=== PATIENT | female | born 1950 | race Caucasian/White ===

== ENCOUNTER 2021-12-13 07:55 | Outpatient (RCR) | payer MEDICARE, OTHER, SELFPAY ==
--- NOTE | 2021-12-13 09:14 | PTOPEVAL ---
PHYSICAL THERAPY EVALUATION AND PLAN OF CARE 12-13-21 Thank you for referring Adrienne Jose to [facility] for the diagnosis of lumbar spinal stenosis. Adrienne is scheduled to be seen for therapy? 2 x/week for 4 weeks. Her treatment plan includes aquatic therapy, for the buoyancy effects of the water, to ease movement and decrease pain with movement/exercises. Please review, sign, date and return this plan of care JENNIFER. I agree with and certify that the following plan of care is medically necessary. Referring Physician Date Attending Provider: Rosa Nicole MD Outpatient Past Medical History Past Medical History Source of Past Medical History Patient Neurological History Hx Cerebrovascular Accident (CVA) Yes: mini strokes - slight word finding issues Hx Other Neurological Disorders Yes: some tremors in hands-? 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 Hx Fractures Yes: R wrist-casted, Hx Orthopedic Surgery Yes: 8 surgeries R foot; trigger finger releases ~6 R and L fingers Hx Other Musculoskeletal Disorders Yes: pelvic fracture with surgical stabilization; B shoulder pain Endocrine History Hx Hypothyroidism Yes: meds HEENT History Hx Other HEENT Disorders Yes: wear glasses Reproductive History Hx Tubal Ligation Yes Other History Hx Other Medical Conditions Yes: have neurostimulator implanted for R foot pain; large breasts Evaluation Information Problem Diagnosis lumbar spinal stenosis Onset Jun 2021 Subjective Information chronic back pain; have been Query Text:As Reported By Patient/ to multiple dr for back pain/? Family surgery; also needs hernia repair, dr wants to do when do back surgery; to have injections in back and L knee next week; Diagnostic Tests MRI For This Problem Yes: pt reports L 4-5 worse at last MRI Previous Treatments Previous Treatments For This Problem had PT here ~ 3 yr ago-no
--- NOTE | 2021-12-20 09:11 | PCPTNOTE ---
Patient arrived for scheduled appointment explaining to therapist she went to urgent care Monday due to having a rash over chest onto stomach. Was given antibiotic and steroid cream for possible fungal infection. With examination has red, yellow circles on left beast down sternum and spots at underwear line. Due to patient being at 8/10 pain this date and getting injection into low back tomorrow would rather due a pool session then land session. Educated on monitoring skin appearance to return to pool session and possibility of doing land session until infection clears up. Had treating therapist exam patient as well to be aware of infection for treatment on Monday. Cancelled session this date due to above reasons.
--- NOTE | 2021-12-24 09:14 | PCPTNOTE ---
Addendum entered by Katharine Wise, SALON STYLIST 12/24/21 10:00: Patient had called, & left a message that she was canceling her scheduled appointment this date due to still having a rash. Original Note: Patient did not show up for scheduled appointment this date. Called & had to leave a message.
--- NOTE | 2022-02-08 10:06 | PCPTNOTE ---
PHYSICAL THERAPY DISCHARGE REPORT 02-08-22 Attending Provider: Rosa Nicole MD Patient:Adrienne Jose Date of :1950 Mrs. Jose has not returned for any further treatments since the initial evaluation for the diagnosis of lumbar stenosis, on 12/13/2021, therefore she will be discharged at this time. The goals were not assessed. Thank you for referring this patient to [facility]. Please review, sign, date and return this discharge summary JENNIFER. I have been updated about the patient's current status and I agree with discharge from the above service at this time. Referring Physician Date
== END 2022-02-08 14:46 | disposition home or self-care (01) ==
LOC: ANHPT 07:55
PROVIDERS: PCP Internal Medicine
DX: M48.062 Spinal stenosis, lumbar region with neurogenic claudication (principal)
CPT/HCPCS: 97162

== ENCOUNTER 2022-08-10 09:00 | Outpatient (RCR) | payer MEDICARE, OTHER, SELFPAY ==
--- NOTE | 2022-06-13 13:12 | PCPTNOTE ---
Patient did not show up for initial evaluation scheduled for 12:30 pm on MondayJune 13.
--- NOTE | 2022-06-20 15:52 | PTOPEVAL1 ---
Assessment and note entered by Nas Howard, PT Evaluation Information Assessment Status Evaluation Diagnosis low back pain, gait instability, high fall risk Subjective Information Patient reports she has a history of falls with the last one happening about 6 weeks ago, along with the falls she has pain in [place] LE, the R LE secondary to a bad foot with multiple surgeries, and the LLE with sciatica going from the low back down to her toes. Patient reports she has a neural stimulator and would like to do some aquatic therapy. Reported Pain Level Pain Score 4: Self Report Assessment PT Clinical Summary Adrienne is a 71 year old female coming into the clinic today secondary to back pain that radiates down the LLE, gait instability and a history of falls. The patient has poor core strength secondary to multiple abdominal surgeries and a reported inguinal hernia. Physical therapy will work with the patient on aquatic therapy to see if the warmth and reduced weight on her joints will allow for her to work on her core strength and balance. If back pain does calm down to not having active spasms will work on modalities or manual therapy if applicable. Plan of Care Interventions Aquatic Therapy,Gait Training,Hot Pack/Cold Pack, Manual Therapy,Mechanical Traction,Neuro Re- education,Patient/Caregiver Education,Therapeutic Activities,Therapeutic Exercise,Ultrasound PT Services Indicated Yes Treatment Frequency and 2x/wk for a trial and then reassess Duration These treatments will address the objective and functional deficits as defined above. The patient will be advanced safely and appropriately in order for the patient to progress towards his/her prior level of function. Additional exercises will be introduced and as well as a comprehensive home exercise program upon discharge, if needed, ?to ensure carryover of functional gains achieved in the clinic. This treatment plan has been reviewed and agreement upon by the patient.
--- NOTE | 2022-07-13 08:55 | PTOPREEVAL ---
Assessment and note entered by Nas Howard, PT Evaluation Information Assessment Status Re-evaluation Diagnosis low back pain, gait instability, high fall risk Subjective Information Patient reports no falls since starting therapy. She thinks that the aquatic therapy is helping her and she is sore after it, but not pain. Still feeling radiating pain, but all in all pain is a little bit better. She feels she is able to move around the house and do her chores easier. She is currently doing her Charisse decorating a little bit at a time to not over do it and hurt her back more. Reported Pain Level Pain Score 3: Self Report Assessment PT Clinical Summary Adrienne has come in for 4 visits with 2 being aquatic therapy. She is walking better from observation and from her own opinion. Less pain although still having her radiation. Patient reporting moving around more easy, but also admitting she is trying not to over do it on any given day. I think that it would be good to continue to do Aquatic therapy and after next re-evaluation try to transition her to at least 50% land therapy instead of all aquatic therapy. Plan of Care Interventions Aquatic Therapy,Gait Training,Hot Pack/Cold Pack, Manual Therapy,Neuro Re-education,Patient/ Caregiver Education,Therapeutic Activities, Therapeutic Exercise,Ultrasound PT Services Indicated Yes Treatment Frequency and 1-2x/wk for 4 weeks Duration These treatments will address the objective and functional deficits as defined above. The patient will be advanced safely and appropriately in order for the patient to progress towards his/her prior level of function. Additional exercises will be introduced and as well as a comprehensive home exercise program upon discharge, if needed, ?to ensure carryover of functional gains achieved in the clinic. This treatment plan has been reviewed and agreement upon by the patient.
--- NOTE | 2022-07-29 12:03 | PCPTNOTE ---
pt called and canceled today's appt due to having a migraine;
--- NOTE | 2022-08-10 10:00 | PTOPREEVAL ---
Assessment and note entered by Nas Howard, PT Evaluation Information Assessment Status Re-evaluation Diagnosis low back pain, gait instability, high fall risk Subjective Information Patient reports she is doing better and thinks the aquatic therapy is really helping her. Reports her main problem is endurance, because she is doing well in the morning and afternoon, but by the evening she is fatigued and notices changes and substitutions on the legs with walking. She has done better with planning out activities so she can do them a little at a time and not over do it. Reported Pain Level Pain Score 4: Self Report Assessment PT Clinical Summary Adrienne is a 71 year old female coming into the clinic since June 20 for low back pain. She has made 10 visits so far mainly aquatic therapy sessions. The patient reports increased endurance with decreased pain on average. She has met her endurance goals and new strength goals written. Will transition to 50/50 land aquatic therapy to improve functional mobility. Plan of Care Interventions Aquatic Therapy,Gait Training,Hot Pack/Cold Pack, Manual Therapy,Neuro Re-education,Patient/ Caregiver Education,Therapeutic Activities, Therapeutic Exercise,Ultrasound PT Services Indicated Yes Treatment Frequency and 2xwk/4 weeks Duration These treatments will address the objective and functional deficits as defined above. The patient will be advanced safely and appropriately in order for the patient to progress towards his/her prior level of function. Additional exercises will be introduced and as well as a comprehensive home exercise program upon discharge, if needed, ?to ensure carryover of functional gains achieved in the clinic. This treatment plan has been reviewed and agreement upon by the patient.
--- NOTE | 2022-09-05 08:30 | PCPTNOTE ---
Patient called & cancelled scheduled appointment this date due to still wearing O2, and not feeling comfortable driving with it.
--- NOTE | 2022-09-20 16:03 | PCPTNOTE ---
Admitting Provider: Attending Provider: Tarik Zeng Patient:Adrienne Jose Date of :1950 Patient has not returned for any further treatments since 08/10/2022, therefore (he/she) will be discharged at this time. Patient?s initial visit was on 06/20/2022 14:30 and (he/she) had a total of ___10 visits. The goals have been partially met). Thank you for referring this patient to [facility]. Please review, sign, date and return this discharge summary JENNIFER. I have been updated about the patient's current status and I agree with discharge from the above service at this time. Referring Physician Date
== END 2022-09-18 23:59 | disposition home or self-care (01) ==
LOC: ANHPT 09:00
PROVIDERS: PCP Internal Medicine
DX: M54.50 Low back pain, unspecified (principal); R26.81 Unsteadiness on feet; Z91.81 History of falling
CPT/HCPCS: 97110; 97113; 97161; 99199

== ENCOUNTER 2024-04-14 17:33 | Inpatient (IN) | payer MEDICARE, OTHER, SELFPAY ==
[2024-04-14] VITALS (9 sets, daily range): BP systolic 122–140; BP diastolic 55–74; PULSE 84–96; RESP 20–23; TEMP 36.4–36.8; O2SAT 95–97; BMI 29.7
--- NOTE | ~2024-04-14 | US_ITS ---
EXAMINATION: US venous doppler [facility] DATE: 04/15/2024 14:56 INDICATION: Lower extremity edema bilaterally . TECHNIQUE: Grayscale images without and with compression and Doppler images of the bilateral lower ex tremity veins were obtained. COMPARISON: None FINDINGS: The right common femoral vein, profunda (deep) femoral vein, femoral vein, popliteal vein, peroneal v ein, posterior tibial veins, gastrocnemius vein, and greater saphenous vein are patent. The left common femoral vein, profunda (deep) femoral vein, femoral vein, popliteal vein, peroneal v ein, posterior tibial veins, gastrocnemius vein, and greater saphenous vein are patent. IMPRESSION: Patent bilateral lower extremity veins. No evidence of deep venous thrombosis. Reviewed, dictated and finalized at location K.
--- NOTE | ~2024-04-14 | XR_ITS ---
XR chest 1V portable DATE: 04/14/2024 18:24 INDICATION: Dyspnea TECHNIQUE: Portable AP chest on 04/14/2024 at 1819 hours COMPARISON: None FINDINGS: Borderline or increased heart size. Aortic arch calcification and mild tortuosity. No hilar or mediastinal enlargement. There is [id number] elevation of left diaphragm. There is bibasilar atelectasis. The lungs othe rwise appear clear. The electrode overlies the lower thoracic spinal canal, with battery pack overlying the right upper a bdomen. Osteopenia. IMPRESSION: Borderline or increased heart size Aortic atherosclerosis Mild to moderate elevation of left diaphragm Bibasilar atelectasis Osteopenia Reviewed, dictated and finalized at location J.
--- NOTE | 2024-04-14 17:44 | ECG_ITS ---
Test Date: 2024-04-14 17:42:11 Measurements Intervals [place] Rate: 82 P: 0 OK: 291 QRS: 21 QRSD: 85 T: 61 QT: 351 QTc: 411 Interpretive Statements ELECTRONIC ATRIAL PACEMAKER ATYPICAL ECG No previous ECG available for comparison Electronically Signed On 04-15-2024 10:56:22 CDT by Tejinder Marcelo M.D.
[2024-04-14] MEDS: IPRATROPIUM 0.5 MG/ALBUTEROL SULFATE 2.5 MG AMPUL.NEB 3 ML INHALATION ×2 (18:02→19:10)
[2024-04-14] MEDS: methylPREDNISolone SOD SUCC 125 MG VIAL IV PUSH (18:05)
[2024-04-14] MEDS: BENZONATATE 100 MG CAPSULE 200 MG PO (18:05)
[2024-04-14 18:08] LABS: Basophils Absolute Auto 0.1 K/mm3 (0.0-0.1); Basophils Percent Auto 0.6 % (0.2-1.2); Eosinophils Absolute Auto 0.1 K/mm3 (0-0.3); Eosinophils Percent Auto 0.6 % (0-4.4); Hemoglobin 10.4 g/dL (12.0-15.0); Immature Granulocyte Absolute 0.26 K/mm3 (0.00-0.031); Immature Granulocyte Percent A 2.9 % (0-0.5); Lymphocytes Absolute Auto 1.59 K/mm3 (0.9-3.2); Lymphocytes Percent Auto 17.7 % (18.3-44.2); Mean Corpuscular HGB Conc 33.5 g/dl (32-36); Mean Corpuscular Hemoglobin 29.7 pg (26-34); Mean Corpuscular Volume 88.6 fl (80-100); Mean Platelet Volume 9.5 fl (7.4-10.4); Monocytes Absolute Auto 0.7 K/mm3 (0.1-0.6); Neutrophils Absolute Auto 6.3 K/mm3 (1.3-6.7); Neutrophils Percent Auto 70.2 % (45.5-73.1); Platelet Count Result 334 k/mm3 (150-375); Red Cell Distribution Width 13.8 % (11.5-14.5)
[2024-04-14 18:17] LABS: Lactic Acid Reflex 1.6 mmol/L (0.7-2.0)
[2024-04-14 18:19] LABS: Alanine Aminotransferase 20 U/L (6-35); Albumin Level 3.4 g/dL (3.5-5.1); Alkaline Phosphatase 106 U/L (38-126); Anion Gap 6 mmol/L (4-12); Aspartate Amino Transferase 30 U/L (14-36); Bilirubin,Total 0.4 mg/dL (0.2-1.3); Blood Urea Nitrogen 10 mg/dL (7-17); Calcium 8.1 mg/dL (8.4-10.2); Carbon Dioxide 31 mmol/L (22-30); Chloride 89 mmol/L (98-107); Estimated CRCL calculation 47 ml/min; Estimated Glomerular Filt Rate > 60; Glucose 116 mg/dL (65-110); INR 0.9; Magnesium 1.8 mg/dL (1.6-2.3); Potassium 4.1 mmol/L (3.4-5.0); Prothrombin Time 12.2 Seconds (11.1-14.7); Sodium 126 mmol/L (137-145)
[2024-04-14 18:20] LABS: Partial Thromboplastin Time 29.1 Seconds (22.3-36.8)
[2024-04-14 18:23] LABS: Alveolar/Arterial O2 Gradient 27.4 mmHg; Base Excess ABG 5.1 mEq/l (+/-2.0); Fractional Inspired Oxygen 21 %; HCO3 ABG 30.1 mEq/l (22.0-26.0); Oxygen Content ABG 14.3 %vol (16.0-22.0); Oxygen Saturation ABG 93.9 % (95.0-100.0); Oxyhemoglobin 92.3 % THb (90.0-100.0); PCO2 ABG 45.8 mmHg (35.0-45.0); PO2 ABG 67.5 mmHg (80.0-100.0); PO2 FiO2 Ratio Arterial Blood 3.21 %; pH ABG 7.435 (7.350-7.450)
[2024-04-14 18:24] LABS: Device ROOM AIR; Site Drawn LEFT BRACHIAL
[2024-04-14 18:29] LABS: NT Pro B Type Natriuretic Pept 166 pg/mL (19.9-100); Troponin I < 0.012 ng/mL (0.000-0.034)
[2024-04-14 18:45] LABS: Influenza A QL RT-PCR Negative (Negative); Influenza B QL RT-PCR Negative (Negative); RSV RNA, RT-PCR Negative (Negative); SARS-CoV-2 RNA PCR Negative (Negative)
--- NOTE | 2024-04-14 18:45 | ED.GENADULT ---
HPI - General Adult General Chief complaint: Shortness of Breath/Dyspnea Stated complaint: SOB Time Seen by Provider: 04/14/24 17:44 History of Present Illness HPI narrative: Patient is a 73-year-old female who presents emergency department with chief complaint of shortness of breath. Patient reports he has prior history of COPD and reports that she recently started having increasing cough shortness of breath patient reports he has been wheezing constantly reports that this feels similar whenever she has required admission in the past. Patient reports that she does not use home oxygen reports that she has had productive cough. Related Data Allergies Allergy/AdvReac Type Severity Reaction Status Date / Time Penicillins Allergy Mild Unknown Verified 04/14/24 18:04 propoxyphene Allergy Mild Agitated Verified 04/14/24 18:04 codeine AdvReac Mild Nausea Verified 04/14/24 18:04 morphine AdvReac Mild Nausea Verified 04/14/24 18:04 TETANUS ANTITOXIN Allergy Mild Swelling Uncoded 04/14/24 18:04 Review of Systems Review of Systems: A 10 system review of systems was completed on the patient and is negative except for what is stated in the HPI. Nursing and ancillary documentation was reviewed. Exam Narrative: GENERAL: Well-appearing, well-nourished, and in mild acute respiratory distress. HEAD: Normocephalic, atraumatic. EYES: PERRLA and EOMI. ENT: Nares clear, no rhinorrhea or epistaxis. Mucous membranes moist. NECK: Supple. CHEST: Wheezing to auscultation. Mild respiratory distress. HEART: Regular rate and rhythm. No murmur heard. Normal peripheral pulses. ABDOMEN: Soft, nontender, nondistended, normal active bowel sounds. EXTREMITIES: Normal range of motion. No edema. SKIN: Warm, dry, no rash. NEURO: No focal deficits. Alert and oriented x3. PSYCH: Normal mood and affect. Course Vital Signs Vital signs: Vital Signs Temperature 36.4 C L 04/14/24 17:41 Pulse Rate 89 04/14/24 17:41 Respiratory Rate 22 H 04/14/24 17:41 Blood Pressure 122/65 04/14/24 17:41 Pulse Oximetry 95 04/14/24 17:41 Oxygen Delivery Room Air 04/14/24 17:41 Temperature 36.4 C L 04/14/24 17:41 Pulse Rate 91 04/14/24 18:28 Respiratory Rate 20 08/18/24 18:28 Blood Pressure 122/65 04/14/24 17:46 Pulse Oximetry 96 04/14/24 17:49 Oxygen Delivery Room Air 04/14/24 17:49 Medical Decision Making MDM Narrative Medical decision making narrative: Differential diagnosis includes COPD exacerbation, pneumonia, ACS, COVID, flu, RSV Laboratory studies were obtained on the patient showed a normal CBC CMP was within normal limits ABG showed a pH is 7.43 pCO2 of 45.8 PO2 of 67.5 with a sat of 93.9 Chest x-ray showed no focal infiltrate COVID flu RSV were negative The patient received DuoNebs and steroids emergency department is still having symptoms. Patient will be admitted for observation Vital Signs Vital Signs: Vital Signs Temperature 36.4 C L 04/14/24 17:41 Pulse Rate 89 04/14/24 17:41 Respiratory Rate 22 H 04/14/24 17:41 Blood Pressure 122/65 04/14/24 17:41 Pulse Oximetry 95 04/14/24 17:41 Oxygen Delivery Room Air 04/14/24 17:41 Temperature 36.4 C L 04/14/24 17:41 Pulse Rate 91 04/14/24 18:28 Respiratory Rate 20 04/14/24 18:28 Blood Pressure 122/65 04/14/24 17:46 Pulse Oximetry 96 04/14/24 17:49 Oxygen Delivery Room Air 04/14/24 17:49 Lab Data 04/14/24 18:02 04/14/24 18:02 Labs: Lab Results 04/14/24 Range/Units 18:02 WBC 9.0 (4.5-10.0) K/mm3 RBC 3.50 L (4.2-5.4) M/mm3 Hgb 10.4 L (12.0-15.0) g/dL Hct 31.0 L (37.0-47.0) % MCV 88.6 (80-100) fl MCH 29.7 (26-34) pg MCHC 33.5 (32-36) g/dl RDW 13.8 (11.5-14.5) % Plt Count 334 (150-375) k/mm3 MPV 9.5 (7.4-10.4) fl Immature Gran % (Auto) 2.9 H (0-0.5) % Neut % (Auto) 70.2 (45.5-73.1) % Lymph % (Auto) 17.7 L (18.3-44.2) % [place] %
[2024-04-14 19:07] LABS: Procalcitonin 0.2 ng/mL
[2024-04-14] MEDS: ACETAMINOPHEN 325 MG TABLET 650 MG PO (20:04)
[2024-04-14 20:06] LABS: Add Urine Microscopic? YES; Appearance Urine Clear (Clear); Bacteria Urine None Seen /hpf; Bilirubin Urine Negative (Negative); Blood Urine Negative (Negative); Budding Yeast Urine Present /hpf; Color Urine Yellow (Yellow); Glucose Urine UA Negative (Negative); Ketones Urine Negative (Negative); Leukocyte Esterase Ur Trace LEU/UL (Negative); Nitrate Urine Negative (Negative); Non Pathogenic Casts 0-2; Protein Urine Negative (Negative); RBC Urine 0-2 /hpf (0-2); Specific Grav Ur 1.009 (1.001-1.035); Squamous Epithelial Cell Urine Occasional /hpf (Few)
--- NOTE | 2024-04-14 21:20 | PM.IMHP ---
H&P: HPI History of Present Illness Date/Time: 04/14/24 21:20 Chief Complaint: Shortness of breath. Narrative: This is a pleasant 73-year-old smoker with chronic obstructive pulmonary disease, hypertension, hyperlipidemia, and hypothyroidism who presented to the emergency department via private vehicle from home for evaluation of shortness of breath. She admits that she has a smoker's cough at baseline however over the past 10 to 14 days she has had an increasing cough which is productive of greenish-colored sputum. She is also feeling increasingly short of breath on lesser and lesser exertion and has been wheezing. She has taken DayQuil, Robitussin, and Zyrtec at home with out much benefit. She came in today as her symptoms are not improving. She has some swelling in her legs which is a bit unusual. She denies calf pain and recent travel. No known sick contacts. She also denies fever, sore throat, chest pain, pleuritic pain, nausea, vomiting, diarrhea, syncope, near syncope, and orthopnea. In the ED: She was afebrile on arrival with stable vital signs. SpO2 has been in the mid upper 90s on room air. Labs are significant for WBC count of 9.0, hemoglobin 10.4, sodium 126, chloride 89, BUN 10, creatinine 0.90, lactic acid 1.6, proBNP 166. She tested negative for influenza, RSV, and COVID. Chest x-ray showed borderline/increased heart size, aortic atherosclerosis, mild to moderate elevation of left hemidiaphragm, bibasilar atelectasis, and osteopenia. She was given a nebulizer treatment and Solu-Medrol and is being admitted in this setting for further treatment of COPD. Review of Systems Review of Systems: 12 systems were reviewed and are negative except for as per HPI. [facility] Past Medical History Medical History (Updated 04/14/24 @ 22:54 by Mary De Oliveira PA-C) Chronic obstructive pulmonary disease Hyperlipidemia Hypertension Hypothyroidism Tobacco dependence Transient ischemic attack Surgical History Surgical History (Updated 04/14/24 @ 22:43 by Mary De Oliveira PA-C) History of appendectomy History of cataract extraction History of cholecystectomy History of hysterectomy History of orthopedic surgery History of tubal ligation Family History Family History Daughter Migraine Mother Migraine Hypertension Father Cancer Hypertension Sibling Diabetes mellitus Acute myocardial infarction Cerebrovascular accident Hypertension Social History Social History (Updated 04/14/24 @ 22:45 by Mary De Oliveira PA-C) Social History: Surrogate medical decision maker: Torres Jose, spouse. Code status: Full code. Smoking packs per day: 0.25 Smoking cigarettes per day: 5.0 Years smoked: 55 Smoking pack-years: 13.75 Smoking status: Current every day smoker Tobacco type: cigarettes Alcohol intake: former Substance use type: marijuana Do You Feel Safe in your Home?: Yes Lack of Transportation: No Lack of Food: Never True Current Housing: I Have Housing Concerned About Future Housing: No Difficulty Paying Gas/Electric Bills: No Difficulty Paying for Meds: No Currently Unemployed: No Education: High School Diploma/GED Difficulty w/ Childcare or Family Care: No Spiritual care concerns: No Meds Home Medications and Allergies Home Medications Medication Instructions Recorded Confirmed Type amlodipine 5 mg tablet 5 mg PO HS 04/14/24 04/14/24 History atorvastatin 40 mg tablet 40 mg PO HS 04/14/24 04/14/24 History fluticasone fur. 100 mcg-umeclid 1 inh inhalation DAILY 04/14/24 04/14/24 History 62.5 mcg-vilant 25 mcg inhalat.powder (Trelegy Ellipta) fluticasone propionate 230 2 puff inhalation Q6H PRN Wheezing 04/14/24 04/14/24 History mcg-salmeterol 21 mcg/actuation HFA inhaler (Advair HFA) hydrochlorothiazide 12.5 mg tablet 12.5 mg PO HS 04/14/24 04/14/24 History levothyroxine 50 mcg tablet
[2024-04-14] MEDS: methylPREDNISolone SOD SUCC 125 MG VIAL 60 MG IV PUSH (21:58)
--- NOTE | 2024-04-14 23:07 | PCRCNOTE ---
Patient's 1999 updraft treatment was omitted due to patient just having 2 treatments in ED around 1830 and 191. Treatment to resume at 0200.
[2024-04-15] VITALS (13 sets, daily range): BP systolic 109–128; BP diastolic 66–70; PULSE 91–110; RESP 14–20; TEMP 36.2–37; O2SAT 91–97
--- NOTE | 2024-04-15 | ECHO_ITS ---
Patient Info Name: Adrienne Jose Age: 73 years : 1950 Gender: Female Ht: 63 in Wt: 167 lbs BSA: 1.86 m2 HR: 100 bpm BP: 128 / 70 mmHg Heart Rhythm: Sinus Rhythm Technical Quality: Fair Exam Date: 04/15/2024 12:37 PM Exam Location: Echo Lab Patient Status: Inpatient Admit Date: 04/15/2024 Staff Ordering Physician: Mary De Oliveira PA-C Early Learning Teacher: Jose Mijares RDCS Attending Provider: Karrie Adams MD Referring Physician: Yennifer MONTOYA; Exam Type: CA echo doppler color flow Study Info Indications R06.02 - Shortness of breath - Enlarged Heart on X-Ray Complete two-dimensional, color flow and Doppler transthoracic echocardiogram is performed. Summary 1. Left ventricular chamber dimension is normal. 2. Left ventricular systolic function is normal, estimated at >70%. 3. There is mildly increased left ventricular wall thickness. 4. The left ventricular diastolic function is grade I diastolic dysfunction. 5. Right ventricular systolic function is normal. 6. There is mild tricuspid valve regurgitation. Left Ventricle Left ventricular chamber dimension is normal. Left ventricular systolic function is normal, estimated at >70%. There is mildly increased left ventricular wall thickness. The left ventricular diastolic function is grade I diastolic dysfunction. Right Ventricle Right ventricular chamber dimension is normal. Right ventricular systolic function is normal. Left Atria Left atrial chamber dimension is normal. Right Atria Right atrial chamber dimension is normal. Atrial Septum Intact interatrial septum visualized by color flow imaging. Aortic Valve The aortic valve is probable trileaflet. There is no aortic valve stenosis. There is no aortic valve regurgitation. Pulmonic Valve The pulmonic valve is not well visualized. There is trace pulmonic regurgitation. Mitral Valve There is trace mitral valve regurgitation. Tricuspid Valve There is mild tricuspid valve regurgitation. Pericardium/Pleural There is trivial anterior pericardial effusion. Inferior Vena Cava Normal inferior vena cava with >50% collapse upon inspiration consistent with normal right atrial pressure, 3 mmHg. Aorta The aortic root size at the sinus of Valsalva is normal. Left Ventricular Outflow Tract Name Value Normal LVOT 2D LVOT Diameter 1.9 cm LVOT Doppler LVOT Peak Gradient 8 mmHg LVOT Mean Gradient 4 mmHg LVOT VTI 27 cm LVOT VTI/AV VTI Ratio 0.8 LVOT Stroke Volume 80 ml LVOT CO 7.3 l/min LVOT CI 3.9 l/min/m2 Pulmonic Valve Name Value Normal PV Doppler PV Peak Gradient 5 mmHg PV Regurgitation Doppler [place] Peak End
[2024-04-15] MEDS: amLODIPine BESYLATE 5 MG TABLET PO ×2 (00:04→21:15)
[2024-04-15] MEDS: PREGABALIN (*CRX) 50 MG CAPSULE 200 MG PO ×4 (00:04→21:14)
[2024-04-15] MEDS: LEVOTHYROXINE SODIUM 50 MCG TABLET PO ×2 (00:04→21:15)
[2024-04-15] MEDS: ALPRAZolam (*CRX) 0.125 MG TABLET PO (00:05)
[2024-04-15] MEDS: ATORVASTATIN 40 MG TABLET PO ×2 (00:05→21:15)
[2024-04-15] MEDS: MELATONIN 5 MG TABLET PO ×2 (00:05→21:15)
[2024-04-15] MEDS: PANTOPRAZOLE 40 MG TABLET PO ×2 (00:05→21:15)
[2024-04-15] MEDS: SPIRONOLACTONE 50 MG TABLET PO ×2 (00:05→21:15)
[2024-04-15] MEDS: AZITHROMYCIN 250 MG TABLET 500 MG PO (00:05)
[2024-04-15] MEDS: VALSARTAN 40 MG TABLET PO (00:08)
[2024-04-15 00:26] LABS: Thyroid Stimulating Hormone Reflex 0.732 uIU/mL (0.465-4.68)
[2024-04-15] MEDS: IPRATROPIUM 0.5 MG/ALBUTEROL SULFATE 2.5 MG AMPUL.NEB 3 ML INHALATION ×4 (02:45→20:23)
[2024-04-15] MEDS: traMADol HCL (*CRX) 50 MG TABLET PO (06:25)
[2024-04-15 06:32] LABS: Creatinine Urine 79.3 mg/dL; Urea Random Urine 328 MG/DL
[2024-04-15 06:35] LABS: Sodium Urine Random 26 meq/L
[2024-04-15] MEDS: guaiFENesin 12 HR 600 MG TABCR 1200 MG PO ×2 (08:25→21:15)
[2024-04-15] MEDS: predniSONE 20 MG TABLET 40 MG PO (08:26)
--- NOTE | 2024-04-15 09:38 | PM.IMPN ---
Progress Note: A&P Assessment and Plan (1) Acute hypoxic respiratory failure: Code(s): J96.01 - Acute respiratory failure with hypoxia Status: Acute Assessment and Plan: - Likely secondary to # 2. - Troponin negative. - CXR with no infiltrates. - Rapid acute virus PCR negative, including Covid, RSV, Flu A/B. - BNP fairly wnl. - Further mgt per # 2. (2) COPD exacerbation: Code(s): J44.1 - Chronic obstructive pulmonary disease with (acute) exacerbation Status: Acute Assessment and Plan: - Symptoms improving per patient. - Currently good O2 sats > 92 % on RA. - No acute cardiopulmonary symptoms noted. - Continue PO steroids, scheduled bronchodilators, PO Azithromycin. - Supplemental O2 PRN to maintain sats > 90 %. - Encouraged with smoking cessation. (3) Hyponatremia: Code(s): E87.1 - Hypo-osmolality and hyponatremia Status: Acute Assessment and Plan: - Asymptomatic. - Possibly meds related with Valsartan and spironolactone. - Hold valsartan for now. - Urine w/u labs pending. - Monitor trend. (4) Hypertension: Code(s): I10 - Essential (primary) hypertension Status: Acute Assessment and Plan: - Appears well controlled. - Continue amlodipine and spironolactone. (5) Hyperlipidemia: Code(s): E78.5 - Hyperlipidemia, unspecified Status: Acute Assessment and Plan: Continue statin. (6) Hypothyroidism: Code(s): E03.9 - Hypothyroidism, unspecified Status: Acute Assessment and Plan: - TSH wnl. - Continue home dose levothyroxine. (7) Tobacco dependence: Code(s): F17.200 - Nicotine dependence, unspecified, uncomplicated Status: Acute Assessment and Plan: - Encouraged with cessation. - Nicotine patch PRN. Plan Code Status: FULL-CODE. Diet: Heart Healthy. DVT PPx: SCD's. Time Spent With Patient Time with patient: 25 - 35 minutes Subjective Date/time seen: 04/15/24 09:15 Interval history: Patient presented to the ER with reports of worsening SOB within the last 2 weeks. Patient has a Hx of COPD and continues to smoke, currently about 4-5 cigarettes a day. Patient admitted for COPD stabilization and hyponatremia mgt. Review of Systems Review of Systems: All systems reviewed & are unremarkable except as noted in HPI and below Exam Narrative: General: Fair appearing, no acute distress. HEENT: Atraumatic, normocephalic, PERRL, EOMI Neck: Supple Respiratory: Moderate expiratory wheezes.Slight cough with some greenish sputum. Cardiovascular: RRR, no murmurs. Abdomen: Soft, non-tender, non-distended, +ve sounds X4 quadrants. Skin: Warm and dry, no lesions. Neuro: Well oriented, CN II-XII grossly intact. Extremities: Slight edema, +1 to Left foot. Psych: Pleasant and cooperative. Objective Data Vital Signs Vital Signs: Vital Signs - 24 hr 04/14/24 17:41 04/14/24 17:49 04/14/24 18:16 Temperature 97.5 F L Pulse Rate 89 84 Respiratory Rate 22 H 22 H Blood Pressure 122/65 Pulse Oximetry 95 96 Oxygen Delivery Room Air Room Air Fraction of Inspired Oxygen 04/14/24 18:28 04/14/24 17:41 04/14/24 17:46 Temperature Pulse Rate 91 88 85 Respiratory Rate 20 23 H 23 H Blood Pressure 140/74 122/65 Pulse Oximetry 96 97 Oxygen Delivery Fraction of Inspired Oxygen 04/14/24 19:13 04/14/24 19:25 04/14/24 19:26 Temperature 98.2 F Pulse Rate 87 89 96 Respiratory Rate 20 20 20 Blood Pressure 138/66 Pulse Oximetry 95 Oxygen Delivery Fraction of Inspired Oxygen 04/14/24 20:24 04/14/24 22:00 04/15/24 02:45 Temperature 97.9 F Pulse Rate 86 110 H Respiratory Rate 20 20 Blood Pressure 136/55 L Pulse Oximetry 97 Oxygen Delivery Room Air Fraction of Inspired Oxygen 04/15/24 02:50 04/15/24 05:17 04/15/24 08:34 Temperature 98.6 F Pulse Rate 110 H 100 97 Respiratory Rate 20 20 Blood Pressure 128/70 Pulse Oximetry 93
[2024-04-15] MEDS: polyethylene glycoL 3350 17 GM POWD.PACK PO (12:57)
[2024-04-15] MEDS: ACETAMINOPHEN 325 MG TABLET 650 MG PO (15:36)
[2024-04-15] MEDS: AZITHROMYCIN 250 MG TABLET PO (21:15)
[2024-04-15] MEDS: DOCUSATE SODIUM 100 MG CAPSULE PO (21:15)
[2024-04-16] VITALS (7 sets, daily range): BP systolic 142; BP diastolic 69; PULSE 92–106; RESP 20–24; TEMP 36.3; O2SAT 92–96
--- NOTE | 2024-04-16 03:05 | PCRCNOTE ---
Per patient's request, RT administered updraft treatment at 0300. Patient states she wakes up at this time at home.
[2024-04-16] MEDS: IPRATROPIUM 0.5 MG/ALBUTEROL SULFATE 2.5 MG AMPUL.NEB 3 ML INHALATION ×3 (03:07→13:26)
[2024-04-16] MEDS: PREGABALIN (*CRX) 50 MG CAPSULE 200 MG PO ×2 (05:13→13:05)
[2024-04-16] MEDS: FLUTICASONE/UMECLIDIN/VILANTER 100-62.5-25 MCG ELLIPTA 1 PUFF INHALATION (07:42)
[2024-04-16] MEDS: predniSONE 20 MG TABLET 40 MG PO (08:01)
[2024-04-16] MEDS: guaiFENesin 12 HR 600 MG TABCR 1200 MG PO (08:01)
[2024-04-16] MEDS: DOCUSATE SODIUM 100 MG CAPSULE PO (08:02)
[2024-04-16] MEDS: polyethylene glycoL 3350 17 GM POWD.PACK PO (08:02)
--- NOTE | 2024-04-16 14:22 | PM.DS ---
DS: Admitting Diagnosis Discharge Date 04/16/2024 Admitting Diagnosis Worsening SOB DS: Discharge Diagnosis Discharge Diagnosis (1) Acute hypoxic respiratory failure: Code(s): J96.01 - Acute respiratory failure with hypoxia Status: Acute Assessment and Plan: - Likely secondary to # 2. - Troponin negative. - CXR with no infiltrates. - Rapid acute virus PCR negative, including Covid, RSV, Flu A/B. - BNP fairly wnl. (2) COPD exacerbation: Code(s): J44.1 - Chronic obstructive pulmonary disease with (acute) exacerbation Status: Acute Assessment and Plan: - Symptoms well improved/ - Currently good O2 sats > 92 % on RA. - No acute cardiopulmonary symptoms noted. - Discharged on PO steroids, scheduled bronchodilators, and PO Azithromycin. - Encouraged with smoking cessation. (3) Hyponatremia: Code(s): E87.1 - Hypo-osmolality and hyponatremia Status: Acute Assessment and Plan: - Asymptomatic. - Possibly meds related with Valsartan and spironolactone. - Valsartan held inpatient. - Follow-up with PCP for repeat labs and possible meds adjustments. (4) Hypertension: Code(s): I10 - Essential (primary) hypertension Status: Acute Assessment and Plan: - Well controlled inpatient. - Continue amlodipine and spironolactone. (5) Hyperlipidemia: Code(s): E78.5 - Hyperlipidemia, unspecified Status: Acute Assessment and Plan: Continue statin. (6) Hypothyroidism: Code(s): E03.9 - Hypothyroidism, unspecified Status: Acute Assessment and Plan: - TSH wnl. - Continue home dose levothyroxine. (7) Tobacco dependence: Code(s): F17.200 - Nicotine dependence, unspecified, uncomplicated Status: Acute Assessment and Plan: - Encouraged with cessation. - Nicotine patch PRN. Plan Code Status: FULL-CODE. Diet: Heart Healthy. DVT PPx: SCD's. DS: Summary Hospital Course Hospital Course: Patient presented to the ER with reports of worsening SOB with minimal exertion for a couple of days prior to her presentation. Patient has a Hx of COPD and was observed to be in exacerbation. She had a negative CXR, with her acute respiratory virus panel also noted to be negative. She was initially on supplemental O2 that has been able to be weaned off prior to her discharge. Patient has been treated with antibiotics, IV and oral steroids, in addition to scheduled bronchodilators. Patient's sputum culture had some budding yeast that was likely secondary to colonization, as the patient did not have any oral thrush or other yeast infection signs. Patient was noted to be hyponatremic with Na 126 on admission but was asymptomatic. Her Valsartan was held inpatient and patient advised to discuss resumption with her PCP. She reports that she's back to her baseline and wants to go back home. Patient was strongly counseled on smoking cessation. No signs of acute distress was noted or reported prior to discharge and pt is medically stable to go home on self care. Time spent discussing smoking cessation with patient: 3 to 10 minutes Status at Discharge Functional status at discharge: independent ambulation Overall status at discharge: patient is progressing back to baseline Time Spent with Patient Time attestation: Total time spent providing and/or coordinating discharge services: Time spent: Greater than 30 minutes Exam Narrative: General: Fair appearing, no acute distress. HEENT: Atraumatic, normocephalic, PERRL, EOMI Neck: Supple Respiratory: Diminished bilaterally. Cardiovascular: RRR, no murmurs. Abdomen: Soft, non-tender, non-distended, +ve sounds X4 quadrants. Skin: Warm and dry, no lesions. Neuro: Well oriented, CN II-XII grossly intact. Extremities: Slight edema, +1 to Left foot. Psych: Pleasant and cooperative. DS: Data Data Completed and Pending Labs on day of discharge: Preliminary micro results at discharge 04/15/
[2024-04-16 16:39] LABS: Osmolality, Urine 305 mOsm/kg (50-1200)
== END 2024-04-16 16:25 | disposition home or self-care (01) | DRG 190 ==
LOC: ANHED 19:10 → ANH2MED 19:29
PROVIDERS: Physician Assistant; Admitting Provider General Practice; Emergency Provider Emergency Medicine; PCP Internal Medicine; Visit Provider Nurse Practitioner Adult Health
DX: J44.1 Chronic obstructive pulmonary disease with (acute) exacerbation (principal); J96.01 Acute respiratory failure with hypoxia; E87.1 Hypo-osmolality and hyponatremia; T46.5X5A Adverse effect of other antihypertensive drugs, initial encounter; T50.0X5A Adverse effect of mineralocorticoids and their antagonists, initial encounter; E78.5 Hyperlipidemia, unspecified; I10 Essential (primary) hypertension; I51.7 Cardiomegaly; F17.210 Nicotine dependence, cigarettes, uncomplicated; E03.9 Hypothyroidism, unspecified; Z20.822 Contact with and (suspected) exposure to COVID-19; Z86.73 Personal history of transient ischemic attack (TIA), and cerebral infarction without residual deficits; Z90.49 Acquired absence of other specified parts of digestive tract
CPT/HCPCS: 36415; 36600; 71045; 80053; 81001; 82570; 82805; 83605; 83735; 83880; 83930; 83935; 84145; 84300; 84443; 84484; 84540; 85025; 85610; 85730; 87070; 87086; 87088; 87205; 87637; 93005; 93306; 93970; 94640; 96374; 99285; A9270; G0378; J2919; J7512

== ENCOUNTER 2025-05-31 12:53 | Inpatient (IN) | payer MEDICARE, OTHER, SELFPAY ==
--- OUTSIDE RECORDS SUMMARY | 2025-05-27 12:35 | XMS_ITS | Encounter Summary ---
Author Organization [facility] Healthcare Address [address] [place] [address] Care Team Providers Care Lobby Porter Name Role Phone Darrynch, Hardy Sun MD Unavailable Kishan Melissa MD Primary Care Provider Tarik Zeng MD Unavailable [phone] Rosa Nicole MD Unavailable Tacos Pedraza MD Unavailable Jerry Solis MD Unavailable Seng AlexanderM Unavailable King Singh MD Unavailable [phone] Gladys Johnson NP Unavailable Iman Grande MD Unavailable Reason for Visit * Auth/Cert (Routine) Specialty Diagnoses / Procedures Referred By Contac t Referred To Contact Referral ID Status Reason Start Date Expiration Date Visits Re quested Visits Authorized [id number] 1 1 Encounter Details Date Type Department Care Team (Latest Contact Info) Description 05/27/2025 12:35 PM CDT Home Care Visit [facility] Home Health [address] [place] [address] Joan Hoffman RN SN OASIS START OF CARE Social History Tobacco Use Types Packs/Day Years Used Date Smoking Tobacco: Every Day Cigarettes 0.3 50.4 Started: 1975; Last attempted to quit: 01/31/2025 Passive Smoke Exposure: Past Smokeless Tobacco: Never Comments:Sometimes but very rarely 09/26/2024 smokes 3-5 cigs per day. TC Alcohol Use Standard Drinks/Week Comments Yes 0 (1 standard drink = 0.6 oz pur e alcohol) 2 drinks every 4-5 months OASIS D0700: Social Isolation Answer Da te Recorded Frequency of experiencing loneliness or isolatio n Often 05/27/2025 OASIS A1250: Transportation Answer Date Recorded Lack of Transportation (Medical) No 05/27/2025 Lack of Transportation (Non-Medical) No 05/27/2025 Patient Unable or Declines to Respond No 05/27/2025 OASIS B1300: Health Literacy Answer Nima e Recorded Frequency of needing help to read materials from doctor or pharmacy Never 05/27/2025 Humiliation, Afraid, Rape, and Kick questionnair e Answer Date Recorded Fear of Current or Ex-Partner No Emotionally Abused No 03/11/2019 Physically Abused No 03/11/2019 Sexually Abused No 03/11/2019 Overall Financial Resource Strain (CARDIA) Answe r Date Recorded How hard is it for you to pa y for the very basics like food, housing, medical care, and heating? Not hard at all 11/05/2024 PHQ-2 Answer Date Recorded PHQ-2 Total Score (If total score is 3 or more points, staff should administer the PHQ-9) 6 01/23/2025 Exercise Vital Sign Answer Date Recorde d Days of Exercise per Week 7 days 2018 Minutes of Exercise per Session 40 min 03/11/2019 PRAPARE - Transportation Answer Date Re corded In the past 12 months, has l ack of transportation kept you from medical appointments or from getting medications? No 10/26 In the past 12 months, has l ack of transportation kept you from meetings, work, or from getting things needed for daily living? No 11/05/2024 PHQ-9 Answer Date Recorded PHQ-9 Total Score 18 01/23/2025 Housing Stability Vital Sign Answer Nima e Recorded In the last 12 months, was t here a time when you were not able to pay the mortgage or rent on time? No 11/05/2024 In the past 12 months, how m any times have you moved where you were living? 0 11/05/2024 At any time in the past 12 m [facility], were you homeless or living in a alf (including now)? No 11/05/2024 Social Connection and Isolation Panel Answer Date Recorded In a typical week, how many times do you talk on the phone with family, friends, or neighbors? More than three times a week 05/07/2025 How often do you get togethe r with friends or relatives? Once a week 05/07/2025 How often do you attend chur ch or gnosticism services? Never 05/07/2025 Do you belong to any clubs o r organizations such as zoroastrian groups, unions, fraternal or athletic groups, or school groups? No 05/07/2025 How often do you attend meet ings of the clubs or organizations you belong to? Never 05/07/2025 Are you , , di vorced, , never , or living with a partner? 05/07/2025 AUDIT-C Answer Date Recorded Q1: How often do you have a drink containing alc ohol? Monthly or less 04/25/2025 Q2: How many drinks containi ng alcohol do you have on a typical day when you are drinking? 1 or 2 04/25/2025 Q3: How often do you have si x or more drinks on one occasion? Never 04/25/2025 Overall Financial Resource Strain (CARDIA) Answe r Date Recorded How hard is it for you to pa y for the very basics like food, housing, medical care, and heating? Not very hard 05/07/2025 Hunger Vital Sign Answer Date Recorded Within the past 12 months, y ou worried that your food would run out before you got the money to buy more. Never true 05/07/20 25 Within the past 12 months, t he food you bought just didn't last and you didn't have money to get more. Never true 05/07/2025 PRAPARE - Transportation Answer Date Re corded In the past 12 months, has l ack of transportation kept you from medical appointments or from getting medications? No 04/28 In the past 12 months, has l ack of transportation kept you from meetings, work, or from getting things needed for daily living? No 05/07/2025 Housing Stability Vital Sign Answer Nima e Recorded In the last 12 months, was t here a time when you were not able to pay the mortgage or rent on time? No 05/07/2025 In the past 12 months, how m any times have you moved where you were living? 0 05/07/2025 At any time in the past 12 m [facility], were you homeless or living in a alf (including now)? No 05/07/2025 [facility] Utilities Answer Date Recorded In the past 12 months has th e [email or web address], gas, oil, or water [employer] threatened to shut off services in your home? No 05/07/2025 Personal Safety Answer Date Recorded Have you ever been in or are you currently in a harmful physical or emotional relationship or is someone making you feel afraid or unsafe? Denies 05/06/2025 Comments No Sex and Gender Information Value Date Recorded Sex Assigned at Not on file Legal Sex Female 11:54 PM OPEN WINDER Gender Identity Not on file Sexual Orientation Not on file documented as of this encounter Last Filed Vital Signs Vital Sign Reading Time Taken Comments Blood Pressure 118/70 05/27/2025 1:32 PM CDT Pulse 80 05/27/2025 1:32 PM CDT Temperature 36.6 C (97.8 F) 05/27/2025 1:32 PM CDT Respiratory Rate 18 05/27/2025 1:32 PM CDT Oxygen Saturation 97% 05/27/2025 1:32 PM CDT Inhaled Oxygen Concentration - - Weight 68.9 kg (152 lb) 05/27/2025 1:32 PM CDT Height 160 cm (5' 3) 05/27/2025 1:32 PM CDT Body Mass Index 26.93 05/27/2025 1:32 PM CDT documented in this encounter Miscellaneous Notes * Home Health/Infusion SAMANTHA - Joan Hoffman RN - 05/27/2025 1:09 PM CDT SITUATION Focus of Care: unstable burst fracture L4 vertebra, s/p lumbar spinal fusion, Caregivers available: Spouse, Torres. BACKGROUND Pertinent Medical History/Hospitalizations: The patient is a 74 yrs female admitted from with a known history of Lumbar radiculopathy. She has pretty severe pain radiating from her back into her leftanterior thigh and knee. She has been ambulating with a walker, but the pain is excruciating and itis severely impacting her quality of life. Of note, she has a history of a prior L4-S1 posterior fusion. She had a fall following surgery with acute burst fracture of the L4 vertebra causing loosening and displacement of the L4 pedicle screws. She is no longer able to tolerate the severity of the pain.Pt with history of Hypothroidism, chronic pain, and depression. Prior Level of Functioning: Minimal-Moderate assist Current Living Conditions/Safety Hazards: Pt lives in a small cluttered home with spouse and three pets. ASSESSMENT Abnormal assessment findings: Inicsion to lower back, chronic pain Medication Issues: None Re-hospitalization risk: Low Barriers to care/social drivers: No barriers identified RECOMMENDATIONS POC confirmed with Dr. Melissa Plan for my discipline: SOC only Other disciplines ordered/recommended: PT and OT Supply/HME/equipment needs or issues: None Follow ups needed: None documented in this encounter Plan of Treatment Scheduled Procedures Name Priority Associated Diagnoses Date/Ti me ESOPHAGOGASTRODUODENOSCOPY Open Access Epigastric pain documented as of this encounter Goals Goal Patient Goal Type Associated Problems Recent Progress Patient-Stated? Author CCM Chronic Pain Care Plan Chronic Care Management On track(2024 1:50 PM CDT) No Ruma Kapoor, RN Note: Problem: Chronic Pain Goals: 1. Minimize further functional decline 2. Maximize quality of life 3. Control pain Strategies: - Activity/exercise program recommendation - Conservative stepwise pain medicine strategy with multi-disciplinary approach - Recommend healthy lifestyle strategies and compensatory methods as needed documented as of this encounter Visit Diagnoses Not on filedocumented in this encounter Home Health Visit - Care Plan Visit Details Visit Type -SN OASIS Start o f Care Discipline -Fpc Problems Problem Description Start Date Status Goals Interve ntions Wound Education and Management Disciplines: Core Disciplines Knowledge deficit related to wound management and risk of infection. 05/27/2025 Active 1 goal linked to scheduled/documen michelle intervention 1 goal intervention scheduled/documen michelle in this visit Wound Care Disciplines: Core Disciplines Wound care needed 05/27/2025 Active 1 goal linked to scheduled/documen michelle intervention 1 goal intervention scheduled/documen michelle in this visit Coordination of Care Disciplines: Skilled Disciplines Coordination of Care 05/27/2025 Active 1 goal linked to scheduled/documen michelle intervention Pressure Prevention Disciplines: Skilled Disciplines Pressure Prevention 05/27/2025 Active 1 goal linked to scheduled/documen michelle intervention 1 goal intervention scheduled/documen michelle in this visit Medications Disciplines: Fpc Management of home medications 05/27/2025 Active 1 goal linked to scheduled/documen michelle intervention 2 goal interventions scheduled/documen michelle in this visit Oxygen Safety Education Disciplines: Skilled Disciplines Oxygen Safety Education 05/27/2025 Active 1 goal linked to scheduled/documen michelle intervention 1 goal intervention scheduled/documen michelle in this visit Monitor patient's vital signs every home health visit Disciplines: Skilled Disciplines, SN, PT, OT, KAYAKING INSTRUCTOR, LEGAL TRANSCRIBER Monitor patient's vital signs every home health visit. 05/27/2025 Active 1 goal linked to scheduled/documen michelle intervention 1 goal intervention scheduled/documen michelle in this visit Infection Prevention Disciplines: Skilled Disciplines Infection Prevention 05/27/2025 Active 1 goal linked to scheduled/documen michelle intervention 2 goal interventions scheduled/documen michelle in this visit Fall Precautions/Safe ty Concerns Disciplines: Skilled Disciplines Fall precautions and general safety 05/27/2025 Active 1 goal linked to scheduled/documen michelle intervention 1 goal intervention scheduled/documen michelle in this visit Depression Disciplines: Skilled Disciplines Depression 05/27/2025 Active 1 goal linked to scheduled/documen michelle intervention 3 goal interventions scheduled/documen michelle in this visit Pain Disciplines: Core Disciplines Alteration in comfort 05/27/2025 Active 1 goal linked to scheduled/documen michelle intervention 1 goal intervention scheduled/documen michelle in this visit Goals Goal Associated Problem Outcome Goal Met? Visit Notes Knowledgeable of Wound Management Description: Patient/caregiver will be knowledgeable on management of wound and when to seek medical attention as evidenced by progressive wound healing and patient/caregiver ability to verbalize signs and symptoms to report to physician or Home Health Agency. Patien t will remain free of infection and able to recognize signs of infection as long as alteration in skin integrity exists or until patient is discharged from home health services. Wound Education and Management Progressing No Progression towards healing Description: #1 Incision back Wound show progression towards healing by 06/26/25 Wound Care Progressing No Coordination of Care Description: Care team will coordinate patient care with appropriate Plan of Care contributors. Coordination of Care Progressing No Prevent development of pressure injuries Description: half-way goal: The patient will maintain intact skin and avoid the development of pressure injuries within1 month Short term goal: The patient/caregiver will understand and adhere to pressure prevention interventions within 3 visits Pressure Prevention Progressing No Understand and follow medication therapy Description: Patient/Caregiver will verbalize understanding of purpose, side effects, and medication regimen in 4 weeks as evidenced by taking all medications as prescribed and no medication errors. Medications Progressing No Demonstrate safe oxygen usage Description: Demonstrate safe oxygen usage in 1 week. Oxygen Safety Education Progressing No Measure vital signs during every home health visit during episode of care Description: Home shotgun shell reprinting unit operator to measure vital signs during every home health visit during episode of care. Monitor patient's vital signs every home health visit Progressing No Verbalize signs of infection Description: Patient/caregiver will demonstrate knowledge of infection prevention strategies by verbalizing signs and symptoms of infection. Infection Prevention Progressing No Demonstrate fall and safety precautions Description: Patient/caregiver maintains safe home environment as evidenced by remaining free from falls, injury due to falls, demonstrating safety precautions, and identifying strategies to reduce falls by 06/27/25 Fall Precautions/Safety Concerns Progressing No Demonstrate knowledge of depression Description: Patient/caregiver to demonstrate knowledge of depression as evidence by verbalization of signs and symptoms of depression and when to report to physician. Depression Progressing No Report that pain has been reduced or controlled Description: Patient/caregiver/family will verbalize satisfaction with the patients level of pain and symptom control. Pain Progressing No Interventions Intervention Associated Problem/Goal Status Variance Visit Notes Educate on Wound Care Management Description: Instruct patient/caregiver on wound management including: ordered wound care, utilizing clean technique, appropriate hand hygiene, and disposal of dressings. Instruct patient/caregiver on nutrition and hydration needs for altered skin integrity, signs an d symptoms of infection and/or wound deterioration to report to home health agency and or physician. Problem:Wound Education and Management Goal:Knowledgeable of Wound Management Performed Instructed patient on wound management including current wound care orders, utilizing clean technique, appropriate hand hygiene, disposal of dressings, nutrition and hydration needs for altered skin integrity and signs and symptoms of infection and/or wo und deterioration to report to home health agency and/or physician Patient verbalized understanding current wound care orders, utilizing clean technique, appropriate hand hygiene, disposal of dressings, nutrition and hydration needs for altered skin i ntegrity and signs and symptoms of infection and/or wound deterioration to report to home health agency and/or physician Perform dressing change Description: Perform dressing change: Site #1 Incision back Skilled Nurse, Caregiver, Physical Therapy and Occupational Therapy to perform dressing change as of 05/27/25, Frequency daily and PRN for excess drainage or dislodgement of dressing. Wound care as f ollows: cleanse with soap and water, pat dry, and leave open to air. Per discharge instructions Problem:Wound Care Goal:Progression towards healing Performed Clinician performed wound care per Physician's order dated 05/27/25. Patient tolerated well Follow up needs: none, independent. Agrees to perform dressing change on the days of no clinician visit. Instruct on Pressure Prevention Description: Instruct patient/caregiver on inspecting the skin regularly for signs of impaired skin integrity, repositioning the patient on an individualized schedule according to the patient's tissue tolerance, skin condition, mobility, medical condition, and treatm ent goals. Avoid vigorous massage and emphasize the importance of increasing activity and mobility. Avoid using donut-shaped devices and foam cutouts for pressure redistribution. Determine if patient is using or needs a pressure reduction surface. Instruct patient/caregiver on using moisture barriers and absorbent pads/briefs as needed, avoiding prolonged skin contact with wet materials, and cleaning and drying skin thoroughly after incontinence episodes. If patient is malnourished instruct cyril ent/caregiver on physician ordered diet, increased fluid intake if not contraindicated, and a list of possible protein sources to promote skin integrity. Problem:Pressure Prevention Goal:Prevent development of pressure injuries Performed Instructed patient on pressure prevention including: inspecting the skin and avoiding vigorous massage, repositioning patient and importance of increasing activity and mobility, using positioning devices, avoiding donut shaped/foam cutouts, floating heel s , Managing moisture and Managing nutrition Patient verbalized understanding inspecting the skin and avoiding vigorous massage, repositioning patient and importance of increasing activity and mobility, using positioning devices, avoiding donut shaped /foam cutouts, floating heels , Managing moisture and Managing nutrition Instruct on Medication Management Description: Assess patient/caregiver ability to demonstrate management of medications, steps to obtain new/refills of medications and identification of new or changed medications. Assess patient/caregiver ability to verbalize accurate dose/route/frequency/reas on for medication, how to evaluate effectiveness of medication, ongoing lab work needed to ensure therapeutic dosing, drug/food interactions, side effects/adverse reactions, contraindications for medications and known drug allergies. Evaluate the effectiveness of current treatment regimen and notify the appropriate healthcare provider for the need for changes in the plan of care. Problem:Medications Goal:Understand and follow medication therapy Performed Instructed patient on signs and symptoms related to medication regimen to report to provider. Assessed patient/caregiver ability to demonstrate management of medications safely Assessed patient/caregiver about ability to verbalize accurate dose/route/ frequency/reason for medication for the following medication(s) reviewed all current medications Follow up needs: none, independent. Patient verbalizes understanding of medication management. Instruct on High Risk Medications Description: Instruct patient/caregiver on oral or injectable high-risk medications, including: anticonvulsant, antiretroviral, anticoagulant, antibiotics, chemotherapeutic, hypoglycemic including insulin, immunosuppressant, antipsychotic, and opioids. Problem:Medications Goal:Understand and follow medication therapy Performed Opioids: Instructed patient/caregiver on medication Oxycodone to report to Home Care Agency or MD such as drowsiness, dry mouth, nausea and/or vomiting, constipation, , or slowed breathing. Do not drive while taking opioids, and take opioids with food to help prevent nausea and vomiting. Instructed to report any of these potential harmful effects to Home Care Agency or PCP Combining this medication with alcohol can increase the risk of side effects. Follow up needs: none, independent. Patient verb alizes understanding of medication management. ------- Oxygen Safety Education Description: Instruct patient/caregiver on oxygen use and safety precautions such as no smoking, posting oxygen sign, staying at least 10 feet from open flames, avoid using oil-based products, and proper storage of portable tanks. Instruct patient to call [employer] with oxygen issues or malfunctions. Problem:Oxygen Safety Education Goal:Demonstrate safe oxygen usage Performed Instructed patient and family in oxygen safety such as never smoke while using oxygen, stay at least 10 feet away from open flames or someone smoking, post no smoking sign, do not use an oil-based product like petroleum jelly, petroleum-based creams, or lotions on your lips or hands. Store oxygen tanks in a well-ventilated area and keep all flammable materials away from oxygen equipment. Instructed patient on how to reach durable medical equipment company for oxygen issues or malfunctions. Patient and family are able to verbalize safety precautions correctly. Monitor Vital Signs Description: Monitor blood pressure, pulse, oxygen saturation, respirations Problem:Monitor patient's vital signs every home health visit Goal:Measure vital signs during every home health visit during episode of care Performed Educate Patient on Infection Prevention Description: Instruct patient on signs and symptoms of infection IE: fever, odor, change in color, increased amount of drainage, purulent drainage, warmth. Problem:Infection Prevention Goal:Verbalize signs of infection Performed Educate Family on Infection Prevention Description: Instructed family on signs and symptoms of infection IE: fever, odor, change in color, increased amount of drainage, purulent drainage, warmth. Problem:Infection Prevention Goal:Verbalize signs of infection Performed High Fall Risk Precautions Description: Instruct patient/caregiver to use proper lighting in all areas, stand/sit up slowly, use appropriate footwear when walking, use proper assistive devices, and to keep pathways clear of cords and clutter to prevent falls. Remove/secure throw rugs. Educate patient on medications and disease processes that increase fall risk, using corrective lenses as prescribed, placing hard to reach items within reach, what to do in the event of a fall and to report any falls to the home health agency. Problem:Fall Precautions/Safety Concerns Goal:Demonstrate fall and safety precautions Performed Instructed patient on fall risk prevention including: using proper lighting in all areas, standing/sitting up slowly, using appropriate footwear when walking, using proper assistive devices and keeping pathways clear of cords and clutter Patient yair mckeon understanding Assess depression Description: Assess depression. Problem:Depression Goal:Demonstrate knowledge of depression Performed Instruct on Depression Description: Instruct patient/caregiver on signs/symptoms of depression. Problem:Depression Goal:Demonstrate knowledge of depression Performed Assess signs/symptoms of Depression Description: Assess signs/symptoms of depression and emotional well-being. Problem:Depression Goal:Demonstrate knowledge of depression Performed Instruct on pain management techniques Description: Instruct in pharmacologic and nonpharmacologic pain management techniques. Problem:Pain Goal:Report that pain has been reduced or controlled Performed documented in this encounter Care Teams Lobby Porter Relationship Specialty Start Date End Date Kishan Melissa MD [address] [place] [address] PCP - General Family Medicine 05/14/24 Hardy Meehan MD Surgeon Ophthalmology 12/04/20 Tarik Zeng MD [address] [place] [address] Consulting Physician Bone Health 05/14/24 Rosa Nicole MD [address] [facility] [address] [facility] [id number] [place] [address] Anesthesiologist Pain Management 05/14/24 Tacos Pedraza MD [address] [facility] [address] [address] Consulting Physician Orthopedic Surgery 10/24/24 Jerry Solis MD [address] [facility] [address] [place] [address] Consulting Physician Pulmonary Disease 10/24/24 Seng Alexander DPM [address] [facility] [address] [place] [address] Surgeon Podiatry 10/24/24 [place] [address] [place] [address] [facility] [place] [address] Surgeon Orthopedic Surgery 10/24/24 Gladys Johnson NP [address] [facility] [address] [facility] [place] [address] Nurse Practitioner Family Medicine 10/24/24 Iman Grande MD [address] [place] [address] # [id number] [place] [address] Referring Physician Physical Medicine and Rehabilitation 05/23/25 documented as of this encounter
[2025-05-31] VITALS (50 sets, daily range): BP systolic 106–156; BP diastolic 47–127; PULSE 75–98; RESP 17–19; TEMP 36.7–36.8; O2SAT 90–100; BMI 27.6
--- NOTE | ~2025-05-31 | CT_ITS ---
Adrienne Jose EXAMINATION: CT abdomen pelvis w con COMPARISON: None HISTORY: LBP, recent surgery, constipation TECHNIQUE: Axial images were obtained through the abdomen, pelvis post administration of IV contrast. Oral contrast was also administered. Coronal reconstruction images were obtained from the axial views. CT scan performed using dose optimization techniques including the following automated exposure control; adjustment of mA and/or kV; use of iterative reconstruction technique. Automatic exposure control was used to reduce radiation dose. Permanent radiation dose record is archived to PACS. FINDINGS: CT abdomen: LUNG BASES: The lung bases are clear. The visualized portions of the heart and pericardium are unremarkable. LIVER: Mild hepatic steatosis. Mild cirrhotic disease of the liver suspected. The main portal vein is patent. No intrahepatic biliary duct dilatation. SPLEEN: Unremarkable. KIDNEYS: Right Kidney: Right kidney multiple simple and complex appearing renal cysts the largest mid pole 2.5 x 2.5 cm with mild hydronephrosis and hydroureter but no renal calculi. Left Kidney: Left kidney multiple simple appearing renal cysts the largest mid pole 1 x 1 cm, lower pole 2 mm calculus, no hydronephrosis or hydroureter. ADRENAL GLANDS: Subcentimeter bilateral adrenal nodules. Arising from the left adrenal nodule there is a solid lesion 1.5 x 1.6 cm incompletely evaluated., Adrenal MRI is recommended. PANCREAS: Moderate pancreatic atrophy. GALLBLADDER/BILIARY: Gallbladder not identified. STOMACH AND ESOPHAGUS: Visualized stomach and esophagus within normal limits. BOWEL/MESENTERY: Moderate fecal content, no colitis or diverticulitis. Appendix not identified. No stranding within the mesentery. No dilated small bowel loops. ADENOPATHY/RETROPERITONEUM: There are enlarged lymph nodes in the peripancreatic space the largest 1.5 x 1.5 cm. AORTA/VASCULATURE: Normal caliber aorta. FREE FLUID OR FREE AIR: No free fluid.. CT pelvis: SOLID ORGANS/REPRODUCTIVE: Post hysterectomy. No adnexal mass. BLADDER: The bladder is distended. OSSEOUS STRUCTURES: Postsurgical changes noted with fixation of the symphysis pubis. Postsurgical changes with fixation of the sacroiliac joints and lumbar spine. No sclerotic or lytic lesions. OVERLYING SOFT TISSUES: Unremarkable. IMPRESSION: 1. Mild hydronephrosis and hydroureter although there is no obstructing distal calcified ureteral calculus. Findings may relate to a recently passed calculus on obstructing noncalcified calculus. Differential includes stricture within the tract infection. Follow-up is suggested to assess resolution. 2. Incidental findings above Reviewed, dictated and finalized at location P. IMPRESSION: 1. Mild hydronephrosis and hydroureter although there is no obstructing distal calcified ureteral calculus. Findings may relate to a recently passed calculus on obstructing noncalcified calculus. Differential includes stricture within th e tract infection. Follow-up is suggested to assess resolution. 2. Incidental findings above
--- NOTE | ~2025-05-31 | US_ITS ---
EXAMINATION: US renal BI, 06/01/2025 10:45 CDT HISTORY: Hydronephrosis and cystic kidneys Comparison: None Technique: To-scale and color Doppler images were obtained. Findings: KIDNEYS: The renal cortices bilaterally are thin and echogenic, no solid masses or calculi, no hydronephrosis. Right Kidney: Right kidney 11.9 x 4.2 x 5.4 cm, multiple simple appearing cysts the largest inferior pole 2.5 x 2.9 cm. Left Kidney: Left kidney 9.8 x 4.8 x 5.8 cm, multiple simple appearing renal cysts the largest measuring midpole 1 x 1 cm. Bladder: Schaefer catheter in the bladder. . Impression: No acute abnormality. Reviewed, dictated and finalized at location P. Impression: No acute abnormality.
--- OUTSIDE RECORDS SUMMARY | 2025-05-31 12:56 | XMS_ITS | Encounter Summary ---
Author Organization [facility] Address [address] [place] [address] Phone Care Team Providers Care Veneer Lathe Operator Name Role Phone Solitario Rodrigues MD Primary Care Provider Hardy Meehan MD Unavailable [phone] Kishan Melissa MD Primary Care Provider Tarik Zeng MD Unavailable [phone] Rosa Nicole MD Unavailable Tacos Pedraza MD Unavailable Jerry Solis MD Unavailable Seng AlexanderM Unavailable King Singh MD Unavailable Gladys Johnson NP Unavailable Meera Tobar RN Unavailable Iman Grande MD Unavailable Encounter Details Date Type Department Care Team (Late st Contact Info) Description 05/04/2021 Telephone [facility] Medicine Rheumatology [address] [facility] 5th [place] [address] [place] [id number] Dylan Fuentes MD [address] [place] [address] [place] [address] Social History Tobacco Use Types Packs/Day Years Used Date Smoking Tobacco: Every Day Cigarettes 0.3 59.8 Started: 1966 Smokeless Tobacco: Never Comments:currently smoking p er patient Alcohol Use Standard Drinks/Week Comments Yes 0 (1 standard drink = 0.6 oz pur e alcohol) 2 drinks every 4-5 months Humiliation, Afraid, Rape, and Kick questionnair e Answer Date Recorded Fear of Current or Ex-Partner No Emotionally Abused No 03/11/2019 Physically Abused No 03/11/2019 Sexually Abused No 03/11/2019 Social Connection and Isolation Panel Answer Date Recorded Frequency of Communication with Friends and Fami ly Not on file 03/11/2019 Frequency of Social Gatherings with Friends and Family Not on file 03/11/2019 Attends Jehovah'S Witness Services Not on file 03/11 Active Member of Clubs or Organizations Not on f ile 03/11/2019 Attends Club or Organization Meetings Not on adelita e 03/11/2019 Marital Status 03/11/2019 AUDIT-C Answer Date Recorded Q1: How often do you have a drink containing alc ohol? Monthly or less 12/04/2020 Q2: How many drinks containi ng alcohol do you have on a typical day when you are drinking? 1 or 2 12/04/2020 Q3: How often do you have si x or more drinks on one occasion? 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 Gender Identity Not on file Sexual Orientation Not on file documented as of this encounter Plan of Treatment Scheduled Procedures Name Priority Associated Diagnoses Date/Ti md ESOPHAGOGASTRODUODENOSCOPY Open Access Epigastric pain documented as of this encounter Visit Diagnoses Not on filedocumented in this encounter Additional Health Concerns Infection Onset Date Last Indicated Resolved Time COVID: Suspected 08/19/2022 08/19/202208/1908/19/2022 11:33 AM SHUTTLE CAR OPERATOR Influenza, adult 08/19/2022 08/19/2022 08/26/2022 3:05 AM SHUTTLE CAR OPERATOR COVID: Suspected 12/12/2024 12/12/2024 12/12/2024 10:09 AM CDT documented as of this encounter Care Teams Veneer Lathe Operator Relationship Specialty Start Date End Date Solitario Rodrigues MD PCP - General 11/28/16 05/13/24 Kishan Melissa MD [address] [place] [address] PCP - General Family Medicine 05/14/24 Hardy Meehan MD Surgeon Ophthalmology 12/04/20 Tarik Zeng MD [address] [place] [address] Consulting Physician Bone Health 05/14/24 Rosa Nicole MD 49[address] [facility] 14C [facility] [id number] [place] [address] Anesthesiologist Pain Management 05/14/24 Tacos Pedraza MD 49[address] [facility] [address] 6A/6B/12A [place] [address] Consulting Physician Orthopedic Surgery 10/24/24 Jerry Solis MD [address] [place] [address] Consulting Physician Pulmonary Disease 10/24/24 Seng Alexander DPM [address] [place] [address] Surgeon Podiatry 10/24/24 King Singh MD 4921 [facility] DEPT ORTHOPAEDIC SURGERY, [facility] 6A/6B/12A [place] [address] Surgeon Orthopedic Surgery 10/24/24 Gladys Johnson NP 2 [facility] [address] [place] [address] Nurse Practitioner Family Medicine 10/24/24 Meera Tobar, RN [address] [facility] 5300 [place] [address] SHOP Outpatient Ampoule Examiner 11/04/24 11/27/24 Iman Grande MD [address] [id number] [place] [address] Referring Physician Physical Medicine and Rehabilitation 05/23/25 documented as of this encounter
--- OUTSIDE RECORDS SUMMARY | 2025-05-31 12:56 | XMS_ITS | Encounter Summary ---
Author Organization [facility] Healthcare Address [address] [place] [address] Care Team Providers Care Synoptic Meteorologist Name Role Phone Solitario Rodrigues MD Primary Care Provider Hardy Meehan MD Unavailable [phone] Kishan Melissa MD Primary Care Provider Tarik Zeng MD Unavailable [phone] Rosa Nicole MD Unavailable [phone] Tacos Pedraza MD Unavailable [phone] Jerry Solis MD Unavailable Seng AlexanderM Unavailable King Singh MD Unavailable [phone] Gladys Johnson NP Unavailable Meera Tobar RN Unavailable Iman Grande MD Unavailable [phone] Encounter Details Date Type Department Care Team (Late st Contact Info) Description 12/17/2021 Telephone [facility] at [facility] [place] for Advanced Medicine [address] [facility] Advanced Medicine [address] [place], [place] [id number] Rosa Nicole MD [address] [facility] [address] [facility] [id number] [place], [place] [id number] Social History Tobacco Use Types Packs/Day Years Used Date Smoking Tobacco: Every Day Cigarettes 0.3 59.8 Started: 1967 Smokeless Tobacco: Never Comments:currently smoking p er [...] and Family Not on file 03/11/2019 Attends Sikh Services Not on file 03/11 Active Member of Clubs or Organizations Not on f ile 03/11/2019 Attends Club or Organization Meetings Not on adelita e 03/11/2019 Marital Status 03/11/2019 AUDIT-C Answer Date Recorded Q1: How often do you have a drink containing alc ohol? Never 12/21/2021 Q2: How many drinks containi ng alcohol do you have on a typical day when you are drinking? 5 or 6 12/21/2021 Q3: How often do you have six or more drinks on one occasion? 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 Author CCM Chronic Pain Care Plan Chronic Care Management On track(2024 1:50 PM CDT) No Ruma Kapoor, GERMAIN Note: Problem: Chronic Pain Goals: 1. Minimize [...] Last Indicated Resolved Time COVID: Suspected 08/19/2022 08/19/2022 08/19/2022 11:33 AM BALANCE SCREWHEAD POLISHER Influenza, adult 08/19/2022 08/19/2022 08/26/2022 3:05 AM BALANCE SCREWHEAD POLISHER COVID: Suspected 12/12/2024 12/12/2024 12/12/2024 10:09 AM CDT documented as of this encounter Care Teams Synoptic Meteorologist Relationship Specialty Start Date End Date Solitario Rodrigues MD PCP - General 11/28/16 05/13/24 Kishan Melissa MD [address] [place] [address] PCP - General Family Medicine 05/14/24 Hardy Meehan MD Surgeon Ophthalmology 12/04/20 Tarik Zeng MD [address] [place] [address] Consulting Physician Bone Health 05/14/24 Rosa Nicole MD [address] [facility] [address] [id number] [place], [place] [id number] Anesthesiologist Pain Management 05/14/24 Tacos Pedraza MD [address] [facility] [address] 6A/6B/12A [place] [address] Consulting Physician Orthopedic Surgery 10/24/24 Jerry Solis MD [address] [facility] [address] [place] [address] Consulting Physician Pulmonary Disease 10/24/24 eSng Alexander DPM [address] [facility] [address] [place] [address] Surgeon Podiatry 10/24/24 King Singh MD [address] [facility] DEPT ORTHOPAEDIC SURGERY, [facility] //12A [place] [address] Surgeon Orthopedic Surgery 10/24/24 Gladys Johnson NP [address] [facility] [address] [place] [address] Nurse Practitioner Family Medicine 10/24/24 Meera Tobar, RN [address] [facility] 5300 [place] [address] SHOP Outpatient Ironmolder 11/04/24 11/27/24 Iman Grande MD [address] [id number] [place] [address] Referring Physician Physical Medicine and Rehabilitation 05/23/25 documented as of this encounter
--- OUTSIDE RECORDS SUMMARY | 2025-05-31 12:56 | XMS_ITS | Encounter Summary ---
Author Organization [facility] Healthcare Address [address] [place] [address] Care Team Providers Care Auditor Tax Name Role Phone Darrynch Hardy Sun MD Unavailable Kishan Melissa MD Primary Care Provider Tarik Zeng MD Unavailable [phone] Rosa Nicole MD Unavailable [phone] Tacos Pedraza MD Unavailable Jerry Solis MD Unavailable Seng AlexanderM Unavailable King Singh MD Unavailable Gladys Johnson ENGINEER GEOPHYSICAL LABORATORY Unavailable Iman Grande MD Unavailable [phone] Encounter Details Date Type Department Care Team (Late st Contact Info) Description 02/24/2025 Telephone [facility] [place] for [facility] Medicine [address] [facility] Advanced Medicine [address] [place], [place] [id number] Rosa Nicole MD [address] [facility] [address] [id number] [place] [address] Social History Tobacco Use Types Packs/Day Years Used Date Smoking Tobacco: Former Cigarettes 0.3 50.4 1 975 - 01/31/2025 Passive Smoke Exposure: Past Smokeless Tobacco: Never Comments:Sometimes but very rarely 09/26/2024 smokes 3-5 cigs per day. TC Alcohol Use Standard Drinks/Week Comments Yes 0 (1 standard drink = 0.6 oz pur e alcohol) 2 drinks every 4-[address] [facility] Utilities Answer Date Recorded In the past 12 months has th e electric, gas, oil, or water company threatened to shut off services in your home? No 11/05/2024 Humiliation, Afraid, Rape, and Kick questionnair e Answer Date Recorded Fear of Current or Ex-Partner No Emotionally Abused No 03/11/2019 Physically Abused No 03/11/2019 Sexually Abused No 03/11/2019 Social Connection and Isolation Panel Answer Date Recorded In a typical week, how many times do you talk on the phone with family, friends, or neighbors? More than three times a week 11/05/2024 How often do you get togethe r with friends or relatives? More than three times a week 11/05/2024 How often do you attend chur ch or protestant services? Never 11/05/2024 Do you belong to any clubs o r organizations such as pentecostalism groups, unions, fraternal or athletic groups, or school groups? No 11/05/2024 How often do you attend meet ings of the clubs or organizations you belong to? Never 11/05/2024 Are you , , di vorced, , never , or living with a partner? 11/05/2024 AUDIT-C Answer Date Recorded Q1: How often do you have a drink containing alc ohol? Monthly or less 02/06/2025 Q2: How many drinks containi ng alcohol do you have on a typical day when you are drinking? 1 or 2 02/06/2025 Q3: How often do you have si x or more drinks on one occasion? Never 02/06/2025 Overall Financial Resource Strain (CARDIA) Answe r [...] of Exercise per Session 40 min 03/11/2019 Hunger Vital Sign Answer Date Recorded Within the past 12 months, y ou worried that your food would run out before you got the money to buy more. Never true 11/06/19 25 Within the past 12 months, t he food you bought just didn't last and you didn't have money to get more. Never true 11/05/2024 PRAPARE - Transportation Answer Date Re corded [...] any time in the past 12 m [facility], were you homeless or living in a residential (including now)? No 11/05/2024 Personal Safety Answer Date Recorded Have you ever been in or are you currently in a harmful physical or emotional relationship or is someone making you feel afraid or unsafe? Denies 02/06/2025 Comments No Sex and Gender Information Value Date Recorded Sex Assigned at Not on file Legal Sex Female 11:54 PM GRAPHICS SPECIALIST Gender Identity Not on file Sexual Orientation [...] Diagnoses Not on filedocumented in this encounter Care Teams Auditor Tax Relationship Specialty Start Date End Date Kishan Melissa MD [address] [place] [address] PCP - General Family Medicine 05/14/24 Hardy Meehan MD Surgeon Ophthalmology 12/04/20 Tarik Zeng MD [address] [place] [address] Consulting Physician Bone Health 05/14/24 Rosa Nicole MD [address] [phone] [place] [address] Anesthesiologist Pain Management 05/14/24 Tacos Pedraza MD [address] [place] [place] [address] Consulting Physician Orthopedic Surgery 10/24/24 Jerry Solis MD [address] [place] [address] Consulting Physician Pulmonary Disease 10/24/24 Seng Alexander DPM [address] [address] Surgeon Podiatry 10/24/24 King Singh MD [address] [facility] DEPT [facility] [address] Surgeon Orthopedic Surgery 10/24/24 Gladys Johnson NP [address] [facility] [place] [address] Nurse Practitioner Family Medicine 10/24/24 Iman Grande MD [address] [place] [address] # [id number] [place] [address] Referring Physician Physical Medicine and Rehabilitation 05/23/25 documented as of this encounter
--- OUTSIDE RECORDS SUMMARY | 2025-05-31 12:56 | XMS_ITS | Encounter Summary ---
Author Organization [facility] Healthcare Address [address] [place] [address] Care Team Providers Care Intelligence Manager Name Role Phone Solitario Rodrigues MD Primary Care Provider Hardy Meehan MD Unavailable [phone] Kishan Melissa MD Primary Care Provider Tarik Zeng MD Unavailable [phone] Rosa Nicole MD Unavailable Tacos Pedraza MD Unavailable Jerry Solis MD Unavailable Seng AlexanderM Unavailable [phone] King Singh MD Unavailable [phone] Gladys Johnson NP Unavailable Meera Tobar RN Unavailable [phone] Iman Grande MD Unavailable [phone] Reason for Visit * Reason Onset Date Comments PMC Preprocedure 03/07/2024 Encounter Details Date Type Department Care Team (Late st Contact Info) Description 03/07/2024 Telephone [facility] [place] for [facility] [address] [facility] Advanced Medicine [address] [place] [address] Rosa Niocle MD 49[address] [facility] [address] [id number] [place] [address] [facility] Preprocedure Social History Tobacco Use Types Packs/Day Years Used Date Smoking Tobacco: Former Cigarettes 0.3 57 1 966 - 08/2022 Smokeless Tobacco: Never Comments:Sometimes but very rarely Alcohol Use Standard Drinks/Week Comments Yes 0 [...] and Family Not on file 03/11/2019 Attends Faith Services Not on file 03/11 Active Member of Clubs or Organizations Not on f ile 03/11/2019 Attends Club or Organization Meetings Not on adelita e 03/11/2019 Marital Status 03/11/2019 AUDIT-C Answer Date Recorded Q1: How often do you have a drink containing alcohol? Never 03/11/2024 Q2: How many drinks containi ng alcohol do you have on a typical day when you are drinking? Patient does not drink 4 Q3: How often do you have si x or more drinks on one occasion? Never 03/11/2024 PHQ-2 Answer Date Recorded PHQ-2 Total Score (If total score is 3 or more points, staff should administer the PHQ-9) 0 01/08/2024 Exercise Vital Sign Answer Date Recorde d Days of Exercise per Week 7 days 2018 Minutes of Exercise per Session 40 min 03/11/2019 Hunger Vital Sign Answer Date Recorded Within the past 12 months, y ou worried that your food would run out before you got the money to buy more. Never true 08/07/20 23 Within the past 12 months, t he food you bought just didn't last and you didn't have money to get more. Never true 08/07/2023 Personal Safety Answer Date Recorded Have you ever been in or are you currently in a harmful physical or emotional relationship or is someone making you feel afraid or unsafe? 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 HELPER Gender Identity Not on file Sexual Orientation [...] Date Last Indicated Resolved Time COVID: Suspected 12/12/2024 12/12/2024 12/12/2024 10:09 AM CDT documented as of this encounter Care Teams Intelligence Manager Relationship Specialty Start Date End Date Solitario Rodrigues MD PCP - General 11/28/16 05/13/24 Kishan Melissa MD [address] [place] [address] PCP - General Family Medicine 05/14/24 Hardy Meehan MD Surgeon Ophthalmology 12/04/20 Tarik Zeng MD [address] [place] [address] Consulting Physician Bone Health 05/14/24 Rosa Nicole MD [address] [place] [address] [address] [id number] [place] [address] Anesthesiologist Pain Management 05/14/24 Tacos Pedraza MD 49[address] [facility] 6A/6B/12A [place] [address] Consulting Physician Orthopedic Surgery 10/24/24 Jerry Solis MD [address] [facility] [address] [place] [address] Consulting Physician Pulmonary Disease 10/24/24 Seng Alexander DPM [address] [place] [address] Surgeon Podiatry 10/24/24 King Singh MD 4921 [facility] DEPT ORTHOPAEDIC SURGERY, [facility] //12A [place] [address] Surgeon Orthopedic Surgery 10/24/24 Gladys Johnson NP [address] [facility] [address] [place] [address] Nurse Practitioner Family Medicine 10/24/24 Meera Tobar, RN [address] [facility] 5300 [place] [address] SHOP Outpatient Director Metabolism 11/04/24 11/27/24 Iman Grande MD [address] [id number] [place] [address] Referring Physician Physical Medicine and Rehabilitation 05/23/25 documented as of this encounter
--- OUTSIDE RECORDS SUMMARY | 2025-05-31 12:56 | XMS_ITS | Encounter Summary ---
Author Organization [facility] Healthcare Address [address] [place] [address] Care Team Providers Care Operations Supervisor Name Role Phone Solitario Rodrigues MD Primary Care Provider Hardy Meehan MD Unavailable Kishan Melissa MD Primary Care Provider Tarik Zeng MD Unavailable [phone] Rosa Nicole MD Unavailable [phone] Tacos Pedraza MD Unavailable Jerry Solis MD Unavailable Seng AlexanderM Unavailable [phone] King Singh MD Unavailable [phone] Gladys Johnson NP Unavailable [phone] Meera Tobar RN Unavailable Iman Grande MD Unavailable [phone] Encounter Details Date Type Department Care Team (Late st Contact Info) Description 05/25/2021 Treatment [facility] [address] [facility] [address] [place] [phone] Tarik Zeng MD 49[address] [facility] [address] [place] [address] Social History Tobacco Use Types Packs/Day Years [...] and Family Not on file 03/11/2019 Attends Buddhism Services Not on file 03/11 Active Member [...] on file Legal Sex Female 11:54 PM INTERNET MARKETING ANALYST Gender Identity Not on file Sexual Orientation Not on file documented as of this encounter Plan of Treatment Scheduled Procedures Name Priority Associated Diagnoses Date/Ti me ESOPHAGOGASTRODUODENOSCOPY Open Access Epigastric pain documented as of this encounter Visit Diagnoses Not on filedocumented in this encounter Additional Health Concerns Infection Onset Date Last Indicated Resolved Time COVID: Suspected 08/19/2022 08/19/2022 08/19/2022 11:33 AM INTERNET MARKETING ANALYST Influenza, adult 08/19/2022 08/19/2022 08/26/2022 3:05 AM INTERNET MARKETING ANALYST COVID: Suspected 12/12/2024 12/12/2024 12/12/2024 10:09 AM CDT documented as of this encounter Care Teams Operations Supervisor Relationship Specialty Start Date End Date Solitario Rodrigues MD PCP - General 11/28/16 05/13/24 Kishan Melissa MD [address] [place] [address] PCP - General Family Medicine 05/14/24 Hardy Meehan MD Surgeon Ophthalmology 12/04/20 Tarik Zeng MD [address] [place] [address] Consulting Physician Bone Health 05/14/24 Rosa Nicole MD 4921 [facility] 14C [facility] [id number] [place] [address] Anesthesiologist Pain Management 05/14/24 Tacos Pedraza MD 49[address] [facility] 6A/6B/12A [place] [address] Consulting Physician Orthopedic Surgery 10/24/24 Jerry Solis MD [address] [place] [address] Consulting Physician Pulmonary Disease 10/24/24 Seng Alexander DPM [address] [facility] 225 [place] [address] Surgeon Podiatry 10/24/24 King Singh MD 4921 [facility] DEPT ORTHOPAEDIC SURGERY, [facility] //12A [place] [address] Surgeon Orthopedic Surgery 10/24/24 Gladys Johnson NP [address] [address] Nurse Practitioner Family Medicine 10/24/24 Meera Tobar, RN 45[address] [facility] 5300 [place] [address] SHOP Outpatient Novelty Printing Machine Operator 11/04/24 11/27/24 Iman Grande MD 6420 [facility] # [id number] [place] [address] Referring Physician Physical Medicine and Rehabilitation 05/23/25 documented as of this encounter
--- OUTSIDE RECORDS SUMMARY | 2025-05-31 12:56 | XMS_ITS | Encounter Summary ---
Author Organization [facility] Address [address] [place] [address] Phone Care Team Providers Care Line Manager Name Role Phone Couch, Hardy Sun MD Unavailable Kishan Melissa MD Primary Care Provider Tarik Zeng MD Unavailable [phone] Rosa Nicole MD Unavailable Tacos Pedraza MD Unavailable Jerry Solis MD Unavailable Seng AlexanderM Unavailable [phone] King Singh MD Unavailable Gladys Johnson NP Unavailable Iman Grande MD Unavailable [phone] Encounter Details Date Type Department Care Team (Late st Contact Info) Description 05/30/2025 Telephone [facility] Medicine Orthopaedic Surgery [address] [facility] Medical Office Building [address] [place] [address] Tacos Pedraza MD [address] [facility] /6B[address]A [place] [address] Social History Tobacco Use Types [...] any time in the past 12 m [facility], were you homeless or living in a mcfp (including now)? No 11/05/2024 Social Connection and Isolation Panel Answer Date Recorded In a typical week, how many times do you talk on the phone with family, friends, or neighbors? More than three times a week 05/07/2025 How often do you get togethe r with friends or relatives? Once a week 05/07/2025 How often do you attend chur ch or sikh services? Never 05/07/2025 Do you belong to any clubs o r organizations such as rastafari groups, unions, fraternal or athletic groups, or [...] any time in the past 12 m [facility], were you homeless or living in a mcfp (including now)? No 05/07/2025 [facility] Utilities Answer Date Recorded In the past 12 months has th e [email or web address], gas, oil, or water [employer] threatened to shut off services in your home? No 05/07/2025 Personal Safety Answer Date Recorded Have you ever been in or are you currently in a harmful physical or emotional relationship or is someone making you feel afraid or unsafe? 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 Per Torres,Adrienne has not improved. I discussed the prescribed cyclobenzaprine from 05/26 to confirm that has not helped. Torres states he went to the pharmacy and there was nothing there. Torres states he assumedthat meant the patient was already taking it. Neither Torres nor the pharmacy reached out regarding the prescription. Torres expresses frustration regarding the patients pain. He states we are not addressing the pain and states our team is making [Adrienne] wait. I again discussed filling the cyclobenzaprine prescription. I informed Torres Pedraza would need to review Adrienne's medication regimen to determine if additional changes should be made to Adrienne's pain medication. Torres verbalizes understanding. Torres would like the patient to be seen in the office sooner. I have rescheduled the patient's appointment to 06/06. Torres verbalizes understanding. documented in this encounter Plan of Treatment Scheduled Procedures Name Priority Associated Diagnoses Date/Ti me ESOPHAGOGASTRODUODENOSCOPY Open Access Epigastric pain documented as of this encounter Goals Goal Patient Goal Type Associated Problems Recent Progress Patient-Stated? Author CCM Chronic Pain Care Plan Chronic Care Management On track(2024 1:50 PM CDT) Ruma Brunner, RN Note: Problem: Chronic Pain Goals: 1. Minimize further functional decline 2. Maximize quality of life 3. Control pain Strategies: - Activity/exercise program recommendation - Conservative stepwise pain medicine strategy with multi-disciplinary approach - Recommend healthy lifestyle strategies and compensatory methods as needed documented as of this encounter Visit Diagnoses Not on filedocumented in this encounter Care Teams Line Manager Relationship Specialty Start Date End Date Kishan Melissa MD [address] [place] [address] PCP - General Family Medicine 05/14/24 Hardy Meehan MD Surgeon Ophthalmology 12/04/20 Tarik Zeng MD [address] [place] [address] Consulting Physician Bone Health 05/14/24 Rosa Nicole MD [address] [facility] [id number] [place] [address] Anesthesiologist Pain Management 05/14/24 Tacos Pedraza MD [address] [facility] 6A/6B/12A [place] [address] Consulting Physician Orthopedic Surgery 10/24/24 Jerry Solis MD [address] [place] [address] Consulting Physician Pulmonary Disease 10/24/24 Seng Alexander DPM [address] [facility] [address] [place] [address] Surgeon Podiatry 10/24/24 King Singh MD [address] [facility] DEPT ORTHOPAEDIC SURGERY, [facility] 6A//12A [place] [address] Surgeon Orthopedic Surgery 10/24/24 Gladys Johnson NP [address] [address] Nurse Practitioner Family Medicine 10/24/24 Iman Grande MD [address] [id number] [place] [address] Referring Physician Physical Medicine and Rehabilitation 05/23/25 documented as of this encounter
--- OUTSIDE RECORDS SUMMARY | 2025-05-31 12:56 | XMS_ITS | Encounter Summary ---
Author Organization [facility] Address [address] [place] [address] Phone Care Team Providers Care Business Attorney Name Role Phone Couch, Hardy Sun MD Unavailable Kishan Melissa MD Primary Care Provider Tarik Zeng MD Unavailable [phone] Rosa Nicole MD Unavailable [phone] Tacos Pedraza MD Unavailable Jerry Solis MD Unavailable Seng AlexanderM Unavailable [phone] King Singh MD Unavailable Gladys Johnson NP Unavailable [phone] Iman Grande MD Unavailable Encounter Details Date Type Department Care Team (Late st Contact Info) Description 05/25/2025 Results Follow-Up [facility] Bone Health [address] [facility] Advanced Medicine 13th [place] [address] [place] [address] Tarik Zeng MD [address] [address] Comprehensive metabolic panel, eGFR Social History Tobacco Use Types Packs/Day Years [...] any time in the past 12 m [facility], were you homeless or living in a snf (including now)? No 11/05/2024 Social Connection and Isolation Panel Answer Date Recorded In a typical week, how many times do you talk on the phone with family, friends, or neighbors? More than three times a week 05/07/2025 How often do you get togethe r with friends or relatives? Once a week 05/07/2025 How often do you attend chur ch or restoration services? Never 05/07/2025 Do you belong to any clubs o r organizations such as adventist groups, unions, fraternal or athletic groups, or [...] any time in the past 12 m [facility], were you homeless or living in a snf (including now)? No 05/07/2025 [facility] Utilities Answer Date Recorded In the past 12 months has th e electric, gas, oil, or water [employer] threatened to shut off services in your home? No 05/07/2025 Personal Safety Answer Date Recorded Have you ever been in or are you currently in a harmful physical or emotional relationship or is someone making you feel afraid or unsafe? 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 Maybe a tele visit with Dany. Dany her calcium was low so we held on reclast 02/2025 but still low. I think lets get an albumin and correct ( as her corrected calcium may be okay) and ensure she is getting d and calcium. Last D was 37 03/2025 she may need a booster. 50 K x 8 weeks. documented in this encounter Plan of Treatment Scheduled Orders Name Type Priority Associated Diagnoses Orde r Schedule Comprehensive metabolic panel Lab Routine Age-related osteoporosis without current pathological fracture Vitamin D deficiency Expected: 05/31/2025, Expires: 05/28/2026 Albumin Lab Routine Age-related osteoporosis without current pathological fracture Vitamin D deficiency Expected: 05/31/2025, Expires: 05/28/2026 Scheduled Procedures Name Priority Associated Diagnoses Date/Ti [...] documented as of this encounter Visit Diagnoses Diagnosis Age-related osteoporosis without current pathological fracture- Primary Vitamin D deficiency documented in this encounter Care Teams Business Attorney Relationship Specialty Start Date End Date Kishan Melissa MD [address] [place] [address] PCP - General Family Medicine 05/14/24 Hardy Meehan MD Surgeon Ophthalmology 12/04/20 Tarik Zeng MD [address] [place] [address] Consulting Physician Bone Health 05/14/24 Rosa Nicole MD [address] [facility] [id number] [place], [place] [id number] Anesthesiologist Pain Management 05/14/24 Tacos Pedraza MD [address] [facility] [address] 6A/6B/12A [place] [address] Consulting Physician Orthopedic Surgery 10/24/24 Jerry Solis MD [address] [facility] [address] [place] [address] Consulting Physician Pulmonary Disease 10/24/24 Seng Alexander DPM [address] [facility] [address] [place] [address] Surgeon Podiatry 10/24/24 King Singh MD [address] [facility] DEPT ORTHOPAEDIC SURGERY, [facility] 6A//12A [place] [address] Surgeon Orthopedic Surgery 10/24/24 Gladys Johnson NP [address] [facility] [address] [place], [place] [address], [place] [address] Nurse Practitioner Family Medicine 10/24/24 Iman Grande MD [address] [id number] [place] [address] Referring Physician Physical Medicine and Rehabilitation 05/23/25 documented as of this encounter
--- OUTSIDE RECORDS SUMMARY | 2025-05-31 12:56 | XMS_ITS | Encounter Summary ---
Author Organization [facility] Address [address] [place] [address] Care Team Providers Care Dolphin Researcher Name Role Phone Solitario Rodrigues MD Primary Care Provider Hardy Meehan MD Unavailable [phone] Kishan Melissa MD Primary Care Provider Tarik Zeng MD Unavailable [phone] Rosa Nicole MD Unavailable Tacos Pedraza MD Unavailable [phone] Jerry Solis MD Unavailable Seng AlexanderM Unavailable King Singh MD Unavailable Gladys Johnson NP Unavailable Meera Tobar RN Unavailable Iman Grande MD Unavailable Encounter Details Date Type Department Care Team (Late st Contact Info) Description 12/10/2020 Telephone [facility] Radiology [address] [place] [address] April Caruso MD [address] [facility] /[address] [place], [place] [id number] Social History Tobacco Use Types Packs/Day Years [...] and Family Not on file 03/11/2019 Attends Alevism Services Not on file 03/11 Active Member [...] points, staff should administer the PHQ-9) 0 08/25/2020 Exercise Vital Sign Answer Date Recorde d Days of Exercise per Week 7 days 2018 Minutes of Exercise per Session 40 min 03/11/2019 Comments No Sex and Gender Information Value Date Recorded Sex Assigned at Not on file Legal Sex Female 11:54 PM 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 Gender Identity Not on file Sexual Orientation Not on file documented as of this encounter Plan of Treatment Scheduled Procedures Name Priority Associated Diagnoses Date/Ti me ESOPHAGOGASTRODUODENOSCOPY Open Access Epigastric pain documented as of this encounter Visit Diagnoses Not on filedocumented in this encounter Additional Health Concerns Infection Onset Date Last Indicated Resolved Time COVID: Suspected 08/19/2022 08/19/2022 08/19/2022 11:33 AM CAR KNOCKER Influenza, adult 08/19/2022 08/19/2022 08/26/2022 3:05 AM CAR KNOCKER COVID: Suspected 12/12/2024 12/12/2024 12/12/2024 10:09 AM CDT documented as of this encounter Care Teams Dolphin Researcher Relationship Specialty Start Date End Date Solitario Rodrigues MD PCP - General 11/28/16 05/13/24 Kishan Melissa MD [address] [place] [address] PCP - General Family Medicine 05/14/24 Hardy Meehan MD Surgeon Ophthalmology 12/04/20 Tarik Zeng MD [address] [place] [address] Consulting Physician Bone Health 05/14/24 Rosa Nicole MD [address] [facility] [address] [facility] [id number] [place] [address] Anesthesiologist Pain Management 05/14/24 Tacos Pedraza MD [address] [facility] 6A/6B/12A [place] [address] Consulting Physician Orthopedic Surgery 10/24/24 Jerry Solis MD [address] [place] [address] Consulting Physician Pulmonary Disease 10/24/24 Seng Alexander DPM [address] [facility] [address] [place] [address] Surgeon Podiatry 10/24/24 King Singh MD [address] [facility] DEPT ORTHOPAEDIC SURGERY, [facility] //12A [place] [address] Surgeon Orthopedic Surgery 10/24/24 Gladys Johnson NP [address] [address] Nurse Practitioner Family Medicine 10/24/24 Meera Tobar, RN [address] [facility] [address] [place] [address] SHOP Outpatient Technical Coordinator 11/04/24 11/27/24 Iman Grande MD [address] [facility] # [id number] [place] [address] Referring Physician Physical Medicine and Rehabilitation 05/23/25 documented as of this encounter
--- OUTSIDE RECORDS SUMMARY | 2025-05-31 12:56 | XMS_ITS | Encounter Summary ---
Author Organization [facility] Address [address] [place] [address] Phone Care Team Providers Care Shoulder Sawyer Name Role Phone Couch, Hardy Sun MD Unavailable Kishan Melissa MD Primary Care Provider Tarik Zeng MD Unavailable [phone] Rosa Nicole MD Unavailable [phone] Tacos Pedraza MD Unavailable Jerry Solis MD Unavailable Seng AlexanderM Unavailable King Singh MD Unavailable Gladys Johnson NP Unavailable Iman Grande MD Unavailable Encounter Details Date Type Department Care Team (Late st Contact Info) Description 04/04/2025 Results Follow-Up [facility] Bone Health [address] [facility] Advanced Medicine 5th [place] [address] [place] [address] Tarik Zeng MD [address] [facility] [address] [place] [address] Vitamin D 25 hydroxy Social History Tobacco Use Types Packs/Day Years [...] Frequency of experiencing loneliness or isolatio n Sometimes 03/13/2025 OASIS A1250: Transportation Answer Date Recorded Lack of Transportation (Medical) No 03/13/2025 Lack of Transportation (Non-Medical) No 03/13/2025 Patient Unable or Declines to Respond No 03/13/2025 OASIS B1300: Health Literacy Answer Nima e Recorded Frequency of needing help to read materials from doctor or pharmacy Sometimes 03/13/2025 [facility] Utilities Answer Date Recorded In the past 12 months has [employer], gas, oil, or water company threatened to [...] often do you attend chur ch or hindu services? Never 11/05/2024 Do you belong to any clubs o r organizations such as christianity groups, unions, fraternal or athletic groups, or school groups? No 11/05/2024 How often do you attend meet ings of the clubs or organizations you belong to? Never 11/05/2024 Are you , , di vorced, , never , or living with a partner? 11/05/2024 AUDIT-C Answer Date Recorded Q1: How often do you have a drink containing alc ohol? Monthly or less 03/07/2025 Q2: How many drinks containi ng alcohol do you have on a typical day when you are drinking? 1 or 2 03/07/2025 Q3: How often do you have si x or more drinks on one occasion? Never 03/07/2025 Overall Financial Resource Strain (CARDIA) Answe r [...] time in the past 12 m [facility], were you homeless or living in a correction (including now)? No 11/05/2024 Personal Safety Answer Date Recorded Have you ever been in or are you currently in a harmful physical or emotional relationship or is someone making you feel afraid or unsafe? 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 Author CCM Chronic Pain Care Plan Chronic Care Management On track(2024 1:50 PM CDT) Ruma Brunner, GERMAIN Note: Problem: Chronic Pain Goals: 1. Minimize further functional decline 2. Maximize quality of life 3. Control pain Strategies: - Activity/exercise program recommendation - Conservative stepwise pain medicine strategy with multi-disciplinary approach - Recommend healthy lifestyle strategies and compensatory methods as needed documented as of this encounter Visit Diagnoses Not on filedocumented in this encounter Care Teams Shoulder Sawyer Relationship Specialty Start Date End Date Kishan Melissa MD [address] [place] [address] PCP - General Family Medicine 05/14/24 Hardy Meehan MD Surgeon Ophthalmology 12/04/20 Tarik Zeng MD [address] [place] [address] Consulting Physician Bone Health 05/14/24 Rosa Nicole MD [address] [facility] [id number] [place] [address] Anesthesiologist Pain Management 05/14/24 Tacos Pedraza MD [address] [facility] [address] 6A/6B/12A [place] [address] Consulting Physician Orthopedic Surgery 10/24/24 Jerry Solis MD [address] [place] [address] Consulting Physician Pulmonary Disease 10/24/24 Seng Alexander DPM [address] [facility] [address] [place] [address] Surgeon Podiatry 10/24/24 King Singh MD [address] [facility] DEPT ORTHOPAEDIC SURGERY, [facility] 6A/6B/12A [place] [address] Surgeon Orthopedic Surgery 10/24/24 Gladys Johnson NP 2 [facility] [address] [place] [address] Nurse Practitioner Family Medicine 10/24/24 Iman Grande MD [address] [id number] [place] [address] Referring Physician Physical Medicine and Rehabilitation 05/23/25 documented as of this encounter
--- OUTSIDE RECORDS SUMMARY | 2025-05-31 12:56 | XMS_ITS | Clinical Summary ---
Author Organization [facility] al Address [address] [place] [address] Care Team Providers Care Abattoir Manager Name Role Phone Zoran Hardy Sun MD Unavailable [phone] Kishan Melissa MD Primary Care Provider [phone] Tarik Zeng MD Unavailable [phone] Rosa Nicole MD Unavailable [phone] Tacos Pedraza MD Unavailable [phone] Jerry Solis MD Unavailable Seng Alexander DPM Unavailable [phone] King Singh MD Unavailable [phone] Gladys Johnson NP Unavailable [phone] Iman Grande MD Unavailable [phone] Allergies Active Allergy Reactions Criticality Noted Date Comments Adhesive Itching,Blisters High 01/27/2023 Codeine Nausea & Vomiting Low Hydromorphone Mental status changes,Agitation, Nausea only Low 11/15/2018 Morphine Mental status changes,Nausea & Vomiting Low Oxaprozin Nausea & Vomiting Low Penicillins Nausea only Low Per chart records, cefazolin has been administered before Propoxyphene Anxiety,Palpitatio ns,Mental status changes Medium Tetanus Immune Globulin Hives,Swelling,N [place] sea only Medium 05/19/2020 Bupropion Palpitations,Other (See comments) High 03/11/2019 Shaking in hands Medications montelukast (SINGULAIR) 10 mg tabletIndications :COPD Take 1 tablet (10 mg total) by mouth every morning 30 tablet 3 12/11/19 19 Active albuterol HFA (PROVENTIL HFA,VENTOLIN HFA,PROAIR HFA) 90 mcg/actuation inhalerIndication s:Chronic Obstructive Pulmonary Disease Inhale 2 puffs every 4 (four) hours as needed for wheezing or shortness of breath 1 each 2 02/22/20 22 Active dextromethorphan HBr (VICKS DAYQUIL COUGH ORAL)Indications: sinus drainage Take 1 tablet/capsule by mouth 2 (two) times a day as needed (Cough) Active cetirizine (ZyrTEC) 10 mg tabletIndications :Seasonal Allergic Rhinitis Take 1 tablet (10 mg total) by mouth 2 (two) times a day as needed for allergies Active multivit-min/ferr ous fumarate (MULTI VITAMIN ORAL)Indications: OTC Take 1 tablet by mouth every morning Active valsartan (DIOVAN) 160 mg tabletIndications :hypertension Take 1 tablet (160 mg total) by mouth nightly 90 tablet 1 10/21/19 25 026 Active levothyroxine (SYNTHROID) 50 mcg tabletIndications :hypothyroidism Take 1 tablet (50 mcg total) by mouth floorworker before breakfast 90 tablet 3 10/24/19 25 Active atorvastatin (LIPITOR) 40 mg tabletIndications :hyperlipidemia Take 1 tablet (40 mg total) by mouth nightly 90 tablet 3 10/24/19 25 026 Active senna (SENOKOT) 8.6 mg tabletIndications :constipation Take 2 tablets by mouth 2 (two) times a day 60 tablet 10/31/19 25 Active gabapentin (NEURONTIN) 300 mg capsuleIndication s:Pain Take 1 capsule (300 mg total) by mouth 3 (three) times a day 90 capsule 11/01/19 25 Active polyethylene glycol (MIRALAX) 17 gram/dose bulk powderIndications :constipation Take 17 g by mouth daily 0 11/01/19 25 Active ondansetron ODT (ZOFRAN-ODT) 4 mg disintegrating tabletIndications :Nausea Take 1 tablet (4 mg total) by mouth every 8 (eight) hours as needed for nausea or vomiting 20 tablet 1 12/13/19 25 Active docusate sodium (COLACE) 100 mg capsuleIndication s:constipation Take 1 capsule (100 mg total) by mouth as needed for constipation Active oxygenIndications :Dyspnea Administer 2 L/min into each nostril as needed (dyspnea). Indications: trouble breathing Active pregabalin (LYRICA) 150 mg capsuleIndication s:Neuropathic Pain Associated with Spinal Cord Injury TAKE 1 CAPSULE BY MOUTH TWICE A DAY 60 capsule 2 04/02/20 25 Active lidocaine (Salonpas, lidocaine,) 4 % adhesive patch,medicatedIn dications:Pain Place 1 patch on the skin daily as needed (pain) apply to left knee/thigh per package directions navin Saucedo/Dr Melissa 04/03/25 1224 pm Active lidocaine HCL 4 % creamIndications: Pain Apply 1 Application topically daily as needed (pain). apply to left knee/thigh per package directions as needed (aspercream) navin Melissa 04/03/25 1224 pm Indications: pain Active abaloparatide 80 mcg (3,120 mcg/1.56 mL) pen injector Inject 0.04 mL (80 mcg total) under the skin daily 1.56 mL 11 04/16/20 Active pen needle, diabetic 32 gauge x 5/32 needle To be used with Tymlos 100 each 3 04/16/20 25 Active acetaminophen (TYLENOL) 500 mg tabletIndications :Pain Take 2 tablets (1,000 mg total) by mouth daily as needed for pain Active amLODIPine (NORVASC) 5 mg tabletIndications :hypertension Take 1 tablet (5 mg total) by mouth every morning Active hydroCHLOROthiazi de 12.5 mg tablet Take 1 tablet/capsule (12.5 mg total) by mouth every morning Active torsemide (DEMADEX) 20 mg tabletIndications :Edema Take 0.5 tablets (10 mg total) by mouth every morning Active RABEprazole DR (ACIPHEX) 20 mg EC tabletIndications :Treatment of Non-Bleeding Gastric Disorder Take 1 tablet (20 mg total) by mouth 2 (two) times a day Active potassium chloride ER 10 mEq CR tabletIndications :hypokalemia prevention Take 1 tablet/capsule (10 mEq total) by mouth 2 (two) times a day Active budesonide-glycop yr-formoterol (BREZTRI) 160-9-4.8 mcg/actuation inhaler Inhale 2 puffs as needed Active ergocalciferol (VITAMIN D) 50,000 unit capsuleIndication s:Vitamin D Deficiency Take 1 capsule (50,000 Units total) by mouth every 14 (fourteen) days Active nystatin 100,000 unit/mL suspensionIndicat ions:Prophylaxis, Medical Take 5 mL (500,000 Units total) by mouth as needed Active spironolactone (ALDACTONE) 50 mg tabletIndications :hypertension Take 0.5 tablets (25 mg total) by mouth every morning Active DULoxetine DR (CYMBALTA) 60 mg capsuleIndication s:Neuropathic Pain Take 1 capsule (60 mg total) by mouth 2 (two) times a day 180 capsule 3 04/30/20 25 Active bethanechol (URECHOLINE) 25 mg tabletIndications :Urinary Retention Take 25 mg by mouth 3 (three) times a day. Indications: an inability to completely empty the bladder Active albuterol (PROAIR RESPICLICK) 90 mcg/actuation inhalerIndication s:Chronic Obstructive Pulmonary Disease Inhale 2 puffs every 4 (four) hours as needed for shortness of breath. Indications: chronic obstructive pulmonary disease Active pantoprazole DR (PROTONIX) 40 mg EC tabletIndications :Stress Ulcer Prophylaxis Take 40 mg by mouth daily. Indications: Stress Ulcer Prophylaxis Active gabapentin (NEURONTIN) 300 mg capsuleIndication s:Postherpetic Neuralgia Take 300 mg by mouth 3 (three) times a day. Indications: nerve pain after herpes Active cyclobenzaprine (FLEXERIL) 10 mg tabletIndications :Muscle Spasm Take 1 tablet (10 mg total) by mouth every 8 (eight) hours as needed for muscle spasms 90 tablet 05/30/20 25 025 Active cyclobenzaprine (FLEXERIL) 10 mg tabletIndications :Muscle Spasm Take 1 tablet (10 mg total) by mouth every 8 (eight) hours as needed for muscle spasms 45 tablet 10/31/19 25 025 Discontinu ed(Reorder ) oxyCODONE (ROXICODONE) 5 mg immediate release tabletIndications :Pain Take 1 tablet (5 mg total) by mouth every 4 (four) hours as needed for pain for up to 7 days 42 tablet 04/25/20 25 025 cefdinir (OMNICEF) 300 mg capsuleIndication s:Urinary Tract/Genitourina ry Infection Take 1 capsule (300 mg total) by mouth 2 (two) times a day for 10 days 20 capsule 04/30/20 25 025 Discontinu ed(Stop Taking at Discharge) oxyCODONE (ROXICODONE) 5 mg immediate release tabletIndications :Pain Take 2 tablets (10 mg total) by mouth every 4 (four) hours as needed for pain for up to 7 days 84 tablet 05/21/20 25 025 cyclobenzaprine (FLEXERIL) 10 mg tabletIndications :Muscle Spasm Take 1 tablet (10 mg total) by mouth every 8 (eight) hours as needed for muscle spasms 90 tablet 05/26/20 25 025 Discontinu ed(Reorder ) Active Problems Problem Noted Date Diagnosed Date Hypothyroidism 05/08/2025 Assessment & Plan (05/09/2025 1:42 PM CDT): Cont synthroid Assessment & Plan (05/08/2025 1:16 PM CDT): Cont synthroid Osteoporosis 05/08/2025 Assessment & Plan (05/09/2025 1:42 PM CDT): Cont abaloparatide Assessment & Plan (05/08/2025 1:16 PM CDT): Cont abaloparatide Stage 3a chronic kidney disease 05/08/2025 Assessment & Plan (05/09/2025 1:42 PM CDT): Hx noted Scr stable Assessment & Plan (05/08/2025 1:16 PM CDT): Hx noted Scr stable Acute postoperative anemia due to expected blood loss 05/07/2025 Assessment & Plan (05/09/2025 1:42 PM CDT): 850 cc loss in OR Prbc x1 05/08 Hgb 05/09 up to 9.5 Labs rev Lab Results Component Value Date VITB12 410 05/07/2025 Lab Results Component Value Date FOLATE 5.8 05/07/2025 Lab Results Component Value Date FERRITIN 89 05/07/2025 TSAT 36 Assessment & Plan (05/08/2025 1:16 PM CDT): 850 cc loss in OR Hgb 6.7 prbc ordered by surgery Monitor for reaction Rpt cbc in am Labs rev Lab Results Component Value Date VITB12 410 05/07/2025 Lab Results Component Value Date FOLATE 5.8 05/07/2025 Lab Results Component Value Date FERRITIN 89 05/07/2025 TSAT 36 Postoperative hypotension 05/07/2025 Assessment & Plan (05/09/2025 1:42 PM CDT): Pressure soft post op Hold amlo, hctz, losartan: I would stage restarting these meds based on BP trend. NO acute needs. Ok to resume torsemide, spironolactone Assessment & Plan (05/08/2025 1:16 PM CDT): Pressure soft post op Hold amlo, hctz, losartan, torsemide, spironolactone Debility 05/07/2025 Assessment & Plan (05/09/2025 1:42 PM CDT): Pt/ot Assessment & Plan (05/08/2025 1:16 PM CDT): Pt/ot Cigarette smoker 05/07/2025 Assessment & Plan (05/09/2025 1:42 PM CDT): Encourage cessative Assessment & Plan (05/08/2025 1:16 PM CDT): Encourage cessative Closed unstable burst fracture of fourth lumbar vertebra 05/06/2025 Assessment & Plan (05/09/2025 1:42 PM CDT): 05/06: Procedure(s) 1) removal of prior segmental pedicle screw instrumentation spanning from L4-S1 2) L2-S1 segmental pedicle screw instrumentation 3) bilateral pelvic fixation 4) L2-L4 posterolateral fusion 5) partial L3 laminectomy 6) revision L4 laminectomy 7) removal of spinal cord stimulator 8) intraoperative use of neuro monitoring 9) local autograft harvest 10) use of allograft bone chips 11) use of BMP 2 on Mastergraft Schaefer removed 05/08 Pastora drain removed Post op care per primary From my perspective she is ok to dc. [facility] surgery team they are adjusting her bowel regimen. Assessment & Plan (05/08/2025 1:16 PM CDT): 05/06: Procedure(s) 1) removal of prior segmental pedicle screw instrumentation spanning from L4-S1 2) L2-S1 segmental pedicle screw instrumentation 3) bilateral pelvic fixation 4) L2-L4 posterolateral fusion 5) partial L3 laminectomy 6) revision L4 laminectomy 7) removal of spinal cord stimulator 8) intraoperative use of neuro monitoring 9) local autograft harvest 10) use of allograft bone chips 11) use of BMP 2 on Mastergraft Schaefer removed 05/08 Has PASTORA drain Post op care per primary *cefdinir ordered indication for UTI but she has no symptoms and no utd UA (reviewed UA from 04/25 which is contaminated)= dc cefdinir Painful orthopaedic hardware 04/18/2025 Assessment & Plan (05/09/2025 1:42 PM CDT): 05/06: Procedure(s) 1) removal of prior segmental pedicle screw instrumentation spanning from L4-S1 2) L2-S1 segmental pedicle screw instrumentation 3) bilateral pelvic fixation 4) L2-L4 posterolateral fusion 5) partial L3 laminectomy 6) revision L4 laminectomy 7) removal of spinal cord stimulator 8) intraoperative use of neuro monitoring 9) local autograft harvest 10) use of allograft bone chips 11) use of BMP 2 on Mastergraft Schaefer removed 05/08 Pastora drain removed Post op care per primary From my perspective she is ok to dc. surgery team they are adjusting her bowel regimen. Assessment & Plan (05/08/2025 1:16 PM CDT): 05/06: Procedure(s) 1) removal of prior segmental pedicle screw instrumentation spanning from L4-S1 2) L2-S1 segmental pedicle screw instrumentation 3) bilateral pelvic fixation 4) L2-L4 posterolateral fusion 5) partial L3 laminectomy 6) revision L4 laminectomy 7) removal of spinal cord stimulator 8) intraoperative use of neuro monitoring 9) local autograft harvest 10) use of allograft bone chips 11) use of BMP 2 on Mastergraft Schaefer removed 05/08 Has PASTORA drain Post op care per primary *cefdinir ordered indication for UTI but she has no symptoms and no utd UA (reviewed UA from 04/25 which is contaminated)= dc cefdinir Hyponatremia 02/12/2025 Assessment & Plan (02/12/2025 3:36 PM CDT): --Routine BMP's monitored throughout hospitalization --Na level 129 on 02/12 --1g Salt tab x3 doses, 1500mL fluid restriction Constipation 02/12/2025 Assessment & Plan (02/12/2025 3:39 PM CDT): --Aggressive Bowel Regimen of pericolace, miralax and bisacodyl suppositories --Mag citrate given on 02/11 with subsequent BM Post-operative pain 02/07/2025 Assessment & Plan (02/07/2025 10:12 AM CDT): --Likely 2/2 Surgical intervention on 02/06 --Pt weaned off IV pain medication --Pain managed with scheduled Tylenol, Flexeril, Gabapentin, Lyrica; PRN Oxycodone Status post lumbar spinal fusion 02/06/2025 Assessment & Plan (05/09/2025 1:42 PM CDT): 05/06: Procedure(s) 1) removal of prior segmental pedicle screw instrumentation spanning from L4-S1 2) L2-S1 segmental pedicle screw instrumentation 3) bilateral pelvic fixation 4) L2-L4 posterolateral fusion 5) partial L3 laminectomy 6) revision L4 laminectomy 7) removal of spinal cord stimulator 8) intraoperative use of neuro monitoring 9) local autograft harvest 10) use of allograft bone chips 11) use of BMP 2 on Mastergraft Schaefer removed 05/08 Pastora drain removed Post op care per primary From my perspective she is ok to dc. [facility] surgery team they are adjusting her bowel regimen. Assessment & Plan (05/08/2025 1:16 PM CDT): 05/06: Procedure(s) 1) removal of prior segmental pedicle screw instrumentation spanning from L4-S1 2) L2-S1 segmental pedicle screw instrumentation 3) bilateral pelvic fixation 4) L2-L4 posterolateral fusion 5) partial L3 laminectomy 6) revision L4 laminectomy 7) removal of spinal cord stimulator 8) intraoperative use of neuro monitoring 9) local autograft harvest 10) use of allograft bone chips 11) use of BMP 2 on Mastergraft Schaefer removed 05/08 Has PASTORA drain Post op care per primary *cefdinir ordered indication for UTI but she has no symptoms and no utd UA (reviewed UA from 04/25 which is contaminated)= dc cefdinir Assessment & Plan (02/13/2025 11:40 AM CDT): --s/p surgical intervention on 02/06, closed with Nylon, drains x 1 --Reports improvement in preoperative pain --Post-op x-rays on 02/12 --therapy recommends rehab --Patient will follow up with Dr. Pedraza outpatient S/P lumbar spinal fusion 02/06/2025 Assessment & Plan (05/09/2025 1:42 PM CDT): 05/06: Procedure(s) 1) removal of prior segmental pedicle screw instrumentation spanning from L4-S1 2) L2-S1 segmental pedicle screw instrumentation 3) bilateral pelvic fixation 4) L2-L4 posterolateral fusion 5) partial L3 laminectomy 6) revision L4 laminectomy 7) removal of spinal cord stimulator 8) intraoperative use of neuro monitoring 9) local autograft harvest 10) use of allograft bone chips 11) use of BMP 2 on Mastergraft Schaefer removed 05/08 Pastora drain removed Post op care per primary From my perspective she is ok to dc. Dw surgery team they are adjusting her bowel regimen. Assessment & Plan (05/08/2025 1:16 PM CDT): 05/06: Procedure(s) 1) removal of prior segmental pedicle screw instrumentation spanning from L4-S1 2) L2-S1 segmental pedicle screw instrumentation 3) bilateral pelvic fixation 4) L2-L4 posterolateral fusion 5) partial L3 laminectomy 6) revision L4 laminectomy 7) removal of spinal cord stimulator 8) intraoperative use of neuro monitoring 9) local autograft harvest 10) use of allograft bone chips 11) use of BMP 2 on Mastergraft Schaefer removed 05/08 Has PASTORA drain Post op care per primary *cefdinir ordered indication for UTI but she has no symptoms and no utd UA (reviewed UA from 04/25 which is contaminated)= dc cefdinir Facet arthropathy 01/24/2025 Anterolisthesis of lumbar spine 01/24/2025 Acute pain 10/31/2024 Assessment & Plan (10/31/2024 9:12 AM IP ATTORNEY): --Pt weaned off IV pain medication --Pain managed with scheduled Tylenol, Gabapentin, Lyrica; PRN Flexeril, Oxycodone Hypoxemia 10/31/2024 Assessment & Plan (11/01/2024 11:30 AM IP ATTORNEY): --Asymptomatic --Possibly 2/2 post surgical anesthesia --Oxygen saturation 97% on room air, drops to 88% with activity --2L oxygen PRN with activity --Encourage incentive spirometry use --Home O2 eval ordered, rec'd 2L nasal canula with exertional activity --Home oxygen ordered, patient declined to wait for oxygen tank to be delivered to room. Patient will call oxygen company's number for home delivery. Explained importance of need for oxygen. --Pt to follow up with [facility] upon discharge Spondylolisthesis 10/30/2024 Depression, recurrent 10/24/2024 Spondylolisthesis of lumbar region 09/30/2024 Assessment & Plan (11/01/2024 11:28 AM IP ATTORNEY): --s/p surgical intervention on 10/30, closed with Nylon --Reports improvement in preoperative pain --therapy recommended home --Patient will follow up with Dr. Pedraza outpatient Spinal stenosis of lumbar region 09/30/2024 Lumbar radiculopathy 09/30/2024 Assessment & Plan (05/09/2025 1:42 PM CDT): 05/06: Procedure(s) 1) removal of prior segmental pedicle screw instrumentation spanning from L4-S1 2) L2-S1 segmental pedicle screw instrumentation 3) bilateral pelvic fixation 4) L2-L4 posterolateral fusion 5) partial L3 laminectomy 6) revision L4 laminectomy 7) removal of spinal cord stimulator 8) intraoperative use of neuro monitoring 9) local autograft harvest 10) use of allograft bone chips 11) use of BMP 2 on Mastergraft Schaefer removed 05/08 Pastora drain removed Post op care per primary From my perspective she is ok to dc. Dw surgery team they are adjusting her bowel regimen. Assessment & Plan (05/08/2025 1:16 PM CDT): 05/06: Procedure(s) 1) removal of prior segmental pedicle screw instrumentation spanning from L4-S1 2) L2-S1 segmental pedicle screw instrumentation 3) bilateral pelvic fixation 4) L2-L4 posterolateral fusion 5) partial L3 laminectomy 6) revision L4 laminectomy 7) removal of spinal cord stimulator 8) intraoperative use of neuro monitoring 9) local autograft harvest 10) use of allograft bone chips 11) use of BMP 2 on Mastergraft Schaefer removed 05/08 Has PASTORA drain Post op care per primary *cefdinir ordered indication for UTI but she has no symptoms and no utd UA (reviewed UA from 04/25 which is contaminated)= dc cefdinir Diastolic dysfunction 09/20/2024 Bilateral lower extremity edema 08/04/2024 Assessment & Plan (08/04/2024 9:34 PM IP ATTORNEY): - Chronic, poorly controlled - Amlodipine discontinued - Elevate BLE much as possible, recommend compression stockings- 20-30 mmHg - Notify office if no improvement Sacroiliitis 06/03/2024 Encounter for medical examination to establish c are 05/16/2024 Assessment & Plan (05/16/2024 1:10 PM CDT): A(n) initial visit to establish care has been performed today. Adrienne Cummings is not up to date on screening tests. She is in need of Breast cancer screening, Lung cancer screening, hep b screen, and Cholesterol screening. She is not up to date on needed preventative vaccinations; She is in need of Influenza and Zoster. We discussed healthy lifestyle habits, educational material has been given. Medications reviewed, changes documented as per the medical record and discussed with patient along with risks vs benefits. Awaiting labs Continue current regimen, save for 1 week of torsemide (stop after week) to see if edema is improved Resume daily baby aspirin Continue compression stockings, elevation Cut back on salt intake (to under 3000 g per day) Return in 1 month H/O TIA (transient ischemic attack) and stroke 0 05/14/2024 Stage 3a chronic kidney disease 05/14/2024 Assessment & Plan (08/04/2024 9:38 PM IP ATTORNEY): - Most recent eGFR 54, gradual decline over the last year - Likely associated with increased Motrin use - Instructed to avoid taking further NSAIDs - Repeat labs now and again in 4 weeks, if further decline - Referral to Nephrology Chronic prescription opiate use 01/08/2024 Epigastric pain 10/09/2023 Compression fracture of thor acic vertebra with routine healing 10/02/2023 Exposure keratopathy, left 06/02/2022 Assessment & Plan (06/02/2022 4:42 PM CDT): Hx of two eyelid surgeries left eye (OS) Using frequent ATs left eye (OS) TODAY Partial blink with mild lagophthalmos and floppy eyelids Dense inferior punctate epithelial erosions (PEE) with very faint ant stromal changes PLAN Start lubricating ointment left eye TID (OS) Continue PFATs Hold off on BCL placement Osteoarthritis of spine with radiculopathy, lumb ar region 03/07/2022 Sacroiliac joint dysfunction 11/29/2021 Chronic low back pain 11/29/2021 Spinal cord stimulator status 11/29/2021 Osteoporosis, post-menopausal 05/25/2021 Dermatochalasis of both upper eyelids 11/19/2020 Overview (11/19/2020): Added automatically from request for surgery [id number] Peripheral visual field defect of both eyes 10/27 Overview (11/19/2020): Added automatically from request for surgery [id number] Trigger finger 05/15/2020 Overview (05/15/2020): Added automatically from request for surgery [id number] Incisional hernia, without obstruction or gangre ne 11/12/2018 Overview (11/12/2018): Added automatically from request for surgery [id number] Breast lump on left side at 1 o'clock position 0 02/09/2018 Vulvar cyst 01/15/2018 CVA (cerebral vascular accident) 08/28/2015 Overview (05/01/2025): questionable, patient reports occurred udring pelvic surgery, mild memory deficit Hearing loss 10/10/2014 Overview (02/09/2018): Hearing loss Fibromyalgia 10/07/2014 Overview (02/09/2018): Chronic pain Assessment & Plan (10/31/2024 9:19 AM IP ATTORNEY): Continue home regimen of Cymbalta Chronic obstructive pulmonary disease 10/07/2014 Overview (12/01/2016): Chronic airway obstruction Assessment & Plan (10/31/2024 9:14 AM IP ATTORNEY): Continue home Albuterol, Singulair Arthralgia of hip 08/13/2014 Skin neoplasm 07/22/2014 Overview (02/09/2018): Skin neoplasm Hypercholesterolemia 05/01/2014 Assessment & Plan (10/31/2024 9:17 AM IP ATTORNEY): Continue home regimen of Lipitor Asthma 01/15/2014 Degeneration of intervertebral disc of lumbar re gion 01/15/2014 Gastroesophageal reflux disease 01/15/2014 Hypertension 01/15/2014 Assessment & Plan (10/31/2024 9:15 AM IP ATTORNEY): Continue home regimen of Amlodipine, Hydrochlorothiazide, Losartan, Aldactone, Torsemide Assessment & Plan (08/04/2024 9:34 PM IP ATTORNEY): - Chronic; stable at goal - Stop amlodipine d/t LE edema- may provide mild improvement; increase valsartan to 160 mg daily; continue torsemide 10 mg daily and spironolactone 50 mg daily - Continue to monitor BP b.i.d. and report readings > 140/90 or < 100/60 - Continue medications as above Tobacco dependence syndrome 01/11/2014 Overview (11/30/2016): TOBACCO USE DISORDER Vitamin D deficiency 01/11/2014 Overview (02/09/2018): VITAMIN D DEFICIENCY NOS Hypothyroidism 01/11/2014 Overview (02/09/2018): HYPOTHYROIDISM NOS Assessment & Plan (10/31/2024 9:13 AM IP ATTORNEY): Continue home regimen of Synthroid Obstructive sleep apnea syndrome 01/11/2014 Overview (05/14/2024): FEDERICO (obstructive sleep apnea) No CPAP Influenza A Vertigo Right wrist fracture PONV (postoperative nausea and vomiting) Overview (05/01/2025): distant past but none recently--only with Dilaudid Polyp of colon Pelvis fracture Osteoporosis FEDERICO (obstructive sleep apnea) Overview (05/01/2025): doesn't use cpap Leyva's neuroma of right foot IBS (irritable bowel syndrome) Hypothyroid Hyperlipidemia Benign essential HTN Assessment & Plan (05/09/2025 1:42 PM CDT): Pressure soft post op Hold amlo, hctz, losartan: I would stage restarting these meds based on BP trend. NO acute needs. Ok to resume torsemide, spironolactone Assessment & Plan (05/08/2025 1:16 PM CDT): Pressure soft post op Hold amlo, hctz, losartan, torsemide, spironolactone Goiter Edema COPD (chronic obstructive pulmonary disease) Colitis Clotting disorder Chronic pain Chronic bronchitis Arthritis Lumbar radiculopathy Osteopenia Anxiety SOB (shortness of breath) Overview (05/01/2025): chronic Resolved Problems Problem Noted Date Diagnosed Date Resolved Date Battery end of life of spinal cord stimulator 01/18/20 23 01/27/2023 COPD exacerbation 08/19/2022 05/14/2024 Spinal stenosis of lumbar re gion with neurogenic claudication 11/29/2021 01/27/2023 Entropion of left upper eyelid 06/28/2021 12/06/2021 Overview (06/28/2021): Added automatically from request for surgery [id number] Acute non-recurrent frontal sinusitis 01/08/2021 12/06/2021 Assessment & Plan (01/08/2021 1:41 PM CDT): Gen measures given and when to seek emergent care AntiBx indicated and cont the other gen measures. Anemia 05/24/2017 12/10/2018 Tobacco use 11/04/2016 12/06/2021 Otalgia 10/10/2014 12/06/2021 Overview (12/01/2016): Ear pain Frequent headaches 05/01/2014 9 Bulging lumbar disc 02/13/2014 12/07/19 22 Arthritis 01/15/2014 12/06/2021 Osteoporosis 01/11/2014 12/06/2021 Overview (11/30/2016): OSTEOPOROSIS NOS Encounters Date Type Department Care Team Description 05/30/2025 Telephone [facility] Medicine Orthopaedic Surgery [address] [facility] Medical Office Building [address] [place] [address] Tacos Pedraza MD 05/29/2025 11:00 AM CDT Home Care Visit [address] [address] [address] [place] [address] Dayana Suero, OT OT INITIAL EVALUATION 05/29/2025 Telephone [facility] Medical Group Primary Care at [address] [address] Kishan Melissa MD OT order 05/28/2025 9:00 AM CDT Home Care Visit [address] [place] [address] Binta Crespo, PT PT INITIAL EVALUATION 05/27/2025 12:35 PM CDT Home Care Visit [address] [place] [address] Joan Hoffman, GERMAIN SN OASIS START OF CARE 05/27/2025 Plan of Care Documentation [address] [place] [address] 05/26/2025 Telephone [facility] Medicine Orthopaedic Surgery [address] [facility] Medical Office Building [address] [place] [phone] Tacos Pedraza MD 05/26/2025 Home Care Visit [address] [place] [address] Aicha Soni, GERMAIN TELEPHONE ENCOUNTER 05/25/2025 Home Care Visit [address] [place] [address] Unique Smith, GERMAIN TELEPHONE ENCOUNTER 05/25/2025 Results Follow-Up [facility] Bone Health [address] [facility] Advanced Medicine 13th [place] [address] [place] [phone] Tarik Zeng MD Comprehensive metabolic panel, eGFR 05/24/2025 Home Care Visit [address] [place] [address] Unique Smith, GERMAIN TELEPHONE ENCOUNTER 05/20/2025 1:15 PM CDT - 05/20/2025 11:59 PM CDT Hospital Encounter [facility] [address] [place] [address] S/P lumbar spinal fusion Discharge Disposition: Discharge to home or self care 05/20/2025 12:00 PM CDT Clinical Support [facility] Orthopaedic Surgery [address] [facility] 6th [place] [address] [place] [address] 05/19/2025 Orders Only [facility] Orthopaedic Surgery [address] [facility] Medical Office Building [address] [place] [phone] Tacos Pedraza MD S/P lumbar spinal fusion (Primary Dx) 05/19/2025 Telephone [facility] Home Care Services [address] [facility] [address] [place] [phone] Kayla Poole, RN 05/19/2025 Telephone [facility] Home Care Services [address] [facility] [address] [place] [phone] Kayla Poole, RN 05/19/2025 Telephone [facility] Medical Group Primary Care at [address] [address] Kishan Melissa MD Additional Services Or Orders 05/19/2025 Telephone [facility] Home Care Services [address] [place] [address] [place] [phone] Kayla Poole, RN 05/19/2025 Telephone [facility] Home Care Services [address] [place] [address] [place] [phone] Kayla Poole, RN 05/19/2025 Telephone [facility] [address] [place] [address] [place] [phone] Kayla Poole, RN 05/19/2025 Telephone [facility] Home Care Services [address] [facility] [address] [place] [phone] Kayla Poole, RN 05/19/2025 Telephone [facility] Orthopaedic Surgery [address] [facility] Office Building [address] [place] [phone] Tacos Pedraza MD 05/19/2025 Telephone [facility] [address] [facility] [address] [place] [phone] Kayla Poole, RN 05/19/2025 Telephone [facility] Home Care Services [address] [facility] [address] [place] [address] Kayla Poole, RN 05/15/2025 Telephone [facility] Home Care Services [address] [facility] [address] [place] [phone] Kayla Poole, RN 05/15/2025 Telephone [facility] Home Care Services [address] [facility] [address] [place] [phone] Kayla Poole, RN 05/14/2025 Telephone [facility] Home Care Services [address] [facility] [address] [place] [phone] Kayla Poole, RN 05/14/2025 Telephone [facility] Home Care Services [address] [place] [address] [place] [phone] Kayla Poole, RN 05/14/2025 Telephone [facility] Home Care Services [address] [place] [address] [place] [phone] Kayla Poole, RN 05/14/2025 Telephone [facility] Home Care Services [address] [place] [address] [place] [phone] Kayla Poole, RN 05/14/2025 Telephone [facility] Medical Group Primary Care at [address] [address] Kishan Melissa MD Medical Question/Miscellaneou s 05/09/2025 Telephone [facility] [place] [facility] [address] [place] [address] [facility] [address] [place] [address] Rosa Nicole MD spgabriella w/nurse 05/06/2025 10:45 AM CDT Anesthesia Event [facility] Operating Room [address] [place] [phone] Stevie Chong MD Elbert, Laura M., IRA 05/06/2025 10:30 AM CDT - 05/06/2025 5:00 PM CDT Surgery [facility] Operating Room [address] [place] [phone] Tacos Pedraza MD [employer]! Removal of Instrumentation, Extension of Instrumentation and Fusion to L2, Bilateral Pelvic Fixation, L4 Laminectomy, Allograft Autograft 05/06/2025 8:31 AM CDT - 05/09/2025 1:43 PM CDT Hospital Encounter [facility] [address] [place] [phone] Tacos Pedraza MD Painful orthopaedic hardware (Primary Dx); Lumbar radiculopathy; S/P lumbar spinal fusion; Closed unstable burst fracture of fourth lumbar vertebra with delayed healing, subsequent encounter Discharge Disposition: Discharge to an Rehab facility 05/05/2025 Telephone [facility] Orthopaedic Surgery [address] [place] [address] 2nd Floor [address] [place] [phone] Tacos Pedraza MD 05/02/2025 2:26 PM CDT - 05/02/2025 11:59 PM CDT Hospital Encounter [facility] [address] [place] [address] S/P lumbar spinal fusion; Lumbar radiculopathy Discharge Disposition: Discharge to home or self care 04/30/2025 9:30 AM CDT Home Care Visit [address] [place] [address] Joel Santana, PT PT OASIS DISCHARGE 04/30/2025 Orders Only [facility] Medical Group Primary Care at [address] [phone] Kishan Melissa MD 04/29/2025 1:30 PM CDT Home Care Visit [address] [place] [address] Dayana Suero OT OT REASSESSMENT 04/29/2025 Home Care Visit [address] [place] [address] Dayana Suero OT OT DISCIPLINE DISCHARGE 04/29/2025 Telephone [facility] Medical Group Pulmonary at [place] [address] [facility] [address] [place] [address] Daksha Burton LPN Surgical clearance requested 04/25/2025 12:45 PM CDT Pre-Admission Testing [facility] Pre Anesthesia Testing [address] [place] [address] Preop testing (Primary Dx); Lumbar radiculopathy; Painful orthopaedic hardware; Loosening of hardware in spine; Status post lumbar spinal fusion; Pain in other joint; Vitamin D deficiency 04/24/2025 8:30 AM CDT Home Care Visit [address] [place] [address] Priti Malik COTA OT HOME VISIT 04/23/2025 2:30 PM CDT Home Care Visit [address] [place] [address] Joel Santana, PT PT HOME VISIT 04/22/2025 10:15 AM CDT Home Care Visit [address] [place] [address] Priti Malik COTA OT HOME VISIT 04/22/2025 Orders Only [facility] Medicine Orthopaedic Surgery [address] [facility] Medical Office Building [address] [place] [phone] Tacos Pedraza MD S/P lumbar spinal fusion (Primary Dx) 04/18/2025 1:00 PM CDT Home Care Visit [address] [place] [address] Joel Santana, PT PT HOME VISIT 04/18/2025 7:40 AM CDT Office Visit [facility] Orthopaedic Surgery [address] [place] [address] Advanced Medicine 12th [place] [address] [place] [phone] Tacos Pedraza MD S/P lumbar spinal fusion (Primary Dx); Lumbar radiculopathy 04/18/2025 7:15 AM CDT - 04/18/2025 11:59 PM CDT Hospital Encounter [facility] [address] [place] [address] S/P lumbar spinal fusion Discharge Disposition: Discharge to home or self care 04/18/2025 Orders Only [facility] Orthopaedic Surgery [address] [facility] 12th [place] [address] [place] [address] Tacos Pedraza MD Lumbar radiculopathy (Primary Dx); S/P lumbar spinal fusion 04/17/2025 8:30 AM CDT Home Care Visit [address] [place] [address] Priti Malik COTA OT HOME VISIT 04/16/2025 11:30 AM CDT Home Care Visit [address] [place] [address] Joel Santana, PT PT HOME VISIT 04/16/2025 Telephone [facility] Orthopaedic Surgery [address] [facility] Medical Office Building [address] [place] [phone] Tacos Pedraza MD 04/15/2025 8:30 AM CDT Home Care Visit [address] [place] [address] Priti Malik COTA OT HOME VISIT 04/14/2025 3:55 PM CDT Lab [facility] ([facility]) [address] [place] [phone] Age-related osteoporosis without current pathological fracture 04/14/2025 1:20 PM CDT Office Visit [facility] [address] [place] [address] 13th [place] [address] [place] [phone] Tarik Zeng MD Age-related osteoporosis without current pathological fracture (Primary Dx) 04/14/2025 Telephone [facility] Orthopaedic Surgery [address] [facility] 2nd Floor [address] [place] [phone] Tacos Pedraza MD 04/14/2025 Telephone [facility] [address] [facility] Medical Office Building 2 [address] [place] [address] Tarik Zeng MD 04/09/2025 9:30 AM CDT Home Care Visit [address] [place] [address] Joel Santana, PT PT REASSESSMENT 04/09/2025 8:30 AM CDT Home Care Visit [address] [place] [address] Priti Malik COTA OT HOME VISIT 04/09/2025 Home Care Visit [address] [place] [address] Joel Santana, PT CASE COMMUNICATION 04/07/2025 1:30 PM CDT Home Care Visit [address] [place] [address] Dayana Suero, OT OT REASSESSMENT 04/07/2025 Telephone [facility] Medical [facility] Primary Care at [address] [phone] Sheryl Nowak MA 04/04/2025 Results Follow-Up [facility] [address] [facility] 5th [place] [address] [place] [address] Tarik Zeng MD Vitamin D 25 hydroxy 04/03/2025 Home Care Visit [address] [place] [address] Aicha Soni, RN NURSE MED RECON FOR THERAPY 04/03/2025 Telephone [facility] Medical [facility] Primary Care at [address] [phone] Kishan Melissa MD Medical Question/Miscellaneou s 04/03/2025 Home Care Visit [address] [place] [address] Aicha Soni, RN TELEPHONE ENCOUNTER 04/01/2025 11:00 AM CDT Home Care Visit [address] [place] [address] Joel Santana, PT PT HOME VISIT 04/01/2025 8:30 AM CDT Home Care Visit [address] [place] [address] Priti Malik COTA OT HOME VISIT 03/28/2025 2:30 PM CDT Home Care Visit [address] [place] [address] Theresa Olivares PTA PT HOME VISIT 03/28/2025 8:30 AM CDT Home Care Visit [address] [place] [address] Priti Malik COTA OT HOME VISIT 03/26/2025 11:30 AM CDT Home Care Visit [address] [place] [address] Joel Santana, PT PT HOME VISIT 03/26/2025 8:30 AM CDT Home Care Visit [address] [place] [address] Priti Malik COTA OT HOME VISIT 03/25/2025 3:05 PM CDT Lab [facility] ([facility]) [address] [place] [phone] Age-related osteoporosis without current pathological fracture 03/25/2025 2:45 PM CDT - 03/25/2025 11:59 PM CDT Hospital Encounter [facility]) [address] [place] [address] Chronic pain of left knee Discharge Disposition: Discharge to home or self care 03/25/2025 1:00 PM CDT Office Visit [facility] Medicine Orthopaedic Surgery [address] [place] [address] Advanced Medicine 12th [place] [address] [place] [address] Tacos Pedraza MD S/P lumbar spinal fusion (Primary Dx); Chronic pain of left knee 03/25/2025 12:45 PM CDT - 03/25/2025 11:59 PM CDT Hospital Encounter [facility] [address] [place] [address] S/P lumbar spinal fusion Discharge Disposition: Discharge to home or self care 03/21/2025 11:00 AM CDT Home Care Visit [address] [place] [address] Margie Bolaños PTA PT HOME VISIT 03/21/2025 8:30 AM CDT Home Care Visit [address] [place] [address] Priti Malik COTA OT HOME VISIT 03/19/2025 12:30 PM CDT Home Care Visit [address] [place] [address] Priti Malik COTA OT HOME VISIT 03/19/2025 Orders Only [facility] Orthopaedic Surgery [address] [place] [address] [address] [place] [phone] Tacos Pedraza MD Fusion of spine of lumbar region (Primary Dx); Muscle weakness of lower extremity; Left knee pain, unspecified chronicity 03/19/2025 Telephone [facility] Orthopaedic Surgery [address] [place] [address] [address] [place] [phone] Tacos Pedraza MD 03/19/2025 Home Care Visit [address] [place] [address] Deepa Car LCSW CASE COMMUNICATION 03/18/2025 12:00 PM CDT Home Care Visit [address] [place] [address] Deepa Car LCSW LABEL PRINTER INITIAL EVAL 03/18/2025 Home Care Visit [address] [place] [address] Deepa Car LCSW LABEL PRINTER DISCIPLINE DISCHARGE 03/18/2025 Home Care Visit [address] [place] [address] Joan Hoffman, GERMAIN CASE COMMUNICATION 03/18/2025 Home Care Visit [address] [place] [address] Joel Santana, PT CASE COMMUNICATION 03/17/2025 Home Care Visit [address] [place] [address] Deepa Car PHARMACOLOGY ASSOCIATE CASE COMMUNICATION 03/14/2025 2:00 PM CDT Home Care Visit [address] [place] [address] Joel Santana, PT PT INITIAL EVALUATION 03/14/2025 1:00 PM CDT Home Care Visit [address] [place] [address] Denise García, OT OT INITIAL EVALUATION 03/14/2025 Home Care Visit [address] [place] [address] Joel Santana, PT CASE COMMUNICATION 03/14/2025 Home Care Visit [address] [place] [address] Denise García, OT CASE COMMUNICATION 03/13/2025 9:30 AM CDT Home Care Visit [address] [place] [address] Mj Yates, GERMAIN SN OASIS START OF CARE 03/13/2025 Plan of Care Documentation [address] [place] [address] 03/12/[address] [place] [address] Marcy Pugh RN 03/10/2025 Travel 03/07/2025 11:40 AM CDT Office Visit [facility] Medicine Orthopaedic Surgery [address] [facility] 12th [place] [address] [place] [phone] Tacos Pedraza MD S/P lumbar spinal fusion (Primary Dx); Closed stable burst fracture of fourth lumbar vertebra, initial encounter ([facility]) 03/07/2025 Orders Only [facility] Orthopaedic Surgery [address] [facility] 12th [place] [address] [place] [address] Tacos Pedraza MD Fusion of spine of lumbar region (Primary Dx) from Last 3 Months Immunizations Immunization Administration Dates Next Due Influenza, Quad, Adjuvantate d, Intramuscular 06/03/2020 Influenza, Quadrivalent, Hig h Dose, Preservative Free, Intrr 06/13/2022,06/07/2021 Influenza, Split 06/19/2013,05/17/2011, 0 Influenza, Trivalent, Adjuva nted, Intramuscular 06/06/2018 Influenza, Trivalent, High D ose, Split, Preservative Free, Intramuscular 05/17/2024,06/10/2019,05/24/2017,07/25,06/10/2015 Influenza, Trivalent, Recomb inant, Egg Free, Preservative Free, Antibiotic Free, IM (FLUBLOK) 07/11/2014,07/11/2014 Moderna SARS-CoV-2 Monovalen t Vaccination (12+ YRS) 12/01/2020,10/15/2020 Pfizer SARS-CoV-2 Monovalent Vaccination (12+ Yrs) PURPLE 02/04/2022 Pneumococcal Conjugate 7-Valent 05/24/2017 Pneumococcal Conjugate PCV 13 06/10/2015 Pneumococcal Conjugate Pcv20 05/14/2024 Pneumococcal Conjugate, Unspecified 05/24/2017 Pneumococcal Polysaccharide PPV23 11/29/2017 RSV Vaccine, Pref, Recombina nt, Subunit, Adjuvanted, PF, IM (Arexvy) 05/17/2024 ZOSTER LIVE 09/24/2015 ZOSTER Recombinant 06/03/2020 Surgical History Surgery Date Site/Laterality Comments CHOLECYSTECTOMY 08/28/1972 - 08/27/1973 APPENDECTOMY 08/28/1972 - 08/27/1973 PELVIC FRACTURE SURGERY 11/09/2012 FL UPPER GI AIR CONTRAST W KUB 03/15/2018 Left FL UPPER GI AIR CONTRAST W KUB 04/26/2018 Left FL UPPER GI AIR CONTRAST W KUB 07/25/2018 Left FL UPPER GI AIR CONTRAST W KUB 12/19/2018 Left CARPAL TUNNEL RELEASE 08/28/1995 - 08/27/1996 Right BREAST SURGERY 08/28/1976 - 08/27/1977 Right Removal of fibrous cyst SPINAL CORD STIMULATOR IMPLANT 08/28/1999 - 08/27/2000 FOOT NEUROMA SURGERY 04/27/2010 Right And 03/2012 TOTAL ABDOMINAL HYSTERECTOMY 08/28/1979 - 08/27/1980 COLONOSCOPY 08/28/2018 - 08/27/2019 GANGLION CYST EXCISION 1989' Right CATARACT EXTRACTION OD: 08/2020, OS: 06/[address] Carrillo FOOT SURGERY [id number] Right multiple, buion, neuroma BLEPHAROPTOSIS REPAIR 12/04/2020 Bilateral Functional BUL Blepharoplasty EYE MUSCLE SURGERY 07/14/2021 Left Entropion Repair VIKAS LUMBAR EPIDURAL INJECTION 07/31/2023 TUBAL LIGATION ABDOMINAL SURGERY 1973 Medical History Medical History Date Comments Polyp of colon Gastroesophageal reflux disease Leyva's neuroma of right foot Arthritis Edema IBS (irritable bowel syndrome) Goiter Colitis Vertigo Chronic pain Right wrist fracture Pelvis fracture (HCC) COPD (chronic obstructive pu lmonary disease) CVA (cerebral vascular accident) ([facility]) 2016 questionable, patient reports occurred udring pelvic surgery, mild memory deficit FEDERICO (obstructive sleep apnea) do esn't use cpap Hyperlipidemia HTN (hypertension) Hypothyroid PONV (postoperative nausea and vomiting) distant past but none recently--only with Dilaudid Asthma Osteoporosis Clotting disorder Chronic bronchitis (HCC) H/O TIA (transient ischemic attack) and stroke 05/14/2024 Lumbar radiculopathy Osteopenia Anxiety SOB (shortness of breath) chroni c Family History Medical History Relation Name Comments Diabetes Brother edward probert Hypertension Brother edward probert Stroke Brother edward probert Cancer Father katie probert Hypertension Father katie probert Lung cancer Father katie chin Hypertension Mother kelsey chin Breast cancer Mother's Sister 1 Breast cancer Mother's Sister 2 Diabetes Other Anesthesia problems Neg Hx Glaucoma Neg Hx Hip fracture Neg Hx Macular degeneration Neg Hx Osteoporosis Neg Hx Retinal detachment Neg Hx Relation Name Status Comments Brother criselda chin Father katie chin Mother kelsey chin Mother's Sister 1 Mother's Sister 2 Alive Other Social History Tobacco Use Types Packs/Day Years Used Date Smoking Tobacco: Every Day Cigarettes 0.3 50.4 Started: 1974; Last attempted to quit: 01/31/2025 Passive Smoke Exposure: Past Smokeless Tobacco: Never Tobacco Cessation:Ready to Q uit: Not Asked; Counseling Given: Not Answered Comments:Sometimes but very rarely 09/26/2024 smokes 3-5 [...] any time in the past 12 m [facility], were you homeless or living in a senior care (including now)? No 11/05/2024 Social Connection and Isolation Panel Answer Date Recorded In a typical week, how many times do you talk on the phone with family, friends, or neighbors? More than three times a week 05/07/2025 How often do you get togethe r with friends or relatives? Once a week 05/07/2025 How often do you attend chur ch or confucianist services? Never 05/07/2025 Do you belong to any clubs o r organizations such as holiness groups, unions, fraternal or athletic groups, or [...] any time in the past 12 m [facility], were you homeless or living in a senior care (including now)? 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 Gender Identity Not on file Sexual Orientation Not on file Obstetrics History Para Term AB IAB SAB Ectopic Multiple Livin g Live Births 4 2 2 2 1 2 2 Date Outcome GA Total Labor Labor/2nd/3rd Weight Sex Type Anes PTL Jia A1 A5 Name Clin 1967 Term 3.033 kg (6 lb 11 oz) F Vag-S pont N Living Complications:None 1967 SAB SAB Demise 1969 Term 3.487 kg (7 lb 11 oz) M Vag-S pont N Living Complications:None 1977 AB med Demise Last Filed Vital Signs Vital Sign Reading Time Taken Comments Blood Pressure 132/71 05/29/2025 11:12 AM CDT Pulse 76 05/29/2025 11:12 AM CDT Temperature 36.5 C (97.7 F) 05/29/2025 11:12 AM CDT Respiratory Rate 18 05/29/2025 11:12 AM CDT Oxygen Saturation 94% 05/29/2025 11:12 AM CDT Inhaled Oxygen Concentration - - Weight 68.9 kg (152 lb) 05/27/2025 1:32 PM CDT Height 160 cm (5' 3) 05/27/2025 1:32 PM CDT Body Mass Index 26.93 05/27/2025 1:32 PM CDT Plan of Treatment Scheduled Procedures Name Priority Associated Diagnoses Date/Ti me ESOPHAGOGASTRODUODENOSCOPY Open Access Epigastric pain Health Maintenance Due Date Last Done Comments Colon Cancer Screening-Colonoscopy 08/28/2024 08/28/2014, 07/13/2012 Covid-19 Vaccine ( season) 2025 02/04/2022, 02/04/2022, 07/23/2021, Additional history exists Influenza Vaccine (#1) 2025 , 06/13/2022, 06/07/2021, Additional history exists Zoster Vaccine (3 of 3) 10/24/2025 06/03/2020, 09/24 Postponed from 07/29/2020 (Insurance / Financial) Depression Screening 01/23/2026 01/23/2025, 01/23/2025, 12/12/2024, Additional history exists Well Visit 65+ 01/23/2026 01/23/2025, 06/12/2022, 12/06/2021, Additional history exists Fall Risk Assessment 05/09/2026 05/09/2025, 03/07/2025, 01/23/2025, Additional history exists Osteoporosis Screening-Bone Density Scan 07/29/2026 07/29/2024, 05/16/2022, 05/04/2021, Additional history exists Colon Cancer Screening-CT Colonography Discontinued 08/28/2014, 07/13/2012 Colon Cancer Screening-DNA Stool Discontinued 08/28/2014, 07/13/2012 Colon Cancer Screening-FIT Discontinued 08/28/2014, Colon Cancer Screening-Sigmoidoscopy Discontinued 08/28/2014, 07/13/2012 Hepatitis C Screening Completed 09/18/2020 Breast Cancer Screening-Mammogram Discontinued 12/05/2022, 02/25/2019, 11/28/2016, Additional history exists Pneumococcal vaccine 65+ Completed 024, 11/29/2017, 05/24/2017, Additional history exists Hepatitis B Screening Completed 01/24/2025 DTaP/Tdap/Td Vaccine Discontinued Goals Goal Patient Goal Type Associated Problems [...] lifestyle strategies and compensatory methods as needed Medical Devices Implanted Type Area Fur Storage Clerk Device Identifier Shelf Expiration Date Model / Serial / Lot Plate Pelvis Medtronic Inc Kit Graft Bone Sponge Med 20ga Infuse 5.6cc Granules [id number] - [id number] Implanted:Qty: 1 on 02/06/2025 by Tacos Pedraza MD at [facility] N/A: Spine Lumbar Medtronic Inc [id number] / / Allosource Crushed Chip Frozen Graft 30ml Bone Cancellous [id number] - [id number] Implanted:Qty: 1 on 02/06/2025 by Tacos Perdaza MD at [facility] N/A: Spine Lumbar Allosource 05/13/2029 [id number] / / [id number] Globus Medical Cage Spinal Lumbar 15 Degree Tlif Altera [id number] Titanium 1124.1132 - [id number] Implanted:Qty: 1 on 02/06/2025 by Tacos Pedraza MD at [facility] N/A: Spine Lumbar [employer] 1124.1132 / / Glob[employer] Medical Creo Od6.5 Mm L45 Mm Thread Polyaxial Spine Screw Bone Titanium 5146.1647 - [id number] Implanted:Qty: 2 on 05/06/2025 by Tacos Pedraza MD at [facility] N/A: Spine Lumbar [employer] 5146.1647 / / Gl[employer] Creo Od7.5 Mm L45 Mm Thread Polyaxial Spine Screw Bone Titanium 5146.1747 - [id number] Implanted:Qty: 2 on 05/06/2025 by Tacos Pedraza MD at [facility] N/A: Spine Lumbar [employer] 5146.1747 / / Gl[employer] Creo Od7.5 Mm L50 Mm Thread Polyaxial Spine Screw Bone Titanium 5146.1752 - [id number] Implanted:Qty: 2 on 05/06/2025 by Tacos Pedraza MD at [facility] N/A: Spine Lumbar [employer] 5146.1752 / / [employer] Screw Spinal Pedicle Polyaxial Threaded Solid Creo 5.5x45mm Titanium 5146.1547 - [id number] Implanted:Qty: 2 on 05/06/2025 by Tacos Pedraza MD at [facility] N/A: Spine Lumbar [employer] 5146.1547 / / Si-Bone Implant Arthrodesis 90x9.5mm Ifuse Bedrock Grnt Sacroiliac [id number] - [id number] - [id number] Implanted:Qty: 1 on 05/06/2025 by Tacos Pedraza MD at [facility] N/A: Spine Lumbar Si-Bone [id number] 12/23/2034 [id number] / [id number] / Si-Bone Implant Arthrodesis 9.5x80mm Ifuse Bedrock Grnt Sacroiliac 226976ez - [id number] - [id number] Implanted:Qty: 1 on 05/06/2025 by Tacos Pedraza MD at [facility] N/A: Spine Lumbar Si-Bone [id number] 10/23/2034 [id number] / [id number] / Allosource Graft Bone Filler Cancellous Frzn Neutromedics [id number] Crushed [id number] - [id number] Implanted:Qty: 1 on 05/06/2025 by Tacos Pedraza MD at [facility] N/A: Spine Lumbar Allosource 02/08/2030 [id number] / / [id number] Allosource Graft Bone Filler Cancellous Frzn Neutromedics [id number] Crushed [id number] - [id number] Implanted:Qty: 1 on 05/06/2025 by Tacos Pedraza MD at [facility] N/A: Spine Lumbar Allosource 02/08/2030 [id number] / / [id number] Globus Medical Creo Thread Spinal Cap Locking Nonsterile 1119.0010 - [id number] Implanted:Qty: 8 on 05/06/2025 by Tacos Pedraza MD at [facility] N/A: Spine Lumbar [employer] 1119.0010 / / Medtronic Inc Infuse 18mm 26mm Absorbable Sponge Sterile Water Syringe Needle 9253545 - [id number] Implanted:Qty: 1 on 05/06/2025 by Tacos Pedraza MD at [facility] N/A: Spine Lumbar Medtronic Inc [id number] 10/25/2025 [id number] / / [id number] Globus Medical Ted Spinal Lumbar Prebent Creo 5.3t120pd Titanium 1119.7125 - [id number] Implanted:Qty: 2 on 05/06/2025 by Tacos Pedraza MD at [facility] N/A: Spine Lumbar [employer] 1119.7125 / / Explanted Type Area Fur Storage Clerk Device Identifier Shelf Expiration Date Model / Serial / Lot Spinal Cord Stimulator-09/05/19 15 Implanted: 015 by Keila Schmidt MD (Quantity not on file) Explanted: 023 by Rosa Nicole MD (Quantity not on file) Spinal Cord Stimulator Spine Lumbar Medtronic Neuro 94930 / [id number] / Description:Pt knows to destin stafford external controller with her to MRI exams JL 12/10/20 Gl[employer]us Medical Creo Thread Spinal Cap Locking Nonsterile 1119.0010 - [id number] Implanted:Qty: 6 on 02/06/2025 by Tacos Pedraza MD at [facility] Explanted:Qty: 6 on 05/06/2025 by Tacos Pedraza MD at [facility] N/A: Spine Lumbar Gl[employer] Medical 1119.00 10 / / Globus Medical Creo Od6.5 Mm L40 Mm Thread Polyaxial Spine Screw Bone Titanium 5146.1642 - [id number] Implanted:Qty: 2 on 02/06/2025 by Tacos Pedraza MD at [facility] Explanted:Qty: 2 on 05/06/2025 by Tacos Pedraza MD at [facility] N/A: Spine Lumbar Gl[employer] Medical 5146.16 42 / / Medtronic Inc Neurostimulator Implantable Chronic Pain Rs2 61134 - [id number] - [id number] Implanted:Qty: 1 on 01/17/2023 by Rosa Nicole MD at [facility] Explanted:Qty: 1 on 05/06/2025 by Tacos Pedraza MD at [facility] Medtronic Inc [id number] 11/23/2023 977 15 / [id number] / Description:With MRI SureSca n Leads - Full Body Eligible REF 13284 INTELLIS ADAPTIVE STIM [employer] Creo Od6.5 Mm L45 Mm Preassemble Thread Spine Screw Bone 5119.1647 - [id number] Implanted:Qty: 2 on 02/06/2025 by Tacos Pedraza MD at [facility] Explanted:Qty: 2 on 05/06/2025 by Tacos Pedraza MD at [facility] N/A: Spine Lumbar Gl[employer] Medical 5119.16 47 / / Globus Medical Creo Od6.5 Mm L50 Mm Preassemble Thread Spine Screw Bone 5119.1652 - [id number] Implanted:Qty: 2 on 02/06/2025 by Tacos Pedraza MD at [facility] Explanted:Qty: 2 on 05/06/2025 by Tacos Pedraza MD at [facility] N/A: Spine Lumbar Gl[employer] Medical 5119.16 52 / / Globus Medical Ted Spinal Lumbar Prebent Creo 5.5x60mm Titanium 1119.7060 - [id number] Implanted:Qty: 2 on 02/06/2025 by Tacos Pedraza MD at [facility] Explanted:Qty: 2 on 05/06/2025 by Tacos Pedraza MD at [facility] N/A: Spine Lumbar [employer] 1119.70 60 / / Procedures Procedure Name Priority Date/Time Associated Diagnosis Comments XR SPINE LUMBAR 2 OR 3 VIEWS Schedule Routine, Read Routine (OP Routine) 05/20/2025 1:31 PM CDT S/P lumbar spinal fusion DIFFERENTIAL AUTO STAT 05/09/2025 11:58 AM CDT CBC WITH AUTO DIFFERENTIAL STAT 05/09/2025 11:58 AM CDT EGFR Routine 05/09/2025 6:30 AM CDT DIFFERENTIAL AUTO Routine 05/09/2025 6:3 0 AM CDT BASIC METABOLIC PANEL Routine 05/09/2025 6:30 AM CDT CBC WITH AUTO DIFFERENTIAL Routine 05/09/2025 6:30 AM CDT TRANSFUSE RED BLOOD CELLS Timed 05/08/2025 9:35 AM CDT PREPARE RBC STAT 05/08/2025 9:23 AM CDT TYPE AND SCREEN Routine 05/08/2025 9:10 AM CDT PREPARE RBC STAT 05/08/2025 7:43 AM CDT EGFR Routine 05/08/2025 6:41 AM CDT DIFFERENTIAL AUTO Routine 05/08/2025 6:4 1 AM CDT BASIC METABOLIC PANEL Routine 05/08/2025 6:41 AM CDT CBC WITH AUTO DIFFERENTIAL Routine 05/08/2025 6:41 AM CDT XR SCOLIOSIS AP LAT IP Routine 05/07/2025 5 :03 PM CDT XR SPINE LUMBAR 2 OR 3 VIEWS IP Routine 05/07/2025 5:03 PM CDT EGFR STAT 05/07/2025 3:08 PM CDT DIFFERENTIAL AUTO STAT 05/07/2025 3:0 8 PM CDT VITAMIN B12 STAT 05/07/2025 3:08 PM CDT IRON PROFILE W/ IBC STAT 05/07/2025 3 :08 PM CDT CBC WITH AUTO DIFFERENTIAL STAT 05/07/2025 3:08 PM CDT FOLATE STAT 05/07/2025 3:08 PM CDT FERRITIN STAT 05/07/2025 3:08 PM CDT COMPREHENSIVE METABOLIC PANEL STAT 05/07/2025 3:08 PM CDT HEMOGLOBIN AND HEMATOCRIT Routine 05/06/2025 10:20 PM CDT TRANSFUSE RED BLOOD CELLS Timed 05/06/2025 5:59 PM CDT TRANSFUSE RED BLOOD CELLS Timed 05/06/2025 5:00 PM CDT PREPARE RBC STAT 05/06/2025 4:51 PM CDT HEMOGLOBIN AND HEMATOCRIT Routine 05/06/2025 4:20 PM CDT FL FLUOROSCOPY < 1 HOUR IP Routine 05/06/2025 2:40 PM CDT XR SPINE LUMBAR 2 OR 3 VIEWS IP Routine 05/06/2025 2:40 PM CDT POCT HEMOGLOBIN - DEVICE Routine 05/06/2025 1:15 PM CDT POCT HEMOGLOBIN - DEVICE Routine 05/06/2025 1:12 PM CDT DE AN PROCEDURE PLACEHOLDER Routine 05/06/2025 11:15 AM CDT DE AN ELECTIVE ENDOTRACHEAL AIRWAY Routine 05/06/2025 11:15 AM CDT FUSION LUMBAR - POSTERIOR 2 LEVELS 05/06/2025 10:44 AM CDT Lumbar radiculopathy Painful orthopaedic hardware Status post lumbar spinal fusion B CHECK SAMPLE STAT 05/06/2025 8:58 AM CDT PREPARE RBC STAT 05/06/2025 8:37 AM CDT MRI LUMBAR SPINE WO CONTRAST Schedule Routine, Read Routine (OP Routine) 05/02/2025 3:29 PM CDT S/P lumbar spinal fusion Lumbar radiculopathy URINALYSIS AND REFLEX TO MICROSCOPIC AND CULTURE Routine 04/25/2025 2:44 PM CDT Lumbar radiculopathy Painful orthopaedic hardware Loosening of hardware in spine Status post lumbar spinal fusion URINALYSIS, MICROSCOPIC ONLY Routine 04/25/2025 2:43 PM CDT Lumbar radiculopathy Painful orthopaedic hardware Loosening of hardware in spine Status post lumbar spinal fusion URINE CULTURE Routine 04/25/2025 2:43 PM CDT DIFFERENTIAL AUTO Routine 04/25/2025 2:1 9 PM CDT Lumbar radiculopathy Painful orthopaedic hardware Loosening of hardware in spine Status post lumbar spinal fusion CBC WITH AUTO DIFFERENTIAL Routine 04/25/2025 2:19 PM CDT Lumbar radiculopathy Painful orthopaedic hardware Loosening of hardware in spine Status post lumbar spinal fusion PROTIME-INR Routine 04/25/2025 2:19 PM CDT Lumbar radiculopathy Painful orthopaedic hardware Loosening of hardware in spine Status post lumbar spinal fusion Pain in other joint APTT Routine 04/25/2025 2:19 PM CDT Lumbar radiculopathy Painful orthopaedic hardware Loosening of hardware in spine Status post lumbar spinal fusion Pain in other joint TYPE AND SCREEN Routine 04/25/2025 2:19 PM CDT Preop testing HEMOGLOBIN A1C Routine 04/25/2025 2:19 PM CDT Preop testing ALBUMIN Routine 04/25/2025 2:18 PM CDT Lumbar radiculopathy Painful orthopaedic hardware Loosening of hardware in spine Status post lumbar spinal fusion VITAMIN D 25 HYDROXY Routine 04/25/2025 2:18 PM CDT Lumbar radiculopathy Painful orthopaedic hardware Loosening of hardware in spine Status post lumbar spinal fusion Vitamin D deficiency ECG 12-LEAD Routine 04/25/2025 1:52 PM CDT Preop testing NICOTINE METABOLITE SCREEN, URINE Routine 04/25/2025 1:42 PM CDT Lumbar radiculopathy Painful orthopaedic hardware Loosening of hardware in spine Status post lumbar spinal fusion XR SPINE LUMBAR 2 OR 3 VIEWS Schedule Routine, Read Routine (OP Routine) 04/18/2025 7:43 AM CDT S/P lumbar spinal fusion EGFR Routine 04/14/2025 2:44 PM CDT Age-related osteoporosis without current pathological fracture COMPREHENSIVE METABOLIC PANEL Routine 04/14/2025 2:44 PM CDT Age-related osteoporosis without current pathological fracture THYROID FUNCTION CASCADE Routine 04/14/2025 2:44 PM CDT Age-related osteoporosis without current pathological fracture XR KNEE LEFT 1 OR 2 VIEWS Schedule Routine, Read Routine (OP Routine) 03/25/2025 2:53 PM CDT Chronic pain of left knee XR SPINE LUMBAR 2 OR 3 VIEWS Schedule Routine, Read Routine (OP Routine) 03/25/2025 1:52 PM CDT S/P lumbar spinal fusion EGFR Routine 03/25/2025 1:04 PM CDT Age-related osteoporosis without current pathological fracture VITAMIN D 25 HYDROXY Routine 03/25/2025 1:04 PM CDT Age-related osteoporosis without current pathological fracture COMPREHENSIVE METABOLIC PANEL Routine 03/25/2025 1:04 PM CDT Age-related osteoporosis without current pathological fracture DEXA TBS AXIAL SKELETON BONE DENSITY 1 OR MORE SITES Schedule Routine, Read Routine (OP Routine) 07/29/2024 11:56 AM IP ATTORNEY Age-related osteoporosis without current pathological fracture SCREENING MAMMOGRAM BILATERAL W EDU Schedule Routine, Read Routine (OP Routine) 12/05/2022 8:36 AM CDT Screening mammogram, encounter for HEPATITIS C ANTIBODY Routine 09/18/2020 8:10 AM IP ATTORNEY Elevated liver enzymes HM COLONOSCOPY Routine 08/28/2014 from Last 3 Months or Most Recently Relevant to Health Maintenance Results * XR Spine Lumbar 2 Or 3 View (05/20/2025 1:31 PM CDT) Anatomical Region Laterality Modality Spine N/A Computed Radiogr aphy 05/20/2025 2:14 PM CDT Impressions 05/20/2025 2:14 PM CDT 1. Posterior instrumented fusion of L2 of the pelvis with combined anterior instrumented fusion of L4-L5 for management of L4 burst fracture with new cephalad migration of the L2 pedicle screws with extension into the L1-L2 disc space and mild superior endplate height loss of the L2 vertebral body. Electronically signed by: Dino Alberts MD Narrative 05/20/2025 2:14 PM CDT EXAMINATION: XR SPINE LUMBAR 2 OR 3 VIEWS HISTORY: Spinal fusion follow-up FINDINGS: Comparison is made with radiographs dated 05/07/2025. Revised posterior instrumented fusion of L2 through the pelvis with bilateral iliac screws and combined anterior instrumented fusion of L4-L5 for management of L4 burst fracture. There is new cephalad migration of the L2 pedicle screws, with extension into the L1-L2 disc space and new mild superior endplate height loss of the L2 vertebral body. Mild degenerative disc disease of the nonfused levels of the lumbar spine. Aortic atherosclerosis. Partially imaged left iliac bone fixation. Procedure Note Dino Alberts MD - 05/20/2025 EXAMINATION: XR SPINE LUMBAR 2 OR 3 VIEWS HISTORY: Spinal fusion follow-up FINDINGS: Comparison is made with radiographs dated 05/07/2025. Revised posterior instrumented fusion of L2 through the pelvis with bilateral iliac screws and combined anterior instrumented fusion of L4-L5 for management of L4 burst fracture. There is new cephalad migration of the L2 pedicle screws, with extension into the L1-L2 disc space and new mild superior endplate height loss of the L2 vertebral body. Mild degenerative disc disease of the nonfused levels of the lumbar spine. Aortic atherosclerosis. Partially imaged left iliac bone fixation. IMPRESSION: 1. Posterior instrumented fusion of L2 of the pelvis with combined anterior instrumented fusion of L4-L5 for management of L4 burst fracture with new cephalad migration of the L2 pedicle screws with extension into the L1-L2 disc space and mild superior endplate height loss of the L2 vertebral body. Electronically signed by: Dino Alberts MD Tacos Pedraza MD IMG XR PROCEDURES Final Result * (ABNORMAL) Differential, auto (05/09/2025 11:58 AM CDT) Neutrophil abs 8.25(H) 1.50 - 6.50 K/cumm Imm gran abs 0.10 0.00 - 0.10 K/cumm [facility] Lymphocyte abs 1.51 0.80 - 3.30 K/cumm [facility] Monocyte abs 0.88(H) 0.20 - 0.80 K/cumm [facility] Eosinophil abs 0.06 0.00 - 0.50 K/cumm [facility] Basophil abs 0.04 0.00 - 0.10 K/cumm [facility] Neutrophil pct 76.1 % [facility] Comment: Interpretive Data Percent cell count reference ranges are not reported, since discordance with absolute values may lead to misinterpretation of CBC data. Current Interpretive Data was last revised on 2017. Imm gran pct 0.9 % [facility] Comment: Interpretive Data Percent cell count reference ranges are not reported, since discordance with absolute values may lead to misinterpretation of CBC data. Current Interpretive Data was last revised on 2017. Lymphocyte pct 13.9 % [facility] Comment: Interpretive Data Percent cell count reference ranges are not reported, since discordance with absolute values may lead to misinterpretation of CBC data. Current Interpretive Data was last revised on 2017. Monocyte pct 8.1 % [facility] Comment: Interpretive Data Percent cell count reference ranges are not reported, since discordance with absolute values may lead to misinterpretation of CBC data. Current Interpretive Data was last revised on 2017. Eosinophil pct 0.6 % [facility] Comment: Interpretive Data Percent cell count reference ranges are not reported, since discordance with absolute values may lead to misinterpretation of CBC data. Current Interpretive Data was last revised on 2017. Basophil pct 0.4 % [facility] Comment: Interpretive Data Percent cell count reference ranges are not reported, since discordance with absolute values may lead to misinterpretation of CBC data. Current Interpretive Data was last revised on 2017. Blood 05/09/2025 11:5 8 AM CDT 05/09/2025 12:21 PM CDT us Deedee Dewitt [employer] LAB BLOOD ORDERABLES Fi nal Result [facility] [address] Department [place] [address] * (ABNORMAL) CBC with auto differential (05/09/2025 11:58 AM CDT) [facility] WBC 10.84(H) 3.80 - 9.90 K/cumm Hgb 9.8(L) 11.9 - 15.5 g/dL [facility] Hct 30.5(L) 35.6 - 45.5 % [facility] Plt 227 150 - 400 K/cumm [facility] MPV 10.3 9.1 - 12.3 fL [facility] RBC 3.76(L) 3.90 - 5.20 M/cumm [facility] MCV 81.1(L) 81.3 - 96.4 fL [facility] MCH 26.1(L) 27.1 - 33.3 pg [facility] MCHC 32.1(L) 32.3 - 35.7 g/dL [facility] RDW CV 16.7(H) 11.1 - 14.9 % [facility] RDW SD 48.5(H) 35.7 - 48.1 fL [facility] NRBC abs 0.00 0.00 - 0.01 K/cumm [facility] Blood 05/09/2025 11:5 8 AM CDT 05/09/2025 12:21 PM CDT Deedee Dewitt NP LAB BLOOD ORDERABLES nal Result [facility] [address] Department [place] [address] * eGFR (05/09/2025 6:30 AM CDT) [facility] eGFR 80 >=60 mL/min/1. 73 m2 Comment: Interpretive Data Reference Interval Normal >/= 90 mL/min/1.73m2 Mildly decreased* 60 - 89 mL/min/1.73m2 Mildly to moderately decreased 45 - 59 mL/min/1.73m2 Moderately to severely decreased 30 - 44 mL/min/1.73m2 Severely decreased 15 - 29 mL/min/1.73m2 Kidney Failure < 15 mL/min/1.73m2 *Relative to young adult level Estimated glomerular filtration rate is determined by the 2020 CKD-EPI equation recommended by the National Kidney Foundation (A Unifying Approach to GFR Estimation: Recommendations of the NKF-ASK Task Force on Reassessing the Inclusion of Race in Diagnosing Kidney Disease, JASN 202). The CKD-EPI equation should not be used for patients with unstable renal function and has not been validated in children and those over 70. Current interpretive data was last reviewed 2021. Blood 05/09/2025 6:30 AM CDT 05/09/2025 6:59 AM CDT Rosendo Johnson MD LAB BLOOD ORDERABLES Final Resul t [facility] [address] Department [place] [address] * (ABNORMAL) Differential, auto (05/09/2025 6:30 AM CDT) Neutrophil abs 6.75(H) 1.50 - 6.50 K/cumm Imm gran abs 0.09 0.00 - 0.10 K/cumm [facility] Lymphocyte abs 1.35 0.80 - 3.30 K/cumm [facility] Monocyte abs 0.74 0.20 - 0.80 K/cumm [facility] Eosinophil abs 0.07 0.00 - 0.50 K/cumm [facility] Basophil abs 0.02 0.00 - 0.10 K/cumm [facility] Neutrophil pct 74.8 % [facility] Comment: Interpretive Data Percent cell count reference ranges are not reported, since discordance with absolute values may lead to misinterpretation of CBC data. Current Interpretive Data was last revised on 2017. Imm gran pct 1.0 % [facility] Comment: Interpretive Data Percent cell count reference ranges are not reported, since discordance with absolute values may lead to misinterpretation of CBC data. Current Interpretive Data was last revised on 2017. Lymphocyte pct 15.0 % [facility] Comment: Interpretive Data Percent cell count reference ranges are not reported, since discordance with absolute values may lead to misinterpretation of CBC data. Current Interpretive Data was last revised on 2017. Monocyte pct 8.2 % [facility] Comment: Interpretive Data Percent cell count reference ranges are not reported, since discordance with absolute values may lead to misinterpretation of CBC data. Current Interpretive Data was last revised on 2017. Eosinophil pct 0.8 % [facility] Comment: Interpretive Data Percent cell count reference ranges are not reported, since discordance with absolute values may lead to misinterpretation of CBC data. Current Interpretive Data was last revised on 2017. Basophil pct 0.2 % [facility] Comment: Interpretive Data Percent cell count reference ranges are not reported, since discordance with absolute values may lead to misinterpretation of CBC data. Current Interpretive Data was last revised on 2017. Blood 05/09/2025 6:30 AM CDT 05/09/2025 6:59 AM CDT us Deedee Dewitt NP LAB BLOOD ORDERABLES Fi nal Result [facility] [address] Department [place] [address] * (ABNORMAL) CBC with auto differential (05/09/2025 6:30 AM CDT) WBC 9.02 3.80 - 9.90 K/cumm Hgb 9.5(L) 11.9 - 15.5 g/dL [facility] Hct 29.6(L) 35.6 - 45.5 % [facility] Plt 206 150 - 400 K/cumm [facility] MPV 10.7 9.1 - 12.3 fL [facility] RBC 3.65(L) 3.90 - 5.20 M/cumm [facility] MCV 81.1(L) 81.3 - 96.4 fL [facility] MCH 26.0(L) 27.1 - 33.3 pg [facility] MCHC 32.1(L) 32.3 - 35.7 g/dL [facility] RDW CV 16.6(H) 11.1 - 14.9 % [facility] RDW SD 47.9 35.7 - 48.1 fL [facility] NRBC abs 0.00 0.00 - 0.01 K/cumm [facility] Blood 05/09/2025 6:30 AM CDT 05/09/2025 6:59 AM CDT us Deedee Dewitt NP LAB BLOOD ORDERABLES Fi nal Result [facility] [address] Department [place] [address] * (ABNORMAL) Basic metabolic panel (05/09/2025 6:30 AM CDT) Sodium 135 135 - 145 mmol/L Potassium, pl 3.8 3.3 - 4.9 mmol/L [facility] Chloride 102 97 - 110 mmol/L [facility] CO2 23 22 - 32 mmol/L [facility] Anion gap 10 2 - 15 mmol/L [facility] BUN 9 6 - 25 mg/dL [facility] Creatinine 0.77 0.60 - 1.10 mg/dL [facility] Glucose 94 70 - 199 mg/dL [facility] Comment: Interpretive Data Fasting glucose >/= 126 mg/dl is diagnostic for diabetes. Fasting is defined as no caloric intake for at least 8 hours. Fasting glucose between 100 mg/dl to 125 mg/dl is diagnostic of prediabetes. In a patient with classic symptoms of hyperglycemia or hyperglycemic crisis, a random glucose >/= 200 mg/dl is diagnostic for diabetes. In the absence of unequivocal hyperglycemia, results should be confirmed by repeat testing. The classification and Diagnosis of Diabetes Diabetes Care 2021; 46: S19-S40. Current interpretive data was last revised 2022. Calcium 8.4(L) 8.5 - 10.3 mg/dL [facility] Blood 05/09/2025 6:30 AM CDT 05/09/2025 6:59 AM CDT us Rosendo Johnson MD LAB BLOOD ORDERABLES Final Resul t Performing Organization Address [facility] Co de Phone Number [facility] [address] Department [employer] [place], [place] [id number] * Transfuse RBC (05/08/2025 12:51 PM CDT) Blood us Deedee Dewitt [employer] BLOOD TRANSFUSION ORDER JOVANY Final Result Performing Organization Address [facility] Co de Phone Number [facility] [address] Department [employer] [place] [address] * Prepare RBC (05/08/2025 9:23 AM CDT) Product code [id number] Unit Number [id number] [facility] Product Blood Type BPOS [facility] Dispense Status PRESUMED TRANSFUSED [facility] Blood 05/08/2025 9:23 AM CDT 05/08/2025 9:23 AM CDT us Tacos Pedraza MD BLOOD BANK PRODUCT ORDE RABLES Final Result Performing Organization Address [facility] de Phone Number [facility] [address] Department [place], [place] [id number] * Type and screen (05/08/2025 9:10 AM CDT) ABO Rh AB Positive Marcello, indirect Negative [facility] Blood 05/08/2025 9:10 AM CDT 05/08/2025 9:39 AM CDT Narrative [facility] - 05/08/2025 10:23 AM CDT Has the patient had Daratumumab or Isatuximab in the past 6 months?->Unknown us Deedee Dewitt NP LAB BLOOD BANK TEST ORD ERABLES Final Result Performing Organization Address [facility]/State/ZIP Co de Phone Number [facility] [address] Department [place] [employer] [place] [address] * Prepare RBC: 1 Units (05/08/2025 7:43 AM CDT) Pathologist [facility] Product code [id number] Unit Number [id number] [facility] Product Blood Type BPOS [facility] Dispense Status RETURNED [facility] Blood 05/08/2025 7:43 AM CDT Narrative [facility] - 05/08/2025 9:24 AM CDT Are special requirements needed? (All products are leukoreduced and CMV- safe)- >No Date required:-[id number] LRRBC # of Pgicq-5-Gzunt Reasons:-Hgb <7 g/dL} Deedee Dewitt NP BLOOD BANK PRODUCT ORDE BAKARI Final Result [facility] [address] Department of [employer] [place] [address] * eGFR (05/08/2025 6:41 AM CDT) [facility] eGFR 71 >=60 mL/min/1. 73 m2 Comment: Interpretive Data Reference Interval Normal >/= 90 mL/min/1.73m2 Mildly decreased* 60 - 89 mL/min/1.73m2 Mildly to moderately decreased 45 - 59 mL/min/1.73m2 Moderately to severely decreased 30 - 44 mL/min/1.73m2 Severely decreased 15 - 29 mL/min/1.73m2 Kidney Failure < 15 mL/min/1.73m2 *Relative to young adult level Estimated glomerular filtration rate is determined by the 2020 CKD-EPI equation recommended by the National Kidney Foundation (A Unifying Approach to GFR Estimation: Recommendations of the NKF-ASK Task Force on Reassessing the Inclusion of Race in Diagnosing Kidney Disease, JASN 2020). The CKD-EPI equation should not be used for patients with unstable renal function and has not been validated in children and those over 70. Current interpretive data was last reviewed 2021. Blood 05/08/2025 6:41 AM CDT 05/08/2025 7:15 AM CDT Rosendo Johnson MD LAB BLOOD ORDERABLES Final Resul t [facility] [address] [place] Department [place] [address] * (ABNORMAL) Differential, auto (05/08/2025 6:41 AM CDT) Neutrophil abs 6.73(H) 1.50 - 6.50 K/cumm Imm gran abs 0.06 0.00 - 0.10 K/cumm [facility] Lymphocyte abs 1.14 0.80 - 3.30 K/cumm [facility] Monocyte abs 0.86(H) 0.20 - 0.80 K/cumm [facility] Eosinophil abs 0.02 0.00 - 0.50 K/cumm [facility] Basophil abs 0.02 0.00 - 0.10 K/cumm [facility] Neutrophil pct 76.3 % [facility] Comment: Interpretive Data Percent cell count reference ranges are not reported, since discordance with absolute values may lead to misinterpretation of CBC data. Current Interpretive Data was last revised on 2017. Imm gran pct 0.7 % [facility] Comment: Interpretive Data Percent cell count reference ranges are not reported, since discordance with absolute values may lead to misinterpretation of CBC data. Current Interpretive Data was last revised on 2017. Lymphocyte pct 12.9 % [facility] Comment: Interpretive Data Percent cell count reference ranges are not reported, since discordance with absolute values may lead to misinterpretation of CBC data. Current Interpretive Data was last revised on 2017. Monocyte pct 9.7 % [facility] Comment: Interpretive Data Percent cell count reference ranges are not reported, since discordance with absolute values may lead to misinterpretation of CBC data. Current Interpretive Data was last revised on 2017. Eosinophil pct 0.2 % [facility] Comment: Interpretive Data Percent cell count reference ranges are not reported, since discordance with absolute values may lead to misinterpretation of CBC data. Current Interpretive Data was last revised on 2017. Basophil pct 0.2 % [facility] Comment: Interpretive Data Percent cell count reference ranges are not reported, since discordance with absolute values may lead to misinterpretation of CBC data. Current Interpretive Data was last revised on 2017. Blood 05/08/2025 6:41 AM CDT 05/08/2025 7:17 AM CDT us Deedee Dewitt [employer] LAB BLOOD ORDERABLES Fi nal Result [facility] [address] Department [place] [address] * (ABNORMAL) CBC with auto differential (05/08/2025 6:41 AM CDT) WBC 8.83 3.80 - 9.90 K/cumm Hgb 6.7(L) 11.9 - 15.5 g/dL [facility] Hct 21.2(L) 35.6 - 45.5 % [facility] Plt 177 150 - 400 K/cumm [facility] MPV 11.2 9.1 - 12.3 fL [facility] RBC 2.67(L) 3.90 - 5.20 M/cumm [facility] MCV 79.4(L) 81.3 - 96.4 fL [facility] MCH 25.1(L) 27.1 - 33.3 pg [facility] MCHC 31.6(L) 32.3 - 35.7 g/dL [facility] RDW CV 17.0(H) 11.1 - 14.9 % [facility] RDW SD 48.5(H) 35.7 - 48.1 fL [facility] NRBC abs 0.00 0.00 - 0.01 K/cumm [facility] Blood 05/08/2025 6:41 AM CDT 05/08/2025 7:17 AM CDT Deedee Dewitt NP LAB BLOOD ORDERABLES Fi nal Result Performing Organization Address [facility]/ZIP Co de Phone Number [facility] [address] Department of [employer] [place] [address] * (ABNORMAL) Basic metabolic panel (05/08/2025 6:41 AM CDT) Sodium 133(L) 135 - 145 mmol/L Potassium, pl 3.9 3.3 - 4.9 mmol/L [facility] Chloride 102 97 - 110 mmol/L [facility] CO2 23 22 - 32 mmol/L [facility] Anion gap 8 2 - 15 mmol/L [facility] BUN 11 6 - 25 mg/dL [facility] Creatinine 0.85 0.60 - 1.10 mg/dL [facility] Glucose 109 70 - 199 mg/dL [facility] Comment: Interpretive Data Fasting glucose >/= 126 mg/dl is diagnostic for diabetes. Fasting is defined as no caloric intake for at least 8 hours. Fasting glucose between 100 mg/dl to 125 mg/dl is diagnostic of prediabetes. In a patient with classic symptoms of hyperglycemia or hyperglycemic crisis, a random glucose >/= 200 mg/dl is diagnostic for diabetes. In the absence of unequivocal hyperglycemia, results should be confirmed by repeat testing. The classification and Diagnosis of Diabetes Diabetes Care 202; 46: S19-S40. Current interpretive data was last revised 2022. Calcium 8.1(L) 8.5 - 10.3 mg/dL [facility] Blood 05/08/2025 6:41 AM CDT 05/08/2025 7:15 AM CDT Rosendo Johnson MD LAB BLOOD ORDERABLES Final Resul t Performing Organization Address [facility]/ZIP Co de Phone Number [facility] [address] Department [place] [employer] [place] [address] * XR Scoliosis Ap Lat (05/07/2025 5:03 PM CDT) Anatomical Region Laterality Modality Spine N/A Radio Fluoroscop y 05/07/2025 10:3 6 PM CDT Impressions 05/07/2025 10:36 PM CDT Frontal and lateral views of the entire spine and three views of the lumbar spine are obtained. Lumbar spine: There are changes of L2-S1 posterior instrumented fusion with bilateral sacroiliac screws. There is an L4-L5 interbody fusion device. The instrumentation appears intact. Unchanged L4 compression fracture. A drain projects over the back. Partially imaged changes of pubic symphysis fixation and left iliac fixation. Diffuse osteopenia. Vascular calcifications. Scoliosis: Hyperkyphosis of the thoracic spine secondary to a severe T8 compression deformity. Unchanged compression fracture of the T4 vertebral body. Multilevel degenerative disc and joint disease throughout the imaged spine. No significant scoliotic curvature. No significant coronal imbalance. There is marked positive sagittal imbalance. No significant pelvic obliquity. Electronically signed by: Jay Gallego MD PHD Narrative 05/07/2025 10:36 PM CDT EXAMINATION: XR SPINE LUMBAR 2 OR 3 VIEWS, XR SCOLIOSIS AP AND LATERAL HISTORY: L4 burst fracture status post revision instrumented fusion of the lumbar spine 05/06/2025. COMPARISON: 05/06/2025 Procedure Note Jay Gallego MD PhD - 05/07/2025 EXAMINATION: XR SPINE LUMBAR 2 OR 3 VIEWS, XR SCOLIOSIS AP AND LATERAL HISTORY: L4 burst fracture status post revision instrumented fusion of the lumbar spine 05/06/2025. COMPARISON: 05/06/2025 IMPRESSION: Frontal and lateral views of the entire spine and three views of the lumbar spine are obtained. Lumbar spine: There are changes of L2-S1 posterior instrumented fusion with bilateral sacroiliac screws. There is an L4-L5 interbody fusion device. The instrumentation appears intact. Unchanged L4 compression fracture. A drain projects over the back. Partially imaged changes of pubic symphysis fixation and left iliac fixation. Diffuse osteopenia. Vascular calcifications. Scoliosis: Hyperkyphosis of the thoracic spine secondary to a severe T8 compression deformity. Unchanged compression fracture of the T4 vertebral body. Multilevel degenerative disc and joint disease throughout the imaged spine. No significant scoliotic curvature. No significant coronal imbalance. There is marked positive sagittal imbalance. No significant pelvic obliquity. Electronically signed by: Jay Gallego MD PHD us Tacos Pedraza MD IMG XR PROCEDURES Final Result * XR lumbar spine 2 or 3 views (05/07/2025 5:03 PM CDT) Anatomical Region Laterality Modality Spine N/A Radio Fluoroscop y 05/07/2025 10:3 6 PM CDT Impressions 05/07/2025 10:36 PM CDT Frontal and lateral views of the entire spine and three views of the lumbar spine are obtained. Lumbar spine: There are changes of L2-S1 posterior instrumented fusion with bilateral sacroiliac screws. There is an L4-L5 interbody fusion device. The instrumentation appears intact. Unchanged L4 compression fracture. A drain projects over the back. Partially imaged changes of pubic symphysis fixation and left iliac fixation. Diffuse osteopenia. Vascular calcifications. Scoliosis: Hyperkyphosis of the thoracic spine secondary to a severe T8 compression deformity. Unchanged compression fracture of the T4 vertebral body. Multilevel degenerative disc and joint disease throughout the imaged spine. No significant scoliotic curvature. No significant coronal imbalance. There is marked positive sagittal imbalance. No significant pelvic obliquity. Electronically signed by: Jay Gallego MD PHD Narrative 05/07/2025 10:36 PM CDT EXAMINATION: XR SPINE LUMBAR 2 OR 3 VIEWS, XR SCOLIOSIS AP AND LATERAL HISTORY: L4 burst fracture status post revision instrumented fusion of the lumbar spine 05/06/2025. COMPARISON: 05/06/2025 Procedure Note Jay Gallego MD PhD - 05/07/2025 EXAMINATION: XR SPINE LUMBAR 2 OR 3 VIEWS, XR SCOLIOSIS AP AND LATERAL HISTORY: L4 burst fracture status post revision instrumented fusion of the lumbar spine 05/06/2025. COMPARISON: 05/06/2025 IMPRESSION: Frontal and lateral views of the entire spine and three views of the lumbar spine are obtained. Lumbar spine: There are changes of L2-S1 posterior instrumented fusion with bilateral sacroiliac screws. There is an L4-L5 interbody fusion device. The instrumentation appears intact. Unchanged L4 compression fracture. A drain projects over the back. Partially imaged changes of pubic symphysis fixation and left iliac fixation. Diffuse osteopenia. Vascular calcifications. Scoliosis: Hyperkyphosis of the thoracic spine secondary to a severe T8 compression deformity. Unchanged compression fracture of the T4 vertebral body. Multilevel degenerative disc and joint disease throughout the imaged spine. No significant scoliotic curvature. No significant coronal imbalance. There is marked positive sagittal imbalance. No significant pelvic obliquity. Electronically signed by: Jay Gallego MD PHD Tacos Pedraza MD IMG XR PROCEDURES Final Result * eGFR (05/07/2025 3:08 PM CDT) eGFR 62 >=60 mL/min/1. 73 m2 Comment: Interpretive Data Reference Interval Normal >/= 90 mL/min/1.73m2 Mildly decreased* 60 - 89 mL/min/1.73m2 Mildly to moderately decreased 45 - 59 mL/min/1.73m2 Moderately to severely decreased 30 - 44 mL/min/1.73m2 Severely decreased 15 - 29 mL/min/1.73m2 Kidney Failure < 15 mL/min/1.73m2 *Relative to young adult level Estimated glomerular filtration rate is determined by the 2020 CKD-EPI equation recommended by the National Kidney Foundation (A Unifying Approach to GFR Estimation: Recommendations of the NKF-ASK Task Force on Reassessing the Inclusion of Race in Diagnosing Kidney Disease, JASN 202). The CKD-EPI equation should not be used for patients with unstable renal function and has not been validated in children and those over 70. Current interpretive data was last reviewed 2021. Blood 05/07/2025 3:08 PM CDT 05/07/2025 3:16 PM CDT Tacos Pedraza MD LAB BLOOD ORDERABLES Fi nal Result [facility] [address] Department [place] [address] * (ABNORMAL) Differential, auto (05/07/2025 3:08 PM CDT) Neutrophil abs 8.55(H) 1.50 - 6.50 K/cumm Imm gran abs 0.09 0.00 - 0.10 K/cumm [facility] Lymphocyte abs 1.36 0.80 - 3.30 K/cumm [facility] Monocyte abs 1.23(H) 0.20 - 0.80 K/cumm [facility] Eosinophil abs 0.01 0.00 - 0.50 K/cumm [facility] Basophil abs 0.02 0.00 - 0.10 K/cumm [facility] Neutrophil pct 75.9 % [facility] Comment: Interpretive Data Percent cell count reference ranges are not reported, since discordance with absolute values may lead to misinterpretation of CBC data. Current Interpretive Data was last revised on 2017. Imm gran pct 0.8 % [facility] Comment: Interpretive Data Percent cell count reference ranges are not reported, since discordance with absolute values may lead to misinterpretation of CBC data. Current Interpretive Data was last revised on 2017. Lymphocyte pct 12.1 % [facility] Comment: Interpretive Data Percent cell count reference ranges are not reported, since discordance with absolute values may lead to misinterpretation of CBC data. Current Interpretive Data was last revised on 2017. Monocyte pct 10.9 % [facility] Comment: Interpretive Data Percent cell count reference ranges are not reported, since discordance with absolute values may lead to misinterpretation of CBC data. Current Interpretive Data was last revised on 2017. Eosinophil pct 0.1 % [facility] Comment: Interpretive Data Percent cell count reference ranges are not reported, since discordance with absolute values may lead to misinterpretation of CBC data. Current Interpretive Data was last revised on 2017. Basophil pct 0.2 % [facility] Comment: Interpretive Data Percent cell count reference ranges are not reported, since discordance with absolute values may lead to misinterpretation of CBC data. Current Interpretive Data was last revised on 2017. Blood 05/07/2025 3:08 PM CDT 05/07/2025 3:16 PM CDT us Tacos Pedraza MD LAB BLOOD ORDERABLES Fi nal Result [facility] [address] Department [place] [address] * Iron profile w/ IBC (05/07/2025 3:08 PM CDT) [facility] Iron 96 35 - 145 mcg/dL TIBC 264 250 - 400 mcg/dL [facility] Transferrin saturation 36 20 - 50 % [facility] Blood 05/07/2025 3:08 PM CDT 05/07/2025 3:16 PM CDT us Tacos Pedraza MD LAB BLOOD ORDERABLES Fi nal Result [facility] [address] Department [place] [address] * (ABNORMAL) CBC with auto differential (05/07/2025 3:08 PM CDT) [facility] WBC 11.26(H) 3.80 - 9.90 K/cumm Hgb 7.1(L) 11.9 - 15.5 g/dL [facility] Hct 22.3(L) 35.6 - 45.5 % [facility] Plt 182 150 - 400 K/cumm [facility] MPV 10.7 9.1 - 12.3 fL [facility] RBC 2.90(L) 3.90 - 5.20 M/cumm [facility] MCV 76.9(L) 81.3 - 96.4 fL [facility] MCH 24.5(L) 27.1 - 33.3 pg [facility] MCHC 31.8(L) 32.3 - 35.7 g/dL [facility] RDW CV 16.7(H) 11.1 - 14.9 % [facility] RDW SD 47.1 35.7 - 48.1 fL [facility] NRBC abs 0.00 0.00 - 0.01 K/cumm [facility] Blood 05/07/2025 3:08 PM CDT 05/07/2025 3:16 PM CDT Tacos Pedraza MD LAB BLOOD ORDERABLES Fi nal Result [facility] [address] [facility] [employer] [place], [place] [id number] * Folate (05/07/2025 3:08 PM CDT) Pathologist [facility] Folic acid 5.8 >=5.0 ng/mL Blood 05/07/2025 3:08 PM CDT 05/07/2025 3:16 PM CDT Tacos Pedraza MD LAB BLOOD ORDERABLES Fi nal Result Performing Organization Address City/[facility] Co de Phone Number [facility] [address] [facility] [employer] [place] [address] * Ferritin (05/07/2025 3:08 PM CDT) [facility] Ferritin 89 13 - 150 ng/mL Blood 05/07/2025 3:08 PM CDT 05/07/2025 3:16 PM CDT Tacos Pedraza MD LAB BLOOD ORDERABLES Fi nal Result Performing Organization Address City/[facility]/ZIP Co de Phone Number [facility] [address] [facility] [employer] [place] [address] * Vitamin B12 (05/07/2025 3:08 PM CDT) Pathologist [facility] Vitamin B12 410 230 - 1,250 pg/mL Blood 05/07/2025 3:08 PM CDT 05/07/2025 3:16 PM CDT Tacos Pedraza MD LAB BLOOD ORDERABLES Fi nal Result [facility] [address] Department [employer] [place] [address] * (ABNORMAL) Comprehensive metabolic panel (05/07/2025 3:08 PM CDT) Sodium 137 135 - 145 mmol/L Potassium, pl 4.3 3.3 - 4.9 mmol/L [facility] Chloride 105 97 - 110 mmol/L [facility] CO2 23 22 - 32 mmol/L [facility] Anion gap 9 2 - 15 mmol/L [facility] BUN 13 6 - 25 mg/dL [facility] Creatinine 0.96 0.60 - 1.10 mg/dL [facility] Glucose 131 70 - 199 mg/dL [facility] Comment: Interpretive Data Fasting glucose >/= 126 mg/dl is diagnostic for diabetes. Fasting is defined as no caloric intake for at least 8 hours. Fasting glucose between 100 mg/dl to 125 mg/dl is diagnostic of prediabetes. In a patient with classic symptoms of hyperglycemia or hyperglycemic crisis, a random glucose >/= 200 mg/dl is diagnostic for diabetes. In the absence of unequivocal hyperglycemia, results should be confirmed by repeat testing. The classification and Diagnosis of Diabetes Diabetes Care 2021; 46: S19-S40. Current interpretive data was last revised 2022. Calcium 7.7(L) 8.5 - 10.3 mg/dL [facility] Bilirubin, total 0.6 0.1 - 1.2 mg/dL [facility] Protein, pl 4.9(L) 6.5 - 8.5 g/dL [facility] Albumin 3.3(L) 3.5 - 5.0 g/dL [facility] Alk phos 120 40 - 130 Units/L [facility] ALT 19 7 - 45 Units/L [facility] AST 48(H) 10 - 45 Units/L [facility] Blood 05/07/2025 3:08 PM CDT 05/07/2025 3:16 PM CDT us Tacos Pedraza MD LAB BLOOD ORDERABLES Fi nal Result [facility] [address] Department [place] [address] * (ABNORMAL) Hemoglobin and hematocrit (05/06/2025 10:20 PM CDT) Hgb 9.0(L) 11.9 - 15.5 g/dL Comment:This result has been called to Marce Lopez RN by [id number] on 05/06/2025 22:55:32. Patient Transfused. Hct 28.6(L) 35.6 - 45.5 % [facility] Blood 05/06/2025 10:2 0 PM CDT 05/06/2025 10:29 PM CDT Narrative [facility] - 05/06/2025 11:00 PM CDT 1 hour post transfusion Stevie Chong MD LAB BLOOD ORDERABL ES Final Result Performing Organization Address [facility]/ZIP Co de Phone Number [facility] [address] Department [employer] [place] [address] * Transfuse RBC (05/06/2025 7:23 PM CDT) Blood Stevie Chong MD BLOOD TRANSFUSION ORDERABLES Final Result [facility] [address] Department [employer] [place] [address] * Transfuse RBC (05/06/2025 5:53 PM CDT) Blood Stevie Chong MD BLOOD TRANSFUSION ORDERABLES Final Result Performing Organization Address City/[facility]/ZIP Co de Phone Number [facility] [address] Department [employer] [place], [place] [id number] * Prepare RBC: 2 Units (05/06/2025 4:51 PM CDT) Pathologist [facility] Product code [id number] [facility] Unit Number [id number] [facility] Product Blood Type ANEG [facility] Dispense Status PRESUMED TRANSFUSED [facility] Product code [id number] Unit Number [id number] [facility] Product Blood Type ANEG [facility] Dispense Status RETURNED [facility] Blood 05/06/2025 4:51 PM CDT Narrative [facility] - 05/08/2025 10:26 AM CDT Are special requirements needed? (All products are leukoreduced and CMV- safe)- >No Date required:-[id number] LRRBC # of Ziwyd-3-Rutod Reasons:-Hgb <7 g/dL} Stevie Chong MD BLOOD BANK PRODUCT ORDERABLES Final Result [facility] [address] [employer] [place] [address] * (ABNORMAL) Hemoglobin and hematocrit (05/06/2025 4:20 PM CDT) [facility] Hgb 5.5(C) 11.9 - 15.5 g/dL Comment:This result has been called to SANTOS KAM RN by [email or web address] on 05/06/2025 16:48:03, and has been read back. Hct 18.2(L) 35.6 - 45.5 % [facility] Blood 05/06/2025 4:20 PM CDT 05/06/2025 4:28 PM CDT Stevie Chong MD LAB BLOOD ORDERABL ES Final Result Performing Organization Address City/[facility]/ZIP Co de Phone Number [facility] [address] [employer] [place] [address] * [place] Fluoroscopy < 1 Hour (05/06/2025 2:40 PM CDT) Narrative [facility] - 05/06/2025 4:06 PM CDT The images from this study are not interpreted by Radiology. Please refer to the physician's procedure / OR operative note. us Tacos Pedraza MD IMG FLUOROSCOPY PROCEDU RES Final Result RAD_PACS_[facility] * XR Spine Lumbar 2 or 3 Views (05/06/2025 2:40 PM CDT) Anatomical Region Laterality Modality Spine N/A Computed Radiogr aphy 05/07/2025 9:22 AM CDT Impressions 05/07/2025 9:22 AM CDT FINDINGS/IMPRESSION: 7 intraoperative fluoroscopic images are submitted for review. Removal of the previously seen L4-S1 posterior fusion instrumentation when compared to radiograph 04/18/2025. Postoperative changes of L2-S1 posterior fusion with bilateral sacroiliac screws. There are paired L2, L3, L5, and S1 transpedicular screws. Multilevel laminectomy changes. The final image demonstrates removal of the previously seen spinal stimulator device and lead. Incidental note is made of left iliac bone plate and screw fixation hardware. Please refer to the dedicated operative report for complete evaluation of real-time findings. Electronically signed by: Mian Andino M.D. Narrative 05/07/2025 9:22 AM CDT EXAM: XR SPINE LUMBAR 2 OR 3 VIEWS INDICATION: [employer]! L4-5 Hardware Removal, L3-4 Posterior Spinal Decompression, L2-4 Posterior Spinal Fusion COMPARISON: Radiograph 04/18/2025, MRI 05/02/2025 Procedure Note Mian Andino MD - 05/07/2025 EXAM: XR SPINE LUMBAR 2 OR 3 VIEWS INDICATION: Cell[employer]! L4-5 Hardware Removal, L3-4 Posterior Spinal Decompression, L2-4 Posterior Spinal Fusion COMPARISON: Radiograph 04/18/2025, MRI 05/02/2025 IMPRESSION: FINDINGS/IMPRESSION: 7 intraoperative fluoroscopic images are submitted for review. Removal of the previously seen L4-S1 posterior fusion instrumentation when compared to radiograph 04/18/2025. Postoperative changes of L2-S1 posterior fusion with bilateral sacroiliac screws. There are paired L2, L3, L5, and S1 transpedicular screws. Multilevel laminectomy changes. The final image demonstrates removal of the previously seen spinal stimulator device and lead. Incidental note is made of left iliac bone plate and screw fixation hardware. Please refer to the dedicated operative report for complete evaluation of real-time findings. Electronically signed by: Mian Andino M.D. us Tacos Pedraza MD IMG XR PROCEDURES Final Result * (ABNORMAL) POCT hemoglobin (05/06/2025 1:15 PM CDT) Hgb, POC 9.2(L) 11.5 - 16.0 g/dL Blood 05/06/2025 1:15 PM CDT 05/06/2025 1:15 PM CDT us Tacos Pedraza MD LAB POCT ORDERABLES - D EVICE Final Result Performing Organization Address [facility] Co de Phone Number [facility] [address] [facility] [employer] [place], [place] [phone] * (ABNORMAL) POCT hemoglobin (05/06/2025 1:12 PM CDT) Hgb, POC 8.2(L) 11.5 - 16.0 g/dL Blood 05/06/2025 1:12 PM CDT 05/06/2025 1:12 PM CDT Tacos Pedraza MD LAB POCT ORDERABLES - D EVICE Final Result Performing Organization Address [facility] Co de Phone Number [facility] [address] [facility] [employer] [place], [place] [phone] * DE AN ELECTIVE ENDOTRACHEAL AIRWAY, DE AN PROCEDURE PLACEHOLDER (05/06/2025 11:15 AM CDT) Narrative Meera Bean CRNA - 05/06/2025 11:15 AM CDT Meera Bean CRNA 05/06/2025 11:16 AM Airway Patient location: OR Urgency: elective Indications for airway management: anesthesia Difficult airway: no Staff: Placed by: GEOMETRICIAN: Meera Bean CRNA Emergent airway documentation: Risks and benefits discussed: yes Consent obtained: yes Consent given by: patient Airway prep: Preoxygenated: yes Patient position: sniffing MILS maintained throughout: yes Mask difficulty assessment: 1 - vent by mask Sedation level during airway: GA Final airway details: Final airway type: endotracheal airway Tube type: ETT ETT size: 7.0 mm Cuffed: yes Technique used for successful ETT placement: direct laryngoscopy Insertion site: oral Blade type: Josemanuel Blade size: 3 Cormack-Lehane (direct): grade I - full view of glottis Cuff volume: 4 mL Cuff inflated with: air ETT to teeth: 21 cm Placement verified by: auscultation, bronchoscopy, CO2 detection and palpation of cuff Airway secured with: silk tape Number of attempts: 1 us Stevie Chong MD ANESTHESIA ORDERAB LES Final Result * Check Sample (05/06/2025 8:58 AM CDT) ABO Rh AB Positive [facility] OTHER 05/06/2025 8:58 AM CDT 05/06/2025 9:15 AM CDT us Tacos Pedraza MD LAB BLOOD ORDERABLES Fi nal Result [facility] [address] Department [place] [address] [facility] * Prepare RBC: 1 Units (05/06/2025 8:37 AM CDT) Product code [id number] Unit Number [id number] [facility] Product Blood Type BPOS [facility] Dispense Status PRESUMED TRANSFUSED [facility] Blood 05/06/2025 8:37 AM CDT Narrative [facility] - 05/07/2025 10:20 AM CDT Specify Procedure:->L4-5 Hardware Removal, L3-4 Posterior Spinal Decompression, L2-4 Posterior Spinal Fusion (Spine Lumbar) Are special requirements needed? (All products are leukoreduced and CMV- safe)- >No [facility] required[facility][id number] [id number] Reasons:-Hold for procedure (specify procedure)} us Manju Schultzrosettegabriella RON BLOOD BANK PRODUCT ORDERABLE S Final Result [facility] [address] Department [place] [address] * MRI Lumbar Spine WO Contrast (05/02/2025 3:29 PM CDT) Anatomical Region Laterality Modality Spine N/A Magnetic Resonan ce 05/05/2025 8:21 AM CDT Narrative 05/05/2025 9:06 AM CDT EXAM DESCRIPTION: MRI LUMBAR SPINE WO CONTRAST REASON FOR STUDY: Lumbar radiculopathy, prior surgery, new symptoms 74-year-old female with a history of L4-S1 posterolateral fusion and L5 laminectomy and facetectomy on 02/06/25 presenting with weakness. TECHNIQUE: Sagittal and Axial imaging includes T1, T2, STIR sequences. COMPARISON: Lumbar plain films 04/18/2025. FINDINGS: SEGMENTATION: Transitional lumbosacral anatomy with partially formed disc at S1-S2. The lowest well-developed disc space is labeled L5-S1. ALIGNMENT: There is developing anterolisthesis of L3 with respect to L4, likely in part due to retropulsion from the L4 insufficiency fracture. The L4-5 degenerative anterolisthesis also again evident.. VERTEBRAE: Postoperative changes of laminectomy and posterior lumbar instrumented fusion at L 4 through sacrum. Insufficiency type fracture of L4 again evident again with roughly 50% vertebral height loss, better demonstrated on plain films due to artifact from hardware. Developing inferior L5 endplate Schmorl's node or inferior endplate fracture with mild marrow edema. Mild marrow edema along the posterior inferior L3 endplate evident new from previous. DISC HEIGHT: Increasing disc space narrowing and disc degeneration at L3-4. Interbody fusion partly visualized at L4-5. Disc space narrowing and posterior lumbar instrumented fusion at L5-S1. See additional detail below. HARDWARE: Hardware better demonstrated on CT and plain films. As demonstrated on plain films, L4 pedicle screws are positioned within the L3-4 disc space due to the insufficiency fracture of L4. CORD/CAUDA: Normal in size and signal intensity. Conus medullaris slightly low in position with distal tip at L2. LOWER THORACIC: Incompletely imaged. No stenosis seen. INDIVIDUAL DISC LEVELS: L1-2: No diffuse disc bulge or focal herniation. No significant spinal canal or neuroforaminal stenosis. L2-3: Mild disc degeneration with relatively stable left subarticular superiorly migrated extrusion. No significant progression of disc degeneration at this level. No significant foraminal narrowing. Mild left lateral recess stenosis. L3-4: Posterior laminectomy and posterior lumbar fusion. The L4 pedicle screws protrude into the L3-4 disc space with developing severe disc degeneration, better demonstrated on the lumbar CT. There is now severe spinal stenosis resulting in thecal sac CSF effacement and bilateral subarticular narrowing related to L4 superior endplate retropulsion with uncovering of the L3-4 disc margin and possibly central disc protrusion, increasing bilateral facet arthritis and ligamentous thickening. L4-5: Posterior laminectomy. Insufficiency fracture of L4 with there is posterior displacement of the interbody device-subsidence into the right posterolateral spinal canal with contact of the descending and exiting L4 nerve root. Somewhat limited evaluation due to hardware artifact. Posterior laminectomy and right facetectomy. Left foraminal narrowing also evident anterolisthesis, slightly increased from previous. L5-S1: Posterior lumbar instrumented fusion with laminectomy. No significant spinal stenosis or neural foraminal stenosis.. SACRUM: Visualized upper sacrum intact. VISUALIZED UPPER ABDOMEN: No significant abnormality. OTHER: Artifact along the left iliac wing due to plate and screw stabilization. No acute marrow edema. Partially formed disc at S1-S2. Some artifact related to the instrumentation hardware. IMPRESSION: 1. Interval development of severe disc degeneration at L3-4 with severe spinal stenosis related to a combination of retropulsion of the L4 superior endplate into the spinal canal related to the insufficiency fracture, uncovering of the posterior disc margin with probable superimposed broad-based and focal central disc protrusion as well as thickening and hypertrophy of posterior ligamentous structures. Thecal sac CSF is effaced with bilateral subarticular stenosis and foraminal narrowing on the right greater than left, new from prior. There is mildly increased marrow edema along the left inferior posterior L3 endplate compared to previous. 2. Posterior lumbar instrumented fusion and interbody fusion at L4-5. No high-grade spinal stenosis at this level due to the posterior laminectomy. There is right lateral recess stenosis likely with impingement upon descending and exiting L4 nerve root due to subsidence of the interbody device at L4. Stable disc degeneration at the L2-3 level with shallow left subarticular protrusion. THIS IS AN ELECTRONICALLY VERIFIED FINAL REPORT 05/05/2025 9:06 AM - Electronically signed by Debbie Gomez M.D. LC: SINDY Report ID: [id number] Reading Location: [id number] Procedure Note Gill Gomez MD - 05/05/2025 EXAM DESCRIPTION: MRI LUMBAR SPINE WO CONTRAST REASON FOR STUDY: Lumbar radiculopathy, prior surgery, new symptoms 74-year-old female with a history of L4-S1 posterolateral fusion and L5 laminectomy and facetectomy on 02/06/25 presenting with weakness. TECHNIQUE: Sagittal and Axial imaging includes T1, T2, STIR sequences. COMPARISON: Lumbar plain films 04/18/2025. FINDINGS: SEGMENTATION: Transitional lumbosacral anatomy with partially formeddisc at S1-S2. The lowest well-developed disc space is labeled L5-S1. ALIGNMENT: There is developing anterolisthesis of L3 with respect to L4, likely in part due to retropulsion from the L4 insufficiency fracture.The L4-5 degenerative anterolisthesis also again evident.. VERTEBRAE: Postoperative changes of laminectomy and posterior lumbar instrumented fusion at L 4 through sacrum. Insufficiency type fracture ofL4 again evident again with roughly 50% vertebral height loss, better demonstrated on plain films due to artifact from hardware. Developing inferior L5 endplate Schmorl's node or inferior endplate fracture withmild marrow edema. Mild marrow edema along the posterior inferior L3 endplate evident new from previous. DISC HEIGHT: Increasing disc space narrowing and disc degeneration atL3-4. Interbody fusion partly visualized at L4-5. Disc space narrowing and posterior lumbar instrumented fusion at L5-S1. See additional detailbelow. HARDWARE: Hardware better demonstrated on CT and plain films. As demonstrated on plain films, L4 pedicle screws are positioned within theL3-4 disc space due to the insufficiency fracture of L4. CORD/CAUDA: Normal in size and signal intensity. Conus medullarisslightly low in position with distal tip at L2. LOWER THORACIC: Incompletely imaged. No stenosis seen. INDIVIDUAL DISC LEVELS: L1-2: No diffuse disc bulge or focal herniation. No significant spinalcanal or neuroforaminal stenosis. L2-3: Mild disc degeneration with relatively stable left subarticular superiorly migrated extrusion. No significant progression of disc degeneration at this level. No significant foraminal narrowing. Mildleft lateral recess stenosis. L3-4: Posterior laminectomy and posterior lumbar fusion. The L4 pedicle screws protrude into the L3-4 disc space with developing severe disc degeneration, better demonstrated on the lumbar CT. There is now severe spinal stenosis resulting in thecal sac CSF effacement and bilateral subarticular narrowing related to L4 superior endplate retropulsion with uncovering of the L3-4 disc margin and possibly central disc protrusion, increasing bilateral facet arthritis and ligamentous thickening. L4-5: Posterior laminectomy. Insufficiency fracture of L4 with there is posterior displacement of the interbody device-subsidence into the right posterolateral spinal canal with contact of the descending and exiting L4 nerve root. Somewhat limited evaluation due to hardware artifact.Posterior laminectomy and right facetectomy. Left foraminal narrowing also evident anterolisthesis, slightly increased from previous. L5-S1: Posterior lumbar instrumented fusion with laminectomy. No significant spinal stenosis or neural foraminal stenosis.. SACRUM: Visualized upper sacrum intact. VISUALIZED UPPER ABDOMEN: No significant abnormality. OTHER: Artifact along the left iliac wing due to plate and screw stabilization. No acute marrow edema. Partially formed disc at S1-S2.Some artifact related to the instrumentation hardware. IMPRESSION: 1. Interval development of severe disc degeneration at L3-4 with severe spinal stenosis related to a combination of retropulsion of the B2igvajaky endplate into the spinal canal related to the insufficiency fracture, uncovering of the posterior disc margin with probable superimposedbroad-based and focal central disc protrusion as well as thickening and hypertrophy of posterior ligamentous structures. Thecal sac CSF is effaced withbilateral subarticular stenosis and foraminal narrowing on the right greater thanleft, new from prior. There is mildly increased marrow edema along the left inferior posterior L3 endplate compared to previous. 2. Posterior lumbar instrumented fusion and interbody fusion at L4-5.No high-grade spinal stenosis at this level due to the posterior laminectomy. There is right lateral recess stenosis likely with impingement upondescending and exiting L4 nerve root due to subsidence of the interbody device at L4. Stable disc degeneration at the L2-3 level with shallow left subarticular protrusion. THIS IS AN ELECTRONICALLY VERIFIED FINAL REPORT 05/05/2025 9:06 AM - Electronically signed by Debbie Gomez M.D. LC: SINDY Report ID: [id number] Reading Location: [place] [address] us Tacos Pedraza MD IMG MRI PROCEDURES Kalani l Result * (ABNORMAL) Urinalysis reflex to microscopic and culture Urine, clean voided (04/25/2025 2:44 PM CDT) Color, ur Yellow Yellow Clarity, ur Turbid(A) Clear [facility] Specific gravity, ur 1.013 1.003 - 1.030 [facility] pH, urine 6.0 [facility] Comment: Interpretive Data U rine pH is affected by diet, medications, systemic acid-base disturbances, and renal tubular function. pH may affect urinary stone formation. For example, urine pH below 6.0 may help reduce the tendency for calcium phosphate stones and pH greater than 6.0 may reduce the tendency for uric acid stone formation. Source: [facility] [employer] Current Interpretive Data was last revised on 2017 Protein, ur ql Negative Negative [facility] Glucose, ur ql Negative Negative [facility] Ketones, ur Negative Negative [facility] Bilirubin, ur Negative Negative [facility] Blood, ur Negative Negative [facility] Urobilinogen, ur <2.0 <2.0 mg/dL [facility] Nitrite, ur Negative Negative [facility] Leukocyte esterase, ur 4+(A) Negative [facility] UA reflex comment Reflex to microscopic UA will be performed. [facility] Urine, clean voided 04/25/2025 2:44 PM CDT 04/25/2025 2:44 PM CDT us Tacos Pedraza MD LAB MICROBIOLOGY - GENE RAL ORDERABLES Final Result [facility] [address] Department [place] [address] * (ABNORMAL) Urinalysis, microscopic only (04/25/2025 2:43 PM CDT) WBC, ur >50(A) 0 - 5 /HPF RBC, ur 3-5(A) 0 - 2 /HPF [facility] Epithelial cells, squamous, ur 6-10(A) 0 - 5 /HPF [facility] Comment:Suggestive of contam ination. Consider recollection by clean catch. Bacteria, ur 1+(A) [facility] Mucous, ur Present(A) [facility] Hyaline casts, ur 1-5 0 - 10 /LPF [facility] Culture Reflex Comment Reflex to urine culture will be performed. [facility] Urine, clean voided 04/25/2025 2:43 PM CDT 04/25/2025 2:43 PM CDT Tacos Pedraza MD LAB URINE ORDERABLES nal Result [facility] [address] Department [place] [address] * (ABNORMAL) Urine culture Urine, clean voided (04/25/2025 2:43 PM CDT) Report Final Report: Greater than or equal to 100,000 colonies/ml of Klebsiella pneumoniae (.) Organism KLEBSIELLA PNEUMONIAE [facility] Urine, clean voided 04/25/2025 2:43 PM CDT 04/25/2025 3:46 PM CDT Narrative [facility] - 04/27/2025 9:21 AM CDT Urine culture reflexed based upon urinalysis results. Organism Antibiotic Method Susceptibility Klebsiella pneumoniae Ampicillin with Sulbactam (DEEPTI) INTERPRETATION Susceptible Klebsiella pneumoniae Cefazolin (DEEPTI) INTERPRETATIO N Susceptible Klebsiella pneumoniae Ciprofloxacin (DEEPTI) INTERPRETATI ON Susceptible Klebsiella pneumoniae Gentamicin (DEEPTI) INTERPRETATIO N Susceptible Klebsiella pneumoniae Levofloxacin (DEEPTI) INTERPRETATIO N Susceptible Klebsiella pneumoniae Meropenem (DEEPTI) INTERPRETATIO N Susceptible Klebsiella pneumoniae Nitrofurantoin (DEEPTI) INTERPRETAT ION Intermediate Klebsiella pneumoniae Piperacillin/Tazobactam (DEEPTI) IN TERPRETATION Susceptible Klebsiella pneumoniae Trimethoprim with Sulfamethoxazole (DEEPTI) INTERPRETATION Susceptible Tacos Pedraza MD LAB MICROBIOLOGY - GENE RAL ORDERABLES Final Result [facility] [address] Department [place] [address] * Differential, auto (04/25/2025 2:19 PM CDT) Neutrophil abs 5.82 1.50 - 6.50 K/cumm Imm gran abs 0.02 0.00 - 0.10 K/cumm [facility] Lymphocyte abs 1.40 0.80 - 3.30 K/cumm [facility] Monocyte abs 0.63 0.20 - 0.80 K/cumm [facility] Eosinophil abs 0.11 0.00 - 0.50 K/cumm [facility] Basophil abs 0.04 0.00 - 0.10 K/cumm [facility] Neutrophil pct 72.5 % [facility] Comment: Interpretive Data Percent cell count reference ranges are not reported, since discordance with absolute values may lead to misinterpretation of CBC data. Current Interpretive Data was last revised on 2017. Imm gran pct 0.2 % [facility] Comment: Interpretive Data Percent cell count reference ranges are not reported, since discordance with absolute values may lead to misinterpretation of CBC data. Current Interpretive Data was last revised on 2017. Lymphocyte pct 17.5 % [facility] Comment: Interpretive Data Percent cell count reference ranges are not reported, since discordance with absolute values may lead to misinterpretation of CBC data. Current Interpretive Data was last revised on 2017. Monocyte pct 7.9 % [facility] Comment: Interpretive Data Percent cell count reference ranges are not reported, since discordance with absolute values may lead to misinterpretation of CBC data. Current Interpretive Data was last revised on 2017. Eosinophil pct 1.4 % [facility] Comment: Interpretive Data Percent cell count reference ranges are not reported, since discordance with absolute values may lead to misinterpretation of CBC data. Current Interpretive Data was last revised on 2017. Basophil pct 0.5 % [facility] Comment: Interpretive Data Percent cell count reference ranges are not reported, since discordance with absolute values may lead to misinterpretation of CBC data. Current Interpretive Data was last revised on 2017. Blood 04/25/2025 2:19 PM CDT 04/25/2025 2:19 PM CDT us Tacos Pedraza MD LAB BLOOD ORDERABLES Fi nal Result [facility] [address] Department of Laboratories [place], [place] [phone] * (ABNORMAL) CBC with auto differential (04/25/2025 2:19 PM CDT) WBC 8.02 3.80 - 9.90 K/cumm Hgb 9.8(L) 11.9 - 15.5 g/dL [facility] Hct 32.2(L) 35.6 - 45.5 % [facility] Plt 332 150 - 400 K/cumm [facility] MPV 11.6 9.1 - 12.3 fL [facility] RBC 4.07 3.90 - 5.20 M/cumm [facility] MCV 79.1(L) 81.3 - 96.4 fL [facility] MCH 24.1(L) 27.1 - 33.3 pg [facility] MCHC 30.4(L) 32.3 - 35.7 g/dL [facility] RDW CV 16.3(H) 11.1 - 14.9 % [facility] RDW SD 46.5 35.7 - 48.1 fL [facility] NRBC abs 0.00 0.00 - 0.01 K/cumm [facility] Blood 04/25/2025 2:19 PM CDT 04/25/2025 2:19 PM CDT Tacos Pedraza MD LAB BLOOD ORDERABLES Fi nal Result Performing Organization Address [facility] Co de Phone Number [facility] [address] [facility] [employer] [place], [place] [phone] * aPTT (04/25/2025 2:19 PM CDT) aPTT 30 26 - 38 sec Comment: Interpretive Data Heparin therapeutic range: 66.0 - 100.0 seconds. Range based on correlation with therapeutic heparin activity range of 0.3 - 0.7 Units/mL. Current interpretive data was last revised on 2023. Blood 04/25/2025 2:19 PM CDT 04/25/2025 2:19 PM CDT Tacos Pedraza MD LAB BLOOD ORDERABLES Fi nal Result Performing Organization Address [facility] Co de Phone Number [facility] [address] [facility] [employer] [place], [place] [phone] * Protime-INR (04/25/2025 2:19 PM CDT) PT 11.2 10.2 - 13.5 sec INR 0.99 0.90 - 1.20 [facility] Comment: Interpretive data Oral anticoagulant therapeutic ranges: Venous thromboembolism prophylaxis or treatment: 2.0-3.0 CARDIOLOGY Standard range: 2.0-3.0 High-intensity range: 2.5-3.5 Refer to indication-specific guidelines for appropriate target ranges for prosthetic heart valve replacement. Current interpretive data was last revised on 2019. Blood 04/25/2025 2:19 PM CDT 04/25/2025 2:19 PM CDT Tacos Pedraza MD LAB BLOOD ORDERABLES Fi nal Result Performing Organization Address [facility] Co de Phone Number [facility] [address] [facility] [employer] [place], [place] [id number] * Type and screen (04/25/2025 2:19 PM CDT) [facility] Marcello, indirect Negative ABO Rh AB Positive [facility] Blood 04/25/2025 2:19 PM CDT 04/25/2025 2:33 PM CDT Narrative [facility] - 04/25/2025 3:15 PM CDT Is this test being ordered in advance for a procedure?->Yes Expected date of procedure:->05/06/25 Has the patient been transfused in the past 3 months?->No Has the patient been in the past 3 months?->No Manju Gilliam NP LAB BLOOD BANK TEST ORDERABL ES Final Result Performing Organization Address [facility] Co de Phone Number [facility] [address] [employer] [place] [address] * Hemoglobin A1c (04/25/2025 2:19 PM CDT) [facility] Hgb A1C 5.5 4.0 - 5.6 % Estimated Average Glucose 111 mg/dL [facility] Comment: The ADA recommends reporting an estimated Average Glucose (eAG) with all Hemoglobin A1c results using the equation derived from a study of 507 normal and diabetic adults. Minority populations were underrepresented and children were not included. (Diabetes Care 31:1011-0624, 2008). The eAG is not equivalent to a fasting glucose. Blood 04/25/2025 2:19 PM CDT 04/25/2025 2:19 PM CDT Manju Gilliam NP LAB BLOOD ORDERABLES Final R esult Performing Organization Address City/[facility]/ZIP Co de Phone Number [facility] [address] [employer] [place] [address] * Vitamin D 25 hydroxy (04/25/2025 2:18 PM CDT) [facility] Vitamin D 25-OH 37 30 - 80 ng/mL Blood 04/25/2025 2:18 PM CDT 04/25/2025 2:18 PM CDT Tacos Pedraza MD LAB BLOOD ORDERABLES Fi nal Result Performing Organization Address [facility] Co de Phone Number [facility] [address] [facility] [employer] [place] [address] * Albumin (04/25/2025 2:18 PM CDT) [facility] Albumin 3.7 3.5 - 5.0 g/dL Blood 04/25/2025 2:18 PM CDT 04/25/2025 2:18 PM CDT Tacos Pedraza MD LAB BLOOD ORDERABLES Fi nal Result Performing Organization Address [facility] de Phone Number [facility] [address] [facility] [employer] [place] [address] * ECG 12 lead (04/25/2025 1:52 PM CDT) 04/25/2025 1:52 PM CDT Narrative [facility] - 04/26/2025 8:17 AM CDT Vent Rate: 95 bpm RR Interval: 631 msec DE Interval: 156 msec QRS Duration: 86 msec QT Interval: 363 msec QTC Interval: 415 msec P-R-T [place]ak[place]: 63 - -6 - 32 degrees IMPRESSION: SINUS RHYTHM WITH FREQUENT SUPRAVENTRICULAR PREMATURE COMPLEXES LOW QRS VOLTAGE IN PRECORDIAL LEADS DELAYED R WAVE PROGRESSION ABNORMAL RHYTHM ECG Electronically Signed By: Simeon Mclean [facility] Card Manju Gilliam [employer] ECG ORDERABLES Final Result Performing Organization Address [facility] de Phone Number [facility] [employer] [facility] * (ABNORMAL) Nicotine metabolite screen, urine (04/25/2025 1:42 PM CDT) Pathologist [facility] Nicotine, ur >1200(H) <5.0 ng/mL [place] Cotinine, ur 794(H) <5.0 ng/mL [facility] Anabasine ur 11(H) <2.0 ng/mL [facility] Comment: ADDITIONAL INFORMATION This test was developed and its performance characteristics determined by [facility] in a manner consistent with CLIA requirements. This test has not been cleared or approved by the U.S. Food and Drug Administration. Test Performed by: [facility] Laboratories - [facility] [address] [id number] Equipment Planner: Brooklyn Sanford Ph.D.; CLIA# [id number] Nornicotine, ur 75(H) <2.0 ng/mL [facility] Urine 04/25/2025 1:42 PM CDT 04/25/2025 2:43 PM CDT us Tacos Pedraza MD LAB URINE ORDERABLES Fi nal Result Performing Organization Address City/State/[facility] Co de Phone Number [facility] [address] Department [place] [address] [facility] * XR Spine Lumbar 2 or 3 Views (04/18/2025 7:43 AM CDT) Anatomical Region Laterality Modality Spine N/A Computed Radiogr aphy 04/18/2025 10:0 8 AM CDT Impressions 04/18/2025 10:39 AM CDT 1. Unchanged posterior instrumented fusion from L4-S1 with cephalad migration of the L4 pedicle screws with extension into the L3-L4 disc space. 2. Unchanged vertebral body height loss at known L4 compression fracture. Dictated by: Olena Bonilla M.D. The radiology attending physician has personally reviewed this study, and had reviewed and/or edited this written report and agrees with it. Electronically signed by: Maykel Narayanan MD Narrative 04/18/2025 10:39 AM CDT EXAMINATION: XR SPINE LUMBAR 2 OR 3 VIEWS HISTORY: Spinal fusion complicated by fall with L4 fracture COMPARISON: 03/25/2025 FINDINGS: 2 radiographs of the lumbar spine were submitted for interpretation. There is a L4-S1 posterior instrumented fusion with combined L4-L5 interbody fusion. Unchanged cephalad migration of the L4 pedicle screws with extension into the L3-L4 disc space. Unchanged vertebral body height loss at known L4 compression fracture. There is a spinal cord stimulator with generator in the right posterior flank soft tissue with one lead ascending and terminating over the T11. There are scattered atherosclerotic vascular calcifications. Partially imaged pubic symphysis fixation and left iliac bone fixation. Procedure Note Maykel Narayanan MD - 04/18/2025 EXAMINATION: XR SPINE LUMBAR 2 OR 3 VIEWS HISTORY: Spinal fusion complicated by fall with L4 fracture COMPARISON: 03/25/2025 FINDINGS: 2 radiographs of the lumbar spine were submitted for interpretation. There is a L4-S1 posterior instrumented fusion with combined L4-L5 interbody fusion. Unchanged cephalad migration of the L4 pedicle screws with extension into the L3-L4 disc space. Unchanged vertebral body height loss at known L4 compression fracture. There is a spinal cord stimulator with generator in the right posterior flank soft tissue with one lead ascending and terminating over the T11. There are scattered atherosclerotic vascular calcifications. Partially imaged pubic symphysis fixation and left iliac bone fixation. IMPRESSION: 1. Unchanged posterior instrumented fusion from L4-S1 with cephalad migration of the L4 pedicle screws with extension into the L3-L4 disc space. 2. Unchanged vertebral body height loss at known L4 compression fracture. Dictated by: Olena Bonilla M.D. The radiology attending physician has personally reviewed this study, and had reviewed and/or edited this written report and agrees with it. Electronically signed by: Maykel Narayanan MD Tacos Pedraza MD IMG XR PROCEDURES Final Result * eGFR (04/14/2025 2:44 PM CDT) eGFR 61 >=60 mL/min/1. 73 m2 Comment: Interpretive Data Reference Interval Normal >/= 90 mL/min/1.73m2 Mildly decreased* 60 - 89 mL/min/1.73m2 Mildly to moderately decreased 45 - 59 mL/min/1.73m2 Moderately to severely decreased 30 - 44 mL/min/1.73m2 Severely decreased 15 - 29 mL/min/1.73m2 Kidney Failure < 15 mL/min/1.73m2 *Relative to young adult level Estimated glomerular filtration rate is determined by the 2020 CKD-EPI equation recommended by the National Kidney Foundation (A Unifying Approach to GFR Estimation: Recommendations of the NKF-ASK Task Force on Reassessing the Inclusion of Race in Diagnosing Kidney Disease, JASN 2020). The CKD-EPI equation should not be used for patients with unstable renal function and has not been validated in children and those over 70. Current interpretive data was last reviewed 2021. Blood 04/14/2025 2:44 PM CDT 04/14/2025 3:12 PM CDT us Tarik Zeng MD LAB BLOOD ORDERABLES Final Resu lt Performing Organization Address City/[facility]/ZIP Co de Phone Number [facility] Department [place] [address] * Thyroid Function [place] (04/14/2025 2:44 PM CDT) TSH 0.80 0.30 - 4.20 mcIUnit/mL Blood 04/14/2025 2:44 PM CDT 04/14/2025 2:56 PM CDT us Tarik Zeng MD LAB BLOOD ORDERABLES Final Resu lt Performing Organization Address City/[facility]/ZIP Co de Phone Number [facility] Department [place] [address] * (ABNORMAL) Comprehensive metabolic panel (04/14/2025 2:44 PM CDT) Sodium 140 135 - 145 mmol/L Potassium, pl 3.4 3.3 - 4.9 mmol/L [facility] Chloride 93(L) 97 - 110 mmol/L [facility] Comment:Repeated and Verifie d CO2 36(H) 22 - 32 mmol/L [facility] Anion gap 11 2 - 15 mmol/L [facility] Comment:Reviewed BUN 16 6 - 25 mg/dL [facility] Creatinine 0.97 0.60 - 1.10 mg/dL [facility] Glucose 127 70 - 199 mg/dL [facility] Comment: Interpretive Data Fasting glucose >/= 126 mg/dl is diagnostic for diabetes. Fasting is defined as no caloric intake for at least 8 hours. Fasting glucose between 100 mg/dl to 125 mg/dl is diagnostic of prediabetes. In a patient with classic symptoms of hyperglycemia or hyperglycemic crisis, a random glucose >/= 200 mg/dl is diagnostic for diabetes. In the absence of unequivocal hyperglycemia, results should be confirmed by repeat testing. The classification and Diagnosis of Diabetes Diabetes Care 202; 46: S19-S40. Current interpretive data was last revised 2022. Calcium 9.4 8.5 - 10.3 mg/dL [facility] Bilirubin, total 0.5 0.1 - 1.2 mg/dL [facility] Protein, pl 7.0 6.5 - 8.5 g/dL [facility] Albumin 3.6 3.5 - 5.0 g/dL [facility] Alk phos 324(H) 40 - 130 Units/L [facility] ALT 78(H) 7 - 45 Units/L [facility] AST 118(H) 10 - 45 Units/L [facility] Blood 04/14/2025 2:44 PM CDT 04/14/2025 2:56 PM CDT us Tarik Zeng MD LAB BLOOD ORDERABLES Final Resu lt [facility] [place] [address] * XR Knee Left 1 or 2 Views (03/25/2025 2:53 PM CDT) Anatomical Region Laterality Modality Lower Extremities, Knee Left Computed Radiography 03/25/2025 4:35 PM CDT Impressions 03/25/2025 5:02 PM CDT 1. Posterior instrumented fusion from L4 to S1 with combined interbody fusion with cephalad migration of L4 pedicle screws extending into L3-L4 disc space, with possible increased backing out of the left L4 screw. 2. No acute osseous abnormality of the left knee. Dictated by: Tamra Fregoso M.D. The radiology attending physician has personally reviewed this study, and had reviewed and/or edited this written report and agrees with it. Electronically signed by: Chrissy Moon MD Narrative 03/25/2025 5:02 PM CDT EXAMINATION: XR SPINE LUMBAR 2 OR 3 VIEWS, XR KNEE LEFT 1 OR 2 VIEWS HISTORY: L4 fracture. COMPARISON: CT lumbar spine 02/27/2025. CT lumbar spine 12/02/2024. FINDINGS: 2 views of the lumbar spine and 2 views of the left knee are submitted with comparison to CT lumbar spine 02/27/2025. Lumbar spine: There is an L4-S1 posterior lumbar spine fusion with combined L4-L5 interbody fusion. Redemonstrated cephalad migration of the L4 pedicle screws, which extend into the L3-L4 disc space, better seen on CT lumbar spine 02/27/2025. There may be slightly increased backing out of the left L4 screw. There is overall unchanged vertebral body height loss at known L4 compression fracture. There is moderate multilevel degenerative disc disease at the unfused segments of the thoracolumbar spine. There is no spondylolisthesis. There is a right posterior flank spinal cord stimulator with leads terminating over T11 and T12. Vascular calcifications. Partially imaged pubic symphysis fixation and left iliac bone fixation. Left knee: No acute fracture or dislocation. Alignment is maintained. There is no significant knee effusion. Procedure Note Chrissy Moon MD - 03/25/2025 EXAMINATION: XR SPINE LUMBAR 2 OR 3 VIEWS, XR KNEE LEFT 1 OR 2 VIEWS HISTORY: L4 fracture. COMPARISON: CT lumbar spine 02/27/2025. CT lumbar spine 12/02/2024. FINDINGS: 2 views of the lumbar spine and 2 views of the left knee are submitted with comparison to CT lumbar spine 02/27/2025. Lumbar spine: There is an L4-S1 posterior lumbar spine fusion with combined L4-L5 interbody fusion. Redemonstrated cephalad migration of the L4 pedicle screws, which extend into the L3-L4 disc space, better seen on CT lumbar spine 02/27/2025. There may be slightly increased backing out of the left L4 screw. There is overall unchanged vertebral body height loss at known L4 compression fracture. There is moderate multilevel degenerative disc disease at the unfused segments of the thoracolumbar spine. There is no spondylolisthesis. There is a right posterior flank spinal cord stimulator with leads terminating over T11 and T12. Vascular calcifications. Partially imaged pubic symphysis fixation and left iliac bone fixation. Left knee: No acute fracture or dislocation. Alignment is maintained. There is no significant knee effusion. IMPRESSION: 1. Posterior instrumented fusion from L4 to S1 with combined interbody fusion with cephalad migration of L4 pedicle screws extending into L3-L4 disc space, with possible increased backing out of the left L4 screw. 2. No acute osseous abnormality of the left knee. Dictated by: Tamra Fregoso M.D. The radiology attending physician has personally reviewed this study, and had reviewed and/or edited this written report and agrees with it. Electronically signed by: Chrissy Moon MD Tacos Pedraza MD IMG XR PROCEDURES Final Result * XR Spine Lumbar 2 or 3 Views (03/25/2025 1:52 PM CDT) Anatomical Region Laterality Modality Spine N/A Computed Radiogr aphy 03/25/2025 4:35 PM CDT Impressions 03/25/2025 5:02 PM CDT 1. Posterior instrumented fusion from L4 to S1 with combined interbody fusion with cephalad migration of L4 pedicle screws extending into L3-L4 disc space, with possible increased backing out of the left L4 screw. 2. No acute osseous abnormality of the left knee. Dictated by: Tamra Fregoso M.D. The radiology attending physician has personally reviewed this study, and had reviewed and/or edited this written report and agrees with it. Electronically signed by: Chrissy Moon MD Narrative 03/25/2025 5:02 PM CDT EXAMINATION: XR SPINE LUMBAR 2 OR 3 VIEWS, XR KNEE LEFT 1 OR 2 VIEWS HISTORY: L4 fracture. COMPARISON: CT lumbar spine 02/27/2025. CT lumbar spine 12/02/2024. FINDINGS: 2 views of the lumbar spine and 2 views of the left knee are submitted with comparison to CT lumbar spine 02/27/2025. Lumbar spine: There is an L4-S1 posterior lumbar spine fusion with combined L4-L5 interbody fusion. Redemonstrated cephalad migration of the L4 pedicle screws, which extend into the L3-L4 disc space, better seen on CT lumbar spine 02/27/2025. There may be slightly increased backing out of the left L4 screw. There is overall unchanged vertebral body height loss at known L4 compression fracture. There is moderate multilevel degenerative disc disease at the unfused segments of the thoracolumbar spine. There is no spondylolisthesis. There is a right posterior flank spinal cord stimulator with leads terminating over T11 and T12. Vascular calcifications. Partially imaged pubic symphysis fixation and left iliac bone fixation. Left knee: No acute fracture or dislocation. Alignment is maintained. There is no significant knee effusion. Procedure Note Chrissy Moon MD - 03/25/2025 EXAMINATION: XR SPINE LUMBAR 2 OR 3 VIEWS, XR KNEE LEFT 1 OR 2 VIEWS HISTORY: L4 fracture. COMPARISON: CT lumbar spine 02/27/2025. CT lumbar spine 12/02/2024. FINDINGS: 2 views of the lumbar spine and 2 views of the left knee are submitted with comparison to CT lumbar spine 02/27/2025. Lumbar spine: There is an L4-S1 posterior lumbar spine fusion with combined L4-L5 interbody fusion. Redemonstrated cephalad migration of the L4 pedicle screws, which extend into the L3-L4 disc space, better seen on CT lumbar spine 02/27/2025. There may be slightly increased backing out of the left L4 screw. There is overall unchanged vertebral body height loss at known L4 compression fracture. There is moderate multilevel degenerative disc disease at the unfused segments of the thoracolumbar spine. There is no spondylolisthesis. There is a right posterior flank spinal cord stimulator with leads terminating over T11 and T12. Vascular calcifications. Partially imaged pubic symphysis fixation and left iliac bone fixation. Left knee: No acute fracture or dislocation. Alignment is maintained. There is no significant knee effusion. IMPRESSION: 1. Posterior instrumented fusion from L4 to S1 with combined interbody fusion with cephalad migration of L4 pedicle screws extending into L3-L4 disc space, with possible increased backing out of the left L4 screw. 2. No acute osseous abnormality of the left knee. Dictated by: Tamra Fregoso M.D. The radiology attending physician has personally reviewed this study, and had reviewed and/or edited this written report and agrees with it. Electronically signed by: Chrissy Moon MD us Tacos Pedraza MD IMG XR PROCEDURES Final Result * (ABNORMAL) eGFR (03/25/2025 1:04 PM CDT) eGFR 55(L) >=60 mL/min/1. 73 m2 Comment: Interpretive Data Reference Interval Normal >/= 90 mL/min/1.73m2 Mildly decreased* 60 - 89 mL/min/1.73m2 Mildly to moderately decreased 45 - 59 mL/min/1.73m2 Moderately to severely decreased 30 - 44 mL/min/1.73m2 Severely decreased 15 - 29 mL/min/1.73m2 Kidney Failure < 15 mL/min/1.73m2 *Relative to young adult level Estimated glomerular filtration rate is determined by the 2020 CKD-EPI equation recommended by the National Kidney Foundation (A Unifying Approach to GFR Estimation: Recommendations of the NKF-ASK Task Force on Reassessing the Inclusion of Race in Diagnosing Kidney Disease, JASN 202). The CKD-EPI equation should not be used for patients with unstable renal function and has not been validated in children and those over 70. Current interpretive data was last reviewed 2021. Blood 03/25/2025 1:04 PM CDT 03/25/2025 1:35 PM CDT us Dany Lloyd NP LAB BLOOD ORDERABLES Final Re sult [facility] [place] [address] * Vitamin D 25 hydroxy (03/25/2025 1:04 PM CDT) Vitamin D 25-OH 38 30 - 80 ng/mL Blood 03/25/2025 1:04 PM CDT 03/25/2025 1:35 PM CDT us Tarik Zeng MD LAB BLOOD ORDERABLES Final Resu lt [facility] Department [place] [address] * (ABNORMAL) Comprehensive metabolic panel (03/25/2025 1:04 PM CDT) Sodium 139 135 - 145 mmol/L Potassium, pl 3.1(L) 3.3 - 4.9 mmol/L [facility] Chloride 105 97 - 110 mmol/L [facility] CO2 26 22 - 32 mmol/L [facility] Anion gap 8 2 - 15 mmol/L [facility] BUN 12 6 - 25 mg/dL [facility] Creatinine 1.06 0.60 - 1.10 mg/dL [facility] Glucose 123 70 - 199 mg/dL [facility] Comment: Interpretive Data Fasting glucose >/= 126 mg/dl is diagnostic for diabetes. Fasting is defined as no caloric intake for at least 8 hours. Fasting glucose between 100 mg/dl to 125 mg/dl is diagnostic of prediabetes. In a patient with classic symptoms of hyperglycemia or hyperglycemic crisis, a random glucose >/= 200 mg/dl is diagnostic for diabetes. In the absence of unequivocal hyperglycemia, results should be confirmed by repeat testing. The classification and Diagnosis of Diabetes Diabetes Care 2021; 46: S19-S40. Current interpretive data was last revised 2022. Calcium 8.2(L) 8.5 - 10.3 mg/dL [facility] Bilirubin, total 0.3 0.1 - 1.2 mg/dL [facility] Protein, pl 5.8(L) 6.5 - 8.5 g/dL [facility] Albumin 2.9(L) 3.5 - 5.0 g/dL [facility] Alk phos 401(H) 40 - 130 Units/L [facility] ALT 55(H) 7 - 45 Units/L [facility] AST 82(H) 10 - 45 Units/L [facility] Blood 03/25/2025 1:04 PM CDT 03/25/2025 1:35 PM CDT us Dany Lloyd NP LAB BLOOD ORDERABLES Final Re sult [facility] Department [place] [address] * Dexa TBS Axial Skeleton Bone Density 1 or more sites (07/29/2024 11:56 AM IP ATTORNEY) Anatomical Region Laterality Modality Wrist, Body N/A Radiographic Paola ging Narrative 07/29/2024 4:47 PM IP ATTORNEY Patient Name: Adrienne Cummings Date of : 1950 Date of scan: 07/29/2024 Bone mineral density was performed on a [employer] Densitometer. Based on machine cross-calibration and precision studies the least significant changes of this densitometer is 0.024 g/cm2 at the spine, 0.020 g/cm2 at the total proximal femur, and 0.014g/cm2 at the forearm. HISTORY: This is a 73 y.o. postmenopausal female with a history of osteoporosis and thyroid disease. She reports that she has been smoking cigarettes. She started smoking about 58 years ago. She has a 28.7 pack-year smoking history. She has never used smokeless tobacco. Currently on treatment with thyroid hormone, previously treated with alendronate (Fosamax) and zoledronic acid (Reclast), and current complaint of back pain, neck pain, and leg pain. INDICATIONS: Menopause status, history of prior wrist fracture, and history of osteoporosis. FINDINGS: BONE MINERAL DENSITY OF THE LUMBAR SPINE Bone Mineral Density (BMD) of the lumbar spine was measured from L1-L3 and the average density was calculated to be 0.729 gm/cm2. This corresponds to a T-score (standard deviations from the mean of young adults) of -2.6. When compared to the previous study of 06/26/2023 there has been a 0.042 gm/cm (6.2%) increase in bone density that is considered significant. BONE MINERAL DENSITY OF THE PROXIMAL FEMUR Bone Mineral Density (BMD) of the right hip total was found to be 0.615 gm/cm2. This corresponds to a T-score standard deviations from the mean of young adults of -2.7. Femoral neck is 0.611 gm/cm2 with a T-score (standard deviations from the mean of young adults) of -2.1. When compared to the previous study of 06/26/2023 there has been a 0.034 gm/cm (5.8%) increase in bone density that is considered significant. BONE MINERAL DENSITY OF THE FOREARM Bone Mineral density (BMD) of the left proximal 1/3 of the radius measures 0.585 gm/cm2. This corresponds to a T-score (standard deviations from the mean of young adults) of -1.8. When compared to the previous study of 06/26/2023 there has been no significant changes in bone density. A forearm bone density study was performed in addition to the routine study due to the need to provide a comparison to the previous exam. SUMMARY: Bone mineral density shows evidence of osteoporosis and marked increase risk of fracture. There has been a significant increase in bone density since previous measurement. L4 excluded from bone mineral density analysis of the lumbar spine due to bone density being more than 1 standard deviation discrepant relative to one adjacent vertebra. Clinical correlation is recommended. The lumbar spine Trabecular Bone Score is 0.968 which suggests degraded bone microarchitecture compared to the general population. Final decisions regarding diagnostic or therapeutic recommendations should include BMD, TBS, additional clinical risk factors as well the clinical context of the patient. Please see attached TBS results for further details. ADDITIONAL COMMENTS: Postmenopausal Women and Men Over 50: Diagnostic criteria: Osteoporosis: BMD at or below -2.5 T-score; Osteopenia (low bone mass): BMD between -1.0 and -2.5 T-score. If the patient has a history of a fragility fracture, a fracture that occurred with trauma equivalent to a fall from a standing position or less, then the diagnosis is osteoporosis regardless of bone density. The history and data sections of the bone mineral density scan were prepared by Marilin Hall)(CBDT)who is accredited by the International Society of Clinical Densitometry. The overall patient assessment and scan interpretation were performed by Tarik Zeng M.D. who is certified by the International Society of Clinical Densitometry. [id number] us Neisha Potts MD IMG DXA PROCEDURES Final Result * Screening Mammogram Bilateral W Edu (12/05/2022 8:36 AM CDT) Anatomical Region Laterality Modality Breast Bilateral Mammography 12/05/2022 8:42 AM CDT Impressions 12/05/2022 8:42 AM CDT There is no mammographic evidence of malignancy. A 1 year screening mammogram is recommended. BI-RADS: 2 - Benign. The patient has been or will be contacted. The patient will be entered into a reminder system with a target due date of 1 year for her next mammogram. Electronically signed by: Tejinder Vela M.D. Narrative 12/05/2022 8:42 AM CDT EXAMINATION: SCREENING MAMMOGRAM BILATERAL W EDU ORDERING HEALTHCARE PROVIDER: SELF SCREENING MAMMOGRAM HISTORY: Routine screening mammography. COMPARISON: 02/25/2019, 11/28/2016, 02/26/2015, 02/07/2014 TECHNIQUE: CC and MLO views of the bilateral breasts were obtained with digital technique using breast tomosynthesis with C view. Computer aided detection was utilized. FINDINGS: DENSITY: There are scattered fibroglandular elements in the bilateral breasts. BREASTS: There are benign-appearing bilateral breast calcifications. There are no suspicious masses, suspicious calcifications, or other suspicious findings in either breast. There has been no suspicious interval change. Self Screening Mammogram IMG MAMMO PROCEDURES Fi nal Result * Hepatitis C antibody (09/18/2020 8:10 AM IP ATTORNEY) Hep C Ab Nonreactive Nonreactive FÁTIMA SHETH Comment:Antibodies to HCV no t detected. Does NOT exclude the possibility of recent exposure to HCV. Blood specimen (specimen) 09/18/2020 8:10 AM IP ATTORNEY 09/18/2020 8:17 AM IP ATTORNEY Solitario Rodrigues MD LAB MICROBIOLOGY - GEN ERAL ORDERABLES Edited Result - Final FÁTIMA SHETH [facility] Department [place] [address] * COLONOSCOPY (08/28/2014) Colonoscopy Normal us Historical Provider HEALTH MAINTENANCE Final Result from Last 3 Months or Most Recently Relevant to Health Maintenance Insurance MEDICARE [facility] [place] MEDICARE [facility] MEDICARE [facility] [place] MEDICARE [facility] Advance Directives For more information, please contact: [phone] Documents on File Type Date Recorded Patient Desk Top Publisher Expl anation ADVANCE DIRECTIVE 05/08/2024 11:08 AM hosp ital discharge paper work ADVANCE DIRECTIVE 10/04/2023 4:12 PM POWER OF LABOR RELATIONS ANALYST-MEDICAL * Full Code (Latest Code Status on File) Date Activated Date Inactivated Comments 05/06/2025 8:43 PM 05/09/2025 5:43 PM * Full Code Date Activated Date Inactivated Comments 02/07/2025 1:42 AM 02/13/2025 7:25 PM * Full Code Date Activated Date Inactivated Comments 10/30/2024 10:13 PM 11/01/2024 4:57 PM * Full Code Date Activated Date Inactivated Comments 08/19/2022 3:29 PM 08/21/2022 9:00 PM Care Teams Abattoir Manager Relationship Specialty Start Date End Date Kishan Melissa MD [address] [place] [address] PCP - General Family Medicine 05/14/24 Hardy Meehan MD Surgeon Ophthalmology 12/04/20 Tarik Zeng MD [address] [place] [address] Consulting Physician Bone Health 05/14/24 Rosa Nicole MD [id number] [place] [address] Anesthesiologist Pain Management 05/14/24 Tacos Pedraza MD [address] [facility] [address] [place] [address] Consulting Physician Orthopedic Surgery 10/24/24 Jerry Solis MD [address] [place] [id number] Consulting Physician Pulmonary Disease 10/24/24 Seng Alexander DPM [address] [facility] [address] [place] [address] Surgeon Podiatry 10/24/24 King Singh MD [address] [facility] DEPT ORTHOPAEDIC SURGERY, [facility] [address] [place] [address] Surgeon Orthopedic Surgery 10/24/24 Gladys Johnson, [employer] [address] [facility] [address] [place] [address] [place] [id number] Nurse Practitioner Family Medicine 10/24/24 Iman Grande MD [address] [id number] [place] [address] Referring Physician Physical Medicine and Rehabilitation 05/23/25
[2025-05-31] MEDS: KETOROLAC 30 MG/ML VIAL (*BKC) IV PUSH ×2 (14:46→22:43)
[2025-05-31] MEDS: ONDANSETRON INJ 4 MG/2 ML VIAL IV PUSH (14:46)
[2025-05-31] MEDS: fentaNYL CITRATE INJ (*CRX) 100 MCG/2 ML VIAL 50 MCG IV PUSH ×3 (14:46→22:43)
[2025-05-31 15:04] LABS: Hematocrit 31.1 % (37.0-47.0); Hemoglobin 9.7 g/dL (12.0-15.0); Immature Granulocyte Percent A 0.4 % (0-0.5); Lymphocytes Absolute Auto 1.47 K/mm3 (0.9-3.2); Mean Corpuscular HGB Conc 31.2 g/dl (32-36); Mean Corpuscular Hemoglobin 24.9 pg (26-34); Mean Corpuscular Volume 79.7 fl (80-100); Nucleated Red Blood Cells Absolute Auto 0.000 K/mm3 (0.0-0.012); Nucleated Red Blood Cells Perc 0.0 % (0.0-0.2); Platelet Count Result 332 k/mm3 (150-375); Red Blood Count 3.90 M/mm3 (4.2-5.4); White Blood Count 7.9 K/mm3 (4.5-10.0)
[2025-05-31 15:19] LABS: Alanine Aminotransferase 23 U/L (6-35); Albumin Level 3.1 g/dL (3.5-5.1); Alkaline Phosphatase 252 U/L (38-126); Anion Gap 0 mmol/L (4-12); Aspartate Amino Transferase 43 U/L (14-36); Bilirubin,Total 0.8 mg/dL (0.2-1.3); Blood Urea Nitrogen 13 mg/dL (7-17); CRP 3.1 mg/dL (<1.0); Calcium 8.6 mg/dL (8.4-10.2); Carbon Dioxide 32 mmol/L (22-30); Chloride 97 mmol/L (98-107); Estimated CRCL calculation 43 ml/min; Estimated Glomerular Filt Rate 60; Glucose 102 mg/dL (65-110); Potassium 3.5 mmol/L (3.4-5.0); Sodium 129 mmol/L (137-145); Total Protein 6.2 g/dL (6.3-8.2)
[2025-05-31] MEDS: SODIUM CHLORIDE 0.9% IV 1,000 ML 999 ML IV CONT (15:44)
--- NOTE | 2025-05-31 15:57 | ED.BACK ---
HPI - Back Pain/Injury General Chief Complaint: Back Pain/Injury <Angelina Drake PA-C - Last Filed: 05/31/25 23:39> Stated Complaint: back pain S/P surgery 2 wks ago <BRADLEY Scott Last Filed: 05/31/25 23:39> Time Seen by Provider: 05/31/25 14:01 <BRADLEY Scott Last Filed: 05/31/25 23:39> Source: patient and old records reviewed <BRADLEY Scott Last Filed: 05/31/25 23:39> Mode of arrival: ambulatory <BRADLEY Scott Filed: 05/31/25 23:39> Limitations: no limitations <BRADLEY Scott Last Filed: 05/31/25 23:39> History of Present Illness HPI Narrative: Patient is a 74-year-old female who presents the ED with report of low back pain. Patient has had previous surgeries on her low back, most recently in mid April by Dr. Pedraza at [facility]. Complains of worsening pain throughout her lower back over the past few days. Has been taking her home oxycodone without improvement. Pain worse with sitting upright. Reports pain radiates down her right leg particularly. Reports numbness in her feet which is not new. Denies numbness in legs, saddle anesthesia, bowel or bladder incontinence, fall or injury. Does report some abdominal pain and states she has been constipated for the past 1 week. <BRADLEY Scott Last Filed: 05/31/25 23:39> Related Data Home Medications: Home Medications ?Medication ?Instructions ?Recorded ?Confirmed ?Last Taken ?Type nystatin 100,000 unit/mL oral 500,000 unit PO PRN PRN blistered 04/14/24 06/01/25 Unknown History suspension tongue rabeprazole 20 mg tablet,delayed 20 mg PO Q12H 04/14/24 06/01/25 04/13/24 History release abaloparatide 80 mcg subcut DAILY 05/09/25 06/01/25 05/09/25 09:20 History acetaminophen 500 mg tablet 1,000 mg PO DAILY PRN pain 05/09/25 06/01/25 05/09/25 09:15 History budesonide 160 mcg-glycopyr 9 2 inh inhalation PRN PRN not 05/09/25 06/01/25 Unknown History mcg-formot 4.8 mcg/actuation HFA specified inhaler (Breztri Aerosphere) cetirizine 10 mg tablet 10 mg PO Q12H PRN allergy symptoms 05/09/25 06/01/25 Unknown History docusate sodium 100 mg capsule 100 mg PO PRN PRN constipation 05/09/25 06/01/25 Unknown History ergocalciferol (vitamin D2) 1,250 1,250 mcg PO .every other week 05/09/25 06/01/25 05/06/25 23:55 History mcg (50,000 unit) capsule lidocaine 4 % topical cream 1 applic topical DAILY PRN pain 05/09/25 06/01/25 Unknown History (AsperFlex (lidocaine)) gfooxeovutcy-Nj-zgax-minerals 1 tablet PO DAILY 05/09/25 06/01/25 Unknown History ondansetron 4 mg disintegrating 4 mg PO Q8H PRN nausea and vomiting 05/09/25 06/01/25 Unknown History tablet polyethylene glycol 3350 17 gram 17 g PO DAILY 05/09/25 06/01/25 Unknown History oral powder packet sennosides 8.6 mg tablet 17.2 mg PO BID 05/09/25 06/01/25 Unknown History <Angelina Drake PA-C - Last Filed: 05/31/25 23:39> Allergies/Adverse Reactions: Allergies Allergy/AdvReac Type Severity Reaction Status Date / Time Penicillins Allergy Mild Unknown Verified 05/31/25 13:07 codeine AdvReac Mild Nausea Verified 05/31/25 13:07 morphine AdvReac Mild Nausea Verified 05/31/25 13:07 propoxyphene AdvReac Mild Agitated Verified 05/31/25 13:07 adhesive AdvReac Unknown Itching Verified 05/31/25 13:07 bupropion (From Wellbutrin) AdvReac Unknown Unknown Verified 05/31/25 13:07 oxaprozin AdvReac Unknown Unknown Verified 05/31/25 13:07 hydromorphone (From Dilaudid) AdvReac Unknown Verified 05/31/25 13:07 TETANUS ANTITOXIN Allergy Mild Swelling Uncoded 04/14/24 19:49 <BRADLEY Scott Last Filed: 05/31/25 23:39> Review of Systems Review of Systems: All systems reviewed & are unremarkable except as noted in HPI. <BRADLEY Scott Last Filed: 05/31/25 23:39> All systems reviewed & are unremarkable except as noted in HPI and below <BRADLEY Scott Last Filed: 05/31/25 23:39> [facility] Past Medical History Medical History: Medical History (Updated 06/01/25 @ 01:13 by Maribel Pereyra APRN) Renal cyst Osteoporosis CKD (chronic kidney disease) Postoperative pain Chronic low back pain Low back pain Hypothyroidism Hyperlipidemia Hypertension Transient ischemic attack Chronic obstructive pulmonary disease Tobacco dependence <BRADLEY Scott Last Filed: 05/31/25 23:39> Surgical History Surgical History: Surgical History History of back surgery times 3 History of tubal ligation History of hysterectomy History of cataract extraction History of orthopedic surgery History of cholecystectomy History of appendectomy <BRADLEY Scott Last Filed: 05/31/25 23:39> Family History Family History: Family History Daughter Migraine Mother Migraine Hypertension Father Cancer Hypertension Sibling Diabetes mellitus Acute myocardial infarction Cerebrovascular accident Hypertension <BRADLEY Scott Last Filed: 05/31/25 23:39> Social History Social History: Social History (Updated 06/01/25 @ 00:48 by Maribel Pereyra APRN) Social History: And is a she has 2 children retired from [employer]. Surrogate medical decision maker: Torres Jose, spouse. Code status: Full code. Smoking packs per day: 0.25 Smoking cigarettes per day: 5.0 Years smoked: 50 Smoking pack-years: 12.50 Smoking status: Former smoker Tobacco type: cigarettes Smoking end date: 04/27/25 Alcohol intake: current Drinks per week: 1 Substance use: current Substance use type: does not use Last use: 05/31/25 FOR SLEEP Do You Feel Safe in your Home?: Yes Lack of Transportation: No Lack of Food: Never True Current Housing: I Have Housing Concerned About Future Housing: No Difficulty Paying Gas/Electric Bills: No Difficulty Paying for Meds: No Currently Unemployed: No Education: High School Diploma/GED Difficulty w/ Childcare or Family Care: No Spiritual care concerns: No <Angelina Drake PA-C - Last Filed: 05/31/25 23:39> Exam Narrative: GENERAL: Uncomfortable appearing, non-toxic, in no acute distress. HEAD: Normocephalic, atraumatic. RESPIRATORY: Airway patent, respirations nonlabored. Clear to auscultation bilaterally, no rales, rhonchi, wheezing. CARDIOVASCULAR: Regular rate and rhythm without murmurs, rubs, or gallops. ABDOMINAL: Soft, nontender, nondistended. Normoactive BS. MUSCULOSKELETAL: Moves all extremities. No gross deformities. Diffuse tenderness lumbar region midline spine and paraspinal musculature. No palpable bony deformities. Surgical incision along midline lumbar spine without drainage or significant surrounding redness. Sensation intact throughout lower extremities aside from slight decreased sensation in feet bilaterally, which patient reports is chronic SKIN: Warm, dry, normal color. NEURO: A&O X3. Speech clear. Cranial nerves II-XII grossly intact. Steady gait. No ataxic movements. PSYCHIATRIC: Tearful. Normal interaction. <Angelina Drake PA-C - Last Filed: 05/31/25 23:39> Course PAY STATION ATTENDANT/PA Physician Supervision PA did inform me of this patient's presentation, attempts to discuss with spine surgeon, and issues/concerns. Ultimately, patient to be admitted for pain control and it seems placement consideration. I was available for consultation while patient was in [facility] department but did not personally evaluate this patient <Yvette Rich MD - Last Filed: 06/02/25 21:02> Vital Signs Vital signs: Vital Signs Temperature 98.0 F 05/31/25 13:02 Pulse Rate 98 05/31/25 13:02 Respiratory Rate 18 05/31/25 13:02 Blood Pressure 142/71 H 05/31/25 13:02 Pulse Oximetry 97 05/31/25 13:02 Oxygen Delivery Room Air 05/31/25 13:02 Temperature 97.1 F L 06/02/25 13:17 Pulse Rate 94 06/02/25 16:00 Respiratory Rate 18 06/02/25 13:17 Blood Pressure 123/64 06/02/25 13:17 Pulse Oximetry 100 06/02/25 13:17 Oxygen Delivery Room Air 06/02/25 11:07 Oxygen Flow Rate 2 06/02/25 08:22 <Angelina Drake PA-C - Last Filed: 05/31/25 23:39> Vital Signs Temperature 98.0 F 05/31/25 13:02 Pulse Rate 98 05/31/25 13:02 Respiratory Rate 18 05/31/25 13:02 Blood Pressure 142/71 H 05/31/25 13:02 Pulse Oximetry 97 05/31/25 13:02 Oxygen Delivery Room Air 05/31/25 13:02 Temperature 97.1 F L 06/02/25 13:17 Pulse Rate 94 06/02/25 16:00 Respiratory Rate 18 06/02/25 13:17 Blood Pressure 123/64 06/02/25 13:17 Pulse Oximetry 100 06/02/25 13:17 Oxygen Delivery Room Air 06/02/25 11:07 Oxygen Flow Rate 2 06/02/25 08:22 <Yvette Rich MD - Last Filed: 06/02/25 21:02> MDM - Back Pain/Injury MDM Narrative Medical decision making narrative: Patient presented to ED with worsening lower back pain, recent lumbar spinal surgery at [facility]. Vital signs are stable upon arrival, however patient is very uncomfortable appearing, tearful. No evidence of cord compression or cauda equina. Denying red flag symptoms. Does have some decreased sensation throughout her feet bilaterally, but states this is not new. Surgical incision without obvious signs of infection. Cbc without leukocytosis. Chronic mild anemia, consistent with previous records. CMP with sodium of 129. This does also appear consistent with previous records. Fluids initiated. Kidney function is stable. Lactic acid within normal range. UA w/o signs of infection or hematuria. CT scan of abdomen/pelvis with lumbar spine was obtained: OSSEOUS STRUCTURES: Postsurgical changes noted with fixation of the symphysis pubis. Postsurgical changes with fixation of the sacroiliac joints and lumbar spine. No sclerotic or lytic lesions. OVERLYING SOFT TISSUES: Unremarkable. IMPRESSION: 1. Mild hydronephrosis and hydroureter although there is no obstructing distal calcified ureteral calculus. Findings may relate to a recently passed calculus on obstructing noncalcified calculus. Differential includes stricture within the tract infection. Follow-up is suggested to assess resolution. 2. Incidental findings above Patient was bladder scanned and noted to have just under 400mL of urine in her bladder. Attempted to urinate however patient did not feel the need to go and was unable to void any urine. Will place [place] catheter for acute retention. Concerned this could be r/t surgery. Could also possibly be related to constipation as there is moderate fecal content noted on CT imaging and patient reports approx 1 week since her last BM. Patient initially had some relief of pain with supportive therapy in the ED. She was given Toradol, fentanyl, Robaxin, Solu-Medrol. However reports pain is now worsening again. Given oxycodone which she takes at home. Patient severely deconditioned, reporting severe pain with movement, requiring multiple person assist for simple ADLs. Does not feel she is able to care for herself at home. Has been given numerous additional doses of medication w/ minimal relief. Discussed case with Dr. Pedraza, orthopedic spinal surgery @ [facility], recommended admission under hospitalist team if needs transfer for pain control and rehab placement. He will consult. Reviewed imaging himself, advised no central canal narrowing or concern for need for surgical intervention. Does not feel retention is related to surgery. Discussed case with Dr. Lopez, hospitalist @ [facility], declined transfer due to patient not needing higher level of care. Discussed case with Maribel Pereyra, [facility] hospitalist, accepted patient for admission. Patient and family in agreement with plan. Will place consult for care coordination for likely rehab placement, PT/OT. <Angelina Drake PA-C - Last Filed: 05/31/25 23:39> Medical Records Attestation: I reviewed the patient's medical records. <Angelina Drake PA-C - Last Filed: 05/31/25 23:39> Lab Data Attestation: I reviewed the patient's lab results. <Angelina Drake PA-C - Last Filed: 05/31/25 23:39> Result diagrams: 06/01/25 04:55 06/01/25 04:55 <Angelina Drake PA-C - Last Filed: 05/31/25 23:39> Labs: Lab Results 05/31/25 05/31/25 06/01/25 Range/Units 14:44 15:40 01:12 WBC 7.9 (4.5-10.0) K/mm3 RBC 3.90 L (4.2-5.4) M/mm3 Hgb 9.7 L (12.0-15.0) g/dL Hct 31.1 L (37.0-47.0) % MCV 79.7 L (80-100) fl MCH 24.9 L (26-34) pg MCHC 31.2 L (32-36) g/dl RDW 17.7 H (11.5-14.5) % Plt Count 332 D (150-375) k/mm3 MPV 10.1 (7.4-10.4) fl Immature Gran % (Auto) 0.4 (0-0.5) % Neut % (Auto) 68.4 (45.5-73.1) % Lymph % (Auto) 18.7 (18.3-44.2) % [place] % (Auto) 10.4 H (2.6-8.5) % Eos % (Auto) 1.7 (0-4.4) % Baso % (Auto) 0.4 (0.2-1.2) % Lymph # (Auto) 1.47 (0.9-3.2) K/mm3 [place] # (Auto) 0.8 H (0.1-0.6) K/mm3 Eos # (Auto) 0.1 (0-0.3) K/mm3 Baso # (Auto) 0.0 (0.0-0.1) K/mm3 Abs Immat Gran (auto) 0.03 (0.00-0.031) K/mm3 Absolute Neuts (auto) 5.4 (1.3-6.7) K/mm3 Absolute Nucleated RBC 0.000 (0.0-0.012) K/mm3 Nucleated RBC % 0.0 (0.0-0.2) % Sodium 129 L 129 L (137-145) mmol/L Potassium 3.5 (3.4-5.0) mmol/L Chloride 97 L (98-107) mmol/L Carbon Dioxide 32 H (22-30) mmol/L Anion Gap 0 L (4-12) mmol/L BUN 13 (7-17) mg/dL Creatinine 0.92 (0.7-1.0) mg/dL Estim Creat Clear Calc 43 ml/min Estimated GFR 60 (59 - ) Glucose 102 (65-110) mg/dL Serum Osmolality Lactic Acid 1.6 (0.7-2.0) mmol/L Calcium 8.6 (8.4-10.2) mg/dL Magnesium (1.6-2.3) mg/dL Total Bilirubin 0.8 (0.2-1.3) mg/dL AST 43 H (14-36) U/L ALT 23 (6-35) U/L Alkaline Phosphatase 252 H (38-126) U/L C-Reactive Protein 3.1 H (<1.0) mg/dL Total Protein 6.2 L (6.3-8.2) g/dL Albumin 3.1 L (3.5-5.1) g/dL Vitamin D 25-Hydroxy ng/mL TSH (Reflex) (0.465-4.68) uIU/mL Free T4 (0.78-2.19) ng/dL Total T3 (0.82-1.58) NG/ML Urine Color Yellow (Yellow) Urine Appearance Clear (Clear) Urine pH 7.0 (5.0-9.0) Ur Specific [place] 1.011 (1.001-1.035) Urine Protein Negative (Negative) mg/dL Urine Glucose (UA) Negative (Negative) mg/dL Urine Ketones Negative (Negative) mg/dL Ur Blood (Man) Negative (Negative) Urine Nitrate Negative (Negative) Urine Bilirubin Negative (Negative) Urine Urobilinogen 1.0 (<2.0) mg/dL Leukocyte Esterase Rfl Negative (Negative) HERNAN/UL 06/01/25 Range/Units 04:55 WBC 3.8 L (4.5-10.0) K/mm3 RBC 3.86 L (4.2-5.4) M/mm3 Hgb 9.6 L (12.0-15.0) g/dL Hct 30.7 L (37.0-47.0) % MCV 79.5 L (80-100) fl MCH 24.9 L (26-34) pg MCHC 31.3 L (32-36) g/dl RDW 17.8 H (11.5-14.5) % Plt Count 310 (150-375) k/mm3 MPV 10.5 H (7.4-10.4) fl Immature Gran % (Auto) (0-0.5) % Neut % (Auto) (45.5-73.1) % Lymph % (Auto) (18.3-44.2) % [place] % (Auto) (2.6-8.5) % Eos % (Auto) (0-4.4) % Baso % (Auto) (0.2-1.2) % Lymph # (Auto) (0.9-3.2) K/mm3 [place] # (Auto) (0.1-0.6) K/mm3 Eos # (Auto) (0-0.3) K/mm3 Baso # (Auto) (0.0-0.1) K/mm3 Abs Immat Gran (auto) (0.00-0.031) K/mm3 Absolute Neuts (auto) (1.3-6.7) K/mm3 Absolute Nucleated RBC (0.0-0.012) K/mm3 Nucleated RBC % (0.0-0.2) % Sodium 131 L (137-145) mmol/L Potassium 4.2 (3.4-5.0) mmol/L Chloride 98 (98-107) mmol/L Carbon Dioxide 25 (22-30) mmol/L Anion Gap 8 (4-12) mmol/L BUN 14 (7-17) mg/dL Creatinine 0.98 (0.7-1.0) mg/dL Estim Creat Clear Calc 41 ml/min Estimated GFR 55 L (59 - ) Glucose 126 H (65-110) mg/dL Serum Osmolality Pending Lactic Acid 1.2 (0.7-2.0) mmol/L Calcium 8.8 (8.4-10.2) mg/dL Magnesium 2.0 (1.6-2.3) mg/dL Total Bilirubin (0.2-1.3) mg/dL AST (14-36) U/L ALT (6-35) U/L Alkaline Phosphatase (38-126) U/L C-Reactive Protein (<1.0) mg/dL Total Protein (6.3-8.2) g/dL Albumin (3.5-5.1) g/dL Vitamin D 25-Hydroxy 25.1 ng/mL TSH (Reflex) 0.302 L (0.465-4.68) uIU/mL Free T4 1.59 (0.78-2.19) ng/dL Total T3 0.72 L (0.82-1.58) NG/ML Urine Color (Yellow) Urine Appearance (Clear) Urine pH (5.0-9.0) Ur Specific [place] (1.001-1.035) Urine Protein (Negative) mg/dL Urine Glucose (UA) (Negative) mg/dL Urine Ketones (Negative) mg/dL Ur Blood (Man) (Negative) Urine Nitrate (Negative) Urine Bilirubin (Negative) Urine Urobilinogen (<2.0) mg/dL Leukocyte Esterase Rfl (Negative) HERNAN/UL <Angelina Drake PA-C - Last Filed: 05/31/25 23:39> Lab Results 05/31/25 05/31/25 06/01/25 Range/Units 14:44 15:40 01:12 WBC 7.9 (4.5-10.0) K/mm3 RBC 3.90 L (4.2-5.4) M/mm3 Hgb 9.7 L (12.0-15.0) g/dL Hct 31.1 L (37.0-47.0) % MCV 79.7 L (80-100) fl MCH 24.9 L (26-34) pg MCHC 31.2 L (32-36) g/dl RDW 17.7 H (11.5-14.5) % Plt Count 332 D (150-375) k/mm3 MPV 10.1 (7.4-10.4) fl Immature Gran % (Auto) 0.4 (0-0.5) % Neut % (Auto) 68.4 (45.5-73.1) % Lymph % (Auto) 18.7 (18.3-44.2) % [place] % (Auto) 10.4 H (2.6-8.5) % Eos % (Auto) 1.7 (0-4.4) % Baso % (Auto) 0.4 (0.2-1.2) % Lymph # (Auto) 1.47 (0.9-3.2) K/mm3 [place] # (Auto) 0.8 H (0.1-0.6) K/mm3 Eos # (Auto) 0.1 (0-0.3) K/mm3 Baso # (Auto) 0.0 (0.0-0.1) K/mm3 Abs Immat Gran (auto) 0.03 (0.00-0.031) K/mm3 Absolute Neuts (auto) 5.4 (1.3-6.7) K/mm3 Absolute Nucleated RBC 0.000 (0.0-0.012) K/mm3 Nucleated RBC % 0.0 (0.0-0.2) % Sodium 129 L 129 L (137-145) mmol/L Potassium 3.5 (3.4-5.0) mmol/L Chloride 97 L (98-107) mmol/L Carbon Dioxide 32 H (22-30) mmol/L Anion Gap 0 L (4-12) mmol/L BUN 13 (7-17) mg/dL Creatinine 0.92 (0.7-1.0) mg/dL Estim Creat Clear Calc 43 ml/min Estimated GFR 60 (59 - ) Glucose 102 (65-110) mg/dL Serum Osmolality Lactic Acid 1.6 (0.7-2.0) mmol/L Calcium 8.6 (8.4-10.2) mg/dL Magnesium (1.6-2.3) mg/dL Total Bilirubin 0.8 (0.2-1.3) mg/dL AST 43 H (14-36) U/L ALT 23 (6-35) U/L Alkaline Phosphatase 252 H (38-126) U/L C-Reactive Protein 3.1 H (<1.0) mg/dL Total Protein 6.2 L (6.3-8.2) g/dL Albumin 3.1 L (3.5-5.1) g/dL Vitamin D 25-Hydroxy ng/mL TSH (Reflex) (0.465-4.68) uIU/mL Free T4 (0.78-2.19) ng/dL Total T3 (0.82-1.58) NG/ML Urine Color Yellow (Yellow) Urine Appearance Clear (Clear) Urine pH 7.0 (5.0-9.0) Ur Specific [place] 1.011 (1.001-1.035) Urine Protein Negative (Negative) mg/dL Urine Glucose (UA) Negative (Negative) mg/dL Urine Ketones Negative (Negative) mg/dL Ur Blood (Man) Negative (Negative) Urine Nitrate Negative (Negative) Urine Bilirubin Negative (Negative) Urine Urobilinogen 1.0 (<2.0) mg/dL Leukocyte Esterase Rfl Negative (Negative) HERNAN/UL 06/01/25 Range/Units 04:55 WBC 3.8 L (4.5-10.0) K/mm3 RBC 3.86 L (4.2-5.4) M/mm3 Hgb 9.6 L (12.0-15.0) g/dL Hct 30.7 L (37.0-47.0) % MCV 79.5 L (80-100) fl MCH 24.9 L (26-34) pg MCHC 31.3 L (32-36) g/dl RDW 17.8 H (11.5-14.5) % Plt Count 310 (150-375) k/mm3 MPV 10.5 H (7.4-10.4) fl Immature Gran % (Auto) (0-0.5) % Neut % (Auto) (45.5-73.1) % Lymph % (Auto) (18.3-44.2) % [place] % (Auto) (2.6-8.5) % Eos % (Auto) (0-4.4) % Baso % (Auto) (0.2-1.2) % Lymph # (Auto) (0.9-3.2) K/mm3 [place] # (Auto) (0.1-0.6) K/mm3 Eos # (Auto) (0-0.3) K/mm3 Baso # (Auto) (0.0-0.1) K/mm3 Abs Immat Gran (auto) (0.00-0.031) K/mm3 Absolute Neuts (auto) (1.3-6.7) K/mm3 Absolute Nucleated RBC (0.0-0.012) K/mm3 Nucleated RBC % (0.0-0.2) % Sodium 131 L (137-145) mmol/L Potassium 4.2 (3.4-5.0) mmol/L Chloride 98 (98-107) mmol/L Carbon Dioxide 25 (22-30) mmol/L Anion Gap 8 (4-12) mmol/L BUN 14 (7-17) mg/dL Creatinine 0.98 (0.7-1.0) mg/dL Estim Creat Clear Calc 41 ml/min Estimated GFR 55 L (59 - ) Glucose 126 H (65-110) mg/dL Serum Osmolality Pending Lactic Acid 1.2 (0.7-2.0) mmol/L Calcium 8.8 (8.4-10.2) mg/dL Magnesium 2.0 (1.6-2.3) mg/dL Total Bilirubin (0.2-1.3) mg/dL AST (14-36) U/L ALT (6-35) U/L Alkaline Phosphatase (38-126) U/L C-Reactive Protein (<1.0) mg/dL Total Protein (6.3-8.2) g/dL Albumin (3.5-5.1) g/dL Vitamin D 25-Hydroxy 25.1 ng/mL TSH (Reflex) 0.302 L (0.465-4.68) uIU/mL Free T4 1.59 (0.78-2.19) ng/dL Total T3 0.72 L (0.82-1.58) NG/ML Urine Color (Yellow) Urine Appearance (Clear) Urine pH (5.0-9.0) Ur Specific [place] (1.001-1.035) Urine Protein (Negative) mg/dL Urine Glucose (UA) (Negative) mg/dL Urine Ketones (Negative) mg/dL Ur Blood (Man) (Negative) Urine Nitrate (Negative) Urine Bilirubin (Negative) Urine Urobilinogen (<2.0) mg/dL Leukocyte Esterase Rfl (Negative) HERNAN/UL <Yvette Rich MD - Last Filed: 06/02/25 21:02> Imaging Data Attestation: I personally reviewed and interpreted this imaging study as follows: <BRADLEY Scott Last Filed: 05/31/25 23:39> Radiologist's impression: ITS Impressions Abdomen/Pelvis CT 05/31/25 16:55 IMPRESSION: 1. Mild hydronephrosis and hydroureter although there is no obstructing distal calcified ureteral calculus. Findings may relate to a recently passed calculus on obstructing noncalcified calculus. Differential includes stricture within the tract infection. Follow-up is suggested to assess resolution. 2. Incidental findings above <BRADLEY Scott Last Filed: 05/31/25 23:39> Discharge Plan Discharge Clinical Impression: History of lumbar surgery, Acute urinary retention, Hydroureteronephrosis, Hyponatremia Lower back pain Qualifiers: Chronicity: acute Back pain laterality: midline Sciatica presence: with sciatica Sciatica laterality: sciatica of right side Qualified Code(s): M54.41 - Lumbago with sciatica, right side <BRADLEY Scott Last Filed: 05/31/25 23:39> Patient Disposition: Still a Patient <BRADLEY Scott Last Filed: 05/31/25 23:39> Condition: Stable <BRADLEY Scott Last Filed: 05/31/25 23:39>
[2025-05-31 16:06] LABS: Add Urine Microscopic? NO; Appearance Urine Clear (Clear); Glucose Urine UA Negative (Negative); Leukocyte Esterase Ur Negative LEU/UL (Negative); Nitrate Urine Negative (Negative); Specific Grav Ur 1.011 (1.001-1.035)
[2025-05-31] MEDS: oxyCODONE HCL (*CRX) 5 MG TAB IR PO (17:35)
--- NOTE | 2025-05-31 18:15 | PC.NURSE ---
PA notified of patient being unable to urinate. order for catheter placed.
--- NOTE | 2025-05-31 19:24 | PC.NURSE ---
Report received from GERMAIN Adair. Assumed care of patient at this time.
--- NOTE | 2025-05-31 21:39 | PC.NURSE ---
Patient and her calls this RN into room. This RN informed patient and her that we are still waiting for response from her surgeon and that as soon as they call back they will be updated. Patients requesting to speak with PA. PA notified and states she just spoke with the surgeon and will go update the patient.
--- NOTE | 2025-05-31 22:53 | PM.IMHP ---
H&P: HPI History of Present Illness Date/Time: 05/31/25 22:53 Chief Complaint: Lower back pain Narrative: This is a 74-year-old female patient who has a chronic lower back pain. She has had a total of 3 back surgeries. Her last surgery was last month(April) by Dr. Pedraza at [facility]. She had a prior surgery to her lower back just 3 months prior to that surgery. The patient stated that she has been having worsening discomfort. She has been taking oxycodone without any improvement. She has tried a heating pad. She has tried ice. She has tried Salonpas patches. She has tried muscle relaxers. She has been notifying her surgeon's office about the discomfort. She stated that it starts in her lower back and radiates down her right leg. She states that she does not do well with steroids either. She has tried muscle relaxers and pain medications without relief. She stated that her quality of care is decreased since her back surgeries. She spends most of her days in bed. She denies any numbness or tingling or saddle anesthesia to the lower extremities. She denies any bowel or bladder incontinence. Abdominal pelvis CT was read as a following. 1. Mild hydronephrosis and hydroureter although there is no obstructing distal calcified ureteral calculus. Findings may relate to a recently passed calculus on obstructing noncalcified calculus. Differential includes stricture within the tract infection. Follow-up is suggested to assess resolution. 2. Incidental findings above. Her H&H is 9.7 and 31.1 which is above her baseline. Her sodium is 129 with a previous sodium of 132. Her C reactive protein is 3.1. She also complains of having a burn to the left upper chest from heating pad usage. A bladder scan was performed and she had 400 cc. Therefore a Schaefer catheter was placed. The patient was given Zofran, for doses of that now, Robaxin, Solu-Medrol, Toradol, oxycodone, and IV fluids in the emergency room. The ED provider did reach out to the surgeon concerning the patient's condition and it was recommended that the patient be admitted to our facility for pain management as there is no current need for the surgical team to evaluate her. The patient is being admitted to observation status on the date of service of 05/31/2025. Review of Systems Constitutional: Constitutional: Reports as per HPI and Reports no additional constitutional complaints Eyes: Eyes: Reports as per HPI and Reports no additional eye complaints ENT: Reports no additional ear, nose, mouth, and throat complaints and Reports Normal hearing present Cardiovascular: Cardiovascular: Reports no additional cardiovascular complaints Respiratory: Respiratory: Reports as per HPI and Reports no additional respiratory complaints Gastrointestinal: Gastrointestinal: Reports as per HPI and Reports no additional gastrointestinal complaints Genitourinary: Genitourinary: Reports no additional female genitourinary complaints Musculoskeletal: Musculoskeletal: Reports no additional musculoskeletal complaints Integumentary/Breasts: Skin/Breast: Reports system reviewed and no additional complaints, except as docu Neurologic: Reports no additional neurologic complaints and Reports Normal hearing present Psychiatric: Psychiatric: Reports no additional psychiatric complaints and Reports as per HPI Hematologic/Lymphatic: Hematologic/Lymphatic: Reports no additional hematologic/lymphatic complaints Allergic/Immunologic: Allergic/Immunologic: Reports no additional allergic/immunologic complaints [facility] Past Medical History Medical History (Updated 06/01/25 @ 01:13 by Maribel Pereyra APRN) Renal cyst Osteoporosis CKD (chronic kidney disease) Postoperative pain Chronic low back pain Low back pain Hypothyroidism Hyperlipidemia Hypertension Transient ischemic attack Chronic obstructive pulmonary disease Tobacco dependence Surgical History Surgical History History of back surgery times 3 History of tubal ligation History of hysterectomy History of cataract extraction History of orthopedic surgery History of cholecystectomy History of appendectomy Family History Family History Daughter Migraine Mother Migraine Hypertension Father Cancer Hypertension Sibling Diabetes mellitus Acute myocardial infarction Cerebrovascular accident Hypertension Social History Social History (Updated 06/01/25 @ 00:48 by Maribel Pereyra APRN) Social History: And is a she has 2 children retired from [employer]. Surrogate medical decision maker: Torres Jose, spouse. Code status: Full code. Smoking packs per day: 0.25 Smoking cigarettes per day: 5.0 Years smoked: 50 Smoking pack-years: 12.50 Smoking status: Former smoker Tobacco type: cigarettes Smoking end date: 04/27/25 Alcohol intake: current Drinks per week: 1 Substance use: current Substance use type: does not use Last use: 05/31/25 FOR SLEEP Do You Feel Safe in your Home?: Yes Lack of Transportation: No Lack of Food: Never True Current Housing: I Have Housing Concerned About Future Housing: No Difficulty Paying Gas/Electric Bills: No Difficulty Paying for Meds: No Currently Unemployed: No Education: High School Diploma/GED Difficulty w/ Childcare or Family Care: No Spiritual care concerns: No Meds Home Medications and Allergies Home Medications ?Medication ?Instructions ?Recorded ?Confirmed ?Type nystatin 100,000 unit/mL oral 500,000 unit PO PRN PRN blistered 04/14/24 06/01/25 History suspension tongue rabeprazole 20 mg tablet,delayed 20 mg PO Q12H 04/14/24 06/01/25 History release abaloparatide 80 mcg subcut DAILY 05/09/25 06/01/25 History acetaminophen 500 mg tablet 1,000 mg PO DAILY PRN pain 05/09/25 06/01/25 History budesonide 160 mcg-glycopyr 9 2 inh inhalation PRN PRN not 05/09/25 06/01/25 History mcg-formot 4.8 mcg/actuation HFA specified inhaler (Breztri Aerosphere) cetirizine 10 mg tablet 10 mg PO Q12H PRN allergy symptoms 05/09/25 06/01/25 History docusate sodium 100 mg capsule 100 mg PO PRN PRN constipation 05/09/25 06/01/25 History ergocalciferol (vitamin D2) 1,250 1,250 mcg PO .every other week 05/09/25 06/01/25 History mcg (50,000 unit) capsule lidocaine 4 % topical cream 1 applic topical DAILY PRN pain 05/09/25 06/01/25 History (AsperFlex (lidocaine)) agylghhndaev-Ge-lbpk-minerals 1 tablet PO DAILY 05/09/25 06/01/25 History ondansetron 4 mg disintegrating 4 mg PO Q8H PRN nausea and vomiting 05/09/25 06/01/25 History tablet polyethylene glycol 3350 17 gram 17 g PO DAILY 05/09/25 06/01/25 History oral powder packet sennosides 8.6 mg tablet 17.2 mg PO BID 05/09/25 06/01/25 History Home Medication 1 ea subcut DAILY ##0 05/15/25 06/01/25 Rx albuterol sulfate 90 mcg/actuation 2 inh inhalation Q4H PRN shortness 05/15/25 06/01/25 Rx aerosol inhaler (Ventolin HFA) of breath or wheezing #6.7 grams atorvastatin 40 mg tablet 40 mg PO HS #30 tabs 05/15/25 06/01/25 Rx cyclobenzaprine 10 mg tablet 5 mg (1/2 x 10 mg) PO Q8H #90 tabs 05/15/25 06/01/25 Rx duloxetine 60 mg capsule,delayed 60 mg PO BID #60 caps 05/15/25 06/01/25 Rx release gabapentin 300 mg capsule 300 mg PO TID #90 caps 05/15/25 06/01/25 Rx hydrocortisone 1 % topical cream 1 applic topical Q12HR #0 grams 05/15/25 06/01/25 Rx levothyroxine 50 mcg tablet 50 mcg PO DAILY@0630 #30 tabs 05/15/25 06/01/25 Rx montelukast 10 mg tablet 10 mg PO DAILY #30 tabs 05/15/25 06/01/25 Rx oxycodone 5 mg tablet 5 - 10 mg (1 - 2 x 5 mg) PO Q4H 05/15/25 06/01/25 Rx PRN pain #30 tabs pantoprazole 40 mg tablet,delayed 40 mg PO QAM #30 tabs 05/15/25 06/01/25 Rx release pregabalin 150 mg capsule 150 mg PO BID #20 caps 05/15/25 06/01/25 Rx spironolactone 50 mg tablet 25 mg (1/2 x 50 mg) PO DAILY #30 05/15/25 06/01/25 Rx (Aldactone) tabs torsemide 10 mg tablet 10 mg PO QAM #30 tabs 05/15/25 06/01/25 Rx Allergies Allergy/AdvReac Type Severity Reaction Status Date / Time Penicillins Allergy Mild Unknown Verified 05/31/25 13:07 codeine AdvReac Mild Nausea Verified 05/31/25 13:07 morphine AdvReac Mild Nausea Verified 05/31/25 13:07 propoxyphene AdvReac Mild Agitated Verified 05/31/25 13:07 adhesive AdvReac Unknown Itching Verified 05/31/25 13:07 bupropion (From Wellbutrin) AdvReac Unknown Unknown Verified 05/31/25 13:07 oxaprozin AdvReac Unknown Unknown Verified 05/31/25 13:07 hydromorphone (From Dilaudid) AdvReac Unknown Verified 05/31/25 13:07 TETANUS ANTITOXIN Allergy Mild Swelling Uncoded 04/14/24 19:49 Vital Signs Vital Signs - 24 hr 05/31/25 13:02 05/31/25 13:09 05/31/25 13:15 Temperature 98.0 F Pulse Rate 98 Respiratory Rate 18 Blood Pressure 142/71 H Pulse Oximetry 97 97 99 Oxygen Delivery Room Air 05/31/25 13:16 05/31/25 13:30 05/31/25 13:31 Temperature Pulse Rate Respiratory Rate Blood Pressure 145/67 H 129/71 Pulse Oximetry 98 98 96 Oxygen Delivery 05/31/25 13:45 05/31/25 13:46 05/31/25 14:00 Temperature Pulse Rate Respiratory Rate Blood Pressure 144/72 H Pulse Oximetry 98 98 97 Oxygen Delivery 05/31/25 14:01 05/31/25 14:16 05/31/25 14:21 Temperature Pulse Rate Respiratory Rate Blood Pressure 132/69 149/98 H Pulse Oximetry 97 95 Oxygen Delivery 05/31/25 14:30 05/31/25 14:31 05/31/25 14:45 Temperature Pulse Rate Respiratory Rate Blood Pressure 155/127 H Pulse Oximetry 100 100 99 Oxygen Delivery 05/31/25 14:46 05/31/25 15:00 05/31/25 15:01 Temperature Pulse Rate Respiratory Rate Blood Pressure 111/64 113/61 Pulse Oximetry 93 97 96 Oxygen Delivery 05/31/25 15:15 05/31/25 15:16 05/31/25 15:30 Temperature Pulse Rate Respiratory Rate Blood Pressure 117/56 L Pulse Oximetry 94 91 Oxygen Delivery 05/31/25 15:31 05/31/25 15:45 05/31/25 15:46 Temperature Pulse Rate Respiratory Rate Blood Pressure 117/64 136/66 Pulse Oximetry 96 95 97 Oxygen Delivery 05/31/25 16:01 05/31/25 16:16 05/31/25 17:37 Temperature Pulse Rate 75 93 Respiratory Rate 19 18 Blood Pressure 156/90 H 152/76 H 125/69 Pulse Oximetry 96 100 93 Oxygen Delivery 05/31/25 17:37 05/31/25 17:45 05/31/25 17:46 Temperature Pulse Rate Respiratory Rate Blood Pressure 125/69 119/80 Pulse Oximetry 90 97 91 Oxygen Delivery 05/31/25 18:01 05/31/25 18:16 05/31/25 18:31 Temperature Pulse Rate 95 Respiratory Rate 18 Blood Pressure 134/64 120/63 124/65 Pulse Oximetry 97 90 93 Oxygen Delivery 05/31/25 18:31 05/31/25 18:46 05/31/25 19:00 Temperature Pulse Rate Respiratory Rate Blood Pressure 124/65 122/56 L Pulse Oximetry 90 93 92 Oxygen Delivery 05/31/25 19:01 05/31/25 19:15 05/31/25 19:16 Temperature Pulse Rate Respiratory Rate Blood Pressure 120/56 L 116/64 Pulse Oximetry 97 95 96 Oxygen Delivery 05/31/25 19:31 05/31/25 19:46 05/31/25 20:01 Temperature Pulse Rate Respiratory Rate Blood Pressure 106/47 L 111/59 L 113/76 Pulse Oximetry Oxygen Delivery 05/31/25 20:15 05/31/25 20:29 05/31/25 20:30 Temperature Pulse Rate 92 Respiratory Rate 17 Blood Pressure 113/76 Pulse Oximetry 95 94 94 Oxygen Delivery 05/31/25 20:31 05/31/25 20:45 05/31/25 21:01 Temperature Pulse Rate Respiratory Rate Blood Pressure 114/69 129/61 Pulse Oximetry 94 96 Oxygen Delivery 05/31/25 21:31 Temperature Pulse Rate 84 Respiratory Rate 18 Blood Pressure 122/68 Pulse Oximetry 96 Oxygen Delivery Exam Const: General: cooperative, no acute distress, well developed, awake, Physically active and uncomfortable Nutritional Appearance: average body habitus and well nourished Orientation/consciousness: oriented to person, oriented to place, oriented to time and patient oriented x3 Limitations: no limitations HENMT: Head: normal to inspection, No palpable skull fracture present, normocephalic, atraumatic and abrasion Ears: hearing grossly normal bilaterally Eyes: General: appearance normal, both eyes and all related structures Alignment and Position: alignment normal Periorbital: periorbital findings normal Eyelids: eyelids normal Neck: Neck: normal visual inspection, full ROM, no lymphadenopathy, trachea midline and supple Chest: Chest palpation & inspection: normal inspection of the chest Other: Left upper chest bruce approximately 2 x 2 with serosanguineous drainage. Resp: Effort & Inspection: normal respiratory effort Auscultation: clear to auscultation bilaterally Cardio: Palpation: normal PMI Rate: regular rate Rhythm: regular rhythm Heart sounds: S1 normal heart sound present and S2 normal heart sound present Peripheral pulses: Peripheral pulses 2+ throughout GI: Inspection: normal to inspection Percussion: Yes normal to percussion Auscultation: normal bowel sounds Rectal Exam: deferred Urinary Catheter: Urinary Catheter: patent and draining and urine clear Back/Spine/Pelvis: Back: no CVA tenderness Cervical Spine: cervical ROM normal Pelvis: no pain with anterior-posterior compression Other: Incision to lower well approximated without any drainage. No erythema or tenderness noted. A small 2 x 2 area to the left upper chest above the left breast. Serosanguineous drainage noted. Skin: General skin exam: normal color Hair: normal Nails: normal Neuro: General: oriented to person, oriented to place, oriented to time and patient oriented x3 Cranial nerves: Yes Equal, round and reactive pupils present and Yes Normal hearing present Motor exam (neuro): 5/5 motor strength present throughout Sensory Exam: normal sensation Extrem: General: normal to inspection Right upper extremity: normal to inspection and shoulder/upper arm Left upper extremity: normal to inspection and shoulder/upper arm Right lower extremity: normal to inspection Left lower extremity: normal to inspection Psych: Appearance: grossly normal Mental Status: mental status grossly normal Speech and movement: Normal speech and movement present Affect: normal affect Attitude: cooperative Thought process: Normal thought process present Thought content: Yes Normal thought content present H&P: Results Labs Labs: Short CBC 05/31/25 Range/Units 14:44 WBC 7.9 (4.5-10.0) K/mm3 Hgb 9.7 L (12.0-15.0) g/dL Hct 31.1 L (37.0-47.0) % Plt Count 332 D (150-375) k/mm3 BMP 05/31/25 14:44 Sodium 129 L Potassium 3.5 Chloride 97 L Carbon Dioxide 32 H BUN 13 Creatinine 0.92 Glucose 102 Calcium 8.6 Liver Function 05/31/25 Range/Units 14:44 Total Bilirubin 0.8 (0.2-1.3) mg/dL AST 43 H (14-36) U/L ALT 23 (6-35) U/L Alkaline Phosphatase 252 H (38-126) U/L Albumin 3.1 L (3.5-5.1) g/dL Urine 05/31/25 Range/Units 15:40 Urine Color Yellow (Yellow) Urine Appearance Clear (Clear) Urine pH 7.0 (5.0-9.0) Ur Specific [place] 1.011 (1.001-1.035) Urine Protein Negative (Negative) mg/dL Urine Glucose (UA) Negative (Negative) mg/dL Imaging CT scan - abdomen: Radiologist's impression: Impressions Abdomen/Pelvis CT 05/31/25 16:55 IMPRESSION: 1. Mild hydronephrosis and hydroureter although there is no obstructing distal calcified ureteral calculus. Findings may relate to a recently passed calculus on obstructing noncalcified calculus. Differential includes stricture within the tract infection. Follow-up is suggested to assess resolution. 2. Incidental findings above Assessment and Plan Assessment and plan (1) Lumbar radiculopathy: Code(s): M54.16 - Radiculopathy, lumbar region Status: Acute Assessment and Plan: -the patient had a cage placed her lower back approximately mid April by Dr. Pedraza at [facility]. The ER provider did reach out to that surgeon who recommended that the patient just be admitted here for pain management did not need higher level of care. No complications were noted with the surgeries. -the patient had been on oxycodone at home, heating pad, and muscle relaxers. She continues to have intractable pain. Has such severe pain that she is unable to get out of bed. It is greatly affected her daily activities. She is unable to control her pain levels. -she is unable to take fentanyl patches she is allergic to adhesives. -although she has many medications listed as allergies it appears that they are just a side effect. -the patient had been on oxycodone IR at home. She has been placed on OxyContin with the oxycodone IR and fentanyl for severe pain. She stated muscle relaxers are not helping her at all. -she was given Solu-Medrol in the emergency room but the patient declined any further steroids she stated that she does not tolerate them very well. -PT OT evaluation greatly be appreciated. -continue with heating pad. -the patient may benefit from pain management and pain pump. -the patient has declined NSAIDs as well because she is concerned for her kidneys. Her BUN is 13 creatinine 0.92 and her GFR 60. However she stated she tries to avoid any NSAIDs. -CT abdomen/pelvis LUNG BASES: The lung bases are clear. The visualized portions of the heart and pericardium are unremarkable. LIVER: Mild hepatic steatosis. Mild cirrhotic disease of the liver suspected. The main portal vein is patent. No intrahepatic biliary duct dilatation. SPLEEN: Unremarkable. KIDNEYS: Right Kidney: Right kidney multiple simple and complex appearing renal cysts the largest mid pole 2.5 x 2.5 cm with mild hydronephrosis and hydroureter but no renal calculi. Left Kidney: Left kidney multiple simple appearing renal cysts the largest mid pole 1 x 1 cm, lower pole 2 mm calculus, no hydronephrosis or hydroureter. ADRENAL GLANDS: Subcentimeter bilateral adrenal nodules. Arising from the left adrenal nodule there is a solid lesion 1.5 x 1.6 cm incompletely evaluated., Adrenal MRI is recommended. PANCREAS: Moderate pancreatic atrophy. GALLBLADDER/BILIARY: Gallbladder not identified. STOMACH AND ESOPHAGUS: Visualized stomach and esophagus within normal limits. BOWEL/MESENTERY: Moderate fecal content, no colitis or diverticulitis. Appendix not identified. No stranding within the mesentery. No dilated small bowel loops. ADENOPATHY/RETROPERITONEUM: There are enlarged lymph nodes in the peripancreatic space the largest 1.5 x 1.5 cm. AORTA/VASCULATURE: Normal caliber aorta. FREE FLUID OR FREE AIR: No free fluid.. CT pelvis: SOLID ORGANS/REPRODUCTIVE: Post hysterectomy. No adnexal mass. BLADDER: The bladder is distended. OSSEOUS STRUCTURES: Postsurgical changes noted with fixation of the symphysis pubis. Postsurgical changes with fixation of the sacroiliac joints and lumbar spine. No sclerotic or lytic lesions. OVERLYING SOFT TISSUES: Unremarkable. IMPRESSION: 1. Mild hydronephrosis and hydroureter although there is no obstructing distal calcified ureteral calculus. Findings may relate to a recently passed calculus on obstructing noncalcified calculus. Differential includes stricture within the tract infection. Follow-up is suggested to assess resolution. 2. Incidental findings above -pet care assistant consult was placed for possible rehab -renal ultrasound ordered (2) Chronic obstructive pulmonary disease: Code(s): J44.9 - Chronic obstructive pulmonary disease, unspecified Status: Acute Assessment and Plan: -continue with albuterol inhaler. -please verify home dose for her budesonide. -continue with Singulair (3) Hypothyroidism: Code(s): E03.9 - Hypothyroidism, unspecified Status: Acute Assessment and Plan: -continue with levothyroxine -monitor her thyroid levels outpatient. (4) Hypertension: Code(s): I10 - Essential (primary) hypertension Status: Acute Assessment and Plan: -patient's blood pressure is on the soft side due to the pain medication. -her Lasix and spironolactone are on hold at this time. (5) Hyperlipidemia: Code(s): E78.5 - Hyperlipidemia, unspecified Status: Acute Assessment and Plan: -continue with atorvastatin and monitor liver functions. (6) Hyponatremia: Code(s): E87.1 - Hypo-osmolality and hyponatremia Status: Acute Assessment and Plan: -appear to be chronically low. -hold Lasix and spironolactone -check thyroid level (7) Hydroureteronephrosis: Code(s): N13.30 - Unspecified hydronephrosis Status: Acute Assessment and Plan: -renal ultrasound has been ordered. Is suspected that the patient may have had a kidney stone and passed it. (8) Adrenal nodule: Code(s): E27.9 - Disorder of adrenal gland, unspecified Status: Acute Assessment and Plan: - Subcentimeter bilateral adrenal nodules. Arising from the left adrenal nodule there is a solid lesion 1.5 x 1.6 cm incompletely evaluated., Adrenal MRI is recommended. -however the patient has hardware in her lower back and will not be able to get MRI and also she would not be able to tolerate an MRI (9) Renal cyst: Code(s): N28.1 - Cyst of kidney, acquired Status: Acute Assessment and Plan: - Right kidney multiple simple and complex appearing renal cysts the largest mid pole 2.5 x 2.5 cm with mild hydronephrosis and hydroureter but no renal calculi. -renal ultrasound is ordered.
[2025-06-01] VITALS (11 sets, daily range): BP systolic 119–128; BP diastolic 54–61; PULSE 74–98; RESP 16–18; TEMP 36.3–36.7; O2SAT 93–100
--- NOTE | 2025-06-01 | ADMGEN ---
This patient, Adrienne Jose, was admitted to Medical Room 247-. Patient/family oriented to hospital policies and general routines including ID bracelet, bed and alarms, visiting hours, pain management, procedures, bathroom and other care routines, personal items, smoking policy, room service/diet, and visiting hours. Information on how to activate the Rapid Response Team has been discussed. Patient/Family are encouraged to report perceived risks to care and to ask questions if they do not understand what they are told or what they should do.
[2025-06-01] MEDS: fentaNYL CITRATE INJ (*CRX) 100 MCG/2 ML VIAL 50 MCG IV PUSH ×5 (00:03→12:19)
--- NOTE | 2025-06-01 00:40 | WNDPHOTO ---
PHOTO ONLY - See Nursing Notes and/ or assessments for documentation.
[2025-06-01] MEDS: ceFAZolin 1 GM in SODIUM CHLORIDE 0.9% IV 50 ML 100 ML IVPB ×2 (00:57→12:41)
[2025-06-01] MEDS: oxyCODONE HCL (*CRX) 2.5 MG TAB IR PO ×3 (01:09→15:45)
[2025-06-01 01:48] LABS: Sodium 129 mmol/L (137-145)
[2025-06-01 05:26] LABS: Hematocrit 30.7 % (37.0-47.0); Hemoglobin 9.6 g/dL (12.0-15.0); Mean Corpuscular HGB Conc 31.3 g/dl (32-36); Mean Corpuscular Hemoglobin 24.9 pg (26-34); Mean Corpuscular Volume 79.5 fl (80-100); Platelet Count Result 310 k/mm3 (150-375); Red Blood Count 3.86 M/mm3 (4.2-5.4); White Blood Count 3.8 K/mm3 (4.5-10.0)
[2025-06-01 06:04] LABS: Anion Gap 8 mmol/L (4-12); Blood Urea Nitrogen 14 mg/dL (7-17); Calcium 8.8 mg/dL (8.4-10.2); Carbon Dioxide 25 mmol/L (22-30); Chloride 98 mmol/L (98-107); Estimated CRCL calculation 41 ml/min; Estimated Glomerular Filt Rate 55; Glucose 126 mg/dL (65-110); Potassium 4.2 mmol/L (3.4-5.0); Sodium 131 mmol/L (137-145)
[2025-06-01] MEDS: LEVOTHYROXINE SODIUM 50 MCG TABLET PO (06:06)
[2025-06-01 06:11] LABS: Magnesium 2.0 mg/dL (1.6-2.3)
--- NOTE | 2025-06-01 07:34 | PM.IMPN ---
Progress Note: A&P Assessment and Plan (1) Lumbar radiculopathy: Code(s): M54.16 - Radiculopathy, lumbar region Status: Acute Assessment and Plan: -the patient had a cage placed her lower back approximately mid April by Dr. Pedraza at [facility]. The ER provider did reach out to that surgeon who recommended that the patient just be admitted here for pain management did not need higher level of care. No complications were noted with the surgeries. -the patient had been on oxycodone at home, heating pad, and muscle relaxers. She continues to have intractable pain. Has such severe pain that she is unable to get out of bed. It is greatly affected her daily activities. She is unable to control her pain levels. -she is unable to take fentanyl patches she is allergic to adhesives. -although she has many medications listed as allergies it appears that they are just a side effect. -the patient had been on oxycodone IR at home. She has been placed on OxyContin with the oxycodone IR and fentanyl for severe pain. She stated muscle relaxers are not helping her at all. -she was given Solu-Medrol in the emergency room but the patient declined any further steroids she stated that she does not tolerate them very well. -PT OT evaluation greatly be appreciated. -continue with heating pad. -the patient may benefit from pain management and pain pump. -the patient has declined NSAIDs as well because she is concerned for her kidneys. Her BUN is 13 creatinine 0.92 and her GFR 60. However she stated she tries to avoid any NSAIDs. -CT abdomen/pelvis LUNG BASES: The lung bases are clear. The visualized portions of the heart and pericardium are unremarkable. LIVER: Mild hepatic steatosis. Mild cirrhotic disease of the liver suspected. The main portal vein is patent. No intrahepatic biliary duct dilatation. SPLEEN: Unremarkable. KIDNEYS: Right Kidney: Right kidney multiple simple and complex appearing renal cysts the largest mid pole 2.5 x 2.5 cm with mild hydronephrosis and hydroureter but no renal calculi. Left Kidney: Left kidney multiple simple appearing renal cysts the largest mid pole 1 x 1 cm, lower pole 2 mm calculus, no hydronephrosis or hydroureter. ADRENAL GLANDS: Subcentimeter bilateral adrenal nodules. Arising from the left adrenal nodule there is a solid lesion 1.5 x 1.6 cm incompletely evaluated., Adrenal MRI is recommended. PANCREAS: Moderate pancreatic atrophy. GALLBLADDER/BILIARY: Gallbladder not identified. STOMACH AND ESOPHAGUS: Visualized stomach and esophagus within normal limits. BOWEL/MESENTERY: Moderate fecal content, no colitis or diverticulitis. Appendix not identified. No stranding within the mesentery. No dilated small bowel loops. ADENOPATHY/RETROPERITONEUM: There are enlarged lymph nodes in the peripancreatic space the largest 1.5 x 1.5 cm. AORTA/VASCULATURE: Normal caliber aorta. FREE FLUID OR FREE AIR: No free fluid.. CT pelvis: SOLID ORGANS/REPRODUCTIVE: Post hysterectomy. No adnexal mass. BLADDER: The bladder is distended. OSSEOUS STRUCTURES: Postsurgical changes noted with fixation of the symphysis pubis. Postsurgical changes with fixation of the sacroiliac joints and lumbar spine. No sclerotic or lytic lesions. OVERLYING SOFT TISSUES: Unremarkable. IMPRESSION: 1. Mild hydronephrosis and hydroureter although there is no obstructing distal calcified ureteral calculus. Findings may relate to a recently passed calculus on obstructing noncalcified calculus. Differential includes stricture within the tract infection. Follow-up is suggested to assess resolution. 2. Incidental findings above -career guidance technician consult was placed for possible rehab 06/01: Pt reports pain is better today, rating 7/10. Will continue on current regimen and try to continue to get a better handle on it. (2) Chronic obstructive pulmonary disease: Code(s): J44.9 - Chronic obstructive pulmonary disease, unspecified Status: Acute Assessment and Plan: -continue with albuterol inhaler. -please verify home dose for her budesonide. -continue with Singulair (3) Hypothyroidism: Code(s): E03.9 - Hypothyroidism, unspecified Status: Acute Assessment and Plan: -continue with levothyroxine -monitor her thyroid levels outpatient. 05/31: TSH pending (4) Hypertension: Code(s): I10 - Essential (primary) hypertension Status: Acute Assessment and Plan: -patient's blood pressure is on the soft side due to the pain medication. -her Lasix and spironolactone are on hold at this time. 06/01: Stable VS (5) Hyperlipidemia: Code(s): E78.5 - Hyperlipidemia, unspecified Status: Acute Assessment and Plan: -continue with atorvastatin and monitor liver functions. (6) Hyponatremia: Code(s): E87.1 - Hypo-osmolality and hyponatremia Status: Acute Assessment and Plan: -appear to be chronically low. -hold Lasix and spironolactone for now -TSH WDL (7) Hydroureteronephrosis: Code(s): N13.30 - Unspecified hydronephrosis Status: Acute Assessment and Plan: -renal ultrasound has been ordered & pending. Is suspected that the patient may have had a kidney stone and passed it. (8) Adrenal nodule: Code(s): E27.9 - Disorder of adrenal gland, unspecified Status: Acute Assessment and Plan: - Subcentimeter bilateral adrenal nodules. Arising from the left adrenal nodule there is a solid lesion 1.5 x 1.6 cm incompletely evaluated., Adrenal MRI is recommended. -however the patient has hardware in her lower back and will not be able to get MRI and also she would not be able to tolerate an MRI (9) Renal cyst: Code(s): N28.1 - Cyst of kidney, acquired Status: Acute Assessment and Plan: - Right kidney multiple simple and complex appearing renal cysts the largest mid pole 2.5 x 2.5 cm with mild hydronephrosis and hydroureter but no renal calculi. 06/01: -renal ultrasound has been performed, pending results Plan Awaiting US results, pain management Time Spent With Patient Time: 30 Subjective Date/time seen: 06/01/25 1124 Interval history: Admitting hospitalist: This is a 74-year-old female patient who has a chronic lower back pain. She has had a total of 3 back surgeries. Her last surgery was last month(April) by Dr. Pedraza at [facility]. She had a prior surgery to her lower back just 3 months prior to that surgery. The patient stated that she has been having worsening discomfort. She has been taking oxycodone without any improvement. She has tried a heating pad. She has tried ice. She has tried Salonpas patches. She has tried muscle relaxers. She has been notifying her surgeon's office about the discomfort. She stated that it starts in her lower back and radiates down her right leg. She states that she does not do well with steroids either. She has tried muscle relaxers and pain medications without relief. She stated that her quality of care is decreased since her back surgeries. She spends most of her days in bed. She denies any numbness or tingling or saddle anesthesia to the lower extremities. She denies any bowel or bladder incontinence. Abdominal pelvis CT was read as a following. 1. Mild hydronephrosis and hydroureter although there is no obstructing distal calcified ureteral calculus. Findings may relate to a recently passed calculus on obstructing noncalcified calculus. Differential includes stricture within the tract infection. Follow-up is suggested to assess resolution. 2. Incidental findings above. Her H&H is 9.7 and 31.1 which is above her baseline. Her sodium is 129 with a previous sodium of 132. Her C reactive protein is 3.1. She also complains of having a burn to the left upper chest from heating pad usage. A bladder scan was performed and she had 400 cc. Therefore a Schaefer catheter was placed. The patient was given Zofran, for doses of that now, Robaxin, Solu-Medrol, Toradol, oxycodone, and IV fluids in the emergency room. The ED provider did reach out to the surgeon concerning the patient's condition and it was recommended that the patient be admitted to our facility for pain management as there is no current need for the surgical team to evaluate her. The patient is being admitted to observation status on the date of service of 05/31/2025. 06/01: Pt reports that her pain is better today but still not baseline, she rates it at a 7/10. Denies any other sx besides constipation but she is passing gas. Pending kidney US. Review of Systems Review of Systems: All systems reviewed & are unremarkable except as noted in HPI and below Constitutional: Constitutional: Reports as per HPI and Reports no additional constitutional complaints Eyes: Eyes: Reports as per HPI and Reports no additional eye complaints ENT: Reports system reviewed and no additional complaints, except as documented and Reports Normal hearing present Cardiovascular: Cardiovascular: Reports no additional cardiovascular complaints Respiratory: Respiratory: Reports as per HPI and Reports no additional respiratory complaints Gastrointestinal: Gastrointestinal: Reports as per HPI and Reports no additional gastrointestinal complaints Genitourinary: Genitourinary: Reports no additional female genitourinary complaints Musculoskeletal: Musculoskeletal: Reports no additional musculoskeletal complaints Integumentary/Breasts: Skin/Breast: Reports system reviewed and no additional complaints, except as docu Neurologic: Reports system reviewed and no additional complaints, except as documented and Reports Normal hearing present Psychiatric: Psychiatric: Reports no additional psychiatric complaints and Reports as per HPI Hematologic/Lymphatic: Hematologic/Lymphatic: Reports no additional hematologic/lymphatic complaints Allergic/Immunologic: Allergic/Immunologic: Reports no additional allergic/immunologic complaints Exam Const: General: cooperative, comfortable, no acute distress, well developed, awake, Physically active, uncomfortable, average body habitus and well nourished Nutritional Appearance: average body habitus and well nourished Orientation/consciousness: oriented to person, oriented to place, oriented to time and patient oriented x3 Limitations: no limitations HENMT: Head: normal to inspection, No palpable skull fracture present, normocephalic, atraumatic and abrasion Ears: hearing grossly normal bilaterally Eyes: General: appearance normal, both eyes and all related structures Alignment and Position: alignment normal Periorbital: periorbital findings normal Eyelids: eyelids normal Pupils: Equal, round and reactive pupils present Neck: Neck: normal visual inspection, full ROM, no lymphadenopathy, trachea midline and supple Chest: Chest palpation & inspection: normal inspection of the chest Other: Left lateral breast with healing burn with surrounding erythema, blanchable. 3x2in Resp: Effort & Inspection: normal respiratory effort Auscultation: clear to auscultation bilaterally Cardio: Palpation: normal PMI Rate: regular rate Rhythm: regular rhythm Heart sounds: S1 normal heart sound present and S2 normal heart sound present Peripheral pulses: Peripheral pulses 2+ throughout GI: Inspection: normal to inspection Auscultation: normal bowel sounds Rectal Exam: deferred Urinary Catheter: Urinary Catheter: patent and draining and urine clear Back/Spine/Pelvis: Back: no CVA tenderness Cervical Spine: cervical ROM normal Pelvis: no pain with anterior-posterior compression Other: Incision to lower well approximated without any drainage. No erythema or tenderness noted. Skin: General skin exam: normal color Hair: normal Nails: normal Neuro: General: oriented to person, oriented to place, oriented to time and patient oriented x3 Cranial nerves: Yes Equal, round and reactive pupils present and Yes Normal hearing present Motor exam (neuro): 5/5 motor strength present throughout Sensory Exam: normal sensation Extrem: General: normal to inspection Right upper extremity: normal to inspection and shoulder/upper arm Left upper extremity: normal to inspection and shoulder/upper arm Right lower extremity: normal to inspection Left lower extremity: normal to inspection Psych: Appearance: grossly normal Mental Status: mental status grossly normal Speech and movement: Normal speech and movement present Affect: normal affect Attitude: cooperative Thought process: Normal thought process present Objective Data Vital Signs Vital Signs: Vital Signs - 24 hr 05/31/25 13:02 05/31/25 13:09 05/31/25 13:15 Temperature 98.0 F Pulse Rate 98 Respiratory Rate 18 Blood Pressure 142/71 H Pulse Oximetry 97 97 99 Oxygen Delivery Room Air Oxygen Flow Rate 05/31/25 13:16 05/31/25 13:30 05/31/25 13:31 Temperature Pulse Rate Respiratory Rate Blood Pressure 145/67 H 129/71 Pulse Oximetry 98 98 96 Oxygen Delivery Oxygen Flow Rate 05/31/25 13:45 05/31/25 13:46 05/31/25 14:00 Temperature Pulse Rate Respiratory Rate Blood Pressure 144/72 H Pulse Oximetry 98 98 97 Oxygen Delivery Oxygen Flow Rate 05/31/25 14:01 05/31/25 14:16 05/31/25 14:21 Temperature Pulse Rate Respiratory Rate Blood Pressure 132/69 149/98 H Pulse Oximetry 97 95 Oxygen Delivery Oxygen Flow Rate 05/31/25 14:30 05/31/25 14:31 05/31/25 14:45 Temperature Pulse Rate Respiratory Rate Blood Pressure 155/127 H Pulse Oximetry 100 100 99 Oxygen Delivery Oxygen Flow Rate 05/31/25 14:46 05/31/25 15:00 05/31/25 15:01 Temperature Pulse Rate Respiratory Rate Blood Pressure 111/64 113/61 Pulse Oximetry 93 97 96 Oxygen Delivery Oxygen Flow Rate 05/31/25 15:15 05/31/25 15:16 05/31/25 15:30 Temperature Pulse Rate Respiratory Rate Blood Pressure 117/56 L Pulse Oximetry 94 91 Oxygen Delivery Oxygen Flow Rate 05/31/25 15:31 05/31/25 15:45 05/31/25 15:46 Temperature Pulse Rate Respiratory Rate Blood Pressure 117/64 136/66 Pulse Oximetry 96 95 97 Oxygen Delivery Oxygen Flow Rate 05/31/25 16:01 05/31/25 16:16 05/31/25 17:37 Temperature Pulse Rate 75 93 Respiratory Rate 19 18 Blood Pressure 156/90 H 152/76 H 125/69 Pulse Oximetry 96 100 93 Oxygen Delivery Oxygen Flow Rate 05/31/25 17:37 05/31/25 17:45 05/31/25 17:46 Temperature Pulse Rate Respiratory Rate Blood Pressure 125/69 119/80 Pulse Oximetry 90 97 91 Oxygen Delivery Oxygen Flow Rate 05/31/25 18:01 05/31/25 18:16 05/31/25 18:31 Temperature Pulse Rate 95 Respiratory Rate 18 Blood Pressure 134/64 120/63 124/65 Pulse Oximetry 97 90 93 Oxygen Delivery Oxygen Flow Rate 05/31/25 18:31 05/31/25 18:46 05/31/25 19:00 Temperature Pulse Rate Respiratory Rate Blood Pressure 124/65 122/56 L Pulse Oximetry 90 93 92 Oxygen Delivery Oxygen Flow Rate 05/31/25 19:01 05/31/25 19:15 05/31/25 19:16 Temperature Pulse Rate Respiratory Rate Blood Pressure 120/56 L 116/64 Pulse Oximetry 97 95 96 Oxygen Delivery Oxygen Flow Rate 05/31/25 19:31 05/31/25 19:46 05/31/25 20:01 Temperature Pulse Rate Respiratory Rate Blood Pressure 106/47 L 111/59 L 113/76 Pulse Oximetry Oxygen Delivery Oxygen Flow Rate 05/31/25 20:15 05/31/25 20:29 05/31/25 20:30 Temperature Pulse Rate 92 Respiratory Rate 17 Blood Pressure 113/76 Pulse Oximetry 95 94 94 Oxygen Delivery Oxygen Flow Rate 05/31/25 20:31 05/31/25 20:45 05/31/25 21:01 Temperature Pulse Rate Respiratory Rate Blood Pressure 114/69 129/61 Pulse Oximetry 94 96 Oxygen Delivery Oxygen Flow Rate 05/31/25 21:31 05/31/25 23:16 05/31/25 23:55 Temperature Pulse Rate 84 90 89 Respiratory Rate 18 17 Blood Pressure 122/68 131/75 Pulse Oximetry 96 98 98 Oxygen Delivery Nasal Cannula Oxygen Flow Rate 2 05/31/25 23:57 06/01/25 00:00 06/01/25 04:00 Temperature 98.2 F Pulse Rate 82 89 97 Respiratory Rate 18 Blood Pressure 146/68 H Pulse Oximetry 98 Oxygen Delivery Oxygen Flow Rate 06/01/25 06:00 Temperature 98.0 F Pulse Rate 81 Respiratory Rate 18 Blood Pressure 122/61 Pulse Oximetry 100 Oxygen Delivery Oxygen Flow Rate Intake/Output Intake/Output: Intake & Output 10/02/25 10/03/25 10/04/25 10/05/25 23:59 23:59 23:59 23:59 Intake Total 1000 50 Output Total 225 1210 Balance 775 -1160 Meds/Results Medications: Active Medications Generic Name Dose Route Start Last Admin Trade Name Freq PRN Reason Stop Dose Admin Albuterol 2 puff 06/01/25 01:04 Albuterol Sulfate (*Sp) Aerosol 1 Puff INHALATION Q4H PRN Shortness Of Breath Or Wheezing Atorvastatin Calcium 40 mg 06/01/25 21:00 Atorvastatin 40 Mg Tablet PO HS ELLIS Diphenhydramine HCl 25 mg 05/31/25 23:28 06/01/25 01:49 Diphenhydramine Hcl Inj 50 Mg/Ml Vial IV PUSH 25 mg Q4H PRN Administration Itching Docusate Sodium 100 mg 06/01/25 01:04 Docusate Sodium 100 Mg Capsule PO Q12H PRN Constipation Duloxetine HCl 60 mg 06/01/25 09:00 Duloxetine Hcl 60 Mg Capsule.Dr PO BID ELLIS Ergocalciferol 1,250 mcg 06/02/25 09:00 Ergocalciferol (Vitamin D2) 1,250 Mcg (50,000 Units) Capsule PO Mo@0900 [facility] Fentanyl Citrate 50 mcg 05/31/25 22:36 06/01/25 06:03 Fentanyl Citrate Inj (*Crx) 100 Mcg/2 Ml Vial IV PUSH 50 mcg Q2H PRN Administration Pain Rated 7-10 Gabapentin 300 mg 06/01/25 09:00 Gabapentin 300 Mg Capsule PO TID [facility] Cefazolin Sodium 1 gm/ Sodium 50 mls @ 100 mls/hr 06/01/25 00:00 06/01/25 01:27 Chloride IVPB Infused Q12H [facility] Infusion Levothyroxine Sodium 50 mcg 06/01/25 06:30 06/01/25 06:06 Levothyroxine Sodium 50 Mcg Tablet PO 50 mcg DAILY@0630 ELLIS Administration Loratadine 10 mg 06/01/25 01:26 Loratadine 10 Mg Tablet PO QAM PRN allergy symptoms Montelukast Sodium 10 mg 06/01/25 09:00 Montelukast Sodium 10 Mg Tablet PO DAILY ELLIS Ondansetron HCl 4 mg 05/31/25 22:36 Ondansetron Inj 4 Mg/2 Ml Vial IV PUSH Q4H PRN Nausea Oxycodone HCl 10 mg 06/01/25 09:00 Oxycodone Hcl (*Crx) 10 Mg Tab Sr 12hr PO Q12HR ELLIS Oxycodone HCl 2.5 mg 06/01/25 00:52 06/01/25 04:59 Oxycodone Hcl (*Crx) 2.5 Mg Tab Ir PO 2.5 mg Q4H PRN Administration Pain Rated 4-6 Pantoprazole Sodium 40 mg 06/01/25 09:00 Pantoprazole 40 Mg Tablet PO QAM [facility] Polyethylene Glycol 17 gm 06/01/25 09:00 Polyethylene Glycol 3350 17 Gm Powd.Pack PO DAILY [facility] Pregabalin 150 mg 06/01/25 09:00 Pregabalin (*Crx) 75 Mg Capsule PO Q12HR [facility] Saccharomyces Boulardii 250 mg 06/01/25 09:00 Saccharomyces Boulardii 250 Mg Capsule PO TID [facility] Senna 17.2 mg 06/01/25 09:00 Sennosides 8.6 Mg Tablet PO BID [facility] Silver Sulfadiazine 1 applic 06/01/25 09:00 Silver Sulfadiazine 1% Cr 50 Gm Jar (*Bkc) TOPICAL Q12HR [facility] Radiology Results: ITS Impressions Abdomen/Pelvis CT 05/31/25 16:55 IMPRESSION: 1. Mild hydronephrosis and hydroureter although there is no obstructing distal calcified ureteral calculus. Findings may relate to a recently passed calculus on obstructing noncalcified calculus. Differential includes stricture within the tract infection. Follow-up is suggested to assess resolution. 2. Incidental findings above Labs Labs: Laboratory Results - last 24 hr 05/31/25 05/31/25 06/01/25 14:44 15:40 01:12 WBC 7.9 RBC 3.90 L Hgb 9.7 L Hct 31.1 L MCV 79.7 L MCH 24.9 L MCHC 31.2 L RDW 17.7 H Plt Count 332 D MPV 10.1 Immature Gran % (Auto) 0.4 Neut % (Auto) 68.4 Lymph % (Auto) 18.7 Wake % (Auto) 10.4 H Eos % (Auto) 1.7 Baso % (Auto) 0.4 Lymph # (Auto) 1.47 Wake # (Auto) 0.8 H Eos # (Auto) 0.1 Baso # (Auto) 0.0 Abs Immat Gran (auto) 0.03 Absolute Neuts (auto) 5.4 Absolute Nucleated RBC 0.000 Nucleated RBC % 0.0 Sodium 129 L 129 L Potassium 3.5 Chloride 97 L Carbon Dioxide 32 H Anion Gap 0 L BUN 13 Creatinine 0.92 Estim Creat Clear Calc 43 Estimated GFR 60 Glucose 102 Lactic Acid 1.6 Calcium 8.6 Magnesium Total Bilirubin 0.8 AST 43 H ALT 23 Alkaline Phosphatase 252 H C-Reactive Protein 3.1 H Total Protein 6.2 L Albumin 3.1 L Vitamin D 25-Hydroxy Urine Color Yellow Urine Appearance Clear Urine pH 7.0 Ur Specific [place] 1.011 Urine Protein Negative Urine Glucose (UA) Negative Urine Ketones Negative Ur Blood (Man) Negative Urine Nitrate Negative Urine Bilirubin Negative Urine Urobilinogen 1.0 Leukocyte Esterase Rfl Negative 06/01/25 04:55 WBC 3.8 L RBC 3.86 L Hgb 9.6 L Hct 30.7 L MCV 79.5 L MCH 24.9 L MCHC 31.3 L RDW 17.8 H Plt Count 310 MPV 10.5 H Immature Gran % (Auto) Neut % (Auto) Lymph % (Auto) Wake % (Auto) Eos % (Auto) Baso % (Auto) Lymph # (Auto) Wake # (Auto) Eos # (Auto) Baso # (Auto) Abs Immat Gran (auto) Absolute Neuts (auto) Absolute Nucleated RBC Nucleated RBC % Sodium 131 L Potassium 4.2 Chloride 98 Carbon Dioxide 25 Anion Gap 8 BUN 14 Creatinine 0.98 Estim Creat Clear Calc 41 Estimated GFR 55 L Glucose 126 H Lactic Acid 1.2 Calcium 8.8 Magnesium 2.0 Total Bilirubin AST ALT Alkaline Phosphatase C-Reactive Protein Total Protein Albumin Vitamin D 25-Hydroxy 25.1 Urine Color Urine Appearance Urine pH Ur Specific [place] Urine Protein Urine Glucose (UA) Urine Ketones Ur Blood (Man) Urine Nitrate Urine Bilirubin Urine Urobilinogen Leukocyte Esterase Rfl Quality VTE Prophylaxis VTE prophylaxis: mechanical ordered
[2025-06-01 08:04] LABS: Thyroid Stimulating Hormone Reflex 0.302 uIU/mL (0.465-4.68)
[2025-06-01] MEDS: oxyCODONE HCL (*CRX) 10 MG TAB SR 12HR PO ×2 (08:07→21:08)
[2025-06-01] MEDS: MONTELUKAST SODIUM 10 MG TABLET PO (08:07)
[2025-06-01] MEDS: DULoxetine HCL 60 MG CAPSULE.DR PO ×2 (08:07→17:48)
[2025-06-01] MEDS: GABAPENTIN 300 MG CAPSULE PO ×3 (08:07→17:48)
[2025-06-01] MEDS: SACCHAROMYCES BOULARDII 250 MG CAPSULE PO ×3 (08:07→17:48)
[2025-06-01] MEDS: PREGABALIN (*CRX) 75 MG CAPSULE 150 MG PO ×2 (08:07→21:08)
[2025-06-01] MEDS: SENNOSIDES 8.6 MG TABLET 17.2 MG PO ×2 (08:07→17:48)
[2025-06-01] MEDS: PANTOPRAZOLE 40 MG TABLET PO (08:07)
[2025-06-01 08:29] LABS: Free T4 Free Thyroxine Reflex 1.59 ng/dL (0.78-2.19)
[2025-06-01 09:33] LABS: Total Triiodothyronine (T3) 0.72 NG/ML (0.82-1.58)
[2025-06-01] MEDS: SILVER SULFADIAZINE 1% CR 50 GM JAR (*BKC) 1 APPLIC TOPICAL ×2 (12:24→21:12)
[2025-06-01] MEDS: ATORVASTATIN 40 MG TABLET PO (21:08)
[2025-06-02] VITALS (10 sets, daily range): BP systolic 118–134; BP diastolic 57–64; PULSE 72–96; RESP 12–18; TEMP 36.2–36.9; O2SAT 90–100
[2025-06-02] MEDS: ceFAZolin 1 GM in SODIUM CHLORIDE 0.9% IV 50 ML 100 ML IVPB ×2 (00:51→12:14)
[2025-06-02] MEDS: LEVOTHYROXINE SODIUM 50 MCG TABLET PO (06:15)
[2025-06-02] MEDS: DULoxetine HCL 60 MG CAPSULE.DR PO ×2 (08:07→17:16)
[2025-06-02] MEDS: GABAPENTIN 300 MG CAPSULE PO ×3 (08:07→17:16)
[2025-06-02] MEDS: oxyCODONE HCL (*CRX) 10 MG TAB SR 12HR PO ×2 (08:07→20:25)
[2025-06-02] MEDS: MONTELUKAST SODIUM 10 MG TABLET PO (08:07)
[2025-06-02] MEDS: PREGABALIN (*CRX) 75 MG CAPSULE 150 MG PO ×2 (08:08→20:23)
[2025-06-02] MEDS: PANTOPRAZOLE 40 MG TABLET PO (08:08)
[2025-06-02] MEDS: SENNOSIDES 8.6 MG TABLET 17.2 MG PO ×2 (08:08→17:16)
[2025-06-02] MEDS: LIDOCAINE 5% PATCH 1 PATCH TRANSDERM (08:08)
[2025-06-02] MEDS: SACCHAROMYCES BOULARDII 250 MG CAPSULE PO ×3 (08:08→17:16)
[2025-06-02] MEDS: SILVER SULFADIAZINE 1% CR 50 GM JAR (*BKC) 1 APPLIC TOPICAL (08:09)
[2025-06-02] MEDS: fentaNYL CITRATE INJ (*CRX) 100 MCG/2 ML VIAL 50 MCG IV PUSH ×2 (10:51→21:27)
[2025-06-02] MEDS: oxyCODONE HCL (*CRX) 2.5 MG TAB IR PO (12:20)
[2025-06-02] MEDS: BISACODYL 10 MG SUPPOSITORY RECTAL (12:53)
--- NOTE | 2025-06-02 13:30 | PC.NURSE ---
On 06/02/25, the student, Ruchi Nicolas, provided care and completed [facility] documentation on this patient. I have reviewed the student's documentation and agree with the findings.
--- NOTE | 2025-06-02 15:06 | PC.NURSE ---
Received orders to pull catheter, pulled at 0820. Pt was unable to void by 1420, proceeded to bladder scan pt and pt had 339 in bladder. Provider gave orders to place catheter in pt.
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
[2025-06-02] MEDS: HYDROcodone/acetaminophen (*CRX) 5-325 MG TABLET 1 TAB PO (17:16)
[2025-06-02] MEDS: MENTHOL 10% / METHYL SALICYLATE 15% 57 GM TUBE 1 APPLIC TOPICAL ×2 (17:17→20:32)
[2025-06-02] MEDS: ATORVASTATIN 40 MG TABLET PO (20:23)
[2025-06-03] VITALS (10 sets, daily range): BP systolic 119–142; BP diastolic 61–79; PULSE 76–96; RESP 14–20; TEMP 36.4–36.9; O2SAT 93–100
[2025-06-03] MEDS: ceFAZolin 1 GM in SODIUM CHLORIDE 0.9% IV 50 ML 100 ML IVPB (00:24)
[2025-06-03] MEDS: HYDROcodone/acetaminophen (*CRX) 5-325 MG TABLET 1 TAB PO ×2 (02:59→09:59)
[2025-06-03] MEDS: fentaNYL CITRATE INJ (*CRX) 100 MCG/2 ML VIAL 50 MCG IV PUSH (04:22)
[2025-06-03] MEDS: LEVOTHYROXINE SODIUM 50 MCG TABLET PO (05:47)
--- NOTE | 2025-06-03 07:48 | PM.IMPN ---
Progress Note: A&P Assessment and Plan (1) Lumbar radiculopathy: Code(s): M54.16 - Radiculopathy, lumbar region Status: Acute Assessment and Plan: -the patient had a cage placed her lower back approximately mid April by Dr. Pedraza at [facility]. The ER provider did reach out to that surgeon who recommended that the patient just be admitted here for pain management did not need higher level of care. No complications were noted with the surgeries. -the patient had been on oxycodone at home, heating pad, and muscle relaxers. She continues to have intractable pain. Has such severe pain that she is unable to get out of bed. It is greatly affected her daily activities. She is unable to control her pain levels. -she is unable to take fentanyl patches she is allergic to adhesives. -although she has many medications listed as allergies it appears that they are just a side effect. -the patient had been on oxycodone IR at home. She has been placed on OxyContin with the oxycodone IR and fentanyl for severe pain. She stated muscle relaxers are not helping her at all. -she was given Solu-Medrol in the emergency room but the patient declined any further steroids she stated that she does not tolerate them very well. -PT OT evaluation greatly be appreciated. -continue with heating pad. -the patient may benefit from pain management and pain pump. -the patient has declined NSAIDs as well because she is concerned for her kidneys. Her BUN is 13 creatinine 0.92 and her GFR 60. However she stated she tries to avoid any NSAIDs. -CT abdomen/pelvis LUNG BASES: The lung bases are clear. The visualized portions of the heart and pericardium are unremarkable. LIVER: Mild hepatic steatosis. Mild cirrhotic disease of the liver suspected. The main portal vein is patent. No intrahepatic biliary duct dilatation. SPLEEN: Unremarkable. KIDNEYS: Right Kidney: Right kidney multiple simple and complex appearing renal cysts the largest mid pole 2.5 x 2.5 cm with mild hydronephrosis and hydroureter but no renal calculi. Left Kidney: Left kidney multiple simple appearing renal cysts the largest mid pole 1 x 1 cm, lower pole 2 mm calculus, no hydronephrosis or hydroureter. ADRENAL GLANDS: Subcentimeter bilateral adrenal nodules. Arising from the left adrenal nodule there is a solid lesion 1.5 x 1.6 cm incompletely evaluated., Adrenal MRI is recommended. PANCREAS: Moderate pancreatic atrophy. GALLBLADDER/BILIARY: Gallbladder not identified. STOMACH AND ESOPHAGUS: Visualized stomach and esophagus within normal limits. BOWEL/MESENTERY: Moderate fecal content, no colitis or diverticulitis. Appendix not identified. No stranding within the mesentery. No dilated small bowel loops. ADENOPATHY/RETROPERITONEUM: There are enlarged lymph nodes in the peripancreatic space the largest 1.5 x 1.5 cm. AORTA/VASCULATURE: Normal caliber aorta. FREE FLUID OR FREE AIR: No free fluid.. CT pelvis: SOLID ORGANS/REPRODUCTIVE: Post hysterectomy. No adnexal mass. BLADDER: The bladder is distended. OSSEOUS STRUCTURES: Postsurgical changes noted with fixation of the symphysis pubis. Postsurgical changes with fixation of the sacroiliac joints and lumbar spine. No sclerotic or lytic lesions. OVERLYING SOFT TISSUES: Unremarkable. IMPRESSION: 1. Mild hydronephrosis and hydroureter although there is no obstructing distal calcified ureteral calculus. Findings may relate to a recently passed calculus on obstructing noncalcified calculus. Differential includes stricture within the tract infection. Follow-up is suggested to assess resolution. 2. Incidental findings above -point of care specialist consult was placed for possible rehab 06/01: Pt reports pain is better today, rating 7/10. Will continue on current regimen and try to continue to get a better handle on it. 06/02: Pt continues to rate her pain as severe, 8/10. Changing oxycodone to norco to see if this offers some relief. Plans for inpatient rehab. 06/03: Pt reports pain better managed today with Errol instead of oxy. Nursing reports to me still requesting pain meds often. Will increase norco dose from 5mg to 7.5mg. Continue to monitor pain. (2) Chronic obstructive pulmonary disease: Code(s): J44.9 - Chronic obstructive pulmonary disease, unspecified Status: Acute Assessment and Plan: -continue with albuterol inhaler. -continue with Singulair 06/02: Continues to deny SOB or breathing issues. (3) Hypothyroidism: Code(s): E03.9 - Hypothyroidism, unspecified Status: Acute Assessment and Plan: -continue with levothyroxine -monitor her thyroid levels outpatient. 05/31: TSH pending 06/02: TSH slightly low (0.302), T4 WDL, T3 slightly low (0.72). -Pt with known adrenal nodules, discussed this with her. Plan to obtain MRI outpatient for better look. Pt with NO current pain stimulator. -Pt cooperative with daily levothyroxine (4) Hypertension: Code(s): I10 - Essential (primary) hypertension Status: Acute Assessment and Plan: -patient's blood pressure is on the soft side due to the pain medication. -her Lasix and spironolactone are on hold at this time. 06/01: Stable VS 06/02: Stable VS 06/03: Stable VS (5) Hyperlipidemia: Code(s): E78.5 - Hyperlipidemia, unspecified Status: Acute Assessment and Plan: -continue with atorvastatin and monitor liver functions. (6) Hyponatremia: Code(s): E87.1 - Hypo-osmolality and hyponatremia Status: Acute Assessment and Plan: -appear to be chronically low, baseline of 126-132 -hold Lasix and spironolactone for now (continues to deny SOB, CP, BLE edema) -TSH results above (7) Hydroureteronephrosis: Code(s): N13.30 - Unspecified hydronephrosis Status: Acute Assessment and Plan: -renal ultrasound has been ordered & pending. Is suspected that the patient may have had a kidney stone and passed it. 06/02: Renal US: The renal cortices bilaterally are thin and echogenic, no solid masses or calculi, no hydronephrosis. Right Kidney: Right kidney 11.9 x 4.2 x 5.4 cm, multiple simple appearing cysts the largest inferior pole 2.5 x 2.9 cm. Left Kidney: Left kidney 9.8 x 4.8 x 5.8 cm, multiple simple appearing renal cysts the largest measuring midpole 1 x 1 cm. Bladder: Davenport catheter in the bladder. (8) Adrenal nodule: Code(s): E27.9 - Disorder of adrenal gland, unspecified Status: Acute Assessment and Plan: - Subcentimeter bilateral adrenal nodules. Arising from the left adrenal nodule there is a solid lesion 1.5 x 1.6 cm incompletely evaluated., Adrenal MRI is recommended. -Plan for MRI outpatient, pt with NO current pain stimulator in place. Pt agreeable with this plan. (9) Renal cyst: Code(s): N28.1 - Cyst of kidney, acquired Status: Acute Assessment and Plan: - Right kidney multiple simple and complex appearing renal cysts the largest mid pole 2.5 x 2.5 cm with mild hydronephrosis and hydroureter but no renal calculi. 06/01: -renal ultrasound has been performed, pending results 06/02: Renal US: The renal cortices bilaterally are thin and echogenic, no solid masses or calculi, no hydronephrosis. Right Kidney: Right kidney 11.9 x 4.2 x 5.4 cm, multiple simple appearing cysts the largest inferior pole 2.5 x 2.9 cm. Left Kidney: Left kidney 9.8 x 4.8 x 5.8 cm, multiple simple appearing renal cysts the largest measuring midpole 1 x 1 cm. Bladder: Davenport catheter in the bladder. Pt unknown of cysts, will f/u with PCP Plan Pain management, outpt rehab placement Time Spent With Patient Time: 40 Subjective Date/time seen: 06/03/25 1219 Interval history: Admitting hospitalist: This is a 74-year-old female patient who has a chronic lower back pain. She has had a total of 3 back surgeries. Her last surgery was last month(April) by Dr. Pedraza at [facility]. She had a prior surgery to her lower back just 3 months prior to that surgery. The patient stated that she has been having worsening discomfort. She has been taking oxycodone without any improvement. She has tried a heating pad. She has tried ice. She has tried Salonpas patches. She has tried muscle relaxers. She has been notifying her surgeon's office about the discomfort. She stated that it starts in her lower back and radiates down her right leg. She states that she does not do well with steroids either. She has tried muscle relaxers and pain medications without relief. She stated that her quality of care is decreased since her back surgeries. She spends most of her days in bed. She denies any numbness or tingling or saddle anesthesia to the lower extremities. She denies any bowel or bladder incontinence. Abdominal pelvis CT was read as a following. 1. Mild hydronephrosis and hydroureter although there is no obstructing distal calcified ureteral calculus. Findings may relate to a recently passed calculus on obstructing noncalcified calculus. Differential includes stricture within the tract infection. Follow-up is suggested to assess resolution. 2. Incidental findings above. Her H&H is 9.7 and 31.1 which is above her baseline. Her sodium is 129 with a previous sodium of 132. Her C reactive protein is 3.1. She also complains of having a burn to the left upper chest from heating pad usage. A bladder scan was performed and she had 400 cc. Therefore a Davenport catheter was placed. The patient was given Zofran, for doses of that now, Robaxin, Solu-Medrol, Toradol, oxycodone, and IV fluids in the emergency room. The ED provider did reach out to the surgeon concerning the patient's condition and it was recommended that the patient be admitted to our facility for pain management as there is no current need for the surgical team to evaluate her. The patient is being admitted to observation status on the date of service of 05/31/2025. 10: Pt reports that her pain is better today but still not baseline, she rates it at a 7/10. Denies any other sx besides constipation but she is passing gas. Pending kidney US. 06/02: Pt still reporting pain 8/10 despite being medicated. Pt also had her davenport removed this AM and is still suffering from urinary retention. Pt agreeable for inpatient rehab once pain is controlled, therapy agrees. Changing oxy to norco to see if that combination will offer any more relief. Will continue to monitor. 06/03: Pt still reporting pain, but, does report better pain from switching from oxy 5mg to Errol 1 tab. Per nursing, pt still consistently asking for pain medication, will go up slightly on dose. Catheter to stay in until plan for discharge due to retention. Review of Systems Review of Systems: All systems reviewed & are unremarkable except as noted in HPI and below Constitutional: Constitutional: Reports as per HPI and Reports no additional constitutional complaints Eyes: Eyes: Reports as per HPI and Reports no additional eye complaints ENT: Reports system reviewed and no additional complaints, except as documented and Reports Normal hearing present Cardiovascular: Cardiovascular: Reports no additional cardiovascular complaints Respiratory: Respiratory: Reports as per HPI and Reports no additional respiratory complaints Gastrointestinal: Gastrointestinal: Reports as per HPI and Reports no additional gastrointestinal complaints Genitourinary: Genitourinary: Reports no additional female genitourinary complaints Musculoskeletal: Musculoskeletal: Reports no additional musculoskeletal complaints Integumentary/Breasts: Skin/Breast: Reports system reviewed and no additional complaints, except as docu Neurologic: Reports system reviewed and no additional complaints, except as documented and Reports Normal hearing present Psychiatric: Psychiatric: Reports no additional psychiatric complaints and Reports as per HPI Hematologic/Lymphatic: Hematologic/Lymphatic: Reports no additional hematologic/lymphatic complaints Allergic/Immunologic: Allergic/Immunologic: Reports no additional allergic/immunologic complaints Exam Const: General: cooperative, comfortable, no acute distress, well developed, awake, Physically active, uncomfortable, average body habitus and well nourished Nutritional Appearance: average body habitus and well nourished Orientation/consciousness: oriented to person, oriented to place, oriented to time and patient oriented x3 Limitations: no limitations HENMT: Head: normal to inspection, No palpable skull fracture present, normocephalic, atraumatic and abrasion Ears: hearing grossly normal bilaterally Eyes: General: appearance normal, both eyes and all related structures Alignment and Position: alignment normal Periorbital: periorbital findings normal Eyelids: eyelids normal Pupils: Equal, round and reactive pupils present Neck: Neck: normal visual inspection, full ROM, no lymphadenopathy, trachea midline and supple Chest: Chest palpation & inspection: normal inspection of the chest Other: Left lateral breast with healing burn with surrounding erythema, blanchable. 3x2in. Resp: Effort & Inspection: normal respiratory effort Auscultation: clear to auscultation bilaterally Cardio: Rate: regular rate Rhythm: regular rhythm Heart sounds: S1 normal heart sound present and S2 normal heart sound present GI: Inspection: normal to inspection Auscultation: normal bowel sounds Rectal Exam: deferred Urinary Catheter: Urinary Catheter: patent and draining and urine clear Back/Spine/Pelvis: Back: no CVA tenderness Cervical Spine: cervical ROM normal Pelvis: no pain with anterior-posterior compression Other: Incision to lower well approximated without any drainage. No erythema or tenderness noted. Skin: General skin exam: normal color Hair: normal Nails: normal Neuro: General: oriented to person, oriented to place, oriented to time and patient oriented x3 Cranial nerves: Yes Equal, round and reactive pupils present and Yes Normal hearing present Motor exam (neuro): 5/5 motor strength present throughout Sensory Exam: normal sensation Extrem: General: normal to inspection Right upper extremity: normal to inspection and shoulder/upper arm Left upper extremity: normal to inspection and shoulder/upper arm Right lower extremity: normal to inspection Left lower extremity: normal to inspection Psych: Appearance: grossly normal Mental Status: mental status grossly normal Speech and movement: Normal speech and movement present Affect: normal affect Attitude: cooperative Thought process: Normal thought process present Objective Data Vital Signs Vital Signs: Vital Signs - 24 hr 06/02/25 08:00 06/02/25 08:00 06/02/25 08:22 Temperature Pulse Rate 74 Respiratory Rate Blood Pressure Pulse Oximetry 99 Oxygen Delivery Nasal Cannula Nasal Cannula Oxygen Flow Rate 2 2 06/02/25 10:28 06/02/25 11:07 06/02/25 12:00 Temperature Pulse Rate 76 Respiratory Rate Blood Pressure Pulse Oximetry 100 Oxygen Delivery Room Air Room Air Oxygen Flow Rate 06/02/25 13:17 06/02/25 16:00 06/02/25 20:00 Temperature 97.1 F L Pulse Rate 88 94 Respiratory Rate 18 Blood Pressure 123/64 Pulse Oximetry 100 Oxygen Delivery Room Air Oxygen Flow Rate 06/02/25 20:00 06/02/25 21:28 06/02/25 22:00 Temperature 98.4 F Pulse Rate 96 92 Respiratory Rate 18 Blood Pressure 118/62 Pulse Oximetry 93 90 Oxygen Delivery Room Air Oxygen Flow Rate 06/03/25 00:00 06/03/25 04:00 06/03/25 06:00 Temperature 98.5 F Pulse Rate 85 93 96 Respiratory Rate 18 Blood Pressure 119/61 Pulse Oximetry 95 Oxygen Delivery Oxygen Flow Rate Intake/Output Intake/Output: Intake & Output 05/31/25 06/01/25 06/02/25 06/03/25 23:59 23:59 23:59 23:59 Intake Total 8606 905 7447 Output Total 225 1660 1500 500 Balance 975 -920 -380 -500 Meds/Results Medications: Active Medications Generic Name Dose Route Start Last Admin Trade Name Freq PRN Reason Stop Dose Admin Hydrocodone Bitart/Acetaminophen 1 tab 06/02/25 15:21 06/03/25 02:59 Hydrocodone/Acetaminophen (*Crx) 5-325 Mg Tablet PO 1 tab Q4H PRN Administration Pain Rated 4-6 Albuterol 2 puff 06/01/25 01:04 Albuterol Sulfate (*Sp) Aerosol 1 Puff INHALATION Q4H PRN Shortness Of Breath Or Wheezing Atorvastatin Calcium 40 mg 06/01/25 21:00 06/02/25 20:23 Atorvastatin 40 Mg Tablet PO 40 mg HS ELLIS Administration Diphenhydramine HCl 25 mg 05/31/25 23:28 06/01/25 21:26 Diphenhydramine Hcl Inj 50 Mg/Ml Vial IV PUSH 25 mg Q4H PRN Administration Itching Docusate Sodium 100 mg 06/01/25 01:04 Docusate Sodium 100 Mg Capsule PO Q12H PRN Constipation Duloxetine HCl 60 mg 06/01/25 09:00 06/02/25 17:16 Duloxetine Hcl 60 Mg Capsule.Dr PO 60 mg BID ELLIS Administration Ergocalciferol 1,250 mcg 06/02/25 09:00 06/02/25 08:07 Ergocalciferol (Vitamin D2) 1,250 Mcg (50,000 Units) Capsule PO Not Given Mo@0900 [facility] Fentanyl Citrate 50 mcg 05/31/25 22:36 06/03/25 04:22 Fentanyl Citrate Inj (*Crx) 100 Mcg/2 Ml Vial IV PUSH 50 mcg Q2H PRN Administration Pain Rated 7-10 Gabapentin 300 mg 06/01/25 09:00 06/02/25 17:16 Gabapentin 300 Mg Capsule PO 300 mg TID ELLIS Administration Cefazolin Sodium 1 gm/ Sodium 50 mls @ 100 mls/hr 06/01/25 00:00 06/03/25 00:24 Chloride IVPB 100 mls/hr Q12H ELLIS Administration Levothyroxine Sodium 50 mcg 06/01/25 06:30 06/03/25 05:47 Levothyroxine Sodium 50 Mcg Tablet PO 50 mcg DAILY@0630 [facility] Administration Lidocaine 1 patch 06/02/25 09:00 06/02/25 08:08 Lidocaine 5% Patch TRANSDERM 1 patch DAILY ELLIS Administration Loratadine 10 mg 06/01/25 01:26 Loratadine 10 Mg Tablet PO QAM PRN allergy symptoms Menthol/Methyl Salicylate 1 applic 06/02/25 15:36 06/02/25 20:32 Menthol 10% / Methyl Salicylate 15% 57 Gm Tube TOPICAL 1 applic QID PRN Administration ARTHRITIS Montelukast Sodium 10 mg 06/01/25 09:00 06/02/25 08:07 Montelukast Sodium 10 Mg Tablet PO 10 mg DAILY ELLIS Administration Ondansetron HCl 4 mg 05/31/25 22:36 Ondansetron Inj 4 Mg/2 Ml Vial IV PUSH Q4H PRN Nausea Oxycodone HCl 10 mg 06/01/25 09:00 06/02/25 20:25 Oxycodone Hcl (*Crx) 10 Mg Tab Sr 12hr PO 10 mg Q12HR ELLIS Administration Pantoprazole Sodium 40 mg 06/01/25 09:00 06/02/25 08:08 Pantoprazole 40 Mg Tablet PO 40 mg QAM ELLIS Administration Polyethylene Glycol 17 gm 06/01/25 09:00 06/02/25 08:07 Polyethylene Glycol 3350 17 Gm Powd.Pack PO Not Given DAILY ELLIS Pregabalin 150 mg 06/01/25 09:00 06/02/25 20:23 Pregabalin (*Crx) 75 Mg Capsule PO 150 mg Q12HR ELLIS Administration Saccharomyces Boulardii 250 mg 06/01/25 09:00 06/02/25 17:16 Saccharomyces Boulardii 250 Mg Capsule PO 250 mg TID ELLIS Administration Senna 17.2 mg 06/01/25 09:00 06/02/25 17:16 Sennosides 8.6 Mg Tablet PO 17.2 mg BID ELLIS Administration Silver Sulfadiazine 1 applic 06/02/25 09:00 06/02/25 09:37 Silver Sulfadiazine 1% Cr 50 Gm Jar (*Bkc) TOPICAL Not Given DAILY [facility] Radiology Results: ITS Impressions Abdomen/Pelvis CT 05/31/25 16:55 IMPRESSION: 1. Mild hydronephrosis and hydroureter although there is no obstructing distal calcified ureteral calculus. Findings may relate to a recently passed calculus on obstructing noncalcified calculus. Differential includes stricture within the tract infection. Follow-up is suggested to assess resolution. 2. Incidental findings above Renal Ultrasound 06/01/25 15:33 Impression: No acute abnormality. Labs Labs: Laboratory Results - last 24 hr 06/02/25 07:16 Ur Random Sodium 18 Quality VTE Prophylaxis VTE prophylaxis: mechanical ordered
[2025-06-03] MEDS: PREGABALIN (*CRX) 75 MG CAPSULE 150 MG PO ×2 (08:03→20:30)
[2025-06-03] MEDS: DULoxetine HCL 60 MG CAPSULE.DR PO ×2 (08:03→16:58)
[2025-06-03] MEDS: LIDOCAINE 5% PATCH 1 PATCH TRANSDERM (08:03)
[2025-06-03] MEDS: PANTOPRAZOLE 40 MG TABLET PO (08:03)
[2025-06-03] MEDS: oxyCODONE HCL (*CRX) 10 MG TAB SR 12HR PO ×2 (08:03→20:30)
[2025-06-03] MEDS: SACCHAROMYCES BOULARDII 250 MG CAPSULE PO ×3 (08:03→16:58)
[2025-06-03] MEDS: MONTELUKAST SODIUM 10 MG TABLET PO (08:03)
[2025-06-03] MEDS: GABAPENTIN 300 MG CAPSULE PO ×3 (08:03→16:58)
[2025-06-03] MEDS: SILVER SULFADIAZINE 1% CR 50 GM JAR (*BKC) 1 APPLIC TOPICAL (08:04)
[2025-06-03] MEDS: SENNOSIDES 8.6 MG TABLET 17.2 MG PO ×2 (08:04→16:58)
[2025-06-03] MEDS: MENTHOL 10% / METHYL SALICYLATE 15% 57 GM TUBE 1 APPLIC TOPICAL ×2 (12:18→20:31)
[2025-06-03] MEDS: HYDROcodone/acetaminophen (*CRX) 7.5-325 MG TABLET 1 TAB PO ×2 (14:34→19:07)
[2025-06-03] MEDS: ATORVASTATIN 40 MG TABLET PO (20:30)
[2025-06-04] VITALS (9 sets, daily range): BP systolic 131–149; BP diastolic 67–72; PULSE 83–96; RESP 18; TEMP 36.3–36.9; O2SAT 91–99
[2025-06-04] MEDS: LEVOTHYROXINE SODIUM 50 MCG TABLET PO (06:42)
[2025-06-04] MEDS: HYDROcodone/acetaminophen (*CRX) 7.5-325 MG TABLET 1 TAB PO ×4 (07:50→23:43)
--- NOTE | 2025-06-04 08:25 | P.PNIM_ITS ---
Progress Note: A&P Assessment and Plan (1) Lumbar radiculopathy: Code(s): M54.16 - Radiculopathy, lumbar region Status: Acute Assessment and Plan: Patient was admitted to [facility] on 05/06/2025, Dr. Pedraza. She underwent extension of instrumentation fusion to L2 with removal of rods and bilateral L4 pedicle screws, left pelvic fixation, L3-L4 laminectomy, allograft, autograft, bone morphogenic protein, spinal cord monitoring. Discharged to acute rehab Since discharge from rehab she reports pain to right hip and anterior leg, intermittent spasm. She reports symptoms were similar on the left prior to surgery but not exactly the same. She had been using oxycodone, heating pads. Previously had been taking flexeril per rehab notes but it had been discontinued. She is on lyrica and gabapentin chronically The ER provider did reach out to her surgeon who recommended that the patient just be admitted here for pain control, no acute indication for surgery. She was admitted for intractable pain, unable to get out of bed. She was started on oxycontin ER with oxy ir & fentanyl prn PLAN Flexeril previously stopped 2/2 questionable benefit. Trial of methocarbamol given Solu-Medrol in the emergency room but the patient declined any further steroids she stated that she does not tolerate them very well. Continue PT OT evaluation greatly be appreciated. continue heat/ice prn . Follow up with pain managment Declined NSAIDs due to hx CKD. creatinine 0.92 and her GFR 60 tries to avoid any NSAIDs. Consider increase in gabepentin after titrating methocarbamol Constipation for over a week. Doesn't' tolerate miralax. No results from bisacodyl suppository. Mag citrate today. mineral oil enema. Scheduled senna (2) Chronic obstructive pulmonary disease: Code(s): J44.9 - Chronic obstructive pulmonary disease, unspecified Status: Acute Assessment and Plan: -continue with albuterol inhaler. -continue with Singulair 06/02: Continues to deny SOB or breathing issues. (3) Hypothyroidism: Code(s): E03.9 - Hypothyroidism, unspecified Status: Acute Assessment and Plan: 06/02: TSH slightly low (0.302), T4 WDL, T3 slightly low (0.72). -continued levothyroxine, decreased from 50>25 daily (4) Hypertension: Code(s): I10 - Essential (primary) hypertension Status: Acute Assessment and Plan: -patient's blood pressure is on the soft side due to the pain medication. -her Lasix and spironolactone are on hold at this time. (5) Hyperlipidemia: Code(s): E78.5 - Hyperlipidemia, unspecified Status: Acute Assessment and Plan: -continue with atorvastatin and monitor liver functions. (6) Hyponatremia: Code(s): E87.1 - Hypo-osmolality and hyponatremia Status: Acute Assessment and Plan: -appear to be chronically low, baseline of 126-132 -hold Lasix and spironolactone for now (continues to deny SOB, CP, BLE edema) -TSH results above (7) Hydroureteronephrosis: Code(s): N13.30 - Unspecified hydronephrosis Status: Acute Assessment and Plan: 06/02 Renal US: The renal cortices bilaterally are thin and echogenic, no solid masses or calculi, no hydronephrosis. Right Kidney: Right kidney 11.9 x 4.2 x 5.4 cm, multiple simple appearing cysts the largest inferior pole 2.5 x 2.9 cm. Left Kidney: Left kidney 9.8 x 4.8 x 5.8 cm, multiple simple appearing renal cysts the largest measuring midpole 1 x 1 cm. Bladder: Schaefer catheter removed today, passed void trial (8) Adrenal nodule: Code(s): E27.9 - Disorder of adrenal gland, unspecified Status: Acute Assessment and Plan: Subcentimeter bilateral adrenal nodules. Arising from the left adrenal nodule there is a solid lesion 1.5 x 1.6 cm incompletely evaluated., Adrenal MRI is recommended. Plan for MRI outpatient, pt with NO current pain stimulator in place. Pt agreeable with this plan. (9) Renal cyst: Code(s): N28.1 - Cyst of kidney, acquired Status: Acute Assessment and Plan: 06/02: Renal US: The renal cortices bilaterally are thin and echogenic, no solid masses or rashad culi, no hydronephrosis. Right Kidney: Right kidney 11.9 x 4.2 x 5.4 cm, multiple simple appearing cysts the largest inferior pole 2.5 x 2.9 cm. Left Kidney: Left kidney 9.8 x 4.8 x 5.8 cm, multiple simple appearing renal cysts the largest measuring midpole 1 x 1 cm. Bladder: Schaefer catheter in the bladder. --Multiple simple cysts, does not require intervention unless new symptoms. Follow up with PCP. Plan Pain management, outpt rehab placement Time Spent With Patient Time: 65 minutes Subjective Date/time seen: 06/04/25 08:25 Interval history: VSS. Having constipation, reports over a week. Can't tolerate miralax. Pain to right leg, especially to anterior leg and inguinal fold on the right. No back pain. Is having spasms on the right side intermittently Reason for hospitalization This is a 74-year-old female hx spine surgery,admitted for acute on cronic lower back pain. Last surgery April by Dr. Choudhary at [facility]. Has urinary retention, Schaefer placed. Also treating hyponatremia. Planning discharge to inpatient rehab. TSH 0.032, T3 0.72--Decrease synthroid from 50>25 Exam Narrative: General - Awake and alert. No acute distress Eyes - PERRLA, EOM intact ENT - No thrush, No erythema Neck - No noticeable or palpable swelling Lymph Nodes - No lymphadenopathy Cardiovascular - RRR no m/r/g, no JVD Lungs: Clear to auscultation, No wheezing, use of accessory muscles Skin - Skin warm and dry, no wounds or rashes Abdomen - Normal bowel sounds, abdomen soft and nontender Extremities - No edema, cyanosis or clubbing Musculoskeletal - 5/5 strength, normal range of motion, TTP right hip at inguinal fold Neurological ? Alert and oriented x 3, CN 2-12 grossly intact. Psych: Normal mood and affect Objective Data Vital Signs Vital Signs: Vital Signs - 24 hr 06/03/25 12:00 06/03/25 14:00 06/03/25 16:00 Temperature 97.8 F Pulse Rate 80 78 78 Respiratory Rate 14 Blood Pressure 132/64 Pulse Oximetry 100 Oxygen Delivery Fraction of Inspired Oxygen 06/03/25 20:00 06/03/25 20:07 06/03/25 22:00 Temperature 97.5 F L Pulse Rate 86 88 85 Respiratory Rate 20 18 Blood Pressure 142/79 H Pulse Oximetry 93 93 Oxygen Delivery Room Air Fraction of Inspired Oxygen 21 06/04/25 00:00 06/04/25 04:00 06/04/25 06:00 Temperature 97.4 F L Pulse Rate 83 86 85 Respiratory Rate 18 Blood Pressure 144/68 H Pulse Oximetry 91 Oxygen Delivery Fraction of Inspired Oxygen Intake/Output Intake/Output: Intake & Output 06/01/25 06/02/25 06/03/25 06/04/25 23:59 23:59 23:59 23:59 Intake Total 740 1120 1080 Output Total 1660 1500 1175 1000 [facility] -920 - Meds/Results Medications: Active Medications Generic Name Dose Route Start Last Admin Trade Name Freq PRN Reason Stop Dose Admin Hydrocodone Bitart/Acetaminophen 1 tab 06/03/25 14:00 06/04/25 07:50 Hydrocodone/Acetaminophen (*Crx) 7.5-325 Mg Tablet PO 1 tab Q4H PRN Administration Pain Rated 7-10 Albuterol 2 puff 06/01/25 01:04 Albuterol Sulfate (*Sp) Aerosol 1 Puff INHALATION Q4H PRN Shortness Of Breath Or Wheezing Atorvastatin Calcium 40 mg 06/01/25 21:00 06/03/25 20:30 Atorvastatin 40 Mg Tablet PO 40 mg HS ELLIS Administration Diphenhydramine HCl 25 mg 05/31/25 23:28 06/01/25 21:26 Diphenhydramine Hcl Inj 50 Mg/Ml Vial IV PUSH 25 mg Q4H PRN Administration Itching Docusate Sodium 100 mg 06/01/25 01:04 Docusate Sodium 100 Mg Capsule PO Q12H PRN Constipation Duloxetine HCl 60 mg 06/01/25 09:00 06/03/25 16:58 Duloxetine Hcl 60 Mg Capsule.Dr PO 60 mg BID ELLIS Administration Ergocalciferol 1,250 mcg 06/02/25 09:00 06/02/25 08:07 Ergocalciferol (Vitamin D2) 1,250 Mcg (50,000 Units) Capsule PO Not Given Mo@0900 ELLIS Fentanyl Citrate 50 mcg 05/31/25 22:36 06/03/25 04:22 Fentanyl Citrate Inj (*Crx) 100 Mcg/2 Ml Vial IV PUSH 50 mcg Q2H PRN Administration Pain Rated 7-10 Gabapentin 300 mg 06/01/25 09:00 06/03/25 16:58 Gabapentin 300 Mg Capsule PO 300 mg TID ELLIS Administration Levothyroxine Sodium 50 mcg 06/01/25 06:30 06/04/25 06:42 Levothyroxine Sodium 50 Mcg Tablet PO 50 mcg DAILY@0630 ELLIS Administration Lidocaine 1 patch 06/02/25 09:00 06/03/25 08:03 Lidocaine 5% Patch TRANSDERM 1 patch DAILY ELLIS Administration Loratadine 10 mg 06/01/25 01:26 Loratadine 10 Mg Tablet PO QAM PRN allergy symptoms Menthol/Methyl Salicylate 1 applic 06/02/25 15:36 06/03/25 20:31 Menthol 10% / Methyl Salicylate 15% 57 Gm Tube TOPICAL 1 applic QID PRN Administration ARTHRITIS Montelukast Sodium 10 mg 06/01/25 09:00 06/03/25 08:03 Montelukast Sodium 10 Mg Tablet PO 10 mg DAILY ELLIS Administration Ondansetron HCl 4 mg 05/31/25 22:36 Ondansetron Inj 4 Mg/2 Ml Vial IV PUSH Q4H PRN Nausea Oxycodone HCl 10 mg 06/01/25 09:00 06/03/25 20:30 Oxycodone Hcl (*Crx) 10 Mg Tab Sr 12hr PO 10 mg Q12HR ELLIS Administration Pantoprazole Sodium 40 mg 06/01/25 09:00 06/03/25 08:03 Pantoprazole 40 Mg Tablet PO 40 mg QAM ELLIS Administration Polyethylene Glycol 17 gm 06/01/25 09:00 06/03/25 08:03 Polyethylene Glycol 3350 17 Gm Powd.Pack PO Not Given DAILY ELLIS Pregabalin 150 mg 06/01/25 09:00 06/03/25 20:30 Pregabalin (*Crx) 75 Mg Capsule PO 150 mg Q12HR ELLIS Administration Saccharomyces Boulardii 250 mg 06/01/25 09:00 06/03/25 16:58 Saccharomyces Boulardii 250 Mg Capsule PO 250 mg TID ELLIS Administration Senna 17.2 mg 06/01/25 09:00 06/03/25 16:58 Sennosides 8.6 Mg Tablet PO 17.2 mg BID ELLIS Administration Silver Sulfadiazine 1 applic 06/02/25 09:00 06/03/25 08:04 Silver Sulfadiazine 1% Cr 50 Gm Jar (*Bkc) TOPICAL 1 applic DAILY ELLIS Administration Radiology Results: ITS Impressions Abdomen/Pelvis CT 05/31/25 16:55 IMPRESSION: 1. Mild hydronephrosis and hydroureter although there is no obstructing distal calcified ureteral calculus. Findings may relate to a recently passed calculus on obstructing noncalcified calculus. Differential includes stricture within the tract infection. Follow-up is suggested to assess resolution. 2. Incidental findings above Renal Ultrasound 06/01/25 15:33 Impression: No acute abnormality. Hospitalist MIPS Advance Care Plan I have confirmed that the patient's Advanced Care Plan is present, code status is documented, or surrogate decision maker is listed in patient medical record.: Yes Medication Reconciliation I have utilized all available resources to obtain, update and review the patients current medications (includes all prescriptions, OTC, herbals, cannabis, and nutritional supplements).: Yes
[2025-06-04] MEDS: GABAPENTIN 300 MG CAPSULE PO ×3 (08:48→17:15)
[2025-06-04] MEDS: DULoxetine HCL 60 MG CAPSULE.DR PO ×2 (08:48→17:15)
[2025-06-04] MEDS: MENTHOL 10% / METHYL SALICYLATE 15% 57 GM TUBE 1 APPLIC TOPICAL (08:49)
[2025-06-04] MEDS: LIDOCAINE 5% PATCH 1 PATCH TRANSDERM (08:49)
[2025-06-04] MEDS: MONTELUKAST SODIUM 10 MG TABLET PO (08:49)
[2025-06-04] MEDS: PANTOPRAZOLE 40 MG TABLET PO (08:49)
[2025-06-04] MEDS: PREGABALIN (*CRX) 75 MG CAPSULE 150 MG PO ×2 (08:49→20:17)
[2025-06-04] MEDS: SENNOSIDES 8.6 MG TABLET 17.2 MG PO ×2 (08:49→17:15)
[2025-06-04] MEDS: oxyCODONE HCL (*CRX) 10 MG TAB SR 12HR PO ×2 (08:49→20:17)
[2025-06-04] MEDS: SACCHAROMYCES BOULARDII 250 MG CAPSULE PO ×3 (08:49→17:15)
[2025-06-04] MEDS: SILVER SULFADIAZINE 1% CR 50 GM JAR (*BKC) 1 APPLIC TOPICAL (08:50)
[2025-06-04] MEDS: BISACODYL 10 MG SUPPOSITORY RECTAL (09:39)
[2025-06-04] MEDS: MAGNESIUM CITRATE 300 ML BTL PO (16:22)
[2025-06-04] MEDS: ATORVASTATIN 40 MG TABLET PO (20:17)
[2025-06-05] VITALS: PULSE 92
[2025-06-05 04:00] VITALS: PULSE 88
[2025-06-05 04:25] LABS: Hematocrit 32.5 % (37.0-47.0); Hemoglobin 9.8 g/dL (12.0-15.0); Immature Granulocyte Percent A 0.4 % (0-0.5); Lymphocytes Absolute Auto 1.33 K/mm3 (0.9-3.2); Mean Corpuscular HGB Conc 30.2 g/dl (32-36); Mean Corpuscular Hemoglobin 24.6 pg (26-34); Mean Corpuscular Volume 81.7 fl (80-100); Nucleated Red Blood Cells Absolute Auto 0.000 K/mm3 (0.0-0.012); Nucleated Red Blood Cells Perc 0.0 % (0.0-0.2); Platelet Count Result 300 k/mm3 (150-375); Red Blood Count 3.98 M/mm3 (4.2-5.4); White Blood Count 7.0 K/mm3 (4.5-10.0)
[2025-06-05 04:42] LABS: Anion Gap 2 mmol/L (4-12); Blood Urea Nitrogen 9 mg/dL (7-17); Calcium 8.1 mg/dL (8.4-10.2); Carbon Dioxide 30 mmol/L (22-30); Chloride 99 mmol/L (98-107); Estimated CRCL calculation 53 ml/min; Estimated Glomerular Filt Rate > 60; Glucose 90 mg/dL (65-110); Potassium 3.5 mmol/L (3.4-5.0); Sodium 131 mmol/L (137-145)
[2025-06-05 06:00] VITALS: BP 141/61; PULSE 89; RESP 18; TEMP 36.8; O2SAT 98
[2025-06-05 06:08] LABS: Osmolality, Serum 278 mOsmol/kg (280-301)
[2025-06-05] MEDS: LEVOTHYROXINE SODIUM 25 MCG TABLET PO (06:34)
--- NOTE | 2025-06-05 08:42 | P.PNIM_ITS ---
Progress Note: A&P Assessment and Plan (1) Lumbar radiculopathy: Code(s): M54.16 - Radiculopathy, lumbar region Status: Acute Assessment and Plan: Patient was admitted to [facility] on 05/06/2025, Dr. Pedraza. She underwent extension of instrumentation fusion to L2 with removal of rods and bilateral L4 pedicle screws, left pelvic fixation, L3-L4 laminectomy, allograft, autograft, bone morphogenic protein, spinal cord monitoring. Discharged to acute rehab Since discharge from rehab she reports pain to right hip and anterior leg, intermittent spasm. She reports symptoms were similar on the left prior to surgery but not exactly the same. She had been using oxycodone, heating pads. Previously had been taking flexeril per rehab notes but it had been discontinued. She is on lyrica and gabapentin chronically The ER provider did reach out to her surgeon who recommended that the patient just be admitted here for pain control, no acute indication for surgery. She was admitted for intractable pain, unable to get out of bed. She was started on oxycontin ER with oxy ir & fentanyl prn PLAN Flexeril previously stopped 2/2 questionable benefit. Trial of methocarbamol given Solu-Medrol in the emergency room but the patient declined any further steroids she stated that she does not tolerate them very well. Continue PT OT evaluation greatly be appreciated. continue heat/ice prn . Follow up with pain managment Declined NSAIDs due to hx CKD. creatinine 0.92 and her GFR 60 tries to avoid any NSAIDs. Consider increase in gabepentin after titrating methocarbamol Constipation for over a week. Doesn't' tolerate miralax. No results from bisacodyl suppository. Mag citrate today. mineral oil enema. Scheduled senna (2) Chronic obstructive pulmonary disease: Code(s): J44.9 - Chronic obstructive pulmonary disease, unspecified Status: Acute Assessment and Plan: No shortness of breath -continue with albuterol inhaler. -continue with Singulair (3) Hypothyroidism: Code(s): E03.9 - Hypothyroidism, unspecified Status: Acute Assessment and Plan: 06/02: TSH slightly low (0.302), T4 WDL, T3 slightly low (0.72). -continued levothyroxine, decreased from 50>25 daily (4) Hypertension: Code(s): I10 - Essential (primary) hypertension Status: Acute Assessment and Plan: -patient's blood pressure is on the soft side due to the pain medication. -her Lasix and spironolactone are on hold at this time. (5) Hyperlipidemia: Code(s): E78.5 - Hyperlipidemia, unspecified Status: Acute Assessment and Plan: -continue with atorvastatin and monitor liver functions. (6) Hyponatremia: Code(s): E87.1 - Hypo-osmolality and hyponatremia Status: Acute Assessment and Plan: -appear to be chronically low, baseline of 126-132 -holding Lasix and spironolactone for now (continues to deny SOB, CP, BLE edema) -TSH results above (7) Hydroureteronephrosis: Code(s): N13.30 - Unspecified hydronephrosis Status: Acute Assessment and Plan: 06/02 Renal US: The renal cortices bilaterally are thin and echogenic, no solid masses or calculi, no hydronephrosis. Right Kidney: Right kidney 11.9 x 4.2 x 5.4 cm, multiple simple appearing cysts the largest inferior pole 2.5 x 2.9 cm. Left Kidney: Left kidney 9.8 x 4.8 x 5.8 cm, multiple simple appearing renal cys ts the largest measuring midpole 1 x 1 cm. Bladder: Schaefer catheter removed today, passed void trial (8) Adrenal nodule: Code(s): E27.9 - Disorder of adrenal gland, unspecified Status: Acute Assessment and Plan: Subcentimeter bilateral adrenal nodules. Arising from the left adrenal nodule there is a solid lesion 1.5 x 1.6 cm incompletely evaluated., Adrenal MRI is recommended. Plan for MRI outpatient, pt with NO current pain stimulator in place. Pt agreeable with this plan. (9) Renal cyst: Code(s): N28.1 - Cyst of kidney, acquired Status: Acute Assessment and Plan: 06/02: Renal US: The renal cortices bilaterally are thin and echogenic, no solid masses or calculi, no hydronephrosis. Right Kidney: Right kidney 11.9 x 4.2 x 5.4 cm, multiple simple appearing cysts the largest inferior pole 2.5 x 2.9 cm. Left Kidney: Left kidney 9.8 x 4.8 x 5.8 cm, multiple simple appearing renal cysts the largest measuring midpole 1 x 1 cm. Bladder: Schaefer catheter in the bladder. --Multiple simple cysts, does not require intervention unless new symptoms. Follow up with PCP. (10) Constipation: Code(s): K59.00 - Constipation, unspecified Status: Acute Assessment and Plan: Severe constipation, over a week since her last BM. Declined miralax, can't tolerate the taste. Scheduled Senna BID, s/p mineral oil enema, bisacodyl suppository x2 & mag citrate Add lactulose, tap water enema Dose of relistor if still not having BM's Plan Pain management, outpt rehab placement Time Spent With Patient Time: 57 minutes Subjective Date/time seen: 06/05/25 10:35 Interval history: Still hasn't had a BM after enema and multiple medications for constipation. add lactulose and tap water enema Pain to right hip improved with methocarbamol but still having spasms intermittently Reason for hospitalization This is a 74-year-old female hx spine surgery,admitted for acute on cronic lower back pain. Last surgery April by Dr. Choudhary at [facility]. Has urinary retention, Schaefer placed. Also treating hyponatremia. TSH 0.032, T3 0.72--Decreased synthroid from 50>25 Exam Narrative: General - Awake and alert. No acute distress Eyes - PERRLA, EOM intact ENT - No thrush, No erythema Neck - No noticeable or palpable swelling Lymph Nodes - No lymphadenopathy Cardiovascular - RRR no m/r/g, no JVD Lungs: Clear to auscultation, No wheezing, use of accessory muscles Skin - Skin warm and dry, no wounds or rashes Abdomen - Normal bowel sounds, abdomen soft and nontender Extremities - No edema, cyanosis or clubbing Musculoskeletal - 5/5 strength, normal range of motion, TTP right hip Neurological ? Alert and oriented x 3, CN 2-12 grossly intact. Psych: Normal mood and affect Objective Data Vital Signs Vital Signs: Vital Signs - 24 hr 06/04/25 09:00 06/04/25 12:00 06/04/25 14:00 Temperature 97.5 F L Pulse Rate 88 85 Respiratory Rate 18 Blood Pressure 149/67 H Pulse Oximetry 98 Oxygen Delivery Room Air 06/04/25 16:00 06/04/25 20:00 06/04/25 22:00 Temperature 98.4 F Pulse Rate 88 94 95 Respiratory Rate 18 Blood Pressure 131/72 Pulse Oximetry 99 Oxygen Delivery 06/05/25 00:00 06/05/25 04:00 06/05/25 06:00 Temperature 98.2 F Pulse Rate 92 88 89 Respiratory Rate 18 Blood Pressure 141/61 H Pulse Oximetry 98 Oxygen Delivery Intake/Output Intake/Output: Intake & Output 06/02/25 06/03/25 06/04/25 06/05/25 23:59 23:59 23:59 23:59 Intake Total 1120 1080 742 Output Total 1500 1175 1700 Hyklgrq -884 -98 -731 Meds/Results Medications: Active Medications Generic Name Dose Route Start Last Admin Trade Name Freq PRN Reason Stop Dose Admin Hydrocodone Bitart/Acetaminophen 1 tab 06/03/25 14:00 06/04/25 23:43 Hydrocodone/Acetaminophen (*Crx) 7.5-325 Mg Tablet PO 1 tab Q4H PRN Administration Pain Rated 7-10 Albuterol 2 puff 06/01/25 01:04 Albuterol Sulfate (*Sp) Aerosol 1 Puff INHALATION Q4H PRN Shortness Of Breath Or Wheezing Atorvastatin Calcium 40 mg 06/01/25 21:00 06/04/25 20:17 Atorvastatin 40 Mg Tablet PO 40 mg HS ELLIS Administration Bisacodyl 10 mg 06/04/25 09:30 06/04/25 09:39 Bisacodyl 10 Mg Suppository RECTAL 10 mg DAILY ELLIS Administration Diphenhydramine HCl 25 mg 05/31/25 23:28 06/01/25 21:26 Diphenhydramine Hcl Inj 50 Mg/Ml Vial IV PUSH 25 mg Q4H PRN Administration Itching Docusate Sodium 100 mg 06/01/25 01:04 Docusate Sodium 100 Mg Capsule PO Q12H PRN Constipation Duloxetine HCl 60 mg 06/01/25 09:00 06/04/25 17:15 Duloxetine Hcl 60 Mg Capsule.Dr PO 60 mg BID ELLIS Administration Ergocalciferol 1,250 mcg 06/02/25 09:00 06/02/25 08:07 Ergocalciferol (Vitamin D2) 1,250 Mcg (50,000 Units) Capsule PO Not Given Mo@0900 [facility] Fentanyl Citrate 50 mcg 05/31/25 22:36 06/03/25 04:22 Fentanyl Citrate Inj (*Crx) 100 Mcg/2 Ml Vial IV PUSH 50 mcg Q2H PRN Administration Pain Rated 7-10 Gabapentin 300 mg 06/01/25 09:00 06/04/25 17:15 Gabapentin 300 Mg Capsule PO 300 mg TID ELLIS Administration Levothyroxine Sodium 25 mcg 06/05/25 06:30 06/05/25 06:34 Levothyroxine Sodium 25 Mcg Tablet PO 25 mcg DAILY@0630 [facility] Administration Lidocaine 1 patch 06/02/25 09:00 06/04/25 08:49 Lidocaine 5% Patch TRANSDERM 1 patch DAILY ELLIS Administration Loratadine 10 mg 06/01/25 01:26 Loratadine 10 Mg Tablet PO QAM PRN allergy symptoms Menthol/Methyl Salicylate 1 applic 06/02/25 15:36 06/04/25 08:49 Menthol 10% / Methyl Salicylate 15% 57 Gm Tube TOPICAL 1 applic QID PRN Administration ARTHRITIS Methocarbamol 500 mg 06/04/25 21:00 06/04/25 20:19 Methocarbamol 500 Mg Tablet PO 500 mg QID [facility] Administration Montelukast Sodium 10 mg 06/01/25 09:00 06/04/25 08:49 Montelukast Sodium 10 Mg Tablet PO 10 mg DAILY [facility] Administration Ondansetron HCl 4 mg 05/31/25 22:36 Ondansetron Inj 4 Mg/2 Ml Vial IV PUSH Q4H PRN Nausea Oxycodone HCl 10 mg 06/01/25 09:00 06/04/25 20:17 Oxycodone Hcl (*Crx) 10 Mg Tab Sr 12hr PO 10 mg Q12HR [facility] Administration Pantoprazole Sodium 40 mg 06/01/25 09:00 06/04/25 08:49 Pantoprazole 40 Mg Tablet PO 40 mg QAM [facility] Administration Polyethylene Glycol 17 gm 06/01/25 09:00 06/04/25 08:49 Polyethylene Glycol 3350 17 Gm Powd.Pack PO Not Given DAILY [facility] Pregabalin 150 mg 06/01/25 09:00 06/04/25 20:17 Pregabalin (*Crx) 75 Mg Capsule PO 150 mg Q12HR [facility] Administration Saccharomyces Boulardii 250 mg 06/01/25 09:00 06/04/25 17:15 Saccharomyces Boulardii 250 Mg Capsule PO 250 mg TID ELLIS Administration Senna 17.2 mg 06/01/25 09:00 06/04/25 17:15 Sennosides 8.6 Mg Tablet PO 17.2 mg BID ELLIS Administration Silver Sulfadiazine 1 applic 06/02/25 09:00 06/04/25 08:50 Silver Sulfadiazine 1% Cr 50 Gm Jar (*Bkc) TOPICAL 1 applic DAILY ELLIS Administration Radiology Results: ITS Impressions Abdomen/Pelvis CT 05/31/25 16:55 IMPRESSION: 1. Mild hydronephrosis and hydroureter although there is no obstructing distal calcified ureteral calculus. Findings may relate to a recently passed calculus on obstructing noncalcified calculus. Differential includes stricture within the tract infection. Follow-up is suggested to assess resolution. 2. Incidental findings above Renal Ultrasound 06/01/25 15:33 Impression: No acute abnormality. Labs Labs: Laboratory Results - last 24 hr 06/01/25 06/05/25 04:55 03:51 WBC 7.0 RBC 3.98 L Hgb 9.8 L Hct 32.5 L MCV 81.7 MCH 24.6 L MCHC 30.2 L RDW 17.6 H Plt Count 300 MPV 10.5 H Immature Gran % (Auto) 0.4 Neut % (Auto) 66.5 Lymph % (Auto) 18.9 [place] % (Auto) 9.3 H Eos % (Auto) 4.6 H Baso % (Auto) 0.3 Lymph # (Auto) 1.33 [place] # (Auto) 0.7 H Eos # (Auto) 0.3 Baso # (Auto) 0.0 Abs Immat Gran (auto) 0.03 Absolute Neuts (auto) 4.7 Absolute Nucleated RBC 0.000 Nucleated RBC % 0.0 Sodium 131 L Potassium 3.5 Chloride 99 Carbon Dioxide 30 Anion Gap 2 L BUN 9 D Creatinine 0.75 Estim Creat Clear Calc 53 Estimated GFR > 60 Glucose 90 Serum Osmolality 278 L Calcium 8.1 L Quality VTE Prophylaxis VTE prophylaxis: mechanical ordered Hospitalist MIPS Advance Care Plan I have confirmed that the patient's Advanced Care Plan is present, code status is documented, or surrogate decision maker is listed in patient medical record.: Yes Medication Reconciliation I have utilized all available resources to obtain, update and review the patients current medications (includes all prescriptions, OTC, herbals, cannabis, and nutritional supplements).: Yes
[2025-06-05 08:55] VITALS: PULSE 102; PULSE 89; RESP 18; O2SAT 98
[2025-06-05] MEDS: DULoxetine HCL 60 MG CAPSULE.DR PO ×2 (08:55→16:45)
[2025-06-05] MEDS: GABAPENTIN 300 MG CAPSULE PO ×3 (08:55→16:45)
[2025-06-05] MEDS: LIDOCAINE 5% PATCH 1 PATCH TRANSDERM (08:55)
[2025-06-05] MEDS: BISACODYL 10 MG SUPPOSITORY RECTAL (08:55)
[2025-06-05] MEDS: PANTOPRAZOLE 40 MG TABLET PO (08:56)
[2025-06-05] MEDS: oxyCODONE HCL (*CRX) 10 MG TAB SR 12HR PO ×2 (08:56→20:08)
[2025-06-05] MEDS: MONTELUKAST SODIUM 10 MG TABLET PO (08:56)
[2025-06-05] MEDS: PREGABALIN (*CRX) 75 MG CAPSULE 150 MG PO ×2 (08:57→20:08)
[2025-06-05] MEDS: SENNOSIDES 8.6 MG TABLET 17.2 MG PO ×2 (08:57→16:45)
[2025-06-05] MEDS: SACCHAROMYCES BOULARDII 250 MG CAPSULE PO ×3 (08:57→16:45)
[2025-06-05] MEDS: SILVER SULFADIAZINE 1% CR 50 GM JAR (*BKC) 1 APPLIC TOPICAL (08:57)
[2025-06-05] MEDS: HYDROcodone/acetaminophen (*CRX) 7.5-325 MG TABLET 1 TAB PO (11:01)
[2025-06-05 14:23] VITALS: BP 121/60; PULSE 97; RESP 18; TEMP 36.7; O2SAT 97
--- NOTE | 2025-06-05 14:50 | PCPTNOTE ---
Patient declined PT at this time stating she just received a suppository and will not be able to participate at this time.
[2025-06-05] MEDS: LACTULOSE 20 GM/30 ML UDC PO (15:54)
[2025-06-05] MEDS: MENTHOL 10% / METHYL SALICYLATE 15% 57 GM TUBE 1 APPLIC TOPICAL (16:50)
[2025-06-05] MEDS: ATORVASTATIN 40 MG TABLET PO (20:08)
[2025-06-05 22:25] VITALS: BP 108/61; PULSE 100; RESP 16; TEMP 36.7; O2SAT 96
[2025-06-06] MEDS: LEVOTHYROXINE SODIUM 25 MCG TABLET PO (05:10)
[2025-06-06] MEDS: HYDROcodone/acetaminophen (*CRX) 7.5-325 MG TABLET 1 TAB PO (05:12)
[2025-06-06 05:34] VITALS: BP 136/73; PULSE 97; RESP 16; TEMP 36.5; O2SAT 98
[2025-06-06 05:50] LABS: Hematocrit 29.8 % (37.0-47.0); Hemoglobin 9.1 g/dL (12.0-15.0); Immature Granulocyte Percent A 0.7 % (0-0.5); Lymphocytes Absolute Auto 1.28 K/mm3 (0.9-3.2); Mean Corpuscular HGB Conc 30.5 g/dl (32-36); Mean Corpuscular Hemoglobin 25.1 pg (26-34); Mean Corpuscular Volume 82.1 fl (80-100); Nucleated Red Blood Cells Absolute Auto 0.000 K/mm3 (0.0-0.012); Nucleated Red Blood Cells Perc 0.0 % (0.0-0.2); Platelet Count Result 312 k/mm3 (150-375); Red Blood Count 3.63 M/mm3 (4.2-5.4); White Blood Count 7.4 K/mm3 (4.5-10.0)
[2025-06-06 06:16] LABS: Anion Gap 3 mmol/L (4-12); Blood Urea Nitrogen 7 mg/dL (7-17); Calcium 8.3 mg/dL (8.4-10.2); Carbon Dioxide 31 mmol/L (22-30); Chloride 97 mmol/L (98-107); Estimated CRCL calculation 53 ml/min; Estimated Glomerular Filt Rate > 60; Glucose 86 mg/dL (65-110); Potassium 4.0 mmol/L (3.4-5.0); Sodium 131 mmol/L (137-145)
--- NOTE | 2025-06-06 08:47 | PM.IMPN ---
Progress Note: A&P Assessment and Plan (1) Lumbar radiculopathy: Code(s): M54.16 - Radiculopathy, lumbar region Status: Acute Assessment and Plan: Patient was admitted to [facility] on 05/06/2025, Dr. Pedraza. She underwent extension of instrumentation fusion to L2 with removal of rods and bilateral L4 pedicle screws, left pelvic fixation, L3-L4 laminectomy, allograft, autograft, bone morphogenic protein, spinal cord monitoring. Discharged to acute rehab Since discharge from rehab she reports pain to right hip and anterior leg, intermittent spasm. She reports symptoms were similar on the left prior to surgery but not exactly the same. She had been using oxycodone, heating pads. Previously had been taking flexeril per rehab notes but it had been discontinued. She is on lyrica and gabapentin chronically The ER provider did reach out to her surgeon who recommended that the patient just be admitted here for pain control, no acute indication for surgery. She was admitted for intractable pain, unable to get out of bed. She was started on oxycontin ER with oxy ir & fentanyl prn PLAN Flexeril previously stopped 2/2 questionable benefit. Trial of methocarbamol given Solu-Medrol in the emergency room but the patient declined any further steroids she stated that she does not tolerate them very well. Continue PT OT evaluation greatly be appreciated. continue heat/ice prn . Follow up with pain managment Declined NSAIDs due to hx CKD. creatinine 0.92 and her GFR 60 tries to avoid any NSAIDs. Consider increase in gabepentin after titrating methocarbamol Constipation for over a week. Doesn't' tolerate miralax. No results from bisacodyl suppository. Mag citrate today. mineral oil enema. Scheduled senna (2) Chronic obstructive pulmonary disease: Code(s): J44.9 - Chronic obstructive pulmonary disease, unspecified Status: Acute Assessment and Plan: No shortness of breath -continue with albuterol inhaler. -continue with Singulair (3) Hypothyroidism: Code(s): E03.9 - Hypothyroidism, unspecified Status: Acute Assessment and Plan: 06/02: TSH slightly low (0.302), T4 WDL, T3 slightly low (0.72). -continued levothyroxine, decreased from 50>25 daily (4) Hypertension: Code(s): I10 - Essential (primary) hypertension Status: Acute Assessment and Plan: -patient's blood pressure is on the soft side due to the pain medication. -her Lasix and spironolactone are on hold at this time. (5) Hyperlipidemia: Code(s): E78.5 - Hyperlipidemia, unspecified Status: Acute Assessment and Plan: -continue with atorvastatin and monitor liver functions. (6) Hyponatremia: Code(s): E87.1 - Hypo-osmolality and hyponatremia Status: Acute Assessment and Plan: -appear to be chronically low, baseline of 126-132 -holding Lasix and spironolactone for now (continues to deny SOB, CP, BLE edema) -TSH results above (7) Hydroureteronephrosis: Code(s): N13.30 - Unspecified hydronephrosis Status: Acute Assessment and Plan: 06/02 Renal US: The renal cortices bilaterally are thin and echogenic, no solid masses or calculi, no hydronephrosis. Right Kidney: Right kidney 11.9 x 4.2 x 5.4 cm, multiple simple appearing cysts the largest inferior pole 2.5 x 2.9 cm. Left Kidney: Left kidney 9.8 x 4.8 x 5.8 cm, multiple simple appearing renal cysts the largest measuring midpole 1 x 1 cm. Bladder: Schaefer catheter removed today, passed void trial (8) Adrenal nodule: Code(s): E27.9 - Disorder of adrenal gland, unspecified Status: Acute Assessment and Plan: Subcentimeter bilateral adrenal nodules. Arising from the left adrenal nodule there is a solid lesion 1.5 x 1.6 cm incompletely evaluated., Adrenal MRI is recommended. Plan for MRI outpatient, pt with NO current pain stimulator in place. Pt agreeable with this plan. (9) Renal cyst: Code(s): N28.1 - Cyst of kidney, acquired Status: Acute Assessment and Plan: 06/02: Renal US: The renal cortices bilaterally are thin and echogenic, no solid masses or calculi, no hydronephrosis. Right Kidney: Right kidney 11.9 x 4.2 x 5.4 cm, multiple simple appearing cysts the largest inferior pole 2.5 x 2.9 cm. Left Kidney: Left kidney 9.8 x 4.8 x 5.8 cm, multiple simple appearing renal cysts the largest measuring midpole 1 x 1 cm. Bladder: Schaefer catheter in the bladder. --Multiple simple cysts, does not require intervention unless new symptoms. Follow up with PCP. (10) Constipation: Code(s): K59.00 - Constipation, unspecified Status: Acute Assessment and Plan: Severe constipation, over a week since her last BM. Declined miralax, can't tolerate the taste. Scheduled Senna BID, s/p mineral oil enema, bisacodyl suppository x2 & mag citrate Add lactulose, tap water enema Dose of relistor if still not having BM's Plan Pain management, outpt rehab placement Subjective Date/time seen: 06/06/25 08:47 Interval history: Had a BM overnight Reason for hospitalization This is a 74-year-old female hx spine surgery,admitted for acute on cronic lower back pain. Last surgery Shara by Dr. Choudhary at [facility]. Has urinary retention, Schaefer placed. Also treating hyponatremia. TSH 0.032, T3 0.72--Decreased synthroid from 50>25 Exam Narrative: General - Awake and alert. No acute distress Eyes - PERRLA, EOM intact ENT - No thrush, No erythema Neck - No noticeable or palpable swelling Lymph Nodes - No lymphadenopathy Cardiovascular - RRR no m/r/g, no JVD Lungs: Clear to auscultation, No wheezing, use of accessory muscles Skin - Skin warm and dry, no wounds or rashes Abdomen - Normal bowel sounds, abdomen soft and nontender Extremities - No edema, cyanosis or clubbing Musculoskeletal - 5/5 strength, normal range of motion, TTP right hip Neurological ? Alert and oriented x 3, CN 2-12 grossly intact. Psych: Normal mood and affect Objective Data Vital Signs Vital Signs: Vital Signs - 24 hr 06/05/25 08:55 06/05/25 08:55 06/05/25 14:23 Temperature 98.0 F Pulse Rate 89 102 H 97 Respiratory Rate 18 18 Blood Pressure 121/60 Pulse Oximetry 98 97 Oxygen Delivery Room Air Fraction of Inspired Oxygen 21 06/05/25 20:00 06/05/25 22:25 06/06/25 05:34 Temperature 98.0 F 97.7 F Pulse Rate 100 97 Respiratory Rate 16 16 Blood Pressure 108/61 136/73 Pulse Oximetry 96 98 Oxygen Delivery Room Air Fraction of Inspired Oxygen Intake/Output Intake/Output: Intake & Output 06/03/25 06/04/25 06/05/25 06/06/25 23:59 23:59 23:59 23:59 Intake Total 2547 636 9017 1100 Output Total 1175 1700 Balance -95 -958 1460 1100 Meds/Results Medications: Active Medications Generic Name Dose Route Start Last Admin Trade Name Freq PRN Reason Stop Dose Admin Hydrocodone Bitart/Acetaminophen 1 tab 06/03/25 14:00 06/06/25 05:12 Hydrocodone/Acetaminophen (*Crx) 7.5-325 Mg Tablet PO 1 tab Q4H PRN Administration Pain Rated 7-10 Albuterol 2 puff 06/01/25 01:04 Albuterol Sulfate (*Sp) Aerosol 1 Puff INHALATION Q4H PRN Shortness Of Breath Or Wheezing Atorvastatin Calcium 40 mg 06/01/25 21:00 06/05/25 20:08 Atorvastatin 40 Mg Tablet PO 40 mg HS ELLIS Administration Bisacodyl 10 mg 06/04/25 09:30 06/05/25 08:55 Bisacodyl 10 Mg Suppository RECTAL 10 mg DAILY ELLIS Administration Diphenhydramine HCl 25 mg 05/31/25 23:28 06/01/25 21:26 Diphenhydramine Hcl Inj 50 Mg/Ml Vial IV PUSH 25 mg Q4H PRN Administration Itching Docusate Sodium 100 mg 06/01/25 01:04 Docusate Sodium 100 Mg Capsule PO Q12H PRN Constipation Duloxetine HCl 60 mg 06/01/25 09:00 06/05/25 16:45 Duloxetine Hcl 60 Mg Capsule.Dr PO 60 mg BID ELLIS Administration Ergocalciferol 1,250 mcg 06/02/25 09:00 06/02/25 08:07 Ergocalciferol (Vitamin D2) 1,250 Mcg (50,000 Units) Capsule PO Not Given Mo@0900 ELLIS Gabapentin 300 mg 06/01/25 09:00 06/05/25 16:45 Gabapentin 300 Mg Capsule PO 300 mg TID ELLIS Administration Levothyroxine Sodium 25 mcg 06/05/25 06:30 06/06/25 05:10 Levothyroxine Sodium 25 Mcg Tablet PO 25 mcg DAILY@0630 ELLIS Administration Lidocaine 1 patch 06/02/25 09:00 06/05/25 08:55 Lidocaine 5% Patch TRANSDERM 1 patch DAILY ELLIS Administration Loratadine 10 mg 06/01/25 01:26 Loratadine 10 Mg Tablet PO QAM PRN allergy symptoms Menthol/Methyl Salicylate 1 applic 06/02/25 15:36 06/05/25 16:50 Menthol 10% / Methyl Salicylate 15% 57 Gm Tube TOPICAL 1 applic QID PRN Administration ARTHRITIS Methocarbamol 750 mg 06/05/25 17:00 06/05/25 20:08 Methocarbamol 750 Mg Tablet PO 750 mg QID ELLIS Administration Montelukast Sodium 10 mg 06/01/25 09:00 06/05/25 08:56 Montelukast Sodium 10 Mg Tablet PO 10 mg DAILY ELLIS Administration Ondansetron HCl 4 mg 05/31/25 22:36 Ondansetron Inj 4 Mg/2 Ml Vial IV PUSH Q4H PRN Nausea Oxycodone HCl 10 mg 06/01/25 09:00 06/05/25 20:08 Oxycodone Hcl (*Crx) 10 Mg Tab Sr 12hr PO 10 mg Q12HR ELLIS Administration Pantoprazole Sodium 40 mg 06/01/25 09:00 06/05/25 08:56 Pantoprazole 40 Mg Tablet PO 40 mg QAM ELLIS Administration Polyethylene Glycol 17 gm 06/01/25 09:00 06/05/25 08:59 Polyethylene Glycol 3350 17 Gm Powd.Pack PO Not Given DAILY ELLIS Pregabalin 150 mg 06/01/25 09:00 06/05/25 20:08 Pregabalin (*Crx) 75 Mg Capsule PO 150 mg Q12HR ELLIS Administration Saccharomyces Boulardii 250 mg 06/01/25 09:00 06/05/25 16:45 Saccharomyces Boulardii 250 Mg Capsule PO 250 mg TID ELLIS Administration Senna 17.2 mg 06/01/25 09:00 06/05/25 16:45 Sennosides 8.6 Mg Tablet PO 17.2 mg BID ELLIS Administration Silver Sulfadiazine 1 applic 06/02/25 09:00 06/05/25 08:57 Silver Sulfadiazine 1% Cr 50 Gm Jar (*Bkc) TOPICAL 1 applic DAILY ELLIS Administration Radiology Results: ITS Impressions Abdomen/Pelvis CT 05/31/25 16:55 IMPRESSION: 1. Mild hydronephrosis and hydroureter although there is no obstructing distal calcified ureteral calculus. Findings may relate to a recently passed calculus on obstructing noncalcified calculus. Differential includes stricture within the tract infection. Follow-up is suggested to assess resolution. 2. Incidental findings above Renal Ultrasound 06/01/25 15:33 Impression: No acute abnormality. Labs Labs: Laboratory Results - last 24 hr 06/06/25 04:58 WBC 7.4 RBC 3.63 L Hgb 9.1 L Hct 29.8 L MCV 82.1 MCH 25.1 L MCHC 30.5 L RDW 17.8 H Plt Count 312 MPV 10.9 H Immature Gran % (Auto) 0.7 H Neut % (Auto) 67.8 Lymph % (Auto) 17.3 L [place] % (Auto) 10.6 H Eos % (Auto) 3.3 Baso % (Auto) 0.3 Lymph # (Auto) 1.28 [place] # (Auto) 0.8 H Eos # (Auto) 0.2 Baso # (Auto) 0.0 Abs Immat Gran (auto) 0.05 H Absolute Neuts (auto) 5.0 Absolute Nucleated RBC 0.000 Nucleated RBC % 0.0 Sodium 131 L Potassium 4.0 Chloride 97 L Carbon Dioxide 31 H Anion Gap 3 L BUN 7 Creatinine 0.75 Estim Creat Clear Calc 53 Estimated GFR > 60 Glucose 86 Calcium 8.3 L Quality VTE Prophylaxis VTE prophylaxis: mechanical ordered
[2025-06-06] MEDS: oxyCODONE HCL (*CRX) 10 MG TAB SR 12HR PO (08:51)
[2025-06-06] MEDS: GABAPENTIN 300 MG CAPSULE PO ×2 (08:51→12:05)
[2025-06-06] MEDS: PANTOPRAZOLE 40 MG TABLET PO (08:51)
[2025-06-06] MEDS: SENNOSIDES 8.6 MG TABLET 17.2 MG PO (08:52)
[2025-06-06] MEDS: DULoxetine HCL 60 MG CAPSULE.DR PO (08:52)
[2025-06-06] MEDS: SACCHAROMYCES BOULARDII 250 MG CAPSULE PO ×2 (08:52→12:05)
[2025-06-06] MEDS: PREGABALIN (*CRX) 75 MG CAPSULE 150 MG PO (08:52)
[2025-06-06] MEDS: LIDOCAINE 5% PATCH 1 PATCH TRANSDERM (08:53)
[2025-06-06] MEDS: MONTELUKAST SODIUM 10 MG TABLET PO (08:53)
[2025-06-06] MEDS: SILVER SULFADIAZINE 1% CR 50 GM JAR (*BKC) 1 APPLIC TOPICAL (08:59)
--- NOTE | 2025-06-06 10:50 | PCNWS ---
Weekly nutritional screen. Patient is tolerating current diet with adequate intake. No weight loss reported. No nutritional needs at this time.
[2025-06-06] MEDS: MENTHOL 10% / METHYL SALICYLATE 15% 57 GM TUBE 1 APPLIC TOPICAL (12:05)
[2025-06-06 12:08] LABS: Osmolality, Urine 134 mOsmol/kg (.)
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
== END 2025-06-06 15:27 | disposition home health service (06) | DRG 948 ==
LOC: ANHED 14:12 → ANH2MED 23:05
PROVIDERS: Nurse Practitioner; Admitting Provider Internal Medicine; Emergency Provider Physician Assistant; PCP Family Medicine; Visit Provider Nurse Practitioner Acute Care
DX: G89.18 Other acute postprocedural pain (principal); E87.1 Hypo-osmolality and hyponatremia; N13.30 Unspecified hydronephrosis; M54.16 Radiculopathy, lumbar region; K59.00 Constipation, unspecified; M81.0 Age-related osteoporosis without current pathological fracture; I12.9 Hypertensive chronic kidney disease with stage 1 through stage 4 chronic kidney disease, or unspecified chronic kidney disease; N18.9 Chronic kidney disease, unspecified; E03.9 Hypothyroidism, unspecified; E27.9 Disorder of adrenal gland, unspecified; E78.5 Hyperlipidemia, unspecified; J44.9 Chronic obstructive pulmonary disease, unspecified; Z86.73 Personal history of transient ischemic attack (TIA), and cerebral infarction without residual deficits; Z90.49 Acquired absence of other specified parts of digestive tract; Z87.891 Personal history of nicotine dependence; D64.9 Anemia, unspecified; N28.1 Cyst of kidney, acquired; R33.9 Retention of urine, unspecified
CPT/HCPCS: 36415; 74177; 76770; 80048; 80053; 81003; 82306; 83605; 83735; 83930; 83935; 84295; 84300; 84439; 84443; 84480; 85025; 85027; 86140; 96361; 96365; 96374; 96375; 96376; 97110; 97162; 97166; 97530; 97535; 99285; A9270; G0378; J0690; J1200; J1885; J2405; J2919; J3010; J7030; Q9967